=== PATIENT | male | born 1965 | race African-American/Black ===

== ENCOUNTER 2019-09-22 14:15 | Emergency (ER) | payer BC, SELFPAY ==
--- NOTE | ~2019-09-22 | XR_ITS ---
EXAMINATION: XR knee RT min 4V DATE: 09/22/2019 15:05 INDICATION: Right knee pain and swelling. TECHNIQUE: 4 views of right knee were obtained. COMPARISON: Right knee radiographs 12/16/2017 FINDINGS: Bone alignment is normal. No fracture. There is mild tricompartmental osteoarthritis. No kn ee joint effusion. IMPRESSION: 1. Mild right knee osteoarthritis. Reviewed, dictated and finalized at location A.
[2019-09-22 14:20] VITALS: BP 123/82; PULSE 100; RESP 20; TEMP 36.6; O2SAT 98
--- NOTE | 2019-09-22 15:28 | ED.LOWEXIN ---
HPI - Extremity Injury (Lower) General Chief Complaint: Extremity Injury, Lower Stated Complaint: right knee injury Time Seen by Provider: 09/22/19 15:00 Source: patient Mode of arrival: ambulatory Limitations: no limitations History of Present Illness HPI Narrative: This is a 53-year-old male that presents the emergency department for right knee pain x4 days. Reports a twisting injury to the knee. Reports since he has had pain and swelling of the knee. Denies decreased range of motion or numbness. Related Data Home Medications Medication Instructions Recorded Confirmed furosemide 40 mg PO DAILY 09/22/19 glimepiride 1 mg PO DAILY 09/22/19 glycopyrrolate 20 mg PO BID 09/22/19 metformin 1,000 mg PO BID 09/22/19 pantoprazole 40 mg PO DAILY 09/22/19 pioglitazone 45 mg PO BID 09/22/19 Allergies Allergy/AdvReac Type Severity Reaction Status Date / Time No Known Allergies Allergy Unverified 09/22/19 14:26 Review of Systems Review of Systems: Narrative: CONSTITUTIONAL: Denies fever MUSCULOSKELETAL: Reports joint pain, and myalgia. NEUROLOGIC: Denies numbness, or weakness. All systems reviewed & are unremarkable except as noted in HPI and below PMFSH Past Medical History Medical History (Updated 09/22/19 @ 15:33 by Natty Nj PA-C) History of diabetes mellitus History of gastroesophageal reflux (GERD) Social History Social History Gender identity (if verbalized by the patient): Male Exam Narrative: Exam Narrative: GENERAL: Well-appearing, well-nourished, and in no acute distress. HEAD: Normocephalic, atraumatic. EYES: EOMI. EXTREMITIES: Normal range of motion. No edema or obvious deformity. No erythema or warmth. Normal sensation. Normal DP pulses SKIN: Warm, dry, no rash. NEURO: No focal deficits. Alert and oriented x3. PSYCH: Normal mood and affect Course Vital Signs Vital signs: Vital Signs Temperature 97.8 F 09/22/19 14:20 Pulse Rate 100 09/22/19 14:20 Respiratory Rate 20 09/22/19 14:20 Blood Pressure 123/82 09/22/19 14:20 Pulse Oximetry 98 09/22/19 14:20 Temperature 97.8 F 09/22/19 14: Pulse Rate 100 09/22/19 14:20 Respiratory Rate 20 09/22/19 14:20 Blood Pressure 123/82 09/22/19 14:20 Pulse Oximetry 98 09/22/19 14:20 MDM - Extremity Injury (Lower) MDM Narrative Medical decision making narrative: Patient presents the emergency department for right knee pain after a twisting injury 4 days ago. Right knee x-rays without acute findings. Patient given an Shawn wrap and crutches. Was instructed on care of knee sprain. Is to follow-up with orthopedics. Was given warnings to return to the ER Imaging Data Radiologist's impression: ITS Impressions Knee X-Ray 09/22/19 15:07 IMPRESSION: 1. Mild right knee osteoarthritis. Critical Care Time Critical Care Time Critical Care Time: No Discharge Plan Discharge Clinical Impression: Acute pain of right knee Patient Disposition: Home, Self-Care Condition: Stable Instructions: Knee Sprain (ED) Additional Instructions: Return to the emergency department if you experience fever, redness and swelling of your leg, or any other symptoms that are concerning to you Wear SHAWN wrap and use crutches. No weight on the affected leg until able to bear weight without pain. Ice and elevate extremity. Tylenol or ibuprofen as needed for pain Follow up with orthopedics for further care Prescriptions: No Action furosemide 40 mg tablet 40 mg PO DAILY RF: 0 pioglitazone 45 mg tablet 45 mg PO BID RF: 0 glimepiride 1 mg tablet 1 mg PO DAILY RF: 0 pantoprazole 40 mg tablet,delayed release (DR/EC) 40 mg PO DAILY RF: 0 metformin 500 mg tablet extended release 24 hr 1,000 mg PO BID RF: 0 glycopyrrolate 2 mg tablet 20 mg PO BID RF: 0 Follow-up/Referrals: Ole Barillas MD [Physician] - 1 Week Pantera Seth MD [Primary Care Provid
[2019-09-22 16:16] VITALS: PULSE 88; RESP 20; O2SAT 100
== END 2019-09-22 16:18 | disposition home or self-care (01) ==
PROVIDERS: Emergency Provider Emergency Medicine; PCP Family Medicine Adolescent Medicine
DX: M25.561 Pain in right knee (principal); E11.9 Type 2 diabetes mellitus without complications; Z79.84 Long term (current) use of oral hypoglycemic drugs; K21.9 Gastro-esophageal reflux disease without esophagitis
CPT/HCPCS: 73564; 99283

== ENCOUNTER 2020-06-07 04:45 | Emergency (ER) | payer OTHER, BC, SELFPAY ==
--- NOTE | ~2020-06-07 | XR_ITS ---
EXAMINATION: XR chest 1V portable DATE: 06/07/2020 06:20 INDICATION: Lower limb swelling TECHNIQUE: frontal view of the chest was obtained. COMPARISON: Chest radiograph dated 05/21/2012 FINDINGS: The lungs remain clear with no focal airspace opacities, pulmonary edema, pleural effusion or pneumot horax. The cardiomediastinal silhouette is normal. There are bridging osteophytes at multiple levels in the spine, consistent with diffuse idiopathic skeletal hyperostosis (DISH). IMPRESSION: 1. No acute cardiopulmonary disease. Reviewed, dictated and finalized at location A.
[2020-06-07 04:50] VITALS: BP 150/92; PULSE 81; RESP 20; TEMP 36.7; O2SAT 99
--- NOTE | 2020-06-07 05:21 | ECG_ITS ---
Measurements Intervals Page Rate: 74 P: 57 MT: 208 QRS: -34 QRSD: 102 T: 72 QT: 376 QTc: 417 Interpretive Statements SINUS RHYTHM WITH FIRST DEGREE AV BLOCK LEFT AXIS DEVIATION VOLTAGE CRITERIA FOR LVH BORDERLINE R WAVE PROGRESSION, ANTERIOR LEADS ABNORMAL ECG Electronically Signed On 06-07-2020 7:10:55 CDT by Dakota Saldivar D.O.
--- NOTE | 2020-06-07 05:45 | ED.EXTPRO ---
HPI - Extremity Problem General Chief complaint: Extremity Problem,Nontraumatic Stated complaint: calves swollen/ rash Time Seen by Provider: 06/07/20 05:11 Source: patient and RN notes reviewed Limitations: no limitations History of Present Illness HPI Narrative: Patient is 54 years old -[place] male noticed some swelling and rash of the lower legs bilaterally 1 day ago. Patient denies any fever, chills, nausea, vomiting, chest pain, shortness of breath, headache, back pain or abdominal pain. History of diabetes, currently patient on Lasix of unknown reason. Related Data Home Medications Medication Instructions Recorded Confirmed furosemide 40 mg PO DAILY 09/22/19 glimepiride 1 mg PO DAILY 09/22/19 glycopyrrolate 20 mg PO BID 09/22/19 metformin 1,000 mg PO BID 09/22/19 pantoprazole 40 mg PO DAILY 09/22/19 pioglitazone 45 mg PO BID 09/22/19 Allergies Allergy/AdvReac Type Severity Reaction Status Date / Time No Known Allergies Allergy Unverified 09/22/19 14:26 Review of Systems Review of Systems: Narrative: CONSTITUTIONAL: Denies fever, chills, or sweats. EYES: Denies visual changes, redness, or discharge. ENT: Denies rhinorrhea, congestion, sore throat, or otalgia. CARDIOVASCULAR: Denies chest pain, palpitations, or edema. RESPIRATORY: Denies cough or dyspnea. GASTROINTESTINAL: Denies abdominal pain, nausea, vomiting, or diarrhea. GENITOURINARY: Denies dysuria or hematuria. SKIN: Denies rash or itching. MUSCULOSKELETAL: Denies back pain, joint pain, or myalgia. NEUROLOGIC: Denies headache, numbness, or weakness. PSYCHIATRIC: Denies anxiety or depression. PMFSH Past Medical History Medical History History of diabetes mellitus History of gastroesophageal reflux (GERD) Social History Social History Gender identity (if verbalized by the patient): Male Exam Narrative: Exam Narrative: General appearance: Well-developed, well-nourished Skin: Normal color 2+ edema bilaterally more on the right side, with slight redness, no warmth, no discharge, no tenderness the skin is shiny. Head: Normocephalic, nontraumatic Eyes: Clear conjunctiva ENT: Oropharynx normal, ears normal, nose normal Neck: Supple, nontender Chest and respiratory: Airway patent, no respiratory distress, no accessory muscle use Heart: Regular rate/rhythm Abdomen: Soft, nontender, no organomegaly, quiet bowel sounds Vascular: Normal peripheral pulses, normal capillary refill. 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, no gross motor deficit Course Course Emergency Course: Stable Vital Signs Vital signs: Vital Signs Temperature 36.7 C 06/07/20 04:50 Pulse Rate 81 06/07/20 04:50 Respiratory Rate 20 06/07/20 04:50 Blood Pressure 150/92 H 06/07/20 04:50 Pulse Oximetry 99 06/07/20 04:50 Temperature 36.7 C 06/07/20 04:50 Pulse Rate 81 06/07/20 04:50 Respiratory Rate 20 06/07/20 04:50 Blood Pressure 150/92 H 06/07/20 04:50 Pulse Oximetry 99 06/07/20 04:50 MDM - Extremity (Nontraumatic) MDM Narrative Medical decision making narrative: Leg edema high likely secondary to dependent edema, patient works in a standing and sitting position for longer hours. Labs, chest x-ray ordered to rule out the possibility of congestive heart failure, liver failure or kidney failure. Further plan to follow Differential Diagnosis Differential diagnosis: Likely lower extremity edema and other (Chronic stasis dermatitis) Lab Data Result diagrams: 06/07/20 05:37
[2020-06-07 05:48] LABS: Basophils Percent Auto 0.5 % (0.2-1.2); Eosinophils Absolute Auto 0.4 K/mm3 (0-0.3); Eosinophils Percent Auto 4.5 % (0-4.4); Immature Granulocyte Absolute 0.02 K/mm3 (0.00-0.031); Immature Granulocyte Percent A 0.2 % (0-0.5); Lymphocytes Absolute Auto 1.96 K/mm3 (0.9-3.2); Lymphocytes Percent Auto 24.4 % (18.3-44.2); Mean Corpuscular HGB Conc 32.6 g/dl (32-36); Mean Corpuscular Hemoglobin 29.2 pg (26-34); Mean Corpuscular Volume 89.6 fl (80-100); Mean Platelet Volume 8.8 fl (7.4-10.4); Monocytes Absolute Auto 0.9 K/mm3 (0.1-0.6); Monocytes Percent Auto 11.5 % (2.6-8.5); Neutrophils Absolute Auto 4.7 K/mm3 (1.3-6.7); Neutrophils Percent Auto 58.9 % (45.5-73.1); Platelet Count Result 295 k/mm3 (150-375); Red Cell Distribution Width 13.2 % (11.5-14.5)
[2020-06-07 06:00] LABS: Alanine Aminotransferase 21 U/L (4-50); Albumin Level 4.3 g/dL (3.5-5.1); Alkaline Phosphatase 73 U/L (38-126); Anion Gap 5 mmol/L (8-16); Aspartate Amino Transferase 26 U/L (17-59); Bilirubin,Total 0.9 mg/dL (0.2-1.3); Blood Urea Nitrogen 19 mg/dL (9-20); Calcium 9.1 mg/dL (8.4-10.2); Carbon Dioxide 31 mmol/L (22-30); Chloride 105 mmol/L (98-107); Estimated CRCL calculation 99 ml/min; Estimated Glomerular Filt Rate > 60; Glucose 114 mg/dL (75-110); Sodium 141 mmol/L (137-145)
[2020-06-07 06:08] LABS: NT Pro B Type Natriuretic Pept 45 PG/ML (5-100)
[2020-06-07 06:34] VITALS: BP 153/88; PULSE 75; RESP 20; O2SAT 100
== END 2020-06-07 06:46 | disposition home or self-care (01) ==
PROVIDERS: Emergency Provider Emergency Medicine; PCP Family Medicine Adolescent Medicine
DX: R60.0 Localized edema (principal); I87.2 Venous insufficiency (chronic) (peripheral); E11.9 Type 2 diabetes mellitus without complications; K21.9 Gastro-esophageal reflux disease without esophagitis; Z79.84 Long term (current) use of oral hypoglycemic drugs; I44.0 Atrioventricular block, first degree; R94.31 Abnormal electrocardiogram [ECG] [EKG]
CPT/HCPCS: 36415; 71045; 80053; 83880; 85025; 93005; 99283

== ENCOUNTER 2020-06-27 08:50 | Emergency (ER) | payer OTHER, BC, SELFPAY ==
--- NOTE | ~2020-06-27 | XR_ITS ---
XR knee LT min 4V DATE: 06/27/2020 09:11 INDICATION: Left knee anterior swelling, pain after injury TECHNIQUE: 4 views COMPARISON: 06/12/2012 left knee FINDINGS: No fracture or dislocation or joint effusion is evident. No periosteal reaction or bone destruction. Interspaces are preserved. No radiopaque intra-articular loose body or chondrocalcinosis. Prominent superior pole patellar enthesopathy at the quadriceps tendon insertion. IMPRESSION: No fracture or dislocation or joint effusion Reviewed, dictated and finalized at location A.
[2020-06-27 08:55] VITALS: BP 138/89; PULSE 89; RESP 18; TEMP 36.4; O2SAT 96
--- NOTE | 2020-06-27 09:11 | ED.LOWEXIN ---
HPI - Extremity Injury (Lower) General Chief Complaint: Extremity Injury, Lower <Natty Nj PA-C - Last Filed: 06/27/20 09:39> Stated Complaint: knee pain <KELLI Sullivan Last Filed: 06/27/20 09:39> Time Seen by Provider: 06/27/20 09:02 <KELLI Sullivan Last Filed: 06/27/20 09:39> Source: patient <KELLI Sullivan Last Filed: 06/27/20 09:39> Mode of arrival: ambulatory <KELLI Sullivan Last Filed: 06/27/20 09:39> Limitations: no limitations <KELLI Sullivan Last Filed: 06/27/20 09:39> History of Present Illness HPI Narrative: This is a 54 year old male that presents to the ER for left knee injury sustained yesterday. Reports he was going to stand up at his desk and hit his knee on it. Reports since he has had pain below the knee. Worse with movement and relieved with rest. Reports decreased ROM due to pain. Denies fever, erythema, edema or numbness. <KELLI Sullivan Last Filed: 06/27/20 09:39> Related Data Home Medications: Home Medications Medication Instructions Recorded Confirmed furosemide 40 mg PO DAILY 09/22/19 glimepiride 1 mg PO DAILY 09/22/19 glycopyrrolate 20 mg PO BID 09/22/19 metformin 1,000 mg PO BID 09/22/19 pantoprazole 40 mg PO DAILY 09/22/19 pioglitazone 45 mg PO BID 09/22/19 <KELLI Sullivan Last Filed: 06/27/20 09:39> Allergies/Adverse Reactions: Allergies Allergy/AdvReac Type Severity Reaction Status Date / Time No Known Allergies Allergy Verified 06/27/20 08:58 <KELLI Sullivan Last Filed: 06/27/20 09:39> Review of Systems Review of Systems: Narrative: CONSTITUTIONAL: Denies fever SKIN: Denies rash MUSCULOSKELETAL: Reports joint pain, and myalgia. NEUROLOGIC: Denies numbness <KELLI Sullivan Last Filed: 06/27/20 09:39> All systems reviewed & are unremarkable except as noted in HPI and below <Natty Nj PA-C - Last Filed: 06/27/20 09:39> PMFSH Past Medical History Medical History: Medical History History of diabetes mellitus History of gastroesophageal reflux (GERD) <KELLI Sullivan Last Filed: 06/27/20 09:39> Social History Social History: Social History Gender identity (if verbalized by the patient): Male <KELLI Sullivan Last Filed: 06/27/20 09:39> Exam Narrative: Exam Narrative: GENERAL: Well-appearing, well-nourished, and in no acute distress. HEAD: Normocephalic, atraumatic. EYES: EOMI. EXTREMITIES: Normal range of motion, except mildly decreased active ROM in the left knee due to pain. No edema, erythema or obvious deformity. Tender to palpation of the tibial tuberosity. Normal DP pulses. Normal sensation SKIN: Warm, dry, no rash. NEURO: No focal deficits. Alert and oriented x3. PSYCH: Normal mood and affect <KELLI Sullivan Last Filed: 06/27/20 09:39> Course Vital Signs Vital signs: Vital Signs Temperature 36.4 C 06/27/20 08:55 Pulse Rate 89 06/27/20 08:55 Respiratory Rate 18 06/27/20 08:55 Blood Pressure 138/89 06/27/20 08:55 Pulse Oximetry 96 06/27/20 08:55 Temperature 36.4 C 06/27/20 08:55 Pulse Rate 89 06/27/20 08:55 Respiratory Rate 18 06/27/20 08:55 Blood Pressure 138/89 06/27/20 08:55 Pulse Oximetry 96 06/27/20 08:55 <KELLI Sullivan Last Filed: 06/27/20 09:39> Vital Signs Temperature 36.4 C 06/27/20 08:55 Pulse Rate 89 06/27/20 08:55 Respiratory Rate 18 06/27/20 08:55 Blood Pressure 138/89 06/27/20 08:55 Pulse Oximetry 96 06/27/20 08:55 Temperature 36.4 C 06/27/20 08:55 Pulse Rate 89 06/27/20 08:55 Respiratory Rate 18 06/27/20 08:55 Blood Pressure 138/89 06/27/20 08:55 Pulse Oximetry 96 06/27/20 08:55 <Marcie Mclean MD - Last Filed: 06/27/20 13:28> [facility]
--- NOTE | 2020-06-27 09:17 | PC.NURSE ---
patient back from XR
== END 2020-06-27 09:45 | disposition home or self-care (01) ==
PROVIDERS: Emergency Provider Emergency Medicine; PCP Family Medicine Adolescent Medicine
DX: S80.02XA Contusion of left knee, initial encounter (principal); E11.9 Type 2 diabetes mellitus without complications; K21.9 Gastro-esophageal reflux disease without esophagitis; Z79.84 Long term (current) use of oral hypoglycemic drugs; W22.8XXA Striking against or struck by other objects, initial encounter
CPT/HCPCS: 73564; 99283

== ENCOUNTER 2022-04-01 11:34 | Observation (INO) | payer OTHER, BC, SELFPAY ==
--- NOTE | ~2022-04-01 | XR_ITS ---
EXAMINATION: XR md joint inject/asp w image DATE: 04/02/2022 08:51 INDICATION: Left ankle effusion and pain and swelling. TECHNIQUE: A time-out was performed to verify the patient's name, date of , and procedure to b e performed. The procedure including the risks, benefits, and alternatives was discussed with the pat ient. Risks discussed included bleeding and infection. The patient understood the risks and agreed to proceed. The skin overlying the left ankle joint was prepped and draped in usual sterile fashion. Anesthetic was administered with 1% lidocaine subcutaneously. An 18 G needle was advanced under fluo roscopic guidance into the joint. Fluid was aspirated. The needle was removed and the entry site was cleaned and dressed. There were no immediate complications. Fluoroscopy exposure time was 0.1 minut es. The total number of images was 1. FINDINGS: Real-time fluoroscopy demonstrates the needle in the left ankle joint. IMPRESSION: 1. Fluoroscopy guided left ankle joint aspiration yielding 3 mL yellow fluid. Reviewed, dictated and finalized at location A. BIT PREPARATOR
--- NOTE | ~2022-04-01 | XR_ITS ---
EXAM: XR ankle LT min 3V DATE: 04/01/2022 15:32 HISTORY: Pt rolled ankle 2 months ago. Pain/swelling - lateral/medial . COMPARISON: 06/11/2012. FINDINGS: Normal mineralization. Minimal cortical step-off at the talar dome. Lytic lesions in the d istal tibia, medial talus, and lateral talus. Subchondral sclerosis. Achilles and plantar enthesopath y Heterotopic bone formation versus osseous fragmentation about the ankle joint. Large ankle joint ef fusion. Considerable soft tissue swelling about the ankle. IMPRESSION: Mildly depressed fracture of the talar dome. Large erosions versus large subcortical cyst s in the distal tibia and talus, with heterotopic bone formation versus osseous fragmentation, a larg e ankle joint effusion, and considerable soft tissue swelling. These findings may represent inflammat ory, neuropathic, or septic arthropathy. Reviewed, dictated and finalized at [facility]. [place] IMPRESSION: Mildly depressed fracture of the talar dome. Large erosions versus large subcortical cysts in the distal tibia and talus, with heterotopic bone fo rmation versus osseous fragmentation, a large ankle joint effusion, and conside rable soft tissue swelling. These findings may represent inflammatory, neuropat hic, or septic arthropathy.
--- NOTE | ~2022-04-01 | CT_ITS ---
CT OF left ankle EXAMINATION: CT ankle LT wo con DATE: 04/01/2022 16:28 INDICATION: TECHNIQUE: Computed tomography (CT) of the left ankle was performed without intravenous contrast. Aut omated exposure control and iterative reconstruction technique were employed. The dose-length product was 408.07 mGy-cm. COMPARISON: X-ray left ankle, same date FINDINGS: Limitations: None Bones: Erosion on the undersurface of the cuboid, with sclerotic margins. Large subchondral cysts in the distal talus with depression of the cortical surface. Large subcortical cystic lesion in the mid and lateral talus with cortical depression of the mid and lateral talar dome. Large cystic lesion in the anteromedial talus. Small subcortical cysts in the medial and lateral aspect of the distal tibia. Tibiotalar joint space narrowing. Scattered ossific fragments in the joint space. Soft Tissues: Dermal thickening and subcutaneous edema about the ankle. Large No definite ulceration/ soft tissue defect. The flexor and extensor tendons are grossly intact. Fluid: Large ankle joint effusion. IMPRESSION: Significant left ankle abnormalities, possibly representing posttraumatic osteoarthritis, with early cortical collapse overlying large subcortical cysts in the distal tibia and lateral talus, a large an kle joint effusion, and considerable surrounding soft tissue swelling/edema. Infection cannot be excl uded and should remain in the differential. Reviewed, dictated and finalized at location K. H PIECER IMPRESSION: Significant left ankle abnormalities, possibly representing posttraumatic osteo arthritis, with early cortical collapse overlying large subcortical cysts in th e distal tibia and lateral talus, a large ankle joint effusion, and considerabl e surrounding soft tissue swelling/edema. Infection cannot be excluded and shou ld remain in the differential.
--- NOTE | ~2022-04-01 | US_ITS ---
EXAMINATION: US venous doppler [facility] DATE: 04/02/2022 09:12 INDICATION: Lower limb swelling TECHNIQUE: Grayscale ultrasound images without and with compression and Doppler ultrasound images of the bilateral lower extremity veins were obtained. COMPARISON: None. FINDINGS: The visualized portions of right common femoral vein, profunda (deep) femoral vein, femoral vein, pop liteal vein, posterior tibial veins, peroneal veins, gastrocnemius vein and greater saphenous vein ou tflow are patent. The visualized portions of left common femoral vein, profunda femoral vein, femoral vein, popliteal v ein, posterior tibial veins, peroneal veins, gastrocnemius vein and greater saphenous vein outflow ar e patent. IMPRESSION: 1. No deep venous thrombosis in either lower limb. Reviewed, dictated and finalized at location B. RENTAL CLERK
[2022-04-01 12:26] VITALS: BP 151/84; PULSE 81; RESP 15; TEMP 37; O2SAT 99
--- NOTE | 2022-04-01 14:22 | ED.LOWEXIN ---
HPI - Extremity Injury (Lower) General Chief Complaint: Extremity Injury, Lower Stated Complaint: left leg swelling, injury 4 mos ago Time Seen by Provider: 04/01/22 14:21 History of Present Illness HPI Narrative: Patient is a 56-year-old male presenting with left ankle swelling. Patient states that he injured his left ankle at work several months ago. Since that time he has been treating it with aspirin but the pain has continued. States that the pain improves whenever he rests it. States that over the last couple of days his left ankle has become much more swollen. States it is painful to ambulate but not to move it. He denies erythema or warmth. No fevers or chills. No new recent injuries. No further complaints. Related Data Home Medications Medication Instructions Recorded Confirmed amlodipine 10 mg tablet 10 mg PO DAILY 04/01/22 04/01/22 glycopyrrolate 2 mg tablet 4 mg PO BID 04/01/22 04/01/22 metformin 500 mg tablet,extended 1,000 mg PO BID 04/01/22 04/02/22 release 24 hr pantoprazole 40 mg tablet,delayed 40 mg PO DAILY 04/01/22 04/01/22 release Allergies Allergy/AdvReac Type Severity Reaction Status Date / Time No Known Allergies Allergy Verified 04/01/22 14:32 Review of Systems Review of Systems: All systems reviewed & are unremarkable except as noted in HPI and below PMFSH Past Medical History Medical History (Updated 04/03/22 @ 19:13 by Catina Finn MD) Charcot ankle Diffuse idiopathic skeletal hyperostosis Noted on x-ray in May 2020. Gastroesophageal reflux disease Hyperlipidemia Hypertension Obstructive sleep apnea Type 2 diabetes mellitus Surgical History Surgical History No history of previous surgery Family History Family History Father Acute myocardial infarction Other Paternal family history of congestive heart failure Acute myocardial infarction Paternal family hx Paternal family history of cerebrovascular event Social History Social History Social History: Surrogate medical decision maker: Lucio Cornell, spouse. Code status: Full code. Smoking status: Never smoker Second hand tobacco smoke exposure: No Alcohol intake: never Substance use: never Lack of Transportation: No Lack of Food: Never True Current Housing: I Have Housing Concerned About Future Housing: No Difficulty Paying Gas/Electric Bills: No Difficulty Paying for Meds: No Currently Unemployed: No Education: Bachelor's Degree Difficulty w/ Childcare or Family Care: No Additional living arrangements comments: Lives with spouse and children in [place]. Additional occupation/education comments: [employer]. Spiritual care concerns: No Exam Narrative: GENERAL: Well-appearing, well-nourished, and in no acute distress. HEAD: Normocephalic, atraumatic. EYES: PERRLA and EOMI. ENT: Nares clear, no rhinorrhea or epistaxis. Mucous membranes moist. NECK: Supple. CHEST: Clear to auscultation. No respiratory distress. HEART: Regular rate and rhythm. No murmur heard. Normal peripheral pulses. ABDOMEN: Soft, nontender, nondistended, normal active bowel sounds. EXTREMITIES: Normal range of motion. Left ankle with circumferential swelling, tender over both medial and lateral malleoli, DP/PT pulses 2+, brisk cap refill, ROM intact, denies exacerbation of pain with movement. No overlying erythema or warmth SKIN: Warm, dry, no rash. NEURO: No focal deficits. Alert and oriented x3. PSYCH: Normal mood and affect. Course Vital Signs Vital signs: Vital Signs Temperature 98.6 F 04/01/22 12:26 Pulse Rate 81 04/01/22 12:26 Respiratory Rate 15 04/01/22 12:26 Blood Pressure 151/84 H 04/01/22 12:26 Pulse Oximetry 99 04/01/22 12:26 Oxygen Delivery Room Air 04/01/22 12:26
[2022-04-01] MEDS: ACETAMINOPHEN 500 MG TABLET 1000 MG PO (15:45)
[2022-04-01] MEDS: IBUPROFEN 400 MG TABLET 800 MG PO (15:46)
[2022-04-01 17:08] LABS: Basophils Percent Auto 0.3 % (0.2-1.2); Eosinophils Absolute Auto 0.4 K/mm3 (0-0.3); Eosinophils Percent Auto 3.3 % (0-4.4); Hematocrit 39.6 % (42.0-52.0); Hemoglobin 13.1 g/dL (14.0-18.0); Immature Granulocyte Absolute 0.04 K/mm3 (0.00-0.031); Immature Granulocyte Percent A 0.4 % (0-0.5); Lymphocytes Absolute Auto 2.89 K/mm3 (0.9-3.2); Lymphocytes Percent Auto 26.3 % (18.3-44.2); Mean Corpuscular HGB Conc 33.1 g/dl (32-36); Mean Corpuscular Hemoglobin 29.2 pg (26-34); Mean Corpuscular Volume 88.2 fl (80-100); Mean Platelet Volume 8.8 fl (7.4-10.4); Monocytes Absolute Auto 0.8 K/mm3 (0.1-0.6); Monocytes Percent Auto 6.9 % (2.6-8.5); Neutrophils Absolute Auto 6.9 K/mm3 (1.3-6.7); Neutrophils Percent Auto 62.8 % (45.5-73.1); Platelet Count Result 404 k/mm3 (150-375); Red Blood Count 4.49 M/mm3 (4.6-6.20)
[2022-04-01 17:09] VITALS: BP 119/76; PULSE 86; RESP 20; O2SAT 100
[2022-04-01 17:25] LABS: Alanine Aminotransferase 20 U/L (6-50); Albumin Level 4.1 g/dL (3.5-5.1); Alkaline Phosphatase 153 U/L (38-126); Anion Gap 6 mmol/L (8-16); Aspartate Amino Transferase 21 U/L (17-59); Bilirubin,Total 0.9 mg/dL (0.2-1.3); Blood Urea Nitrogen 16 mg/dL (9-20); CRP 3.8 mg/dL (<1.0); Carbon Dioxide 30 mmol/L (22-30); Chloride 100 mmol/L (98-107); Estimated CRCL calculation 81 ml/min; Estimated Glomerular Filt Rate > 60; Glucose 250 mg/dL (65-110); Potassium 4.4 mmol/L (3.4-5.0); Sodium 136 mmol/L (137-145)
[2022-04-01 17:41] LABS: Erythrocyte Sedimentation Rate 63 mm/hr (0-20)
[2022-04-01 18:55] LABS: Uric Acid 9.4 mg/dL (3.5-8.5)
--- NOTE | 2022-04-01 19:15 | PM.IMHP ---
H&P: HPI History of Present Illness Date/Time: 04/01/22 19:15 Chief Complaint: Left foot and ankle pain. Narrative: This is a very pleasant 56-year-old male with hypertension, hyperlipidemia, diabetes, and GERD who presented to the emergency department from home for evaluation of left foot and ankle pain. Patient present bites the following history. Several months ago at work it sounds as though he had an inversion injury of the left ankle. He was seen by occupational health on several occasions and apparently had prior imaging which to his knowledge was unremarkable. He continues to work however he has pain in that foot and ankle each day and he takes aspirin or Tylenol several times each day in order to get through his shift. Unfortunately it it not getting better and continues to get worse. He has ever increasing edema in that left foot, ankle and lower leg. It is to the point where he is having difficulties walking due to the pain and swelling. He does not typically have swelling in his legs though he has mild right leg edema on exam today. He denies paresthesias, skin color, and temperature changes of the affected extremity. He has not had fever, chills, or sweats. No other systemic symptoms. No personal or family history of venous thromboembolism. He was afebrile on arrival to the emergency department today. Pertinent labs include white blood cell count of 11.0, ESR 63, glucose 250, uric acid 9.4, CRP 3.8. Imaging of the ankle showed significant abnormalities, possibly representing posttraumatic osteoarthritis, and he is being admitted in this setting for further workup and orthopedic consultation. Review of Systems Review of Systems: Twelve systems were reviewed. No recent cold or flu symptoms. No chest pain, pleuritic pain, palpitations, or shortness of breath. He believes his diabetes is well controlled, and fact he no longer checks his glucose at home. He denies neuropathy symptoms. Except as documented, all other systems were reviewed and are negative. [facility] Past Medical History Medical History (Updated 04/01/22 @ 21:25 by Dariela Ramirez PA-C) Diffuse idiopathic skeletal hyperostosis Noted on x-ray in May 2020. Gastroesophageal reflux disease Hyperlipidemia Hypertension Obstructive sleep apnea Type 2 diabetes mellitus Surgical History Surgical History (Updated 04/01/22 @ 21:20 by Dariela Ramirez PA-C) No history of previous surgery Family History Family History Father Acute myocardial infarction Other Paternal family history of congestive heart failure Acute myocardial infarction Paternal family hx Paternal family history of cerebrovascular event Social History Social History (Updated 04/01/22 @ 21:21 by Dariela Ramirez PA-C) Social History: Surrogate medical decision maker: Lucio Cornell, spouse. Code status: Full code. Smoking status: Never smoker Alcohol intake: never Substance use: never Additional living arrangements comments: Lives with spouse and children in [place]. Additional occupation/education comments: [employer]. Meds Home Medications and Allergies Home Medications Medication Instructions Recorded Confirmed Type glimepiride 2 mg tablet 2 mg PO DAILY #30 tabs 12/11/21 04/01/22 Rx atorvastatin 10 mg tablet 10 mg PO DAILY #90 tabs 02/07/22 04/01/22 Rx amlodipine 10 mg tablet 40 mg PO DAILY 04/01/22 04/01/22 History glycopyrrolate 2 mg tablet 4 mg PO DAILY 04/01/22 04/01/22 History metformin 500 mg tablet,extended 2,000 mg PO BID 04/01/22 04/01/22 History release 24 hr pantoprazole 40 mg tablet,delayed 40 mg PO DAILY 04/01/22 04/01/22 History release Allergies Allergy/AdvReac Type Severity Reaction Status Date / Time No Known Allergies Allergy Verified 04/01/22 14:32 Vital Signs Vital Signs - 24 hr 04/01/22 12:26 04/01/22 17:09 Temperature 98.6 F
[2022-04-01 19:48] LABS: Influenza A QL RT-PCR Negative (Negative); Influenza B QL RT-PCR Negative (Negative); RSV RNA, RT-PCR Negative (Negative); SARS-CoV-2 RNA PCR Negative
[2022-04-01 21:31] VITALS: BP 150/99; PULSE 82; RESP 18; TEMP 36.3; O2SAT 97; BMI 32.3
[2022-04-01 21:53] LABS: Glucose Point of Care 278 mg/dl (65-105)
[2022-04-01 23:30] VITALS: O2SAT 98
[2022-04-02 05:27] VITALS: BP 149/87; PULSE 80; RESP 18; TEMP 36.6; O2SAT 98
--- NOTE | 2022-04-02 06:22 | PC.NURSE ---
Patient slept throughout night. Denied any need for pain medication. VSS and patient remained NPO per MD orders since midnight. No other changes reported or observed were noted.
--- NOTE | 2022-04-02 06:33 | PCRCNOTE ---
patient refused use of hospital unit and stated that he has not worn his home unit in years
--- NOTE | 2022-04-02 07:09 | PM.CNOR ---
Assessment and Plan Assessment and plan (1) Left ankle swelling: Code(s): M25.472 - Effusion, left ankle Status: Acute Plan 56-year-old male who has significant bony changes in in the left ankle as well as the foot. First concern is that he may have an underlying infection. He is scheduled to have an aspiration ankle done this morning with the fluid being sent off for cell count with differential as well as cultures. Changes on the CT and the x-ray could just be demonstrating rather severe osteoarthritis in the ankle. He is a diabetic and may be developing a Charcot ankle. Obviously infection needs to be ruled out at 1st. We will keep patient in bed. We do not want therapy to be ambulating him at this point until definitive diagnosis is done. We should have results the cell count as well as the aspiration Gram stain later this morning and will check up on his at that time. History of Present Illness HPI Consult date: 04/02/22 Consult reason: joint pain Chief complaint: possible septic ankle joint Narrative: 56-year-old male who came to the emergency room last night due to pain and swelling in the left ankle and foot. He states 4 months ago he twisted his ankle at work and has been having symptoms in the ankle since that time. He has had some swelling and some pain. He was seen in [place] by physicians. He states he did have x-rays done which show no evidence of fracture. He has been working the entire time. 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 He does state he had a history of gout in the past but only 1 episode a long time ago. He takes no medicine for this. He is a diabetic. Patient states that 1 week ago he started developing more swelling in the ankle and also swelling in the foot at this time. Prior to this was swelling in the. He does not recall any injury trauma you a week ago this started all his symptoms.Patient does state that he has not been sick recently no fever chills. Patient had x-rays as well as a CT done in the emergency room which showed large erosive changes of the talus as well as the distal tibia. 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 CT scan does suggest some collapse of the talar dome due to large cystic changes within it. He also has cystic changes to the midfoot noted as well. [facility] Past Medical History Medical History (Updated 04/01/22 @ 21:25 by Dariela Ramirez PA-C) Diffuse idiopathic skeletal hyperostosis Noted on x-ray in May 2020. Gastroesophageal reflux disease Hyperlipidemia Hypertension Obstructive sleep apnea Type 2 diabetes mellitus Surgical History Surgical History (Updated 04/01/22 @ 21:20 by Dariela Ramirez PA-C) No history of previous surgery Family History Family History Father Acute myocardial infarction Other Paternal family history of congestive heart failure Acute myocardial infarction Paternal family hx Paternal family history of cerebrovascular event Social History Social History (Updated 04/01/22 @ 21:21 by Dariela Ramirez PA-C) Social History: Surrogate medical decision maker: Lucio Cornell, spouse. Code status: Full code. Smoking status: Never smoker Second hand tobacco smoke exposure: No Alcohol intake: never Substance use: never Lack of Transportation: No Lack of Food: Never True Current Housing: I Have Housing Concerned About Future Housing: No Difficulty Paying Gas/Electric Bills: No Difficulty Paying for Meds: No Currently Unemployed: No Education: Bachelor's Degree Difficulty w/ Childcare or Family Care: No Additional living arrangements comments: Lives with spouse and children in [place]. Additional occupation/education comments: [employer]. Spiritual care concerns: No Meds Home Medications and Allergies Home
[2022-04-02 08:07] LABS: Hematocrit 35.2 % (42.0-52.0); Hemoglobin 11.8 g/dL (14.0-18.0); Mean Corpuscular HGB Conc 33.5 g/dl (32-36); Mean Corpuscular Hemoglobin 28.7 pg (26-34); Mean Corpuscular Volume 85.6 fl (80-100); Mean Platelet Volume 8.8 fl (7.4-10.4); Platelet Count Result 363 k/mm3 (150-375); Red Blood Count 4.11 M/mm3 (4.6-6.20)
[2022-04-02 08:21] LABS: Anion Gap 5 mmol/L (8-16); Blood Urea Nitrogen 21 mg/dL (9-20); Calcium 8.4 mg/dL (8.4-10.2); Carbon Dioxide 27 mmol/L (22-30); Chloride 101 mmol/L (98-107); Estimated CRCL calculation 75 ml/min; Estimated Glomerular Filt Rate > 60; Glucose 191 mg/dL (65-110); Magnesium 1.4 mg/dL (1.6-2.3); Potassium 4.1 mmol/L (3.4-5.0); Sodium 133 mmol/L (137-145)
[2022-04-02 08:35] LABS: Hemoglobin A1C 10.4 % (<5.7)
[2022-04-02 09:23] VITALS: BP 143/87; PULSE 76; RESP 16; TEMP 36.2; O2SAT 97
[2022-04-02 09:31] LABS: Glucose Point of Care 197 mg/dl (65-105)
[2022-04-02 10:00] LABS: Appearance Synovial Fluid Hazy (Clear); Color Synovial Fluid Yellow (Colorless); Crystals Synovial Fluid None Seen (None Seen); Nucleated Cell Synovial Fluid 430 /uL (0-200); Source Synovial Fluid Synovial fluid
[2022-04-02 10:01] LABS: Lymphocytes Synovial Fluid 41 %; Monocytes Synovial Fluid 6 %; Neutrophils Synovial Fluid 16 % (0-25); Other Cells Synovial Fluid 37 %; RBC Synovial Fluid 348 /uL (0-0)
[2022-04-02] MEDS: MAGNESIUM SULF 2 GM/WATER 50ML 2 GM/50 ML BAG IVPB (11:03)
[2022-04-02] MEDS: WATER FOR IRRIGATION, STERILE 1,000 ML BOTTLE 1000 ML (11:04)
[2022-04-02] MEDS: amLODIPine BESYLATE 5 MG TABLET 10 MG PO (11:05)
[2022-04-02] MEDS: GLYCOPYRROLATE 1 MG TABLET 4 MG PO ×2 (11:05→16:15)
[2022-04-02] MEDS: PANTOPRAZOLE 40 MG TABLET PO ×2 (11:05→16:15)
[2022-04-02] MEDS: ATORVASTATIN 10 MG TABLET PO (11:06)
[2022-04-02 12:01] LABS: Glucose Point of Care 177 mg/dl (65-105)
[2022-04-02] MEDS: GLIMEPIRIDE 2 MG TABLET PO (14:01)
[2022-04-02] MEDS: HYDROcodone/acetaminophen (*CRX) 5-325 MG TABLET 1 TAB PO (14:01)
[2022-04-02 14:32] VITALS: BP 132/71; PULSE 76; RESP 17; TEMP 36.2; O2SAT 95
--- NOTE | 2022-04-02 16:07 | PM.IMPN ---
Progress Note: A&P Assessment and Plan (1) Left ankle pain: Code(s): M25.572 - Pain in left ankle and joints of left foot Status: Acute Assessment and Plan: The patient presented to the emergency department for evaluation ongoing and worsening left foot and ankle pain since what sounds like an inversion injury at work several months ago. He has been taking Tylenol an aspirin at home which masks the pain only a small amount. Elevated uric acid concerning for gout. CRP and ESR are also elevated which may be related to arthritis, inflammation, or infection. I am not certain he has a joint infection as there are no real systemic signs or symptoms however white blood cell count is mildly elevated. Could be traumatic arthritis or Charcot foot. Ortho consulted For now we will hold on initiating antibiotics pending joint aspiration (Gram stain, culture, cell count, crystal exam) 04/02/22 Still male fluid analysis negative for crystals Analysis positive for 430 nucleated cells, 348 RBCs, and hazy appearance Patient continues to have normal white blood cell count Orthopedics continue to follow and appreciate recommendations. (2) Left ankle swelling: Code(s): M25.472 - Effusion, left ankle Status: Acute Assessment and Plan: Given his bilateral edema, venous Doppler ultrasounds will be obtained to rule out DVT. Dopplers negative for DVT (3) Type 2 diabetes mellitus: Code(s): E11.9 - Type 2 diabetes mellitus without complications Status: Acute Assessment and Plan: Continue metformin and check hemoglobin A1c. Good glucose control is imperative. (4) Hypertension: Code(s): I10 - Essential (primary) hypertension Status: Acute Assessment and Plan: Continue home meds Plan Medical decision making narrative History obtained from: Patient. History from independent sources: Independent interpretation of studies: Labs and imaging/reports personally reviewed. Shared decision making: Discussed labs, imaging, and differential diagnosis with patient. Considered outpatient orthopedic referral however given possibility of septic joint it was felt that he needed to be admitted to the hospital overnight for joint aspiration and orthopedic consultation. Patient is in agreement with the above plan. Time Spent With Patient Time: Greater than 35 minutes Subjective Date/time seen: 04/02/22 16:07 Interval history: 56-year-old male with a history of diabetes lying comfortably in bed while being interviewed. Patient just got done with joint aspiration. Patient states that he is comfortable although he does have pain when he walks on his foot. Patient denies fever, headache, dizziness, shortness of breath, chest pain, nausea, vomiting. Does have left lower extremity edema. Review of Systems Review of Systems: All systems reviewed & are unremarkable except as noted in HPI and below Exam Narrative: GENERAL: Comfortable, no acute distress HENMT: moist mucous membranes EYES: EOM intact b/l NECK: no lymphadenopathy RESPIRATORY: clear to auscultation CARDIO: RRR GI: soft, nontender, bowel sounds present SKIN: no rashes EXTREMITIES: no edema, redness or tenderness Objective Data Vital Signs Vital Signs: Vital Signs - 24 hr 04/01/22 17:09 04/01/22 21:31 04/02/22 05:27 Temperature 97.3 F L 97.8 F Pulse Rate 86 82 80 Respiratory Rate 20 18 18 Blood Pressure 119/76 150/99 H 149/87 H Pulse Oximetry 100 97 98 Oxygen Delivery 04/01/22 23:30 04/02/22 09:23 04/02/22 10:00 Temperature 97.1 F L Pulse Rate 76 Respiratory Rate 16 Blood Pressure 143/87 H Pulse Oximetry 98 97 Oxygen Delivery Room Air Room Air 04/02/22 14:32 Temperature 97.2 F L Pulse Rate 76 Respiratory Rate 17 Blood Pressure 132/71 Pulse Oximetry 95 Oxygen Delivery Intake/Output Intake/Output: Intake & Output 03/30/22
[2022-04-02] MEDS: metFORMIN HCL XR 500 MG TAB.SR.24H 1000 MG PO (16:15)
[2022-04-02 17:07] LABS: Glucose Point of Care 258 mg/dl (65-105)
[2022-04-02] MEDS: INSULIN ASPART (*BKC) 100 UNITS/ML SUB-Q (17:48)
[2022-04-02] MEDS: ACETAMINOPHEN 325 MG TABLET 650 MG PO (19:39)
[2022-04-02 21:47] LABS: Glucose Point of Care 233 mg/dl (65-105)
[2022-04-02 22:00] VITALS: BP 148/85; PULSE 88; RESP 18; TEMP 36.6; O2SAT 97
[2022-04-03 05:23] VITALS: BP 138/85; PULSE 79; RESP 17; TEMP 36.6; O2SAT 95
[2022-04-03 08:15] LABS: Hematocrit 36.7 % (42.0-52.0); Hemoglobin 12.4 g/dL (14.0-18.0); Mean Corpuscular HGB Conc 33.8 g/dl (32-36); Mean Corpuscular Hemoglobin 29.8 pg (26-34); Mean Corpuscular Volume 88.2 fl (80-100); Mean Platelet Volume 8.8 fl (7.4-10.4); Platelet Count Result 368 k/mm3 (150-375); Red Blood Count 4.16 M/mm3 (4.6-6.20); Red Cell Distribution Width 12.2 % (11.5-14.5); White Blood Count 7.5 K/mm3 (4.5-10.0)
[2022-04-03] MEDS: GLYCOPYRROLATE 1 MG TABLET 4 MG PO (08:19)
[2022-04-03] MEDS: metFORMIN HCL XR 500 MG TAB.SR.24H 1000 MG PO (08:19)
[2022-04-03] MEDS: GLIMEPIRIDE 2 MG TABLET PO (08:19)
[2022-04-03] MEDS: ATORVASTATIN 10 MG TABLET PO (08:19)
[2022-04-03] MEDS: PANTOPRAZOLE 40 MG TABLET PO (08:20)
[2022-04-03] MEDS: amLODIPine BESYLATE 5 MG TABLET 10 MG PO (08:20)
[2022-04-03 08:25] LABS: Alanine Aminotransferase 21 U/L (6-50); Albumin Level 3.3 g/dL (3.5-5.1); Alkaline Phosphatase 120 U/L (38-126); Anion Gap 4 mmol/L (8-16); Aspartate Amino Transferase 29 U/L (17-59); Bilirubin,Total 0.8 mg/dL (0.2-1.3); Blood Urea Nitrogen 16 mg/dL (9-20); Calcium 8.4 mg/dL (8.4-10.2); Carbon Dioxide 30 mmol/L (22-30); Chloride 102 mmol/L (98-107); Estimated CRCL calculation 96 ml/min; Estimated Glomerular Filt Rate > 60; Glucose 222 mg/dL (65-110); Magnesium 1.5 mg/dL (1.6-2.3); Potassium 4.4 mmol/L (3.4-5.0); Sodium 136 mmol/L (137-145)
[2022-04-03] MEDS: MAGNESIUM SULF 2 GM/WATER 50ML 2 GM/50 ML BAG IVPB (09:05)
[2022-04-03] MEDS: INSULIN ASPART (*BKC) 100 UNITS/ML SUB-Q ×2 (09:05→12:48)
--- NOTE | 2022-04-03 09:25 | PM.IMPN ---
Progress Note: A&P Assessment and Plan (1) Left ankle pain: Code(s): M25.572 - Pain in left ankle and joints of left foot Status: Acute Assessment and Plan: The patient presented to the emergency department for evaluation ongoing and worsening left foot and ankle pain since what sounds like an inversion injury at work several months ago. He has been taking Tylenol an aspirin at home which masks the pain only a small amount. Elevated uric acid concerning for gout. CRP and ESR are also elevated which may be related to arthritis, inflammation, or infection. I am not certain he has a joint infection as there are no real systemic signs or symptoms however white blood cell count is mildly elevated. Could be traumatic arthritis or Charcot foot. Ortho consulted For now we will hold on initiating antibiotics pending joint aspiration (Gram stain, culture, cell count, crystal exam) 04/02/22 Still male fluid analysis negative for crystals Analysis positive for 430 nucleated cells, 348 RBCs, and hazy appearance Patient continues to have normal white blood cell count Orthopedics continue to follow and appreciate recommendations. 04/03/22 Orthopedics recommended fracture boot and to follow up with them as an outpatient gang boss called (2) Left ankle swelling: Code(s): M25.472 - Effusion, left ankle Status: Acute Assessment and Plan: Given his bilateral edema, venous Doppler ultrasounds will be obtained to rule out DVT. Dopplers negative for DVT (3) Type 2 diabetes mellitus: Code(s): E11.9 - Type 2 diabetes mellitus without complications Status: Acute Assessment and Plan: Continue metformin and check hemoglobin A1c. Good glucose control is imperative. (4) Hypertension: Code(s): I10 - Essential (primary) hypertension Status: Acute Assessment and Plan: Continue home meds Time Spent With Patient Time: Greater than 35 minutes Subjective Date/time seen: 04/03/22 09:25 Interval history: 56-year-old male with a history of diabetes lying comfortably in bed while being interviewed. Patient just got done with joint aspiration. Patient states that he is comfortable although he does have pain when he walks on his foot. Patient denies fever, headache, dizziness, shortness of breath, chest pain, nausea, vomiting. Does have left lower extremity edema. Exam Narrative: GENERAL: Comfortable, no acute distress HENMT: moist mucous membranes EYES: EOM intact b/l NECK: no lymphadenopathy RESPIRATORY: clear to auscultation CARDIO: RRR GI: soft, nontender, bowel sounds present SKIN: no rashes EXTREMITIES: left ankle edema, limited ROM b/l, ankle/foot strength 5/5 b/l, tenderness to palpation/manipulation. Objective Data Vital Signs Vital Signs: Vital Signs - 24 hr 04/02/22 10:00 04/02/22 14:32 04/02/22 20:00 Temperature 97.2 F L Pulse Rate 76 Respiratory Rate 17 Blood Pressure 132/71 Pulse Oximetry 95 Oxygen Delivery Room Air Room Air 04/02/22 22:00 04/03/22 05:23 Temperature 97.8 F 97.9 F Pulse Rate 88 79 Respiratory Rate 18 17 Blood Pressure 148/85 H 138/85 Pulse Oximetry 97 95 Oxygen Delivery Intake/Output Intake/Output: Intake & Output 03/31/22 04/01/22 04/02/22 04/03/22 23:59 23:59 23:59 23:59 Intake Total 1040 250 Output Total 300 1200 Balance 740 -950 Meds/Results Medications: Active Medications Generic Name Dose Route Start Last Admin Trade Name Freq PRN Reason Stop Dose Admin Acetaminophen 650 mg 04/01/22 21:32 04/02/22 19:39 Acetaminophen 325 Mg Tablet PO 650 mg Q6H PRN Administration Mild Pain (1-3) or Fever Hydrocodone Bitart/Acetaminophen 1 tab 04/01/22 21:32 04/02/22 14:01 Hydrocodone/Acetaminophen (*Crx) 5-325 Mg Tablet PO 1 tab Q6H PRN Administration Pain Rated 4-6 Amlodipine Besylate 10 mg 04/02/22 09:00 03/12
--- NOTE | 2022-04-03 09:35 | PM.CNOR ---
Assessment and Plan Assessment and plan (1) Charcot ankle: Code(s): M14.679 - Charcot's joint, unspecified ankle and foot <CORDELL Rizzo - Last Filed: 04/03/22 16:33> Status: Acute <Maria Antonia DamionCORDELL Will - Last Filed: 04/03/22 16:33> Assessment and Plan: History, exam radiographs as well as CT reviewed with the patient. History and imaging consistent with Charcot of the left ankle. Discussed condition, nature, etiology and course of natural history. Conservative and operative treatment options reviewed as well as the risks and benefits of each. Suspect changes initially began approximately 4 months ago. At this point, we will immobilize the ankle in a fracture boot. Patient may be protected weight-bearing with the fracture boot at all times when out of bed. May remove for showering and elevation. Hemoglobin A1c is uncontrolled. Patient needs further evaluation by diabetic nurse educator and closer monitoring by his primary care provider or referral to an printing equipment mechanic apprentice as an outpatient. <CORDELL Rizzo - Last Filed: 04/03/22 16:33> (2) Type 2 diabetes mellitus: Code(s): E11.9 - Type 2 diabetes mellitus without complications <CORDELL Rizzo - Last Filed: 04/03/22 16:33> Status: Acute <CORDELL Rizzo - Last Filed: 04/03/22 16:33> History of Present Illness HPI Consult date: 04/03/22 <CORDELL Rizzo - Last Filed: 04/03/22 16:33> 04/03/22 <Ole Barillas MD - Last Filed: 04/03/22 16:39> Chief complaint: possible septic ankle joint <CORDELL Rizzo - Last Filed: 04/03/22 16:33> Narrative: 56-year-old male admitted to the emergency room overnight due to pain and swelling in the left foot. Patient reports this pain has been ongoing for several months. He was initially diagnosed with an ankle sprain. He has been seen by the work doctors for his ankle. He states that it has not been improving. He reports an increase in swelling over the last several days which prompted his arrival to the emergency room for further evaluation. No new injuries. Radiographs and CT of the left ankle reveal a mildly depressed fracture of the talar dome as well as large erosions versus large subcortical cysts in the distal tibia and talus, with heterotopic bone formation versus osseous fragmentation, a large ankle joint effusion, and considerable soft tissue swelling. the patient was initially seen by Dr. Loomis's team. Orthopedic consult requested from Dr. Loomis to Dr. Barillas for further evaluation. <CORDELL Rizzo - Last Filed: 04/03/22 16:33> Review of Systems Review of Systems: All systems reviewed & are unremarkable except as noted in HPI and below <CORDELL Rizzo - Last Filed: 04/03/22 16:33> PMF Past Medical History Medical History: Medical History (Updated 04/03/22 @ 16:37 by Ole Barillas MD) Charcot ankle Diffuse idiopathic skeletal hyperostosis Noted on x-ray in May 2020. Gastroesophageal reflux disease Hyperlipidemia Hypertension Obstructive sleep apnea Type 2 diabetes mellitus <CORDELL Rizzo - Last Filed: 04/03/22 16:33> Surgical History Surgical History: Surgical History No history of previous surgery <CORDELL Rizzo - Last Filed: 04/03/22 16:33> Family History Family History: Family History Father Acute myocardial infarction Other Paternal family history of congestive heart failure Acute myocardial infarction Paternal family hx Paternal family history of cerebrovascular event <CORDELL Rizzo - Last Filed: 04/03/22 16:33> Social History Social History: Social History Social History: Surrogate medical decision maker: Lucio Cornell, spouse. Code status: Full code. Smoking status: Never
[2022-04-03 11:47] LABS: Glucose Point of Care 281 mg/dl (65-105)
--- NOTE | 2022-04-03 15:34 | PM.DS ---
DS: Admitting Diagnosis Discharge Date 04/03/22 Admitting Diagnosis Left ankle pain DS: Discharge Diagnosis Discharge Diagnosis (1) Left ankle pain: Code(s): M25.572 - Pain in left ankle and joints of left foot Status: Acute Assessment and Plan: The patient presented to the emergency department for evaluation ongoing and worsening left foot and ankle pain since what sounds like an inversion injury at work several months ago. He has been taking Tylenol an aspirin at home which masks the pain only a small amount. Elevated uric acid concerning for gout. CRP and ESR are also elevated which may be related to arthritis, inflammation, or infection. I am not certain he has a joint infection as there are no real systemic signs or symptoms however white blood cell count is mildly elevated. Could be traumatic arthritis or Charcot foot. Ortho consulted For now we will hold on initiating antibiotics pending joint aspiration (Gram stain, culture, cell count, crystal exam) 04/02/22 Still male fluid analysis negative for crystals Analysis positive for 430 nucleated cells, 348 RBCs, and hazy appearance Patient continues to have normal white blood cell count Orthopedics continue to follow and appreciate recommendations. 04/03/22 Orthopedics recommended orthopedic boot and to follow up with them as an outpatient clinical trial educator recommended outpatient referral. (2) Left ankle swelling: Code(s): M25.472 - Effusion, left ankle Status: Acute Assessment and Plan: Given his bilateral edema, venous Doppler ultrasounds will be obtained to rule out DVT. Dopplers negative for DVT (3) Type 2 diabetes mellitus: Code(s): E11.9 - Type 2 diabetes mellitus without complications Status: Acute Assessment and Plan: Continue metformin hemoglobin A1c 10.4 Good glucose control is imperative. Outpatient referral to health educator. (4) Hypertension: Code(s): I10 - Essential (primary) hypertension Status: Acute Assessment and Plan: Continue home meds DS: Summary Hospital Course Reason for hospitalization: Left ankle pain Hospital Course: 56-year-old male with history of hypertension, hyperlipidemia, diabetes, GERD presented to the ED on 04/01/2022 for evaluation of left foot and ankle pain. Patient had an ankle injury several months ago at work and stated that he had twisted his ankle. Patient has received occupational therapy and has had prior imaging before which was unremarkable to his knowledge. Patient does have left foot and ankle edema. Orthopedics consulted and planned on joint aspiration which revealed no infection. Uric acid mildly elevated although joint aspiration did not yield any crystals. Bilateral lower extremity venous Doppler ultrasounds negative for DVT. CT and x-ray possibly demonstrating severe osteoarthritis. Due to diabetes he could be developing a Charcot ankle. Patient put in an orthopedic boot and advised to have 50% weight-bearing on that foot. Patient plans to use crutches, which she has at home. Patient is to follow-up with orthopedics. Patient does have uncontrolled diabetes and advised to follow-up with health educator as an outpatient. Tighter glycemic control will aid in healing process. Time Spent with Patient Time attestation: Total time spent providing and/or coordinating discharge services: Exam Narrative: GENERAL: Comfortable, no acute distress HENMT: moist mucous membranes EYES: EOM intact b/l NECK: no lymphadenopathy RESPIRATORY: clear to auscultation CARDIO: RRR GI: soft, nontender, bowel sounds present SKIN: no rashes EXTREMITIES: left ankle edema, limited ROM b/l, ankle/foot strength 5/5 b/l, tenderness to palpation/manipulation. DS: Data Data Completed and Pending Labs on day of discharge: Labs from last 24 hours 04/03/22 04/03/22 04/03/22 11:44 07:56 07:56 WBC 7.5 RBC
--- NOTE | 2022-04-03 16:36 | PM.CNOR ---
Assessment and Plan Assessment and plan (1) Charcot ankle: Qualifiers: Laterality: left Qualified Code(s): M14.672 - Charcot's joint, left ankle and foot Code(s): M14.679 - Charcot's joint, unspecified ankle and foot Status: Acute Assessment and Plan: patient seen and examined. Chart reviewed including labs and aspirate. Orthopedic consultation reviewed and agree with findings and plan. Left ankle neuropathic arthropathy with degenerative changes. Symptoms started 4 months ago. Discussed with patient. Fracture boot immobilization and nonweightbearing restrictions with crutches or walker. Discussed need for better blood sugar control. He is going to contact his primary care physician for follow-up. Discussed long-term sequela of neuropathic arthropathy. Operative and non operative treatment indications reviewed. Follow-up in the orthopedic office in 3 to 4 weeks. Questions answered. Patient and family verbalized understanding. History of Present Illness HPI Consult date: 04/03/22 Chief complaint: possible septic ankle joint PMFSH Past Medical History Medical History (Updated 04/03/22 @ 16:37 by Ole Barillas MD) Charcot ankle Diffuse idiopathic skeletal hyperostosis Noted on x-ray in May 2020. Gastroesophageal reflux disease Hyperlipidemia Hypertension Obstructive sleep apnea Type 2 diabetes mellitus Surgical History Surgical History No history of previous surgery Family History Family History Father Acute myocardial infarction Other Paternal family history of congestive heart failure Acute myocardial infarction Paternal family hx Paternal family history of cerebrovascular event Social History Social History Social History: Surrogate medical decision maker: Lucio Cornell, spouse. Code status: Full code. Smoking status: Never smoker Second hand tobacco smoke exposure: No Alcohol intake: never Substance use: never Lack of Transportation: No Lack of Food: Never True Current Housing: I Have Housing Concerned About Future Housing: No Difficulty Paying Gas/Electric Bills: No Difficulty Paying for Meds: No Currently Unemployed: No Education: Bachelor's Degree Difficulty w/ Childcare or Family Care: No Additional living arrangements comments: Lives with spouse and children in [place]. Additional occupation/education comments: [employer]. Spiritual care concerns: No Meds Home Medications and Allergies Home Medications Medication Instructions Recorded Confirmed Type glimepiride 2 mg tablet 2 mg PO DAILY #30 tabs 12/11/21 04/01/22 Rx atorvastatin 10 mg tablet 10 mg PO DAILY #90 tabs 02/07/22 04/01/22 Rx amlodipine 10 mg tablet 10 mg PO DAILY 04/01/22 04/01/22 History glycopyrrolate 2 mg tablet 4 mg PO BID 04/01/22 04/01/22 History metformin 500 mg tablet,extended 1,000 mg PO BID 04/01/22 04/02/22 History release 24 hr pantoprazole 40 mg tablet,delayed 40 mg PO DAILY 04/01/22 04/01/22 History release Allergies Allergy/AdvReac Type Severity Reaction Status Date / Time No Known Allergies Allergy Verified 04/01/22 14:32 Vital Signs Vital Signs - 24 hr 04/02/22 20:00 04/02/22 22:00 04/03/22 05:23 Temperature 97.8 F 97.9 F Pulse Rate 88 79 Respiratory Rate 18 17 Blood Pressure 148/85 H 138/85 Pulse Oximetry 97 95 Oxygen Delivery Room Air 04/03/22 11:22 Temperature Pulse Rate Respiratory Rate Blood Pressure Pulse Oximetry Oxygen Delivery Room Air Exam Const: General: comfortable and no acute distress HENMT: Mouth: Yes moist mucous membranes Eyes: General: appearance normal, both eyes and all related structures Neck: Neck: supple and no JVD Resp: Effort & Inspection: normal respiratory
[2022-04-03 16:40] LABS: Glucose Point of Care 270 mg/dl (65-105)
== END 2022-04-03 17:08 | disposition home or self-care (01) ==
LOC: ANHED 14:54 → ANH3MEDSUR 21:00
PROVIDERS: Internal Medicine Critical Care Medicine; Physician Assistant; Admitting Provider Internal Medicine; Emergency Provider Emergency Medicine; PCP Family Medicine Adolescent Medicine; Visit Provider Internal Medicine
DX: M14.679 Charcot's joint, unspecified ankle and foot (principal); S92.142A Displaced dome fracture of left talus, initial encounter for closed fracture; K21.9 Gastro-esophageal reflux disease without esophagitis; E78.5 Hyperlipidemia, unspecified; I10 Essential (primary) hypertension; R60.0 Localized edema; G47.33 Obstructive sleep apnea (adult) (pediatric); E79.0 Hyperuricemia without signs of inflammatory arthritis and tophaceous disease; R70.0 Elevated erythrocyte sedimentation rate; E11.9 Type 2 diabetes mellitus without complications; Z20.822 Contact with and (suspected) exposure to COVID-19; Z79.84 Long term (current) use of oral hypoglycemic drugs; Z79.899 Other long term (current) drug therapy; Z82.49 Family history of ischemic heart disease and other diseases of the circulatory system
CPT/HCPCS: 20605; 36415; 73610; 73700; 77002; 80048; 80053; 82948; 83036; 83735; 84550; 85025; 85027; 85652; 86140; 87070; 87075; 87205; 87637; 89051; 89060; 93970; 96365; 96376; 97116; 97161; 99285; A9270; G0378; J1815; J3475

== ENCOUNTER 2022-09-19 12:41 | Outpatient (CLI) | payer OTHER, SELFPAY ==
--- NOTE | ~2022-09-19 | US_ITS ---
EXAMINATION: US venous doppler [facility] DATE: 09/19/2022 13:34 INDICATION: Left lower limb pain TECHNIQUE: Grayscale ultrasound images without and with compression and Doppler ultrasound images of the left lower extremity veins were obtained. COMPARISON: None. FINDINGS: The visualized portions of left common femoral vein, profunda (deep) femoral vein, femoral vein, popl iteal vein, peroneal veins, posterior tibial veins, gastrocnemius vein and greater saphenous vein out flow are patent. IMPRESSION: 1. No deep venous thrombosis in the left lower limb. Reviewed, dictated and finalized at location A.
== END 2022-09-19 12:42 | disposition home or self-care (01) ==
PROVIDERS: PCP Family Medicine Adolescent Medicine; Visit Provider Orthopaedic Surgery
DX: M79.662 Pain in left lower leg (principal)
CPT/HCPCS: 93971

== ENCOUNTER 2022-09-30 18:07 | Observation (INO) | payer OTHER, SELFPAY ==
--- NOTE | ~2022-09-30 | US_ITS ---
EXAMINATION:US venous doppler LE LT INDICATION:Left leg swelling and pain TECHNIQUE: Multiple grayscale, color flow and Doppler images of the left lower extremity deep venous systems were obtained and reviewed. COMPARISON:09/19/2022 FINDINGS: The common femoral, superficial femoral and popliteal veins demonstrate normal respiratory variation, augmentation and compressibility. Color flow is also seen within the posterior tibial, pe roneal, greater saphenous and profunda veins. IMPRESSION: 1: No lower extremity deep venous thrombosis. Reviewed, dictated and finalized at location A.
--- NOTE | ~2022-09-30 | CT_ITS ---
EXAMINATION: CT ankle LT w con DATE: 09/30/2022 23:16 INDICATION: Charcot foot with left foot pain and swelling.. TECHNIQUE: High resolution computed tomography (CT) of the left ankle, midfoot and hindfoot was perfo rmed with 100 mL Omnipaque-350 intravenous contrast. Additional sagittal and coronal reconstructions were performed. Automated exposure control and iterative reconstruction technique were employed. The dose-length product was 408.07 mGy-cm. COMPARISON: 04/01/2022 FINDINGS: Significant interval change in prominent destructive changes centered at the ankle joint with large e rosions involving the ankle mortise, distal fibula and talus with osteolysis and fragmentation result ing in essentially complete loss of bone stock at the talar dome and extending into the dorsal aspect of the talar neck. There is extensive calcific debris and multiple bone fragments in the recess of t he joint space. Additional high attenuation material extending along the tendon sheaths of the tibial is posterior, flexor digitorum longus and flexor hallux longus tendons which could represent addition al ossific debris arising from the ankle joint although differential would include sequela of gout or other crystalline deposition disease. Advanced arthritis with destructive changes at the left ankle could represent Charcot joint or advanced osteoarthritis related to chronic crystalline deposition di sease however the presence of periosteal reaction along the metaphyseal regions of the distal tibia a nd fibula raises significant concern for septic arthritis and osteomyelitis, potentially superimposed over prior arthritis. No significant interval change in multiple additional significantly smaller and chronic additional ju xta-articular erosions along the posterior rim of the proximal navicular at the talonavicular joint, along the plantar/lateral margin of the proximal cuboid at the calcaneocuboid joint and at the margin s of one of the tarsal metatarsal joints as well as an erosion along the peroneal groove along the pl brandi aspect of the cuboid. Chronic large enthesophytes at the calcaneal insertions of the plantar ap oneurosis and distal Achilles tendon. There is prominent fusiform thickening of the distal Achilles t endon consistent with chronic tendinosis. IMPRESSION: 1. Interval progression of advanced arthritis with prominent destructive changes and erosions at the left ankle joint. Differential includes neuropathic/Charcot joint, advanced osteoarthritis related to gout or other crystal deposition disease, septic arthritis with osteomyelitis or some combination th ereof. The presence of periosteal reaction extending proximally along the metaphyseal and distal diap hyseal regions of the tibia and fibula significantly elevated the concern for infection although can be seen in the setting of crystal deposition diseases. 2. Relatively stable appearance of additional smaller chronic erosions in the mid and hindfoot which along with presence of high attenuation material along the medial sided flexor tendon sheath is which could be seen in the setting of tophaceous gout or other crystal deposition disease. Reviewed, dictated and finalized at location A. IMPRESSION: 1. Interval progression of advanced arthritis with prominent destructive change s and erosions at the left ankle joint. Differential includes neuropathic/Charc ot joint, advanced osteoarthritis related to gout or other crystal deposition d isease, septic arthritis with osteomyelitis or some combination thereof. The pr esence of periosteal reaction extending proximally along the metaphyseal and di stal diaphyseal regions of the tibia and fibula significantly elevated the conc nannette for infection although can be seen in the setting of crystal deposition dis eases. 2.
--- NOTE | ~2022-09-30 | XR_ITS ---
XR ankle LT min 3V DATE: 09/30/2022 19:23 INDICATION: Pain and swelling TECHNIQUE: 3 views COMPARISON: 09/04/2022 left ankle FINDINGS: There is extensive destruction at the ankle joint, with increased density, deformity, disor ganization. There is prominent abnormal cupping and irregularity of the distal tibial articular surf fabi and fracture/bone destruction and angulation of the tibial plateau , with widening of the tib iotalar joint space. There is periosteal reaction along the distal tibial and fibular diametaphyses. There is heterotopic bone along the perimeter of the ankle medially , laterally, anteriorly and posteriorly. The appeara nce is consistent with chronic neuropathic changes. Superimposed infection (osteomyelitis) cannot be excluded. There is prominent generalized soft tissue swelling of the ankle. Prominent posterior and moderate plantar calcaneal enthesopathy. IMPRESSION: Severe likely neuropathic changes at the ankle joint including extensive destruction, dis organization, deformity, increased density, with periosteal action along the distal tibial and fibula r diametaphyses and prominent circumferential heterotopic bone and prominent generalized soft tissue swelling. The changes have advanced significantly since 09/04/2022, including increased distal tibial and talar dome destruction, which raises concern for possible infection/osteomyelitis. Reviewed, dictated and finalized at location A. IMPRESSION: Severe likely neuropathic changes at the ankle joint including exte nsive destruction, disorganization, deformity, increased density, with perioste al action along the distal tibial and fibular diametaphyses and prominent circu mferential heterotopic bone and prominent generalized soft tissue swelling. The changes have advanced significantly since 09/04/2022, including increased di stal tibial and talar dome destruction, which raises concern for possible infec tion/osteomyelitis.
--- NOTE | ~2022-09-30 | XR_ITS ---
XR foot LT min 3V DATE: 09/30/2022 19:23 INDICATION: Pain, swelling TECHNIQUE: 3 views COMPARISON: 09/20/2019 3V left ankle 05/28/2022 left ankle 04/01/2022 left ankle FINDINGS: There has been extensive destruction of the tibiotalar joint including prominent sclerosis, irregularity destruction of the distal tibial articular surface, destruction and collapse deformity of the talar dome and prominent heterotopic bone around the ankle joint and prominent soft tissue swe lling. Destructive changes are extensive compared to 04/01/2022. There is periosteal reaction along th e distal tibial and fibular diametaphyses. Findings may be due to osteomyelitis. Severe neuropathic j oint is also a consideration. Clinical correlation is advised. Very prominent posterior and moderate plantar calcaneal enthesopathy. There is joint space narrowing and some erosions of the first metatarsal head. IMPRESSION: Interval extensive destructive changes at the tibiotalar joint with increased density, de formity, disorganization, talar dome collapse, severe deformity of the distal tibial articular surfac e, new heterotopic bone formation, periosteal reaction of the distal tibial and fibular diametaphyses since 04/01/2022. Osteomyelitis and neuropathic changes are primary considerations. Erosive arthritic changes at the first metatarsophalangeal joint Very prominent posterior and moderate plantar calcaneal enthesopathy Reviewed, dictated and finalized at location A. IMPRESSION: Interval extensive destructive changes at the tibiotalar joint with increased density, deformity, disorganization, talar dome collapse, severe def ormity of the distal tibial articular surface, new heterotopic bone formation, periosteal reaction of the distal tibial and fibular diametaphyses since 023. Osteomyelitis and neuropathic changes are primary considerations. Erosive arthritic changes at the first metatarsophalangeal joint Very prominent posterior and moderate plantar calcaneal enthesopathy
[2022-09-30 18:10] VITALS: BP 149/86; PULSE 95; RESP 18; TEMP 36.6; O2SAT 100
--- NOTE | 2022-09-30 20:10 | ED.EXTPRO ---
HPI - Extremity Problem General Chief complaint: Extremity Problem,Nontraumatic <KELLI Smith Last Filed: 10/01/22 01:34> Stated complaint: left foot swollen <KELLI Smith Last Filed: 10/01/22 01:34> Time Seen by Provider: 09/30/22 18:59 <KELLI Smith Last Filed: 10/01/22 01:34> Source: patient and old records reviewed <KELLI Smith Last Filed: 10/01/22 01:34> Mode of arrival: ambulatory <KELLI Smith Filed: 10/01/22 01:34> Limitations: no limitations <KELLI Smith Last Filed: 10/01/22 01:34> History of Present Illness HPI Narrative: Patient is a 56 y/o male, with PMH of DM, who presents to the ED with c/o left ankle pain and swelling. Patient reports he sustained a left ankle sprain almost a year ago. He has had intermittent issues with swelling and pain in his left ankle. He has been seeing Dr. Barillas for this and last saw him 2 weeks ago. Per records, he does have diagnosis of lymphedema and Charcot foot. He has been wearing a walking boot without much improvement. Patient reports having increased swelling and pain over the last several weeks. He reports pain is now increasing up his left calf, difficulty walking d/t pain. He denies any further injury. Denies numbness or tingling. He has been taking Advil, Tylenol for pain. <KELLI Smith Last Filed: 10/01/22 01:34> Related Data Home medications: Home Medications Medication Instructions Recorded Confirmed metformin 500 mg tablet,extended 1,000 mg PO BID 04/01/22 10/01/22 release 24 hr <KELLI Smith Last Filed: 10/01/22 01:34> Allergies/Adverse reactions: Allergies Allergy/AdvReac Type Severity Reaction Status Date / Time No Known Allergies Allergy Verified 09/30/22 18:08 <Fiordaliza Boggs PA-C - Last Filed: 10/01/22 01:34> Review of Systems Review of Systems: CONSTITUTIONAL: Denies fever, chills, or sweats. SKIN: See HPI. MUSCULOSKELETAL: See HPI. NEUROLOGIC: Denies tingling, numbness, or weakness. <Fiordaliza Bgogs PA-C - Last Filed: 10/01/22 01:34> All systems reviewed & are unremarkable except as noted in HPI and below <Fiordaliza Boggs PA-C - Last Filed: 10/01/22 01:34> [facility] Past Medical History Medical History: Medical History Ankle pain, left Charcot ankle Diffuse idiopathic skeletal hyperostosis Noted on x-ray in May 2020. Gastroesophageal reflux disease Hyperlipidemia Hypertension Left ankle swelling Lymphedema due to venous disease Obstructive sleep apnea Type 2 diabetes mellitus <Fiordaliza Boggs PA-C - Last Filed: 10/01/22 01:34> Surgical History Surgical History: Surgical History No history of previous surgery <Fiordaliza Boggs PA-C - Last Filed: 10/01/22 01:34> Family History Family History: Family History Father Acute myocardial infarction Other Paternal family history of congestive heart failure Acute myocardial infarction Paternal family hx Paternal family history of cerebrovascular event <Fiordaliza Boggs PA-C - Last Filed: 10/01/22 01:34> Social History Social History: Social History Social History: Surrogate medical decision maker: Lucio Cornell, spouse. Code status: Full code. Smoking status: Former smoker Tobacco type: cigars Second hand tobacco smoke exposure: No Alcohol intake: never Substance use: never Substance use type: does not use Lack of Transportation: No Lack of Food: Never True Current Housing: I Have Housing Concerned About Future Housing: No Difficulty Paying Gas/Electric Bills: No Diffic
[2022-09-30 20:59] LABS: Basophils Absolute Auto 0.1 K/mm3 (0.0-0.1); Basophils Percent Auto 0.4 % (0.2-1.2); Eosinophils Absolute Auto 0.5 K/mm3 (0-0.3); Eosinophils Percent Auto 4.7 % (0-4.4); Hematocrit 32.4 % (42.0-52.0); Hemoglobin 10.2 g/dL (14.0-18.0); Immature Granulocyte Absolute 0.05 K/mm3 (0.00-0.031); Immature Granulocyte Percent A 0.4 % (0-0.5); Lymphocytes Absolute Auto 2.55 K/mm3 (0.9-3.2); Lymphocytes Percent Auto 22.4 % (18.3-44.2); Mean Corpuscular HGB Conc 31.5 g/dl (32-36); Mean Corpuscular Hemoglobin 27.6 pg (26-34); Mean Corpuscular Volume 87.6 fl (80-100); Mean Platelet Volume 7.9 fl (7.4-10.4); Monocytes Absolute Auto 1.1 K/mm3 (0.1-0.6); Neutrophils Absolute Auto 7.1 K/mm3 (1.3-6.7); Neutrophils Percent Auto 62.1 % (45.5-73.1); Platelet Count Result 669 k/mm3 (150-375); Red Cell Distribution Width 13.1 % (11.5-14.5); White Blood Count 11.4 K/mm3 (4.5-10.0)
[2022-09-30 21:09] LABS: Lactic Acid Reflex 1.3 mmol/L (0.7-2.0)
[2022-09-30 21:11] LABS: Alanine Aminotransferase 18 U/L (6-50); Albumin Level 3.8 g/dL (3.5-5.1); Alkaline Phosphatase 261 U/L (38-126); Anion Gap 9 mmol/L (8-16); Aspartate Amino Transferase 27 U/L (17-59); Bilirubin,Total 0.6 mg/dL (0.2-1.3); Blood Urea Nitrogen 13 mg/dL (9-20); CRP 8.2 mg/dL (<1.0); Carbon Dioxide 25 mmol/L (22-30); Chloride 106 mmol/L (98-107); Estimated CRCL calculation 133 ml/min; Estimated Glomerular Filt Rate > 60; Glucose 159 mg/dL (65-110); Potassium 4.8 mmol/L (3.4-5.0); Sodium 140 mmol/L (137-145)
[2022-09-30 21:33] LABS: Erythrocyte Sedimentation Rate > 140 mm/hr (0-20)
[2022-09-30 22:17] LABS: Hemoglobin A1C > 14.0 % (<5.7)
--- NOTE | 2022-09-30 23:58 | PC.NURSE ---
Report received from KAREL Estrella. Assumed care of patient at this time.
[2022-10-01] MEDS: KETOROLAC 30 MG/ML VIAL (*BKC) IV PUSH ×3 (01:16→20:18)
[2022-10-01 01:17] VITALS: BP 157/100; PULSE 93; RESP 17; TEMP 37.1; O2SAT 98
[2022-10-01] MEDS: CEFEPIME 2 GM/NS 50 ML 2 GM/50 ML BAG IVPB ×2 (01:18→13:14)
[2022-10-01 01:26] LABS: Procalcitonin 0.2 ng/mL
[2022-10-01 01:57] VITALS: BMI 29.3
--- NOTE | 2022-10-01 02:01 | ADMGEN ---
This patient, Mika Cornell Sr., was admitted to [facility] Surg Room 322-01. Patient/family oriented to hospital policies and general routines including ID bracelet, bed and alarms, visiting hours, pain management, procedures, bathroom and other care routines, personal items, smoking policy, room service/diet, and visiting hours. Information on how to activate the Rapid Response Team has been discussed. Patient/Family are encouraged to report perceived risks to care and to ask questions if they do not understand what they are told or what they should do.
[2022-10-01 02:11] VITALS: BP 152/79; PULSE 86; RESP 16; TEMP 36.9; O2SAT 98
--- NOTE | 2022-10-01 05:34 | PM.IMHP ---
H&P: HPI History of Present Illness Date/Time: 10/01/22 05:34 Review of Systems Review of Systems: 12 systems were reviewed with pertinent positives and negatives per HPI. Except as documented in the HPI, all other systems were reviewed and are negative. [facility] Past Medical History Medical History Ankle pain, left Charcot ankle Diffuse idiopathic skeletal hyperostosis Noted on x-ray in May 2020. Gastroesophageal reflux disease Hyperlipidemia Hypertension Left ankle swelling Lymphedema due to venous disease Obstructive sleep apnea Type 2 diabetes mellitus Surgical History Surgical History No history of previous surgery Family History Family History Father Acute myocardial infarction Other Paternal family history of congestive heart failure Acute myocardial infarction Paternal family hx Paternal family history of cerebrovascular event Social History Social History Social History: Surrogate medical decision maker: Lucio Bennettmond, spouse. Code status: Full code. Smoking status: Former smoker Tobacco type: cigars Second hand tobacco smoke exposure: No Alcohol intake: never Substance use: never Substance use type: does not use Lack of Transportation: No Lack of Food: Never True Current Housing: I Have Housing Concerned About Future Housing: No Difficulty Paying Gas/Electric Bills: No Difficulty Paying for Meds: No Currently Unemployed: No Education: Master's Degree or Higher Difficulty w/ Childcare or Family Care: No Additional living arrangements comments: Lives with spouse and children in [place]. Additional occupation/education comments: [employer]. Spiritual care concerns: No Meds Home Medications and Allergies Home Medications Medication Instructions Recorded Confirmed Type glimepiride 2 mg tablet 2 mg PO DAILY #30 tabs 12/11/21 10/01/22 Rx metformin 500 mg tablet,extended 1,000 mg PO BID 04/01/22 10/01/22 History release 24 hr acetaminophen 325 mg tablet (Mapap 650 mg PO Q6H PRN Mild Pain (1-3) 04/03/22 10/01/22 Rx (acetaminophen)) Or Fever atorvastatin 10 mg tablet 10 mg PO DAILY #90 tabs 05/03/22 10/01/22 Rx glycopyrrolate 2 mg tablet 4 mg PO BID #120 tabs 05/03/22 10/01/22 Rx dulaglutide 0.75 mg/0.5 mL 0.75 mg (0.5 mL) subcut WEEKLY #2 05/14/22 10/01/22 Rx subcutaneous pen injector mL (Trulicity) amlodipine 10 mg tablet 10 mg PO DAILY #90 tabs 08/06/22 10/01/22 Rx pantoprazole 40 mg tablet,delayed 40 mg PO BID #180 tabs 08/06/22 10/01/22 Rx release meloxicam 15 mg tablet 15 mg PO DAILY #30 tabs 09/20/22 10/01/22 Rx Allergies Allergy/AdvReac Type Severity Reaction Status Date / Time No Known Allergies Allergy Verified 09/30/22 18:08 Vital Signs Vital Signs - 24 hr 09/30/22 18:10 10/01/22 01:17 10/01/22 02:11 Temperature 97.8 F 98.7 F 98.5 F Pulse Rate 95 93 86 Respiratory Rate 18 17 16 Blood Pressure 149/86 H 157/100 H 152/79 H Pulse Oximetry 100 98 98 Oxygen Delivery Room Air H&P: Results Labs Labs: Laboratory Tests 09/30/22 20:52 09/30/22 20:52 09/30/22 10/01/22 20:52 00:30 WBC 11.4 H RBC 3.70 L Hgb 10.2 L Hct 32.4 L MCV 87.6 MCH 27.6 MCHC 31.5 L RDW 13.1 Plt Count 669 H D MPV 7.9 Immature Gran % (Auto) 0.4 Neut % (Auto) 62.1 Lymph % (Auto) 22.4 [place] % (Auto) 10.0 H Eos % (Auto) 4.7 H Baso % (Auto) 0.4 Lymph # (Auto) 2.55 [place] # (Auto) 1.1 H Eos # (Auto) 0.5 H Baso # (Auto) 0.1 Abs Immat Gran (auto) 0.05 H Absolute Neuts (auto) 7.1 H Absolute Nucleated RBC 0.0 Nucleated RBC % 0.0 ESR > 140 H Sodium 140 Potassium 4.8 Chloride 106 Carbon Dioxide 25 Anio
[2022-10-01 06:00] VITALS: BP 140/70; PULSE 74; RESP 14; TEMP 36.6; O2SAT 99
[2022-10-01 06:34] LABS: Basophils Absolute Auto 0.1 K/mm3 (0.0-0.1); Basophils Percent Auto 0.5 % (0.2-1.2); Eosinophils Absolute Auto 0.5 K/mm3 (0-0.3); Eosinophils Percent Auto 4.9 % (0-4.4); Hematocrit 28.1 % (42.0-52.0); Hemoglobin 8.7 g/dL (14.0-18.0); Immature Granulocyte Absolute 0.05 K/mm3 (0.00-0.031); Immature Granulocyte Percent A 0.5 % (0-0.5); Lymphocytes Absolute Auto 2.29 K/mm3 (0.9-3.2); Lymphocytes Percent Auto 22.2 % (18.3-44.2); Mean Corpuscular Hemoglobin 27.4 pg (26-34); Mean Corpuscular Volume 88.4 fl (80-100); Mean Platelet Volume 7.8 fl (7.4-10.4); Monocytes Absolute Auto 1.1 K/mm3 (0.1-0.6); Monocytes Percent Auto 10.2 % (2.6-8.5); Neutrophils Absolute Auto 6.4 K/mm3 (1.3-6.7); Neutrophils Percent Auto 61.7 % (45.5-73.1); Platelet Count Result 516 k/mm3 (150-375); Red Blood Count 3.18 M/mm3 (4.6-6.20); Red Cell Distribution Width 13.1 % (11.5-14.5); White Blood Count 10.3 K/mm3 (4.5-10.0)
[2022-10-01 07:53] VITALS: PULSE 74; RESP 14; O2SAT 99
[2022-10-01] MEDS: GLIMEPIRIDE 2 MG TABLET PO (08:43)
[2022-10-01] MEDS: GLYCOPYRROLATE 1 MG TABLET 4 MG PO ×2 (08:43→17:56)
[2022-10-01] MEDS: amLODIPine BESYLATE 5 MG TABLET 10 MG PO (08:43)
[2022-10-01] MEDS: MELOXICAM 7.5 MG TABLET 15 MG PO (08:43)
[2022-10-01] MEDS: metFORMIN HCL XR 500 MG TAB.SR.24H 1000 MG PO ×2 (08:43→17:57)
[2022-10-01] MEDS: PANTOPRAZOLE 40 MG TABLET PO ×2 (08:44→17:57)
[2022-10-01] MEDS: ATORVASTATIN 10 MG TABLET PO (09:36)
--- NOTE | 2022-10-01 09:44 | PM.IMHP ---
H&P: HPI History of Present Illness Date/Time: 10/01/22 09:45 Chief Complaint: Left foot/ankle pain and swelling Narrative: This is a 56 year old male patient with a history of uncontrolled DM Type 2 on multiple medications but not on insulin, HTN, Charcot disease, GERD and Gout was admitted to the hospital with concern for left ankle osteomyelitis. Patient reports he has been having trouble with his left foot and ankle for about a year but over the past couple weeks he has had an increase in left ankle swelling and pain that has not improved with conservative therapy using meloxicam, elevation and walking boot. Patient reports he went to the ER due to worsening swelling and pain that is now interfering with his ability to work. 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 Patient reports that he last saw his primary care provider a couple months ago but does not remember his last Hemoglobin A1c result. Patient reports he is on Dulaglutide weekly but mistakenly refers to this as being on insulin. Patient denies fever, chills, shortness of breath, chest pain, nausea, vomiting, constipation, diarrhea, abdominal pain. Patient does complain that his calf on the left leg is tight and painful. Review of Systems Review of Systems: All systems reviewed & are unremarkable except as noted in HPI and below PMFSH Past Medical History Medical History Ankle pain, left Charcot ankle Diffuse idiopathic skeletal hyperostosis Noted on x-ray in May 2020. Gastroesophageal reflux disease Hyperlipidemia Hypertension Left ankle swelling Lymphedema due to venous disease Obstructive sleep apnea Type 2 diabetes mellitus Surgical History Surgical History No history of previous surgery Family History Family History Father Acute myocardial infarction Other Paternal family history of congestive heart failure Acute myocardial infarction Paternal family hx Paternal family history of cerebrovascular event Social History Social History Social History: Surrogate medical decision maker: Lucio Cornell, spouse. Code status: Full code. Smoking status: Former smoker Tobacco type: cigars Second hand tobacco smoke exposure: No Alcohol intake: never Substance use: never Substance use type: does not use Lack of Transportation: No Lack of Food: Never True Current Housing: I Have Housing Concerned About Future Housing: No Difficulty Paying Gas/Electric Bills: No Difficulty Paying for Meds: No Currently Unemployed: No Education: Master's Degree or Higher Difficulty w/ Childcare or Family Care: No Additional living arrangements comments: Lives with spouse and children in [place]. Additional occupation/education comments: [employer]. Spiritual care concerns: No Meds Home Medications and Allergies Home Medications Medication Instructions Recorded Confirmed Type glimepiride 2 mg tablet 2 mg PO DAILY #30 tabs 12/11/21 10/01/22 Rx metformin 500 mg tablet,extended 1,000 mg PO BID 04/01/22 10/01/22 History release 24 hr acetaminophen 325 mg tablet (Mapap 650 mg PO Q6H PRN Mild Pain (1-3) 04/03/22 10/01/22 Rx (acetaminophen)) Or Fever atorvastatin 10 mg tablet 10 mg PO DAILY #90 tabs 05/03/22 10/01/22 Rx glycopyrrolate 2 mg tablet 4 mg PO BID #120 tabs 05/03/22 10/01/22 Rx dulaglutide 0.75 mg/0.5 mL 0.75 mg (0.5 mL) subcut WEEKLY #2 05/14/22 10/01/22 Rx subcutaneous pen injector mL (Trulicity) amlodipine 10 mg tablet 10 mg PO DAILY #90 tabs 08/06/22 10/01/22 Rx pantoprazole 40 mg tablet,delayed 40 mg PO BID #180 tabs 08/06/22 10/01/22 Rx release meloxicam 15 mg tablet 15 mg PO DAILY #30 tabs 09/20/22 10/01/22
[2022-10-01] MEDS: ENOXAPARIN 40 MG/0.4 ML SYRINGE SUB-Q (11:00)
[2022-10-01 11:44] LABS: Glucose Point of Care 227 mg/dl (65-105)
[2022-10-01 12:08] LABS: Uric Acid 7.9 mg/dL (3.5-8.5)
[2022-10-01] MEDS: INSULIN ASPART (*BKC) 100 UNITS/ML SUB-Q (13:14)
--- NOTE | 2022-10-01 13:31 | PM.CNOR ---
Assessment and Plan Assessment and plan (1) Left ankle swelling: Code(s): M25.472 - Effusion, left ankle Status: Acute (2) Charcot ankle: Qualifiers: Laterality: left Qualified Code(s): M14.672 - Charcot's joint, left ankle and foot Code(s): M14.679 - Charcot's joint, unspecified ankle and foot Status: Acute Assessment and Plan: Patient known to Orthopedic service for left ankle neuropathic degeneration. Has been having more swelling over the past 2 months. Seen in the emergency room last night and admitted for further care. Updated history, physical exam and radiographs reviewed with the patient. CT scan shows extensive degenerative changes consistent with neuropathic arthropathy. Interval changes reviewed. Discussed the condition, nature, etiology and course of natural history with the patient. Treatment options including surgical and nonoperative treatment were reviewed. Risks and benefits of each as well as alternatives reviewed. The patient's questions were answered. Conservative treatment ice, compression and elevation. Continue to work on edema control. Requires new fracture boot for ambulation. PT/OT, lymphedema therapy. (3) Ankle pain, left: Qualifiers: Chronicity: chronic Qualified Code(s): M25.572 - Pain in left ankle and joints of left foot; G89.29 - Other chronic pain Code(s): M25.572 - Pain in left ankle and joints of left foot Status: Acute History of Present Illness HPI Consult date: 10/01/22 Requesting physician: Fiordaliza Boggs PA-C Chief complaint: L ankle pain swelling, charcot ankle, concern for Narrative: 56-year-old with uncontrolled diabetes, peripheral neuropathy and previous left ankle Charcot changes presented to emergency room yesterday with increased swelling and pain left ankle and leg. No known injury. States has been developing over the past month but worse over the weekend. Had difficulty putting regular shoe on. Has continued to require fracture boot for weight-bearing. Denies fever or chills or other systemic complaints. He previously was referred to physical therapy for edema control. He has not started. Review of Systems Constitutional: Constitutional: Denies fever(s) Eyes: Eyes: Denies blurry vision ENT: Reports Normal hearing present Cardiovascular: Cardiovascular: Denies chest pain and Denies dyspnea Respiratory: Respiratory: Denies dyspnea and Denies wheezing Gastrointestinal: Gastrointestinal: Denies abdominal pain Genitourinary: Genitourinary: Denies urinary urgency Musculoskeletal: Musculoskeletal: Reports as per HPI and Denies numbness Integumentary/Breasts: Skin/Breast: Denies changing lesions and Denies sores Neurologic: Reports Normal hearing present, Denies behavioral changes, Denies confusion, Denies numbness and Denies convulsions Psychiatric: Psychiatric: Denies behavioral changes, Denies confusion and Denies hallucinations Endocrine: Endocrine: Denies heat intolerance Hematologic/Lymphatic: Hematologic/Lymphatic: Denies easy bleeding Allergic/Immunologic: Allergic/Immunologic: Denies wheezing [facility] Past Medical History Medical History Ankle pain, left Charcot ankle Diffuse idiopathic skeletal hyperostosis Noted on x-ray in May 2020. Gastroesophageal reflux disease Hyperlipidemia Hypertension Left ankle swelling Lymphedema due to venous disease Obstructive sleep apnea Type 2 diabetes mellitus Surgical History Surgical History No history of previous surgery Family History Family History Father Acute myocardial infarction Other Paternal family history of congestive heart failure Acute myocardial infarction Paternal family hx Paternal family history of cerebrovascular event Social H
[2022-10-01 14:00] VITALS: BP 143/76; PULSE 78; RESP 18; TEMP 36.4; O2SAT 98
--- NOTE | 2022-10-01 14:50 | PCOTNOTE ---
Pt. awaiting [facility] for fitting and provision of new fracture boot. Will see pt. when boot is available.
--- NOTE | 2022-10-01 14:53 | PCPTNOTE ---
Pt getting new fracture boot. Will see pt when boot is present. Will Follow.
[2022-10-01 16:37] LABS: Glucose Point of Care 97 mg/dl (65-105)
[2022-10-01 20:52] LABS: Glucose Point of Care 131 mg/dl (65-105)
[2022-10-01 22:00] VITALS: BP 153/81; PULSE 74; RESP 16; TEMP 36.8; O2SAT 97
[2022-10-02] MEDS: ACETAMINOPHEN 325 MG TABLET 650 MG PO (00:20)
[2022-10-02] MEDS: CEFEPIME 2 GM/NS 50 ML 2 GM/50 ML BAG IVPB ×2 (02:50→12:12)
[2022-10-02 06:00] VITALS: BP 156/84; PULSE 73; RESP 16; TEMP 37.3; O2SAT 100
[2022-10-02 06:27] LABS: Basophils Percent Auto 0.4 % (0.2-1.2); Eosinophils Absolute Auto 0.6 K/mm3 (0-0.3); Eosinophils Percent Auto 6.4 % (0-4.4); Hematocrit 29.9 % (42.0-52.0); Hemoglobin 9.1 g/dL (14.0-18.0); Immature Granulocyte Absolute 0.03 K/mm3 (0.00-0.031); Immature Granulocyte Percent A 0.3 % (0-0.5); Lymphocytes Absolute Auto 2.07 K/mm3 (0.9-3.2); Lymphocytes Percent Auto 22.1 % (18.3-44.2); Mean Corpuscular HGB Conc 30.4 g/dl (32-36); Mean Corpuscular Hemoglobin 27.1 pg (26-34); Mean Platelet Volume 8.1 fl (7.4-10.4); Monocytes Percent Auto 10.6 % (2.6-8.5); Neutrophils Absolute Auto 5.6 K/mm3 (1.3-6.7); Neutrophils Percent Auto 60.2 % (45.5-73.1); Platelet Count Result 567 k/mm3 (150-375); Red Blood Count 3.36 M/mm3 (4.6-6.20); White Blood Count 9.4 K/mm3 (4.5-10.0)
[2022-10-02 06:32] LABS: Anion Gap 6 mmol/L (8-16); Blood Urea Nitrogen 15 mg/dL (9-20); Calcium 8.3 mg/dL (8.4-10.2); Carbon Dioxide 26 mmol/L (22-30); Chloride 105 mmol/L (98-107); Estimated CRCL calculation 102 ml/min; Estimated Glomerular Filt Rate > 60; Glucose 159 mg/dL (65-110); Potassium 4.3 mmol/L (3.4-5.0); Sodium 137 mmol/L (137-145)
[2022-10-02 08:24] LABS: Glucose Point of Care 157 mg/dl (65-105)
--- NOTE | 2022-10-02 08:37 | PCPTNOTE ---
Waiting for new CAM Boot prior to mobilizing pt. RN aware. Will follow.
[2022-10-02] MEDS: ATORVASTATIN 10 MG TABLET PO (08:41)
[2022-10-02] MEDS: metFORMIN HCL XR 500 MG TAB.SR.24H 1000 MG PO (08:41)
[2022-10-02] MEDS: amLODIPine BESYLATE 5 MG TABLET 10 MG PO (08:41)
[2022-10-02] MEDS: GLYCOPYRROLATE 1 MG TABLET 4 MG PO (08:41)
[2022-10-02] MEDS: GLIMEPIRIDE 2 MG TABLET PO (08:41)
[2022-10-02] MEDS: PANTOPRAZOLE 40 MG TABLET PO (08:41)
[2022-10-02] MEDS: MELOXICAM 7.5 MG TABLET 15 MG PO (08:42)
[2022-10-02 11:49] LABS: Glucose Point of Care 161 mg/dl (65-105)
[2022-10-02 12:03] LABS: Vancomycin Trough 16.3 ug/mL (10.0-20.0)
--- NOTE | 2022-10-02 13:25 | PCPTNOTE ---
CAM boot is not present. Will follow.
[2022-10-02 14:28] VITALS: BP 145/81; PULSE 77; RESP 18; TEMP 37; O2SAT 99
--- NOTE | 2022-10-02 15:01 | PM.DS ---
DS: Admitting Diagnosis Discharge Date 10/02/2022 Admitting Diagnosis Pain and swelling of left ankle Idiopathic gout Charcot ankle Bone erosion Uncontrolled type 2 DM Essential hypertension GERD without esophagitis Obstructive sleep apnea DS: Discharge Diagnosis Discharge Diagnosis (1) Pain and swelling of left ankle: Code(s): M25.572 - Pain in left ankle and joints of left foot; M25.472 - Effusion, left ankle Status: Acute (2) Lymphedema due to venous disease: Code(s): I89.0 - Lymphedema, not elsewhere classified; I99.9 - Unspecified disorder of circulatory system Status: Acute (3) Bone erosion: Code(s): M85.80 - Other specified disorders of bone density and structure, unspecified site Status: Acute (4) Uncontrolled type 2 diabetes mellitus: Qualifiers: Glycemic state: with hyperglycemia Qualified Code(s): E11.65 - Type 2 diabetes mellitus with hyperglycemia Status: Acute (5) Charcot ankle: Qualifiers: Laterality: left Qualified Code(s): M14.672 - Charcot's joint, left ankle and foot Code(s): M14.679 - Charcot's joint, unspecified ankle and foot Status: Acute (6) Essential (primary) hypertension: Code(s): I10 - Essential (primary) hypertension Status: Acute (7) Gastro-esophageal reflux disease without esophagitis: Code(s): K21.9 - Gastro-esophageal reflux disease without esophagitis Status: Acute (8) Obstructive sleep apnea (adult) (pediatric): Code(s): G47.33 - Obstructive sleep apnea (adult) (pediatric) Status: Acute (9) Idiopathic gout: Code(s): M10.00 - Idiopathic gout, unspecified site Status: Acute DS: Summary Hospital Course Reason for hospitalization: This is a 56-year-old male patient with a history of Charcot ankle, idiopathic gout in lymphedema who was admitted to the hospital with concern for septic arthritis of left ankle. Orthopedics was consulted initially okay with IV antibiotics. Hospital Course: Patient had left lower leg swelling tenderness and pain with Homans so venous ultrasound of the left lower extremity was completed which was negative. Upon further assessment and evaluation patient had no significant concerns for septic joint. He was fitted for a boot and physical therapy/ Occupational therapy were consulted for lymphedema treatment and mobility exercises related to swollen joint. Patient was able to discontinue antibiotics and be discharged the day following admission with outpatient for lymphedema treatment as this is not something that was done on an inpatient basis. Patient noted to have fairly well-controlled fingerstick glucose readings but the hemoglobin A1c finding of greater than 14. Patient was referred back to primary care to discuss diabetes control. Status at Discharge Cognitive/behavioral status at discharge: Awake, alert, oriented and pleasant Functional status at discharge: independent ambulation Overall status at discharge: patient is progressing back to baseline Time Spent with Patient Time attestation: Total time spent providing and/or coordinating discharge services: Time spent: Greater than 30 minutes Exam Narrative: GENERAL: Generally well appearing, alert and oriented, in no apparent distress. He is pleasant and conversant in full sentences. HEENT: Pupils are equally round and briskly reactive to light. Extraocular muscles are intact. Oral mucous membranes are moist without lesions. NECK: The patient has no noted JVD. No adenopathy is appreciated. CHEST/LUNGS: Lungs are clear bilaterally without rhonchi, rales, or wheezes. There is no tenderness to the chest wall. HEART: The patient has a regular rate and rhythm. No murmurs, rubs, or gallops are appreciated. Distal pulses are 2+ except in left foot/ankle, difficult to palpate due to swelling but good cap refill. ABDOMEN: The patient?s abdomen is? soft, rounded, nontender, and nondistend
--- NOTE | 2022-10-02 15:19 | PCOTNOTE ---
Attempted to see pt for OT however pt states he is I with ADLs and PT had just finished working with pt and confirms pt is I with functional mobility. Pt with no further OT needs at this time.
== END 2022-10-02 15:50 | disposition home or self-care (01) ==
LOC: ANHED 19:00 → ANH3MEDSUR 10-01 01:27
PROVIDERS: Nurse Practitioner; Admitting Provider Internal Medicine; Emergency Provider Physician Assistant; PCP Family Medicine Adolescent Medicine; Visit Provider Internal Medicine
DX: M14.672 Charcot's joint, left ankle and foot (principal); M85.872 Other specified disorders of bone density and structure, left ankle and foot; I89.0 Lymphedema, not elsewhere classified; I87.2 Venous insufficiency (chronic) (peripheral); M10.9 Gout, unspecified; E11.65 Type 2 diabetes mellitus with hyperglycemia; K21.9 Gastro-esophageal reflux disease without esophagitis; G47.33 Obstructive sleep apnea (adult) (pediatric); E78.5 Hyperlipidemia, unspecified; I10 Essential (primary) hypertension; Z87.891 Personal history of nicotine dependence; Z79.1 Long term (current) use of non-steroidal anti-inflammatories (NSAID); Z79.84 Long term (current) use of oral hypoglycemic drugs; Z79.85 Long-term (current) use of injectable non-insulin antidiabetic drugs
CPT/HCPCS: 36415; 73610; 73630; 73701; 80048; 80053; 80202; 82948; 83036; 83605; 84145; 84550; 85025; 85652; 86140; 87040; 93971; 96365; 96366; 96372; 96375; 96376; 97161; 99285; A9270; G0378; J0692; J1650; J1815; J1885; J3370; Q9967

== ENCOUNTER 2022-10-31 09:03 | Outpatient (CLI) | payer OTHER, SELFPAY ==
--- NOTE | ~2022-10-31 | US_ITS ---
EXAMINATION: US_VDOPREFBI_US DATE: 10/31/2022 10:37 INDICATION: Venous insufficiency. Left ankle effusion. TECHNIQUE: Grayscale ultrasound images without and with compression and Doppler ultrasound images of the bilateral lower extremity veins were obtained. COMPARISON: Ultrasound 10/01/2022 FINDINGS: The visualized portions of right common femoral vein, profunda (deep) femoral vein, femoral vein, pop liteal vein, peroneal veins, and posterior tibial veins are patent. Regular saphenous vein measures 5 mm in the upper thigh, 4 mm in the lower thigh, 3 mm in the calf. There is no reflux in greater saph enous vein. Small saphenous vein measures 3 mm in the upper calf and 3 mm in the lower calf. No reflu x. The visualized portions of left common femoral vein, profunda femoral vein, femoral vein, popliteal v ein, and posterior tibial veins are patent. There is thrombus in the left peroneal veins. Left greate r saphenous vein measures 5 mm in the upper thigh, 4 mm in the lower thigh, and 4 mm in the calf. No reflux. Left small saphenous vein was not evaluated. IMPRESSION: 1. Deep vein thrombosis involving the left peroneal veins. 2. No reflux. Reviewed, dictated and finalized at location A.
== END 2022-10-31 09:04 | disposition home or self-care (01) ==
PROVIDERS: PCP Family Medicine Adolescent Medicine; Visit Provider Orthopaedic Surgery
DX: M25.472 Effusion, left ankle (principal); M25.572 Pain in left ankle and joints of left foot; I87.2 Venous insufficiency (chronic) (peripheral); I82.452 Acute embolism and thrombosis of left peroneal vein; G89.29 Other chronic pain
CPT/HCPCS: 93970

== ENCOUNTER 2022-11-25 08:52 | Observation (INO) | payer OTHER, SELFPAY ==
[2022-11-25] VITALS (48 sets, daily range): BP systolic 96–131; BP diastolic 49–80; PULSE 99–135; RESP 15–22; TEMP 37.8; O2SAT 91–100
--- NOTE | ~2022-11-25 | XR_ITS ---
XR chest 1V portable DATE: 11/25/2022 09:44 INDICATION: Cough, sepsis TECHNIQUE: Portable AP chest on 11/25/2022 at 0939 hours COMPARISON: 06/07/2020 portable AP chest FINDINGS: Normal heart size. No hilar or mediastinal enlargement. No pulmonary infiltrate or consolid ation, pleural effusion or pulmonary vascular congestion or pneumothorax. Diffuse idiopathic skeletal hyperostosis of the thoracic spine. IMPRESSION: No active cardiopulmonary disease Reviewed, dictated and finalized at location A.
--- NOTE | ~2022-11-25 | XR_ITS ---
XR tibia fibula LT 2V DATE: 11/25/2022 09:44 INDICATION: Left ankle cellulitis. Evaluate for osteomyelitis TECHNIQUE: AP and lateral views of the tibia and fibula COMPARISON: None FINDINGS: There is severe destruction of the tibiotalar joint with severe irregularity and patchy scl erosis at the distal tibial articular surface and at the talus, with extensive destruction of the karma ar dome. There is periosteal reaction along the distal tibial shaft. There are extensive heterotopic bony densities around the ankle joint. The findings are likely due to severe neuropathic changes. Sup erimposed osteomyelitis however cannot be excluded. Clinical correlation is advised. Severe posterior and moderate plantar calcaneal enthesopathy. IMPRESSION: Severe destruction of the tibiotalar joint suggestive of neuropathic changes. Osteomyelit is is not excluded. Reviewed, dictated and finalized at location A. IMPRESSION: Severe destruction of the tibiotalar joint suggestive of neuropathi c changes. Osteomyelitis is not excluded.
--- NOTE | ~2022-11-25 | XR_ITS ---
XR foot LT 2V DATE: 11/25/2022 09:44 INDICATION: Infected ulcer. Evaluate for osteomyelitis. TECHNIQUE: AP and lateral views COMPARISON: 10/30/2022 left ankle FINDINGS: There is severe deformity at the tibiotalar joint. There is extensive destruction and scler osis of the talus, including particularly the destruction of the talar dome and tibiotalar joint. The re is prominent sclerosis and irregularity along the distal tibial articular surface. There are exten sive bony densities around the ankle joint. The appearance is most suggestive of severe neuropathic c hanges. Infection cannot be excluded. There is degenerative change at the tarsal and tarsometatarsal joints. Prominent plantar and particularly prominent posterior calcaneal enthesopathy. There is osteopenia. IMPRESSION: Severe probable neuropathic changes and destruction of the tibiotalar joint. Recommend cl inical correlation to exclude osteomyelitis Prominent plantar and posterior calcaneal enthesopathy Prominent osteophytic changes of the tarsal and tarsometatarsal joints Osteopenia Reviewed, dictated and finalized at location A. IMPRESSION: Severe probable neuropathic changes and destruction of the tibiotal ar joint. Recommend clinical correlation to exclude osteomyelitis Prominent plantar and posterior calcaneal enthesopathy Prominent osteophytic changes of the tarsal and tarsometatarsal joints Osteopenia
--- NOTE | ~2022-11-25 | CT_ITS ---
EXAMINATION: CT abdomen pelvis w con DATE: 11/25/2022 09:56 INDICATION: Right lower quadrant abdominal tenderness, nausea, vomiting, diarrhea, chills TECHNIQUE: Computed tomography (CT) of the abdomen and pelvis was performed with 100 CC Omnipaque 350 intravenous contrast. Automated exposure control and iterative reconstruction technique were employe d. Exam dose: 815.71 mGy-cm total exam DLP. COMPARISON: None. FINDINGS: The lung bases are clear. No pericardial or pleural effusion. There are multiple small stones in the dependent aspect of the gallbladder. No gallbladder wall thick ening or pericholecystic fluid or fat stranding or bile duct or pancreatic duct dilatation is noted. No hepatic, splenic, pancreatic, and adrenal or renal space-occupying mass lesion is detected. No ureteral calculus or hydroureteronephrosis. There is diffuse thickening of the urinary bladder wall, likely secondary to prominent prostate enlar gement. There are bilateral fat-containing inguinal hernias. Normal caliber of the abdominal aorta. No intraperitoneal or retroperitoneal or pelvic mass lesion is noted. There is mild adenopathy along the left external iliac lymph node chain and prominence of the left in guinal lymph nodes. An 8 x 19.5 mm left external iliac node is noted. No periaortic or aortocaval or periportal lymphadenopathy. Normal appendix. No bowel obstruction, bowel wall thickening, pneumatosis or intraperitoneal free air is detected. Prominent fat-containing umbilical hernia. Diffuse idiopathic skeletal hyperostosis of the lower thoracic spine. Mild chronic anterior wedge compression fracture deformity of T12. Degenerative changes apophyseal chente ints of the lower lumbar and lumbosacral area with associated minimal grade 1 anterolisthesis at L4-5 . There is mild retrolisthesis at L5-S1. IMPRESSION: Normal appendix Cholelithiasis Prostate enlargement, probably responsible for moderate diffuse thickening of the urinary bladder wal l Nonspecific mild adenopathy along the left external iliac node chain and left inguinal lymph node pro minence Bilateral fat-containing inguinal hernias and prominent fat-containing umbilical hernia Reviewed, dictated and finalized at Location A. Reviewed, dictated and finalized at location A. IMPRESSION: Normal appendix Cholelithiasis Prostate enlargement, probably responsible for moderate diffuse thickening of t he urinary bladder wall Nonspecific mild adenopathy along the left external iliac node chain and left i nguinal lymph node prominence Bilateral fat-containing inguinal hernias and prominent fat-containing umbilica l hernia
--- NOTE | 2022-11-25 09:02 | PC.NURSE ---
pt c/o having gas. per son states pt wasnt feeling good yesterday but does not give any symptoms. just states was weak. pt poor historian. difficult to assess.
--- NOTE | 2022-11-25 09:13 | ED.GENADULT ---
HPI - General Adult General Chief complaint: Nausea/Vomiting/Diarrhea <Gianni Marrero PA-C - Last Filed: 11/25/22 19:50> Stated complaint: shaking all night , diarrhea <Gianni Marrero PA-C - Last Filed: 11/25/22 19:50> Time Seen by Provider: 11/25/22 09:03 <Gianni Marrero PA-C - Last Filed: 11/25/22 19:50> Source: patient <KELLI Lake Last Filed: 11/25/22 19:50> Mode of arrival: ambulatory <Gianni Marrero PA-C - Last Filed: 11/25/22 19:50> Limitations: no limitations <Gianni Marrero PA-C - Last Filed: 11/25/22 19:50> History of Present Illness HPI narrative: This is a 56-year-old male with PMH of T2DM, GERD, HTN who presents to the ED with chief complaint of N/V/D for the past 2 days. Reports multiple loose stools over the past couple of days but none today. He reports he has had shaking chills along with nausea as well. Reports 2 episodes of vomiting yesterday but none today. Did not take his temperature at home.. He states his blood sugars have been doing well. He cannot tell me what his last A1c was. Reports he has been dealing with a left lateral ankle ulcer for the past several weeks. He was admitted to the hospital several weeks ago for left ankle cellulitis/infection and states he had been doing well with this and following up with Dr. Barillas. States he has been changing the dressings every day. However in the last 3 to 4 days he has noticed that the ankle has been swelling up more and more painful. Denies drainage. Endorses occasional cough. Denies abdominal pain. Denies chest pain, shortness of breath, urinary problems, GI bleeding symptoms. Per chart review hemoglobin A1c 09/30/2022 is greater than 14.0. <iGanni Marrero PA-C - Last Filed: 11/25/22 19:50> Related Data Allergies/adverse reactions: Allergies Allergy/AdvReac Type Severity Reaction Status Date / Time No Known Allergies Allergy Verified 10/30/22 09:49 <Gianni Marrero PA-C - Last Filed: 11/25/22 19:50> Review of Systems Review of Systems: All systems as dictated in HPI <Gianni Marrero PA-C - Last Filed: 11/25/22 19:50> [facility] Past Medical History Medical History: Medical History (Updated 11/27/22 @ 16:18 by Dariela Ramirez PA-C) Charcot ankle Diffuse idiopathic skeletal hyperostosis Noted on x-ray in May 2020. Gastroesophageal reflux disease Hyperlipidemia Hypertension Lymphedema due to venous disease Obstructive sleep apnea Type 2 diabetes mellitus <Gianni Marrero PA-C - Last Filed: 11/25/22 19:50> Surgical History Surgical History: Surgical History No history of previous surgery <Gianni Marrero PA-C - Last Filed: 11/25/22 19:50> Family History Family History: Family History Father Acute myocardial infarction Other Paternal family history of congestive heart failure Acute myocardial infarction Paternal family hx Paternal family history of cerebrovascular event <Gianni Marrero PA-C - Last Filed: 11/25/22 19:50> Social History Social History: Social History Social History: Surrogate medical decision maker: Lucio Cornell, spouse. Code status: Full code. Smoking status: Former smoker Second hand tobacco smoke exposure: No Alcohol intake: never Substance use: never Substance use type: does not use Lack of Transportation: No Lack of Food: Never True Current Housing: I Have Housing Concerned About Future Housing: No Difficulty Paying Gas/Electric Bills: No Difficulty Paying for Meds: No Currently Unemployed: No Education: Master's Degree or Higher Difficulty w/ Childcare or Family Care: No Additional living arrangements comments: Lives with spouse and children in [place]. Additional occupation/education comments: [employer]
[2022-11-25 09:28] LABS: Basophils Absolute Auto 0.1 K/mm3 (0.0-0.1); Basophils Percent Auto 0.4 % (0.2-1.2); Hematocrit 42.8 % (42.0-52.0); Hemoglobin 11.8 g/dL (14.0-18.0); Immature Granulocyte Absolute 0.36 K/mm3 (0.00-0.031); Immature Granulocyte Percent A 1.2 % (0-0.5); Lymphocytes Absolute Auto 0.87 K/mm3 (0.9-3.2); Lymphocytes Percent Auto 2.9 % (18.3-44.2); Mean Corpuscular HGB Conc 27.6 g/dl (32-36); Mean Corpuscular Hemoglobin 27.4 pg (26-34); Mean Corpuscular Volume 99.3 fl (80-100); Mean Platelet Volume 8.2 fl (7.4-10.4); Monocytes Absolute Auto 1.2 K/mm3 (0.1-0.6); Monocytes Percent Auto 3.9 % (2.6-8.5); Neutrophils Absolute Auto 27.3 K/mm3 (1.3-6.7); Neutrophils Percent Auto 91.6 % (45.5-73.1); Platelet Count Result 448 k/mm3 (150-375); Red Blood Count 4.31 M/mm3 (4.6-6.20); Red Cell Distribution Width 14.3 % (11.5-14.5); White Blood Count 29.9 K/mm3 (4.5-10.0)
[2022-11-25] MEDS: SODIUM CHLORIDE 0.9% IV 1,000 ML 999 ML IV CONT ×2 (09:28→10:26)
[2022-11-25] MEDS: ONDANSETRON INJ 4 MG/2 ML VIAL IV PUSH (09:28)
[2022-11-25 09:34] LABS: Alkaline Phosphatase 171 U/L (38-126); Anion Gap 17 mmol/L (8-16); Aspartate Amino Transferase 28 U/L (17-59); Bilirubin,Total 1.3 mg/dL (0.2-1.3); Blood Urea Nitrogen 24 mg/dL (9-20); Calcium 8.9 mg/dL (8.4-10.2); Carbon Dioxide 16 mmol/L (22-30); Chloride 105 mmol/L (98-107); Estimated CRCL calculation 56 ml/min; Estimated Glomerular Filt Rate 58; Glucose 174 mg/dL (65-110); Lipase 21 U/L (23-300); Potassium 5.2 mmol/L (3.4-5.0); Sodium 138 mmol/L (137-145)
[2022-11-25 09:41] LABS: Alanine Aminotransferase 28 U/L (6-50)
[2022-11-25 10:01] LABS: Beta-Hydroxybutyrate/Acetoacetate 0.59 mmol/L (0.02-0.27)
[2022-11-25 10:34] LABS: Fractional Inspired Oxygen 21 %; HCO3 VBG 20.1 mEq/l (24.0-30.0); PCO2 VBG 34.4 mmHg (42.0-48.0); PO2 VBG 29.7 mmHg (35.0-45.0); pH VBG 7.385 (7.300-7.400)
[2022-11-25 10:49] LABS: Lactic Acid Reflex 3.5 mmol/L (0.7-2.0)
[2022-11-25] MEDS: CEFEPIME 2 GM/NS 50 ML 2 GM/50 ML BAG IVPB ×2 (10:55→23:12)
[2022-11-25 11:11] LABS: Erythrocyte Sedimentation Rate > 140 mm/hr (0-20)
[2022-11-25] MEDS: metroNIDAZOLE 500 MG/ISO 100ML 500 MG/100 ML BAG 100 MG IVPB ×2 (11:37→20:54)
[2022-11-25 11:49] LABS: CRP 39.5 mg/dL (<1.0)
[2022-11-25 12:06] LABS: Appearance Urine Clear (Clear); Bacteria Urine None Seen /hpf; Bilirubin Urine Negative (Negative); Blood Urine 1+ (Negative); Color Urine Yellow (Yellow); Glucose Urine UA Negative (Negative); Granular Casts Urine Present /lpf; Ketones Urine Trace mg/dL (Negative); Leukocyte Esterase Ur Negative LEU/UL (Negative); Need Manual Microscopic Reviewed; Nitrate Urine Negative (Negative); Protein Urine 3+ mg/dL (Negative); Specific Grav Ur 1.022 (1.001-1.035); Squamous Epithelial Cell Urine None seen /hpf (Few); Urobilinogen Urine 0.2 mg/dL (<2.0); WBC Urine 0-5 /hpf
[2022-11-25 12:07] LABS: Add Urine Microscopic? YES
[2022-11-25] MEDS: VANCOMYCIN 1,250 MG/NS 250 ML 1,250 MG/250 ML BAG 166.67 MG IVPB ×2 (13:02→15:40)
[2022-11-25 13:35] LABS: Reflex Lactic Acid Yes or No Add Lactic
[2022-11-25 14:23] LABS: Lactic Acid 1.8 mmol/L (0.7-2.0)
--- NOTE | 2022-11-25 14:53 | ECG_ITS ---
Measurements Intervals [place] Rate: 120 P: 45 MS: 178 QRS: -29 QRSD: 93 T: 79 QT: 298 QTc: 422 Interpretive Statements SINUS TACHYCARDIA ST ELEVATION IN ANTERIOR LEADS, PROBABLY EARLY REPOLARIZATION NONSPECIFIC T-WAVE ABNORMALITY- HIGH LATERAL LEADS ABNORMAL ECG COMPARED TO ECG 06/07/2020 05:29:54 SINUS TACHYCARDIA NOW PRESENT T WAVE ABNORMALITY NOW PRESENT Electronically Signed On 11-25-2022 16:07:38 CDT by Dakota Saldivar D.O.
[2022-11-25 16:33] LABS: Anion Gap 9 mmol/L (8-16); Blood Urea Nitrogen 25 mg/dL (9-20); Calcium 8.1 mg/dL (8.4-10.2); Carbon Dioxide 21 mmol/L (22-30); Chloride 109 mmol/L (98-107); Estimated CRCL calculation 56 ml/min; Estimated Glomerular Filt Rate 58; Glucose 158 mg/dL (65-110); Potassium 4.6 mmol/L (3.4-5.0); Sodium 139 mmol/L (137-145)
[2022-11-25] MEDS: SODIUM CHLORIDE 0.9% IV 500 ML 999 ML IV CONT (20:01)
[2022-11-26] VITALS (38 sets, daily range): BP systolic 93–149; BP diastolic 56–100; PULSE 88–119; RESP 14–20; TEMP 36.8–39.6; O2SAT 90–100; BMI 27.4
[2022-11-26] MEDS: ACETAMINOPHEN 500 MG TABLET 1000 MG PO ×2 (02:07→11:47)
--- NOTE | 2022-11-26 03:45 | PC.NURSE ---
[facility] transfer [facility] called stating he is still on their waitlist; no time frame provided.
[2022-11-26 06:55] LABS: Estimated CRCL calculation 53 ml/min; Estimated Glomerular Filt Rate 54
[2022-11-26] MEDS: metroNIDAZOLE 500 MG/ISO 100ML 500 MG/100 ML BAG 100 MG IVPB ×2 (06:58→13:05)
[2022-11-26] MEDS: SILVERGEL (ELTA) 45 ML 1 APPLIC TOPICAL (11:41)
[2022-11-26] MEDS: CEFEPIME 2 GM/NS 50 ML 2 GM/50 ML BAG IVPB (11:41)
--- NOTE | 2022-11-26 13:07 | ADMGEN ---
This patient, Mika Cornell Sr., was admitted to [facility] Surg Room 321-01. Patient/family oriented to hospital policies and general routines including ID bracelet, bed and alarms, visiting hours, pain management, procedures, bathroom and other care routines, personal items, smoking policy, room service/diet, and visiting hours. Information on how to activate the Rapid Response Team has been discussed. Patient/Family are encouraged to report perceived risks to care and to ask questions if they do not understand what they are told or what they should do.
--- NOTE | 2022-11-26 13:31 | PM.IMHP ---
H&P: HPI History of Present Illness Date/Time: 11/26/22 14:00 Chief Complaint: Chills. Narrative: This is a very pleasant 56-year-old male with hypertension, hyperlipidemia, poorly controlled type 2 diabetes mellitus with a hemoglobin A1c of greater than 14% in September 2022, left Charcot ankle, and recent diagnosis of left lower extremity DVT in October 2022 on apixaban who presented to the emergency department from home for evaluation of chills. The patient provides following history. He is known to myself and the hospitalist service from his initial admission in March 2022 at which time he presented with left foot and ankle pain. Imaging was consistent with Charcot arthropathy of the left ankle. Joint aspiration was negative for crystals and culture had no growth. He has been following up with Dr. Barillas (orthopedics) since that time. He was admitted once again in September 2022 with concerns for possible osteomyelitis after presenting with similar complaints. Dr. Barillas reviewed his imaging and felt the CT scan showed changes consistent with neuropathic arthropathy and felt osteomyelitis was unlikely. A new boot, edema control, and lymphedema therapy were recommended. More recently he had a mold taken of his left foot and ankle for custom prostatic fit and fabrication of Charcot restraint orthosis which he has yet to receive. In any event, he has not been feeling well for a couple weeks with generalized fatigue, malaise, and poor appetite. The last 2 days he has felt increasingly worse, has developed shaking chills, nausea, vomiting, and loose stools. He has noticed discharge coming from an ulceration on the lateral malleolus. He does not have any more pain than usual in that joint. He had a low-grade temperature on arrival to the ED but his temperature spiked to 103.2? F after admission to the floor. Blood pressures were soft initially but have responded to IV fluids. Labs were significant for WBC count of 29.9, ESR greater than 140, BUN 24, creatinine 1.50, potassium 5.2, lactic acid 3.5, CRP 39.5, procalcitonin 40.9. Radiographs of the left foot and tibia/fibula showed severe neuropathic changes and destruction of the tibiotalar joint suggestive of neuropathic changes however osteomyelitis is not excluded. He was started on cefepime, metronidazole, and vancomycin and transfer was initiated to tertiary care facility due to lack of infectious disease specialty at this institution at the request of Dr. Barillas. Due to an extended wait for a bed to become available, the patient is being admitted to the medical floor pending transfer. Review of Systems Review of Systems: Twelve systems were reviewed. He has had a fever as above. No cold or flu symptoms. Denies headache and neck ache. No arthralgias or myalgias. Denies chest pain shortness a breath. No cough. Appetite has been poor. He continues to have nausea. No emesis for a day or so. Loose stools are improving. No dysuria. Recently had Trulicity increased and he reports that his glucose has been doing better. Hemoglobin A1c in September 2022 was greater than 14%. He has lost at least 50 lb if not more since starting Trulicity earlier this spring. Except as documented, all other systems were reviewed and are negative. [facility] Past Medical History Medical History (Updated 11/26/22 @ 16:53 by Dariela Ramirez PA-C) Charcot ankle Diffuse idiopathic skeletal hyperostosis Noted on x-ray in May 2020. Gastroesophageal reflux disease Hyperlipidemia Hypertension Lymphedema due to venous disease Obstructive sleep apnea Type 2 diabetes mellitus Surgical History Surgical History No history of previous surgery Family History Family History Father Acute myocardial infarction Other Paternal family history of congestive heart failure Acute myocardial infarction Paternal family hx Pater
[2022-11-26] MEDS: HYDROcodone/acetaminophen (*CRX) 5-325 MG TABLET 1 TAB PO (14:22)
[2022-11-26 14:36] LABS: Hematocrit 27.5 % (42.0-52.0); Hemoglobin 8.3 g/dL (14.0-18.0); Mean Corpuscular HGB Conc 30.2 g/dl (32-36); Mean Corpuscular Hemoglobin 27.2 pg (26-34); Mean Corpuscular Volume 90.2 fl (80-100); Platelet Count Result 361 k/mm3 (150-375); Red Blood Count 3.05 M/mm3 (4.6-6.20); Red Cell Distribution Width 14.6 % (11.5-14.5); White Blood Count 21.7 K/mm3 (4.5-10.0)
[2022-11-26 14:45] LABS: Lactic Acid Reflex 1.2 mmol/L (0.7-2.0)
[2022-11-26 14:48] LABS: Alanine Aminotransferase 14 U/L (6-50); Albumin Level 2.9 g/dL (3.5-5.1); Alkaline Phosphatase 114 U/L (38-126); Anion Gap 9 mmol/L (8-16); Aspartate Amino Transferase 25 U/L (17-59); Bilirubin,Total 0.6 mg/dL (0.2-1.3); Blood Urea Nitrogen 32 mg/dL (9-20); Calcium 8.2 mg/dL (8.4-10.2); Carbon Dioxide 20 mmol/L (22-30); Chloride 107 mmol/L (98-107); Estimated CRCL calculation 56 ml/min; Estimated Glomerular Filt Rate 58; Glucose 192 mg/dL (65-110); Magnesium 1.5 mg/dL (1.6-2.3); Sodium 136 mmol/L (137-145)
[2022-11-26 15:06] LABS: Band Neutrophils Percent 6 % (0-6); Lymphocytes Absolute Manual 1.51 K/mm3 (1.1-4.5); Monocytes Absolute Manual 0.65 K/mm3 (0.1-0.90); Monocytes Percent Manual 3 % (3-9); Neutrophils Absolute Manual 19.53 K/mm3 (1.3-6.7); Neutrophils Percent Manual 84 % (46-73); Platelet Estimate Adequate (Adequate); Total Cells Counted 100
[2022-11-26 15:07] LABS: Schistocytes None Seen (NORMAL)
[2022-11-26 15:08] LABS: Hypochromasia 1+ (NORMAL)
[2022-11-26 15:09] LABS: Anisocytosis 1+ (NORMAL)
[2022-11-26 15:13] LABS: Procalcitonin 40.9 ng/mL
--- NOTE | 2022-11-26 15:45 | PM.TDS ---
Transfer Discharge Sum: Prov Provider Date of admission: 11/26/22 11:31 Primary care physician: Pantera Seth MD Admitting clinician: Viraj Pike MD Consults: 11/26/22 Wound/ET Consult Routine Reason for Consult:: Left ankle ulcer 11/26/22 11:31 Consult to Physician Routine Comment: Consulting Provider: Ole Barillas Reason for consultation: Osteomyelitis Has provider been notified: Yes Attending physician on discharge: Mario Pike Discharging clinician: Dariela Ramirez Anticipated date of transfer: 11/26/22 Receiving physician/facility: [facility] DS: Admitting Diagnosis Discharge Date 11/26/2022 Admitting Diagnosis 1. Sepsis 2. Diabetic ulcer of ankle 3. Diabetic infection of left 4. Charcot ankle 5. Hypomagnesemia 6. Acute kidney injury 7. Type 2 diabetes mellitus 8. Hypertension 9. Hyperlipidemia 10. Obstructive sleep apnea 11. Anticoagulated 12. Group A Streptococcus bacteremia DS: Discharge Diagnosis Discharge Diagnosis (1) Sepsis: Code(s): A41.9 - Sepsis, unspecified organism Status: Acute (2) Diabetic ulcer of ankle: Code(s): E11.622 - Type 2 diabetes mellitus with other skin ulcer; L97.309 - Non-pressure chronic ulcer of unspecified ankle with unspecified severity Status: Acute (3) Diabetic infection of left foot: Code(s): E11.628 - Type 2 diabetes mellitus with other skin complications; L08.9 - Local infection of the skin and subcutaneous tissue, unspecified Status: Acute (4) Charcot ankle: Qualifiers: Laterality: left Qualified Code(s): M14.672 - Charcot's joint, left ankle and foot Code(s): M14.679 - Charcot's joint, unspecified ankle and foot Status: Acute (5) Hypomagnesemia: Code(s): E83.42 - Hypomagnesemia Status: Acute (6) Acute kidney injury: Code(s): N17.9 - Acute kidney failure, unspecified Status: Acute (7) Type 2 diabetes mellitus: Code(s): E11.9 - Type 2 diabetes mellitus without complications Status: Acute (8) Hypertension: Code(s): I10 - Essential (primary) hypertension Status: Acute (9) Hyperlipidemia: Code(s): E78.5 - Hyperlipidemia, unspecified Status: Acute (10) Obstructive sleep apnea: Code(s): G47.33 - Obstructive sleep apnea (adult) (pediatric) Status: Acute (11) Anticoagulated: Code(s): Z79.01 - medical terminologist (current) use of anticoagulants Status: Acute (12) Bacteremia due to Streptococcus: Code(s): R78.81 - Bacteremia; B95.5 - Unspecified streptococcus as the cause of diseases classified elsewhere Status: Acute Plan The patient presented to the emergency department for evaluation of shaking chills as detailed in HPI. Labs, imaging, EKG, and all reports were personally reviewed. He meets sepsis criteria with fever, tachycardia, relative hypotension responsive to IV fluids, leukocytosis, lactic acidosis, and acute kidney injury. Lactic acid level has normalized with IV fluid rehydration. Blood cultures have been obtained and are pending. Source of infection is a diabetic ulcer of the left lateral malleolus with concerns for possible underlying osteomyelitis. He has been started cefepime, metronidazole, and vancomycin per antibiotic stewardship recommendations. Dr. Barillas recommends transfer to tertiary care facility for infectious disease consultation and he is currently awaiting a bed at [facility]. Regarding his loose stools, they have improved and CT scan of the abdomen did not show any acute process. He has not been on any recent antibiotics and C diff seems unlikely. Glucose has been anywhere between 150s to 190s. Hemoglobin A1c in September was greater than 14% though he reports a recent increase in Trulicity which seems to with improvement in his glucose now rarely over 200.? It is imperative that he get his diabetes under contro
--- NOTE | 2022-11-26 16:06 | PC.NURSE ---
Report Called to [facility], KAREL Walker for transfer to room 622.
[2022-11-26 16:41] LABS: Glucose Point of Care 125 mg/dl (65-105)
[2022-11-26] MEDS: GLYCOPYRROLATE 1 MG TABLET 4 MG PO (17:00)
[2022-11-26] MEDS: PANTOPRAZOLE 40 MG TABLET PO (17:00)
[2022-11-26] MEDS: MAGNESIUM SULF 2 GM/WATER 50ML 2 GM/50 ML BAG IVPB (17:02)
--- NOTE | 2022-11-26 18:49 | PC.NURSE ---
PT left with EMS Beau, IV in place, transfer to [facility] hospital room 622, report given to KAREL Walker.
== END 2022-11-26 18:55 | disposition short-term general hospital (02) ==
LOC: ANHED 11-26 11:34 → ANH3MEDSUR 11-26 12:24
PROVIDERS: Physician Assistant; Admitting Provider Internal Medicine; Emergency Provider Preventive Medicine Aerospace Medicine; PCP Family Medicine Adolescent Medicine; Visit Provider Internal Medicine
DX: A41.9 Sepsis, unspecified organism (principal); B95.0 Streptococcus, group A, as the cause of diseases classified elsewhere; L97.309 Non-pressure chronic ulcer of unspecified ankle with unspecified severity; E11.622 Type 2 diabetes mellitus with other skin ulcer; L08.9 Local infection of the skin and subcutaneous tissue, unspecified; E11.628 Type 2 diabetes mellitus with other skin complications; M14.679 Charcot's joint, unspecified ankle and foot; E83.42 Hypomagnesemia; N17.9 Acute kidney failure, unspecified; K21.9 Gastro-esophageal reflux disease without esophagitis; I10 Essential (primary) hypertension; N40.0 Benign prostatic hyperplasia without lower urinary tract symptoms; R63.0 Anorexia; Z68.27 Body mass index [BMI] 27.0-27.9, adult; R00.0 Tachycardia, unspecified; E78.5 Hyperlipidemia, unspecified; D72.829 Elevated white blood cell count, unspecified; I82.402 Acute embolism and thrombosis of unspecified deep veins of left lower extremity; G47.33 Obstructive sleep apnea (adult) (pediatric); Z87.891 Personal history of nicotine dependence; M85.80 Other specified disorders of bone density and structure, unspecified site; Z79.1 Long term (current) use of non-steroidal anti-inflammatories (NSAID); Z79.84 Long term (current) use of oral hypoglycemic drugs; Z79.85 Long-term (current) use of injectable non-insulin antidiabetic drugs; Z79.01 Long term (current) use of anticoagulants; Z79.899 Other long term (current) drug therapy
CPT/HCPCS: 36415; 71045; 73590; 73620; 74177; 80048; 80053; 81001; 82010; 82565; 82803; 82948; 83036; 83605; 83690; 83735; 84145; 85025; 85652; 86140; 87040; 87147; 87181; 87186; 93005; 96361; 96365; 96366; 96367; 96375; 96376; 99285; A9270; G0378; J0692; J1836; J2405; J3370; J3475; J7030; J7040; Q9967

== ENCOUNTER 2023-01-07 14:55 | Outpatient (RCR) | payer OTHER, SELFPAY ==
[2023-01-07 16:30] LABS: Basophils Percent Auto 0.3 % (0.2-1.2); Eosinophils Absolute Auto 0.3 K/mm3 (0-0.3); Eosinophils Percent Auto 3.1 % (0-4.4); Hematocrit 29.9 % (42.0-52.0); Hemoglobin 8.7 g/dL (14.0-18.0); Immature Granulocyte Absolute 0.03 K/mm3 (0.00-0.031); Immature Granulocyte Percent A 0.3 % (0-0.5); Lymphocytes Absolute Auto 1.65 K/mm3 (0.9-3.2); Lymphocytes Percent Auto 17.2 % (18.3-44.2); Mean Corpuscular HGB Conc 29.1 g/dl (32-36); Mean Corpuscular Hemoglobin 27.3 pg (26-34); Mean Corpuscular Volume 93.7 fl (80-100); Mean Platelet Volume 8.9 fl (7.4-10.4); Monocytes Absolute Auto 0.9 K/mm3 (0.1-0.6); Monocytes Percent Auto 9.3 % (2.6-8.5); Neutrophils Absolute Auto 6.7 K/mm3 (1.3-6.7); Neutrophils Percent Auto 69.8 % (45.5-73.1); Platelet Count Result 504 k/mm3 (150-375); Red Blood Count 3.19 M/mm3 (4.6-6.20); White Blood Count 9.6 K/mm3 (4.5-10.0)
[2023-01-07 16:39] LABS: Alanine Aminotransferase 16 U/L (6-50); Albumin Level 3.5 g/dL (3.5-5.1); Alkaline Phosphatase 139 U/L (38-126); Anion Gap 8 mmol/L (8-16); Aspartate Amino Transferase 25 U/L (17-59); Bilirubin,Total 0.4 mg/dL (0.2-1.3); Blood Urea Nitrogen 20 mg/dL (9-20); Carbon Dioxide 25 mmol/L (22-30); Chloride 107 mmol/L (98-107); Estimated Glomerular Filt Rate > 60; Glucose 98 mg/dL (65-110); Sodium 140 mmol/L (137-145)
[2023-01-07 17:50] LABS: Hypochromasia 1+ (NORMAL); Platelet Estimate Increased (Adequate); Schistocytes None Seen (NORMAL)
== END 2023-04-07 23:59 | disposition home or self-care (01) ==
LOC: HOME HLTH 14:55
PROVIDERS: PCP Family Medicine Adolescent Medicine; Visit Provider Family Medicine Adolescent Medicine
DX: E11.9 Type 2 diabetes mellitus without complications (principal); M00.9 Pyogenic arthritis, unspecified; M14.672 Charcot's joint, left ankle and foot; S72.141D Displaced intertrochanteric fracture of right femur, subsequent encounter for closed fracture with routine healing
CPT/HCPCS: 80053; 85025

== ENCOUNTER 2024-04-08 20:30 | Emergency (ER) | payer OTHER, SELFPAY ==
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
--- OUTSIDE RECORDS SUMMARY | 2024-04-08 20:32 | XMS_ITS | Clinical Summary ---
Author Organization [facility] Care Team Providers Care Unix Analyst Name Role Phone Unavailable Primary Care Provider Unavailabl e Social History Tobacco Use Types Packs/Day Years Used Date Smoking Tobacco: Never Assessed Sex and Gender Information Value Date Recorded Sex Assigned at Not on file Legal Sex Male 8:50 PM CDT Gender Identity Not on file Sexual Orientation Not on file Plan of Treatment Health Maintenance Due Date Last Done Comments Hepatitis C Virus (HCV) Screening 1965 TdaP Immunization 1965 Colonoscopy 11/29/2008 Colorectal Cancer Screening 11/29/2008 Cologuard 11/29/2013 Immunochemical Fecal Occult Blood 11/29/2013 Pneumococcal Immunization (5 0+ years) (1 of 1 - PCV) 11/29/2013 Zoster Immunization (1 of 2) 11/29/2013 PSA Discussion 11/29/2018 Influenza Immunization (#1) 2023 SARS-COV-2 Immunization ( - season) 2023 Respiratory Syncytial Virus (RSV) Immunization (Adult) (1 - 1-dose 75+ series) 11/29/2038 Hepatitis B Immunization Aged Out No longer eligible based on patient's age to complete this topic Meningococcal Immunization (ACWY) Aged Out No longer eligible based on patient's age to complete this topic Pneumococcal Immunization Combined Aged Out No longer eligible based on patient's age to complete this topic Rotavirus Immunization Aged Out No lo nger eligible based on patient's age to complete this topic
--- OUTSIDE RECORDS SUMMARY | 2024-04-08 20:32 | XMS_ITS | Referral Summary ---
Author Organization [facility] Address [address] [place] [address] Care Team Providers Care Gift Officer Name Role Phone Aren Violetdelvis Roque APRN-HEARING IMPAIRED TEACHER Primary Care Provider Source Comments [facility],non-owned Affiliates and Associated Physician Practices is amultiple site organization consisting of ambulatory clinics and hospital sitesin [place], [place], [place] and [place]. This disclosure is being madepursuant to the Care Everywhere program and may not contain all information available regarding this patient. Last updated 17.[facility] Encounters Date Type Department Care Team Description 01/23/2024 9:49 AM TRACTOR TRAILER MECHANIC - 01/23/2024 11:59 PM [facility] Hospital Encounter [facility] [address] [place] [address] Blane Stinson MD Discharge Disposition: Home or Self Care 01/23/2024 Orders Only [facility] - Orthopedics [address] [place] [phone] Blane Stinson MD Orthopedic aftercare 01/23/2024 8:30 AM TRACTOR TRAILER MECHANIC Office Visit [facility] - Orthopedics [address] [place] [phone] Blane Stinson MD Charcot ankle, left (Primary Dx) from Last 3 Months Allergies No known active allergies Medications * Be aware that medications may not be up to date on this document. Alwaysverify current medications with the patient. Medication Sig Dispensed Refills Start Date End Date Status atorvastatin (Lipitor) 10 MG tablet Take 1 (one) tablet by mouth once daily 3 Active vitamin D, ergocalciferol, (Drisdol) 1.25 MG (71458 UT) capsule Take 1 (one) capsule by mouth every 7 days 7 capsule 3 Active acetaminophen (Tylenol) 500 MG tablet Take 2 (two) tablets by mouth 3 times daily Maximum allowable Acetaminophen amount = 4 Grams (4000 mg) / 24 hours. 3 Active Blood Glucose Monitoring Suppl (ONE TOUCH ULTRA 2) w/Device KITIndications:Type 2 diabetes mellitus with other specified complication, without long-term current use of insulin ([facility]) as directed 3 Active WordinaireTouch Ultra test stripIndications:Ty pe 2 diabetes mellitus with other specified complication, without long-term current use of insulin ([facility]) USE TO CHECK BLOOD SUGAR EVERY DAY 3 Active glycopyrrolate (Robinul) 2 MG tablet 4 Active Lancets (CorkShareTOUCH DELICA PLUS 33G EXTRA FINE LANCET) USE TO CHECK BLOOD SUGAR EVERY DAY 3 Active pantoprazole EC (Protonix) 40 MG tablet Take 1 (one) tablet by mouth once daily 4 Active Trulicity 4.5 MG/0.5ML injectionIndication s:Type 2 diabetes mellitus with other specified complication, without long-term current use of insulin ([facility]) Inject 0.5 mL subcutaneously every 7 days 0.5 mL 3 4 Active Additional Information Patient not taking.Reported on 09/18/2023 ondansetron (Zofran) 8 MG tablet Take 1 (one) tablet by mouth every 8 hours as needed for Nausea/Vomiting 30 tablet 4 Active Additional Information Patient not taking.Reported on 09/18/2023 oxyCODONE, immediate release, (Roxicodone) 5 MG tabletIndications:S tatus post surgery Take 1 (one) tablet by mouth every 6 hours as needed for Pain 24 tablet 4 Active 0.9% NaCl irrigation 0.9 % irrigation solution 500 mL by Irrigation route once for 1 dose 500 mL 4 Active valsartan (Diovan) 80 MG tablet Take 1 (one) tablet by mouth once daily 4 Active hydroCHLOROthiazide (Hydrodiuril) 25 MG tablet Take 1 (one) tablet by mouth once daily 4 Active tamsulosin (Flomax) 0.4 MG capsule Take 1 (one) capsule by mouth once daily At the same time every day after a meal. 90 capsule 1 4 Active mirtazapine (Remeron) 15 MG tabletIndications:I nsomnia, unspecified type TAKE 1 TABLET BY MOUTH AT BEDTIME 90 tablet 4 Active 0.9% NaCl irrigation 0.9 % irrigation solution USE 500ML FOR IRRIGATION ONCE FOR 1 DOSE 1000 mL 4 06/06/19 25 Active sulfamethoxazole-tr imethoprim (Bactrim DS; Septra DS) 800-160 MG tabletIndications:O ther specified postprocedural states TAKE ONE TABLET BY MOUTH EVERY 12 HOURS FOR 14 DAYS 28 tablet 4 06/19/19 25 Active 0.9% NaCl irrigation 0.9 % irrigation solutionIndications :Other specified postprocedural states USE 1,000ML BY IRRIGATION ROUTE ONCE FOR 1 DOSE 1000 mL 2 4 06/19/19 25 Active sodium bicarbonate 650 MG tablet TAKE ONE TABLET BY MOUTH 3 TIMES A DAY 90 tablet 11 4 07/09/19 25 Active apixaban (Eliquis) 2.5 MG tablet TAKE ONE TABLET BY MOUTH 2 TIMES A DAY FOR 21 DAYS 42 tablet 4 07/09/19 25 Active 0.9% NaCl irrigation 0.9 % irrigation solution USE 500ML BY IRRIGATION ROUTE ONCE 1000 mL 4 07/25/19 25 Active tamsulosin (Flomax) 0.4 MG capsule TAKE ONE CAPSULE BY MOUTH ONCE DAILY AT THE SAME TIME EACH DAY AFTER A MEAL 90 capsule 1 4 08/20/19 25 Active ondansetron, disintegrating, (Zofran ODT) 4 MG tablet ALLOW TWO TABLETS TO DISSOLVE ON TONGUE EVERY 8 HOURS NEEDED FOR NAUSEA/VOMITING 30 tablet 4 08/21/19 25 Active docusate sodium (Colace) 100 MG capsule TAKE ONE CAPSULE BY MOUTH ONCE DAILY 30 capsule 4 08/21/19 25 Active Additional Information Patient not taking.Reported on 09/18/2023 apixaban (Eliquis) 2.5 MG tablet TAKE ONE TABLET BY MOUTH 2 TIMES A DAY FOR 21 DAYS 42 tablet 4 09/18/19 25 Active oxyCODONE-acetamino phen (Percocet) 5-325 MG tabletIndications:I nfection at site of external fixator pin, sequela,Status post surgery,Charcot ankle, left,Ankle wound, left, sequela Take 1 (one) tablet by mouth every 6 hours as needed for Pain 20 tablet 4 08/16/19 24 Discontinu ed(No Pharm No AVS) Active Problems Problem Noted Date Diagnosed Date Post-op pain 07/08/2023 Hyponatremia 05/15/2023 Metabolic acidosis 05/15/2023 Acute renal failure, unspecified acute renal alicia lure type 05/15/2023 Bladder obstruction 05/15/2023 Encounter to establish care 04/30/2023 Ankle wound, left, sequela 04/30/2023 Hyperkalemia 04/30/2023 Insomnia 04/30/2023 Closed left ankle fracture 12/18/2022 Thyroid nodule 12/14/2022 Fall, initial encounter 12/14/2022 Closed fracture of right hip, initial encounter 12/14/2022 DVT femoral (deep venous thrombosis) with thromb ophlebitis 12/14/2022 GERD (gastroesophageal reflux disease) 3 Acute hematogenous osteomyelitis of left ankle 0 12/01/2022 Primary hypertension 11/28/2022 Type 2 diabetes mellitus wit h other specified complication, without long-term current use of insulin 11/28/2022 Non-healing ulcer of left ankle, unspecified ulc er stage 11/28/2022 Septic arthritis 11/28/2022 Charcot ankle, left 11/27/2022 HTN (hypertension) 11/27/2022 Sepsis, due to unspecified o rganism, unspecified whether acute organ dysfunction present 11/25/2022 Resolved Problems Problem Noted Date Diagnosed Date Resolved Date Osteomyelitis 12/14/2022 03/16/2023 Social History Tobacco Use Types Packs/Day Years Used Date Smoking Tobacco: Former Cigars S tarted: 2016 Smokeless Tobacco: Never Tobacco Cessation:Counseling Given: Not Answered Alcohol Use Standard Drinks/Week Comments Not Currently 0 (1 standard drink = 0.6 oz pur e alcohol) AUDIT-C Answer Date Recorded Q1: How often do you have a drink containing alcohol? Never 08/21/2023 Q2: How many drinks containi ng alcohol do you have on a typical day when you are drinking? Patient does not drink Q3: How often do you have si x or more drinks on one occasion? Never 08/21/2023 Overall Financial Resource Strain (CARDIA) Answe r Date Recorded How hard is it for you to pa y for the very basics like food, housing, medical care, and heating? Not hard at all 07/08/2023 PHQ-2 Answer Date Recorded Patient Health Questionnaire-2 Score 0 08/08/2023 [facility] - Occupational Stress Questionnaire Answer Date Recorded Do you feel stress - tense, restless, nervous, or anxious, or unable to sleep at night because your mind is troubled all the time - these days? Not at all 07/08/2023 Hunger Vital Sign Answer Date Recorded Within the past 12 months, y ou worried that your food would run out before you got the money to buy more. Never true 07/08/19 24 Within the past 12 months, t he food you bought just didn't last and you didn't have money to get more. Never true 07/08/2023 PRAPARE - Transportation Answer Date Re corded In the past 12 months, has l ack of transportation kept you from medical appointments or from getting medications? No 06/10 In the past 12 months, has l ack of transportation kept you from meetings, work, or from getting things needed for daily living? No 07/08/2023 Housing Stability Vital Sign Answer Matti e Recorded In the last 12 months, was t here a time when you were not able to pay the mortgage or rent on time? No 07/08/2023 In the last 12 months, how many places have you lived? 1 07/08/2023 In the last 12 months, was t here a time when you did not have a steady place to sleep or slept in a fdc (including now)? No 07/08/2023 Sex and Gender Information Value Date Recorded Sex Assigned at Not on file Gender Identity Not on file Sexual Orientation Not on file Last Filed Vital Signs Vital Sign Reading Time Taken Comments Blood Pressure 137/86 09/18/2023 12:34 PM CDT Pulse 89 09/18/2023 12:34 PM CDT Temperature 36.1 ??C (97 ??F) 09/18/2023 12:34 PM CDT Respiratory Rate 14 08/21/2023 10:58 AM CDT Oxygen Saturation 100% 09/18/2023 12:34 PM CDT Inhaled Oxygen Concentration 21% 05/18/2023 4 :02 AM TRACTOR TRAILER MECHANIC Weight 94.8 kg (209 lb) 09/18/2023 12:34 PM CDT Height 188 cm (6' 2 ) 08/21/2023 7:29 AM CDT Body Mass Index 26.83 08/21/2023 7:29 AM CDT Functional Status Functional Status Response Date of Assess ment Is person deaf or have serious hearing difficult y? No 07/08/2023 Is person blind or have serious difficulty seein g? No 07/08/2023 Does person have serious dif ficulty walking/climbing stairs? No 07/08/2023 Does person have difficulty dressing/bathing? No 07/08/2023 Does person have difficulty doing errands alone? No 07/08/2023 Cognitive Status Response Date of Assessm ent Does person have difficulty concentrating/remembering/making decisions? No 07/08/2023 Plan of Treatment Not on file Medical Devices Implanted Type Area Manager Lpn Device Identifier Shelf Expiration Date Model / Serial / Lot Nail Im 11.5mm 18cm Trgn Intrtn - Sna Implanted:Qty: 1 on 12/15/2022 by Daryl Diop MD at [facility] Right: Hip [employer] 12/02/2031 [id number] / NA / [id number] Kit Screw 100mm 4.5mm Intrtn Troch Ti - Sna Implanted:Qty: 1 on 12/15/2022 by Daryl Diop MD at [facility] Right: Hip [employer] 05/09/2032 [id number] / NA / [id number] Screw 5mm 37.5mm Lopro Intnl Hex Fem - Sna Implanted:Qty: 1 on 12/15/2022 by Daryl Diop MD at [facility] Right: Hip [employer] 12/26/2030 [id number] / NA / [id number] Wire Extfix 450mm 1.8mm Olv Tip Implanted:Qty: 2 on 05/06/2023 by Blane Stinson MD at [facility] Left: Ankle [employer] 4933-8-030 / / Graft Snth Tissue 10cc Pro-Dns Inj Rgnrt Implanted:Qty: 1 on 05/06/2023 by Blane Stinson MD at [facility] Left: Ankle [employer] 09/02/2027 [id number] / / [id number] Graft Bone Canc 1-4mm 15ml Frzdr Crsh Implanted:Qty: 1 on 05/06/2023 by Blane Stinson MD at [facility] Left: Ankle [employer] 09/22/2027 [id number] / / [id number] Kit Bngf 3cc Aug Inj Implanted:Qty: 1 on 05/06/2023 by Blane Stinson MD at [facility] Left: Ankle [employer] 07/06/2025 [id number] / / [id number] Kit Bngf 3cc Aug Inj Implanted:Qty: 1 on 05/06/2023 by Blane Stinson MD at [facility] Left: Ankle [employer] 07/06/2025 [id number] / / [id number] Wire Extfix 450mm 1.8mm Dmd Pt Implanted:Qty: 6 on 05/06/2023 by Blane Stinson MD at [facility] Left: Ankle [employer] 4933-8-010 / / Mitchell Extfix 1.5-2mm Hfmn Med Wire Lmb Implanted:Qty: 3 on 07/08/2023 by Blane Stinson MD at [facility] Left: [place] [employer] [id number] / / Mitchell Extfix 1.5-2mm Hfmn Lng Wire Lmb Implanted:Qty: 1 on 07/08/2023 by Blane Stinson MD at [facility] Left: [place] [employer] [id number] / / Wshr Extfix Chevy 4mm Implanted:Qty: 1 on 07/08/2023 by Blane Stinson MD at [facility] Left: [place] [employer] [id number] / / Wire Extfix 450mm 1.8mm Dmd Pt Implanted:Qty: 2 on 07/08/2023 by Blane Stinson MD at [facility] Left: [employer] [employer] 4933-8-010 / / Nut Orth Hfmn M8 Shrt Cnct Lmb Recon Frm Implanted:Qty: 4 on 07/08/2023 by Blane Stinson MD at [facility] Left: [place] [employer] 4933-1-010 / / Explanted Type Area Manager Lpn Device Identifier Shelf Expiration Date Model / Serial / Lot Ring Extfix 180mm Cfbr Full Hfmn Lmb Explanted:Qty: 2 on 05/06/2023 at [facility] Left: Ankle [employer] 4933-5-180 / / Procedures Procedure Name Priority Date/Time Associated Diagnosis Comments XR ANKLE LEFT 3VW OR MORE Routine 01/23/2024 10:00 AM TRACTOR TRAILER MECHANIC Orthopedic aftercare MICROALB/CREAT RATIO URINE RANDOM PANEL Routine 09/18/2023 2:22 PM CDT NEDA (acute kidney injury) (HCC) RENAL FUNCTION PANEL Routine 09/18/2023 2:00 PM CDT NEDA (acute kidney injury) (HCC) HEMOGLOBIN A1C - POINT OF CARE (AMB) [facility] Routine 04/30/2023 1:31 PM TRACTOR TRAILER MECHANIC Type 2 diabetes mellitus with other specified complication, without long-term current use of insulin (HCC) HEPATITIS C AB SCREEN RFLX NAAT QUANT Routine 2022 8:30 AM CDT HIV-1 HIV-2 ANTIBODY + HIV P24 AG PANEL Routine 2022 8:30 AM CDT from Last 3 Months or Most Recently Relevant to Health Maintenance Results * XR Ankle Left 3Vw or More (01/23/2024 10:00 AM TRACTOR TRAILER MECHANIC) Anatomical Region Laterality Modality Lower Extremity Computed Radiogr aphy 01/23/2024 10:0 1 AM TRACTOR TRAILER MECHANIC Impressions 01/23/2024 10:38 AM TRACTOR TRAILER MECHANIC IMPRESSION: Unchanged from prior. > Dictated by Pedrito Stoddard DO (associate professor of radiology). I, Neva Matthews MD have personally reviewed and interpreted this examination/study. > Interpreting Provider: Neva Matthews MD on 01/23/2024 10:38 AM Narrative 01/23/2024 10:38 AM TRACTOR TRAILER MECHANIC PROCEDURE: ??XR ANKLE LEFT 3VW OR MORE, DATE/TIME OF EXAM: ??01/23/2024 10:00 AM, LOCATION ??[facility] INDICATION: Z47.89: Orthopedic aftercare ADDITIONAL CLINICAL INFORMATION: Ordering Provider Reason For Exam: ??f/u COMPARISON: History left ankle from 10/17/2023 FINDINGS: Redemonstration of deformities of the distal tibia, talus, fibula, and calcaneus with large surrounding area of heterotopic ossification greatest posteriorly and unchanged from prior examination. 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 Diffuse soft tissue swelling persists. Tracks are again seen within the distal tib-fib and calcaneus. Procedure Note Neva Matthews MD - 01/23/2024 PROCEDURE: XR ANKLE LEFT 3VW OR MORE, DATE/TIME OF EXAM: 410:00 AM, LOCATION [facility] INDICATION: Z47.89: Orthopedic aftercare ADDITIONAL CLINICAL INFORMATION: Ordering Provider Reason For Exam: f/u COMPARISON: History left ankle from 10/17/2023 FINDINGS: Redemonstration of deformities of the distal tibia, talus, fibula, and calcaneus with large surrounding area of heterotopic ossificationgreatest posteriorly and unchanged from prior examination. 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 Diffuse soft tissue swelling persists. Tracks are again seen within the distal tib-fib and calcaneus. IMPRESSION: Unchanged from prior. > Dictated by Pedrito Stoddard DO (associate professor of radiology). I, Neva Matthews MD have personally reviewed and interpreted this examination/study. > Interpreting Provider: Neva Matthews MD on 01/23/2024 10:38 AM Blane Stinson MD DIAGNOSTIC IMAGING O RDERABLES * (ABNORMAL) MICROALB/CREAT RATIO URINE RANDOM PANEL (09/18/2023 2:22 PM CDT) Albumin Random Urine 1,505.7 Not Established ug/mL 09/18/2023 3:54 PM CDT [facility] Comment:Result obtained by seamus luciano. Creatinine Urine 154.03 Not Established mg/dL 09/18/2023 3:54 PM CDT [facility] Urine Albumin/Creati nine Ratio 978(H) <30 mg/g 09/18/2023 3:54 PM CDT [facility] Urine URINE SPECIMEN OBTAINED BY CLEAN CATCH PROCEDURE / Unknown Collection / Unknown 09/18/2023 2:22 PM CDT 09/18/2023 3:02 PM CDT Soco Sanchez MD LAB - URINE CHEMISTR Y ORDERABLES [facility] [address] [place] [phone], [facility] [phone] * (ABNORMAL) RENAL FUNCTION PANEL (09/18/2023 2:00 PM CDT) BUN 17 7 - 26 mg/dL 09/18/2023 3:02 PM CDT [facility] Creatinine 1.26(H) 0.71 - 1.16 mg/dL 09/18/2023 3:02 PM CDT [facility] Sodium 143 136 - 145 mmol/L 09/18/2023 3:02 PM CDT [facility] Potassium 4.4 3.5 - 4.5 mmol/L 09/18/2023 3:02 PM [facility] Chloride 112(H) 98 - 107 mmol/L 09/18/2023 3:02 PM [facility] CO2 23 22 - 29 mmol/L 09/18/2023 3:02 PM [facility] Glucose 130(H) 70 - 115 mg/dL 09/18/2023 3:02 PM [facility] Albumin 3.5 3.4 - 5.0 g/dL 09/18/2023 3:02 PM [facility] Calcium 9.3 8.4 - 10.2 mg/dL 09/18/2023 3:02 PM [facility] Phosphorus 2.7(L) 2.8 - 5.1 mg/dL 09/18/2023 3:02 PM [facility] Anion Gap 8 6 - 16 09/18/2023 3:02 PM [facility] BUN/Creatinine Ratio 13 7 - 23 09/18/2023 3:02 PM [facility] Osmolality Calculated 299(H) 275 - 295 mOsm/kg 09/18/2023 3:02 PM [facility] eGFR by CKD-EPI 66(L) >=90 mL/min/1.7 3 m2 09/18/2023 3:02 PM [facility] Blood BLOOD SPECIMEN / Unknown Lab Venipuncture / Unknown 09/18/2023 2:00 PM CDT 09/18/2023 2:31 PM CDT Soco Sanchez MD LAB - CHEMISTRY ERIKA CHEN [facility] Organization Address City/State/ZIP Co de Phone Number [facility] [address] [place] [address], [facility] [phone] * HEMOGLOBIN A1C - POINT OF CARE (AMB) [facility] (04/30/2023 1:31 PM TRACTOR TRAILER MECHANIC) Hemoglobin A1c POCT 6.1 % [address] Blood BLOOD SPECIMEN / Unknown 04/30/2023 1:31 PM TRACTOR TRAILER MECHANIC Violet Younger TRIPLE DRUM OPERATOR-HEARING IMPAIRED TEACHER LAB - POINT OF CARE ORDERABLES Performing Organization Address City/[facility]/ZIP Co de Phone Number [place] [phone] [facility] [address] [facility] [facility] [place] [address], [facility] [phone] * HEPATITIS C AB SCREEN RFLX NAAT QUANT (2022 8:30 AM CDT) Hepatitis C Antibody Non-react sherin Non-reac tive 2022 9:40 AM CDT [facility] Comment:Hepatitis C Antibody screen indicates no serologic evidence of past or current infection with Hepatitis C Virus. Patients with unexplained liver disease who are immunocompromised or suspected of having acute Hepatitis C infection may benefit from Nucleic Acid Test (PORSCHE) for Hepatitis C Viral RNA to confirm Hepatitis C status. Blood BLOOD SPECIMEN / Unknown Lab Venipuncture / Unknown 2022 8:30 AM CDT 2022 8:33 AM CDT Emiliano Duong MD LAB - CHEMISTRY O RDERANUPUR Performing Organization Address City/[facility]/ZIP Co de Phone Number [facility] [address] [place] [address], [facility] [phone] * HIV-1 HIV-2 ANTIBODY + HIV P24 AG PANEL (2022 8:30 AM CDT) HIV Antigen/Antibod y 1 & 2 Non-reacti ve Non-react sherin 2022 9:40 AM CDT [facility] Comment:No Laboratory eviden ce of HIV infection. Blood BLOOD SPECIMEN / Unknown Lab Venipuncture / Unknown 2022 8:30 AM CDT 2022 8:33 AM CDT Emiliano Duong MD LAB - CHEMISTRY O RDERABLES [facility] [address] [place] [address], [facility] [phone] from Last 3 Months or Most Recently Relevant to Health Maintenance Administered Medications Advance Directives * Full Code (Latest Code Status on File) Date Activated Date Inactivated Comments 07/08/2023 6:34 PM 07/09/2023 4:10 PM * Full Code Date Activated Date Inactivated Comments 05/15/2023 11:11 PM 05/20/2023 4:41 PM * Full Code Date Activated Date Inactivated Comments 12/14/2022 7:45 PM 12/19/2022 11:01 AM * Full Code Date Activated Date Inactivated Comments 11/26/2022 9:02 PM 12/07/2022 4:45 PM Care Teams Gift Officer Relationship Specialty Start Date End Date Violet Younger, TRIPLE DRUM OPERATOR-HEARING IMPAIRED TEACHER [address] [facility] [place] [address] PCP - General Nurse Practitioner Family 04/30/23
--- OUTSIDE RECORDS SUMMARY | 2024-04-08 20:32 | XMS_ITS | Clinical Summary ---
Author Organization [facility] Address [address] [facility] Attn: Epic Prelude ADT SHE[place]BY CONKLIN [address] Care Team Providers Care Greenhouse Laborer Name Role Phone Unavailable Primary Care Provider Unavailabl e Allergies No known active allergies Medications amLODIPine (NORVASC) 10 mg tablet Take 1 Tablet (10 mg) by mouth daily. 90 Tablet 08/08/2022 6:21 PM CDT 08/06/2022 Active apixaban (Eliquis) 5 mg tablet Take 2 tablets by mouth twice daily for 7 days, then decrease to 1 tablet twice daily thereafter. 74 Tablet 4 11/01/2022 Active valsartan (DIOVAN) 160 mg tablet Take 1 Tablet (160 mg) by mouth daily. 90 Tablet 1 11/02/2022 Active Encounters Date Type Department Care Team Description 01/13/2024 External Device Data STL ABSTRACTION Provider, Abstract from Last 3 Months Social History Tobacco Use Types Packs/Day Years Used Date Smoking Tobacco: Never Assessed Sex and Gender Information Value Date Recorded Sex Assigned at Not on file Legal Sex Male 3:27 PM CDT Gender Identity Not on file Sexual Orientation Not on file Plan of Treatment Health Maintenance Due Date Last Done Comments DTAP/TDAP/TD VACCINES (1 - Tdap) 11/29/1982 COLORECTAL SCREENING 11/29/2008 Colorectal Cancer Screening 11/29/2008 FIT-DNA Q 3 years 11/29/2008 FIT/FOBT Q 1 year 11/29/2008 Flex Sig/CT Colonography Q 5 years 11/29/2008 ZOSTER VACCINE (1 of 2) 11/29/2013 INFLUENZA VACCINE (#1) 2023 RSV VACCINE (60+ or ) (1 - 1-dose 75+ series) 11/29/2038 HEPATITIS B VACCINES Aged Out No long er eligible based on patient's age to complete this topic PNEUMOCOCCAL VACCINE 0-64 YEARS Aged Out No longer eligible based on patient's age to complete this topic Insurance Commercial
--- OUTSIDE RECORDS SUMMARY | 2024-04-08 20:33 | XMS_ITS | Patient Health Summary ---
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 This disclosure is being madepursuant to the Care Everywhere program and may not contain all information available regarding this patient. Last updated 17.[facility] Allergies No known active allergies Medications * Be aware that medications may not be up to date on this document. Alwaysverify current medications with the patient. * atorvastatin (Lipitor) 10 MG tablet(Started 11/17/2022) Take 1 (one) tablet by mouth once daily * vitamin D, ergocalciferol, (Drisdol) 1.25 MG (24946 UT) capsule(Started 12/09/2022) Take 1 (one) capsule by mouth every 7 days * acetaminophen (Tylenol) 500 MG tablet(Started 12/18/2022) Take 2 (two) tablets by mouth 3 times daily Maximum allowable Acetaminophen amount = 4 Grams (4000 mg) / 24 hours. * Blood Glucose Monitoring Suppl (ONE TOUCH ULTRA 2) w/Device KIT(Started 04/09/2022) as directed * OneTouch Ultra test strip(Started 05/09/2022) USE TO CHECK BLOOD SUGAR EVERY DAY * glycopyrrolate (Robinul) 2 MG tablet(Started 04/29/2023) * Lancets (ONETOUCH DELICA PLUS 33G EXTRA FINE LANCET)(Started 04/09/2022) USE TO CHECK BLOOD SUGAR EVERY DAY * pantoprazole EC (Protonix) 40 MG tablet(Started 04/20/2023) Take 1 (one) tablet by mouth once daily * Trulicity 4.5 MG/0.5ML injection(Started 04/30/2023) Inject 0.5 mL subcutaneously every 7 days 3 refills by 04/29/2024 * ondansetron (Zofran) 8 MG tablet(Started 05/07/2023) Take 1 (one) tablet by mouth every 8 hours as needed for Nausea/Vomiting * oxyCODONE, immediate release, (Roxicodone) 5 MG tablet(Started 06/13/2023) Take 1 (one) tablet by mouth every 6 hours as needed for Pain * 0.9% NaCl irrigation 0.9 % irrigation solution(Started 08/13/2023) 500 mL by Irrigation route once for 1 dose * valsartan (Diovan) 80 MG tablet(Started 07/26/2023) Take 1 (one) tablet by mouth once daily * hydroCHLOROthiazide (Hydrodiuril) 25 MG tablet(Started 07/26/2023) Take 1 (one) tablet by mouth once daily * tamsulosin (Flomax) 0.4 MG capsule(Started 08/20/2023) Take 1 (one) capsule by mouth once daily At the same time every day after a meal. 1 refill by 08/19/2024 * mirtazapine (Remeron) 15 MG tablet(Started 11/25/2023) TAKE 1 TABLET BY MOUTH AT BEDTIME * 0.9% NaCl irrigation 0.9 % irrigation solution(Started 06/06/2023) USE 500ML FOR IRRIGATION ONCE FOR 1 DOSE * sulfamethoxazole-trimethoprim (Bactrim DS; Septra DS) 800-160 MG tablet (Started 06/19/2023) TAKE ONE TABLET BY MOUTH EVERY 12 HOURS FOR 14 DAYS * 0.9% NaCl irrigation 0.9 % irrigation solution(Started 06/19/2023) USE 1,000ML BY IRRIGATION ROUTE ONCE FOR 1 DOSE No refills remaining * sodium bicarbonate 650 MG tablet(Started 07/09/2023) TAKE ONE TABLET BY MOUTH 3 TIMES A DAY 9 refills by 07/08/2024 * apixaban (Eliquis) 2.5 MG tablet(Started 07/09/2023) TAKE ONE TABLET BY MOUTH 2 TIMES A DAY FOR 21 DAYS * 0.9% NaCl irrigation 0.9 % irrigation solution(Started 07/25/2023) USE 500ML BY IRRIGATION ROUTE ONCE * tamsulosin (Flomax) 0.4 MG capsule(Started 08/20/2023) TAKE ONE CAPSULE BY MOUTH ONCE DAILY AT THE SAME TIME EACH DAY AFTER A MEAL 1 refill by 08/19/2024 * ondansetron, disintegrating, (Zofran ODT) 4 MG tablet(Started 08/21/2023) ALLOW TWO TABLETS TO DISSOLVE ON TONGUE EVERY 8 HOURS NEEDED FOR NAUSEA/VOMITING * docusate sodium (Colace) 100 MG capsule(Started 08/21/2023) TAKE ONE CAPSULE BY MOUTH ONCE DAILY * apixaban (Eliquis) 2.5 MG tablet(Started 09/18/2023) TAKE ONE TABLET BY MOUTH 2 TIMES A DAY FOR 21 DAYS Ended Medications* oxyCODONE-acetaminophen (Percocet) 5-325 MG tablet(Started 08/13/2023)(Discontinued) Take 1 (one) tablet by mouth every 6 hours as needed for Pain Active Problems Problem Noted Date Diagnosed Date [...] Recorded Patient Health Questionnaire-2 Score 0 08/08/2023 [facility] [place] of Occupat ional Health - Occupational Stress [...] place to sleep or slept in a longterm (including now)? 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 Weight 94.8 kg (209 lb) 09/18/2023 12:34 PM CDT Height 188 cm (6' 2 ) 08/21/2023 7:29 AM CDT Body Mass Index 26.83 08/21/2023 7:29 AM CDT Medical Devices Implanted Type Area Gastroenterology Manager Device Identifier Shelf Expiration Date Model / Serial / Lot Nail Im 11.5mm 18cm Trgn Intrtn - Sna Implanted:Qty: 1 on 12/15/2022 by Daryl Diop MD at [facility] Right: Hip [employer] 12/02/2031 [id number] / NA / [id number] Kit Screw 100mm 4.5mm Intrtn Troch Ti - Sna Implanted:Qty: 1 on 12/15/2022 by Daryl Diop MD at [facility] Right: Hip [employer] 05/09/2032 [id number] / NA / [id number] Screw 5mm 37.5mm Lopro Intnl Hex Fem - Sna Implanted:Qty: 1 on 12/15/2022 by Daryl Diop MD at [facility] Right: Hip [employer] 12/26/2030 [id number] / NA / [id number] Wire Extfix 450mm 1.8mm Olv Tip Implanted:Qty: 2 on 05/06/2023 by Blane Stinson MD at [facility] Left: Ankle [employer] 4933-8-030 / / Graft Snth Tissue 10cc Pro-Dns Inj Rgnrt Implanted:Qty: 1 on 05/06/2023 by Blane Stinson MD at [facility] Left: Ankle [employer] 09/02/2027 [id number] / / [id number] Graft Bone Canc 1-4mm 15ml Frzdr Crsh Implanted:Qty: 1 on 05/06/2023 by Blane Stisnon MD at [facility] Left: Ankle [employer] 09/22/2027 [id number] / / [id number] Kit Bngf 3cc Aug Inj Implanted:Qty: 1 on 05/06/2023 by Blane Stinson MD at [facility] Left: Ankle [employer] 07/06/2025 [id number] / / [id number] Kit Bngf 3cc Aug Inj Implanted:Qty: 1 on 05/06/2023 by Blane Stinson MD at [facility] Left: Ankle [employer] 07/06/2025 [id number] / / [id number] Wire Extfix 450mm 1.8mm Dmd Pt Implanted:Qty: 6 on 05/06/2023 by Blane Stinson MD at [facility] Left: Ankle [employer] 4933-8-010 / / [place] Extfix 1.5-2mm Hfmn Med Wire Lmb Implanted:Qty: 3 on 07/08/2023 by Blane Stinson MD at [facility] Left: Tibia [employer] 4933-1-002 / / [place] Extfix 1.5-2mm Hfmn Lng Wire Lmb Implanted:Qty: 1 on 07/08/2023 by Blane Stinson MD at [facility] Left: Tibia [employer] 4933-1-003 / / Wshr Extfix Chevy 4mm Implanted:Qty: 1 on 07/08/2023 by Blane Stinson MD at [facility] Left: Tibia [employer] 4933-1-712 / / Wire Extfix 450mm 1.8mm Dmd Pt Implanted:Qty: 2 on 07/08/2023 by Blane Stinson MD at [facility] Left: Tibia [employer] 4933-8-010 / / Nut Orth Hfmn M8 Shrt Cnct Lmb Recon Frm Implanted:Qty: 4 on 07/08/2023 by Blane Stinson MD at [facility] Left: Tibia [employer] 4933-1-010 / / Explanted Type Area Gastroenterology Manager Device Identifier Shelf Expiration Date Model / Serial / Lot Ring Extfix 180mm Cfbr Full Hfmn Lmb Explanted:Qty: 2 on 05/06/2023 at [facility] Left: Ankle [employer] 4933-5-180 / / Procedures * XR ANKLE LEFT 3VW OR MORE(Performed 01/23/2024) Performed for Orthopedic aftercare * XR ANKLE LEFT 3VW OR MORE(Performed 10/17/2023) Performed for Orthopedic aftercare * MICROALB/CREAT RATIO URINE RANDOM PANEL(Performed 09/18/2023) Performed for NEDA (acute kidney injury) ([facility]) * URINALYSIS REFLEX TO MICROSCOPIC NO CULTURE(Performed 09/18/2023) Performed for NEDA (acute kidney injury) ([facility]) * BASIC METABOLIC PANEL (CALCIUM TOTAL)(Performed 09/18/2023) Performed for Post-op pain * VITAMIN D 25-HYDROXY(Performed 09/18/2023) Performed for NEDA (acute kidney injury) ([facility]) * PTH INTACT W/O CALCIUM(Performed 09/18/2023) Performed for NEDA (acute kidney injury) ([facility]) * MAGNESIUM BLOOD(Performed 09/18/2023) Performed for NEDA (acute kidney injury) ([facility]) * RENAL FUNCTION PANEL(Performed 09/18/2023) Performed for NEDA (acute kidney injury) ([facility]) * CBC W AUTO DIFFERENTIAL(Performed 09/18/2023) Performed for NEDA (acute kidney injury) ([facility]) * XR ANKLE LEFT 3VW OR MORE(Performed 09/11/2023) Performed for Orthopedic aftercare * XR FOOT LEFT WT BEARING 3VW(Performed 09/11/2023) Performed for Orthopedic aftercare * XR TIBIA FIBULA LEFT 2VW(Performed 09/11/2023) Performed for Orthopedic aftercare * XR FOOT LEFT 2VW(Performed 08/21/2023) Performed for Post-op pain * XR ANKLE LEFT 2VW(Performed 08/21/2023) Performed for Post-op pain * GLUCOSE - POINT OF CARE(Performed 08/21/2023) * ENDOTRACHEAL TUBE NOTE(Performed 08/21/2023) * FL LESLIE SURGERY(Performed 08/21/2023) Performed for Post-op pain * FL DEBRIDE SKIN AT FX SITE(Performed 08/21/2023) Performed for Diagnosis unknown * GLUCOSE - POINT OF CARE(Performed 08/21/2023) * CT ANKLE LEFT WO CONTRAST(Performed 08/08/2023) Performed for Orthopedic aftercare * XR TIBIA FIBULA LEFT 2VW(Performed 07/25/2023) Performed for Orthopedic aftercare * XR FOOT LEFT 3VW OR MORE(Performed 07/25/2023) Performed for Orthopedic aftercare * XR ANKLE LEFT 3VW OR MORE(Performed 07/25/2023) Performed for Orthopedic aftercare * CARDIAC RHYTHM STRIP ORDER(Performed 07/10/2023) * BASIC METABOLIC PANEL (CALCIUM TOTAL)(Performed 07/09/2023) * GLUCOSE - POINT OF CARE(Performed 07/09/2023) * GLUCOSE - POINT OF CARE(Performed 07/09/2023) * CBC W AUTO DIFFERENTIAL(Performed 07/09/2023) Performed for Post-op pain * COMPREHENSIVE METABOLIC PANEL(Performed 07/09/2023) Performed for Post-op pain * GLUCOSE - POINT OF CARE(Performed 07/08/2023) * FL LESLIE SURGERY(Performed 07/08/2023) Performed for Pain * GLUCOSE - POINT OF CARE(Performed 07/08/2023) * FL ADJUST BAGGAGE AGENT BONE FIX DEV W ANESTH(Performed 07/08/2023) * GLUCOSE - POINT OF CARE(Performed 07/08/2023) * XR TIBIA FIBULA LEFT 2VW(Performed 07/04/2023) Performed for Orthopedic aftercare * XR ANKLE LEFT 3VW OR MORE(Performed 07/04/2023) Performed for Orthopedic aftercare * XR ANKLE LEFT 3VW OR MORE(Performed 06/19/2023) Performed for Status post surgery * XR TIBIA FIBULA LEFT 2VW(Performed 06/19/2023) Performed for Status post surgery * XR TIBIA FIBULA LEFT 2VW(Performed 06/06/2023) Performed for Orthopedic aftercare * XR ANKLE LEFT 3VW OR MORE(Performed 06/06/2023) Performed for Orthopedic aftercare * BASIC METABOLIC PANEL (CALCIUM TOTAL)(Performed 05/29/2023) Performed for Acute renal failure, unspecified acute renal failure type (HCC) * XR ANKLE LEFT 3VW OR MORE(Performed 05/23/2023) Performed for Charcot ankle, left * GLUCOSE - POINT OF CARE(Performed 05/20/2023) * GLUCOSE - POINT OF CARE(Performed 05/20/2023) * BASIC METABOLIC PANEL (CALCIUM TOTAL)(Performed 05/20/2023) * MAGNESIUM BLOOD(Performed 05/20/2023) * PHOSPHORUS BLOOD(Performed 05/20/2023) * CBC W AUTO DIFFERENTIAL(Performed 05/20/2023) * GLUCOSE - POINT OF CARE(Performed 05/19/2023) * GLUCOSE - POINT OF CARE(Performed 05/19/2023) * GLUCOSE - POINT OF CARE(Performed 05/19/2023) * GLUCOSE - POINT OF CARE(Performed 05/19/2023) * MAGNESIUM BLOOD(Performed 05/19/2023) * PHOSPHORUS BLOOD(Performed 05/19/2023) * BASIC METABOLIC PANEL (CALCIUM TOTAL)(Performed 05/19/2023) * CBC W AUTO DIFFERENTIAL(Performed 05/19/2023) * GLUCOSE - POINT OF CARE(Performed 05/18/2023) * MAGNESIUM BLOOD(Performed 05/18/2023) * BASIC METABOLIC PANEL (CALCIUM TOTAL)(Performed 05/18/2023) * GLUCOSE - POINT OF CARE(Performed 05/18/2023) * GLUCOSE - POINT OF CARE(Performed 05/18/2023) * FERRITIN(Performed 05/18/2023) * IRON + TRANSFERRIN PANEL(Performed 05/18/2023) * MAGNESIUM BLOOD(Performed 05/18/2023) * PHOSPHORUS BLOOD(Performed 05/18/2023) * BASIC METABOLIC PANEL (CALCIUM TOTAL)(Performed 05/18/2023) * CBC W AUTO DIFFERENTIAL(Performed 05/18/2023) * GLUCOSE - POINT OF CARE(Performed 05/17/2023) * PHOSPHORUS BLOOD(Performed 05/17/2023) * BASIC METABOLIC PANEL (CALCIUM TOTAL)(Performed 05/17/2023) * GLUCOSE - POINT OF CARE(Performed 05/17/2023) * GLUCOSE - POINT OF CARE(Performed 05/17/2023) * MAGNESIUM BLOOD(Performed 05/17/2023) * BASIC METABOLIC PANEL (CALCIUM TOTAL)(Performed 05/17/2023) * MAGNESIUM BLOOD(Performed 05/17/2023) * BASIC METABOLIC PANEL (CALCIUM TOTAL)(Performed 05/17/2023) * CBC W AUTO DIFFERENTIAL(Performed 05/17/2023) * PHOSPHORUS BLOOD(Performed 05/17/2023) * MAGNESIUM BLOOD(Performed 05/17/2023) * BASIC METABOLIC PANEL (CALCIUM TOTAL)(Performed 05/17/2023) * LAB MISC TEST(Performed 05/16/2023) * MAGNESIUM BLOOD(Performed 05/16/2023) * BASIC METABOLIC PANEL (CALCIUM TOTAL)(Performed 05/16/2023) * MAGNESIUM BLOOD(Performed 05/16/2023) * BASIC METABOLIC PANEL (CALCIUM TOTAL)(Performed 05/16/2023) * GLUCOSE - POINT OF CARE(Performed 05/16/2023) * GLUCOSE - POINT OF CARE(Performed 05/16/2023) * PROTEIN CREATININE RATIO URINE RANDOM PNL(Performed 05/16/2023) Performed for Acute renal failure, unspecified acute renal failure type (HCC) * URINALYSIS W/MICROSCOPIC NO CULTURE(Performed 05/16/2023) Performed for Acute renal failure, unspecified acute renal failure type (HCC) * GLUCOSE - POINT OF CARE(Performed 05/16/2023) * MAGNESIUM BLOOD(Performed 05/16/2023) * BASIC METABOLIC PANEL (CALCIUM TOTAL)(Performed 05/16/2023) * BASIC METABOLIC PANEL (CALCIUM TOTAL)(Performed 05/16/2023) * ACETAMINOPHEN LEVEL(Performed 05/16/2023) * SALICYLATE LEVEL BLOOD(Performed 05/16/2023) * ALCOHOL ETHYL BLOOD(Performed 05/16/2023) * LACTIC ACID BLOOD(Performed 05/16/2023) * MAGNESIUM BLOOD(Performed 05/16/2023) * BASIC METABOLIC PANEL (CALCIUM TOTAL)(Performed 05/16/2023) * BLOOD GASES ART + COOX PANEL(Performed 05/16/2023) * GLUCOSE - POINT OF CARE(Performed 05/16/2023) * URINE DRUG SCREEN IMMUNOASSAY(Performed 05/16/2023) * CREATININE URINE RANDOM(Performed 05/16/2023) * UREA NITROGEN URINE RANDOM(Performed 05/16/2023) * LYTES (NA K CL) URINE RANDOM PANEL(Performed 05/16/2023) * BLOOD GASES LIZ + COOX PANEL(Performed 05/16/2023) * MAGNESIUM BLOOD(Performed 05/16/2023) * HYDROXYBUTYRATE BETA(Performed 05/16/2023) * BASIC METABOLIC PANEL (CALCIUM TOTAL)(Performed 05/16/2023) * CBC W AUTO DIFFERENTIAL(Performed 05/16/2023) * PHOSPHORUS BLOOD(Performed 05/16/2023) * GLUCOSE - POINT OF CARE(Performed 05/16/2023) * EKG 12-LEAD(Performed 05/16/2023) Performed for Hyperkalemia * RENAL FUNCTION PANEL(Performed 05/15/2023) * URINALYSIS REFLEX TO MICROSCOPIC NO CULTURE(Performed 05/15/2023) * BLOOD GASES LIZ + COOX PANEL(Performed 05/15/2023) * BASIC METABOLIC PANEL (CALCIUM TOTAL)(Performed 05/15/2023) * XR CHEST 1VW PORTABLE(Performed 05/15/2023) Performed for Acute renal failure, unspecified acute renal failure type (HCC) * CT RENAL STONE(Performed 05/15/2023) Performed for Acute renal failure, unspecified acute renal failure type (HCC) * MAGNESIUM BLOOD(Performed 05/15/2023) * COMPREHENSIVE METABOLIC PANEL(Performed 05/15/2023) * PT-INR [facility](Performed 05/15/2023) * EKG 12-LEAD(Performed 05/15/2023) Performed for Acute renal failure, unspecified acute renal failure type (HCC) * B-TYPE NATRIURETIC PEPTIDE(Performed 05/15/2023) * CBC W AUTO DIFFERENTIAL(Performed 05/15/2023) * T4 FREE(Performed 05/15/2023) Performed for Weakness, Anemia, unspecified type * TRANSFERRIN(Performed 05/15/2023) Performed for Anemia, unspecified type * IRON BLOOD(Performed 05/15/2023) Performed for Anemia, unspecified type * FOLATE(Performed 05/15/2023) Performed for Anemia, unspecified type * VITAMIN B12(Performed 05/15/2023) Performed for Anemia, unspecified type * FERRITIN(Performed 05/15/2023) Performed for Anemia, unspecified type * RETIC COUNT(Performed 05/15/2023) Performed for Anemia, unspecified type * TSH(Performed 05/15/2023) Performed for Weakness * C-REACTIVE PROTEIN(Performed 05/15/2023) Performed for Septic arthritis of left ankle, due to unspecified organism (HCC) * CBC W AUTO DIFFERENTIAL(Performed 05/15/2023) Performed for Septic arthritis of left ankle, due to unspecified organism (HCC) * COMPREHENSIVE METABOLIC PANEL(Performed 05/15/2023) Performed for Septic arthritis of left ankle, due to unspecified organism (HCC) * URINALYSIS - POINT OF CARE (AMB) [facility](Performed 05/15/2023) Performed for Dark urine * GLUCOSE - POINT OF CARE (AMB) [facility](Performed 05/15/2023) Performed for Type 2 diabetes mellitus with other specified complication, without long-term currentuse of insulin (HCC) * CARDIAC RHYTHM STRIP ORDER(Performed 05/08/2023) * GLUCOSE - POINT OF CARE(Performed 05/07/2023) * GLUCOSE - POINT OF CARE(Performed 05/07/2023) * GLUCOSE - POINT OF CARE(Performed 05/07/2023) * BASIC METABOLIC PANEL (CALCIUM TOTAL)(Performed 05/07/2023) Performed for Charcot ankle, left * CBC W/O DIFFERENTIAL(Performed 05/07/2023) Performed for Charcot ankle, left * GLUCOSE - POINT OF CARE(Performed 05/06/2023) * XR ANKLE LEFT 3VW OR MORE(Performed 05/06/2023) Performed for Charcot ankle, left * GLUCOSE - POINT OF CARE(Performed 05/06/2023) * FL LESLIE SURGERY(Performed 05/06/2023) Performed for Pain of foot, unspecified laterality * FL INCIS/DRAINAGE BURSA OF FOOT(Performed 05/06/2023) * FL COMP MULTIPLANE EXT FIXATION(Performed 05/06/2023) * GLUCOSE - POINT OF CARE(Performed 05/06/2023) * CBC W AUTO DIFFERENTIAL(Performed 04/30/2023) Performed for Encounter to establish care * LIPID PROFILE(Performed 04/30/2023) Performed for Type 2 diabetes mellitus with other specified complication, without long-term currentuse of insulin (HCC) * TSH(Performed 04/30/2023) Performed for Hypertension, unspecified type * COMPREHENSIVE METABOLIC PANEL(Performed 04/30/2023) Performed for Hypertension, unspecified type * HEMOGLOBIN A1C - POINT OF CARE (AMB) [facility](Performed 04/30/2023) Performed for Type 2 diabetes mellitus with other specified complication, without long-term currentuse of insulin (HCC) * CT ANKLE LEFT WO CONTRAST(Performed 04/18/2023) Performed for Charcot ankle, left * XR PELVIS W RIGHT HIP 2VW(Performed 03/13/2023) Performed for Closed intertrochanteric fracture of hip, right, with routine healing, subsequent encounter * XR ANKLE LEFT 3VW OR MORE(Performed 03/07/2023) Performed for Ankle wound, left, sequela * XR HIP RIGHT 2VW OR MORE(Performed 01/28/2023) Performed for Closed intertrochanteric fracture of hip, right, with routine healing, subsequent encounter * XR ANKLE LEFT 3VW OR MORE(Performed 01/24/2023) Performed for Ankle wound, left, sequela * XR FOOT LEFT WT BEARING 3VW(Performed 01/24/2023) Performed for Ankle wound, left, sequela * XR FOOT LEFT 3VW OR MORE(Performed 01/02/2023) Performed for Right foot pain * XR HIP RIGHT 2VW OR MORE(Performed 01/02/2023) Performed for Closed fracture of right hip, initial encounter ([facility]) * XR ANKLE LEFT 3VW OR MORE(Performed 01/02/2023) Performed for Right foot pain * GLUCOSE - POINT OF CARE(Performed 12/19/2022) * GLUCOSE - POINT OF CARE(Performed 12/18/2022) * GLUCOSE - POINT OF CARE(Performed 12/18/2022) * GLUCOSE - POINT OF CARE(Performed 12/18/2022) * CBC W/O DIFFERENTIAL(Performed 12/18/2022) * BASIC METABOLIC PANEL (CALCIUM TOTAL)(Performed 12/18/2022) * MAGNESIUM BLOOD(Performed 12/18/2022) * PHOSPHORUS BLOOD(Performed 12/18/2022) * PREPARE RBC LEUKOREDUCED UNIT(Performed 12/18/2022) * PREPARE RBC LEUKOREDUCED UNIT(Performed 12/18/2022) Performed for Closed fracture of right hip, initial encounter ([facility]) * PREPARE RBC LEUKOREDUCED UNIT(Performed 12/18/2022) * GLUCOSE - POINT OF CARE(Performed 12/17/2022) * GLUCOSE - POINT OF CARE(Performed 12/17/2022) * GLUCOSE - POINT OF CARE(Performed 12/17/2022) * GLUCOSE - POINT OF CARE(Performed 12/17/2022) * CBC W/O DIFFERENTIAL(Performed 12/17/2022) * BASIC METABOLIC PANEL (CALCIUM TOTAL)(Performed 12/17/2022) * MAGNESIUM BLOOD(Performed 12/17/2022) * PHOSPHORUS BLOOD(Performed 12/17/2022) * GLUCOSE - POINT OF CARE(Performed 12/16/2022) * GLUCOSE - POINT OF CARE(Performed 12/16/2022) * GLUCOSE - POINT OF CARE(Performed 12/16/2022) * GLUCOSE - POINT OF CARE(Performed 12/16/2022) * CBC W/O DIFFERENTIAL(Performed 12/16/2022) * BASIC METABOLIC PANEL (CALCIUM TOTAL)(Performed 12/16/2022) * MAGNESIUM BLOOD(Performed 12/16/2022) * PHOSPHORUS BLOOD(Performed 12/16/2022) * GLUCOSE - POINT OF CARE(Performed 12/15/2022) * GLUCOSE - POINT OF CARE(Performed 12/15/2022) * XR FEMUR RIGHT 2VW(Performed 12/15/2022) Performed for Closed fracture of right hip, initial encounter ([facility]) * GLUCOSE - POINT OF CARE(Performed 12/15/2022) * FL LESLIE SURGERY(Performed 12/15/2022) Performed for Closed fracture of right hip, initial encounter ([facility]) * ENDOTRACHEAL TUBE NOTE(Performed 12/15/2022) * FL OPEN RX FEMUR FX+PLATE/SCREW(Performed 12/15/2022) Performed for Open right hip fracture, type I or II, initial encounter ([facility]) * TRANSFUSE RED BLOOD CELL LEUKOREDUCED UNIT(S)(Performed 12/15/2022) * GLUCOSE - POINT OF CARE(Performed 12/15/2022) * PT-INR [facility](Performed 12/15/2022) * CBC W AUTO DIFFERENTIAL(Performed 12/15/2022) * VITAMIN D 25-HYDROXY(Performed 12/15/2022) * PHOSPHORUS BLOOD(Performed 12/15/2022) * MAGNESIUM BLOOD(Performed 12/15/2022) * COMPREHENSIVE METABOLIC PANEL(Performed 12/15/2022) * OT EVAL AND TREAT(Performed 12/14/2022) * XR FOOT LEFT 3VW OR MORE(Performed 12/14/2022) Performed for Fall, initial encounter * XR ANKLE LEFT 3VW OR MORE(Performed 12/14/2022) Performed for Fall, initial encounter * CT LUMBAR SPINE WO CONTRAST(Performed 12/14/2022) Performed for Fall, initial encounter * CT THORACIC SPINE WO CONTRAST(Performed 12/14/2022) Performed for Fall, initial encounter * CT CHEST ABDOMEN PELVIS W CONT(Performed 12/14/2022) Performed for Fall, initial encounter * CT CERVICAL SPINE WO CONTRAST(Performed 12/14/2022) Performed for Fall, initial encounter * CT HEAD WO CONTRAST(Performed 12/14/2022) Performed for Fall, initial encounter * TYPE + SCREEN PANEL(Performed 12/14/2022) * PT-INR [facility](Performed 12/14/2022) * MAGNESIUM BLOOD(Performed 12/14/2022) * COMPREHENSIVE METABOLIC PANEL(Performed 12/14/2022) * CBC W AUTO DIFFERENTIAL(Performed 12/14/2022) * XR CHEST 1VW PORTABLE(Performed 12/14/2022) Performed for Fall, initial encounter * XR FEMUR RIGHT 2VW(Performed 12/14/2022) Performed for Fall, initial encounter * XR PELVIS W RIGHT HIP 2VW(Performed 12/14/2022) Performed for Fall, initial encounter * CARDIAC EKG ORDER(Performed 12/10/2022) * GLUCOSE - POINT OF CARE(Performed 12/07/2022) * PHOSPHORUS BLOOD(Performed 12/07/2022) * MAGNESIUM BLOOD(Performed 12/07/2022) * CBC W/O DIFFERENTIAL(Performed 12/07/2022) * BASIC METABOLIC PANEL (CALCIUM TOTAL)(Performed 12/07/2022) * GLUCOSE - POINT OF CARE(Performed 12/06/2022) * GLUCOSE - POINT OF CARE(Performed 12/06/2022) * GLUCOSE - POINT OF CARE(Performed 12/06/2022) * PHOSPHORUS BLOOD(Performed 12/06/2022) * MAGNESIUM BLOOD(Performed 12/06/2022) * CBC W/O DIFFERENTIAL(Performed 12/06/2022) * BASIC METABOLIC PANEL (CALCIUM TOTAL)(Performed 12/06/2022) * GLUCOSE - POINT OF CARE(Performed 12/05/2022) * GLUCOSE - POINT OF CARE(Performed 12/05/2022) * GLUCOSE - POINT OF CARE(Performed 12/05/2022) * PHOSPHORUS BLOOD(Performed 12/05/2022) * MAGNESIUM BLOOD(Performed 12/05/2022) * BASIC METABOLIC PANEL (CALCIUM TOTAL)(Performed 12/05/2022) * CBC W/O DIFFERENTIAL(Performed 12/05/2022) * GLUCOSE - POINT OF CARE(Performed 12/04/2022) * GLUCOSE - POINT OF CARE(Performed 12/04/2022) * GLUCOSE - POINT OF CARE(Performed 12/04/2022) * CBC W/O DIFFERENTIAL(Performed 12/04/2022) * BASIC METABOLIC PANEL (CALCIUM TOTAL)(Performed 12/04/2022) * PHOSPHORUS BLOOD(Performed 12/04/2022) * MAGNESIUM BLOOD(Performed 12/04/2022) * GLUCOSE - POINT OF CARE(Performed 12/03/2022) * GLUCOSE - POINT OF CARE(Performed 12/03/2022) * XR FOOT LEFT 3VW OR MORE(Performed 12/03/2022) Performed for Acute hematogenous osteomyelitis of left ankle (HCC) * XR ANKLE LEFT 3VW OR MORE(Performed 12/03/2022) Performed for Acute hematogenous osteomyelitis of left ankle (HCC) * GLUCOSE - POINT OF CARE(Performed 12/03/2022) * CBC W/O DIFFERENTIAL(Performed 12/03/2022) * BASIC METABOLIC PANEL (CALCIUM TOTAL)(Performed 12/03/2022) * PHOSPHORUS BLOOD(Performed 12/03/2022) * MAGNESIUM BLOOD(Performed 12/03/2022) * GLUCOSE - POINT OF CARE(Performed 12/02/2022) * GLUCOSE - POINT OF CARE(Performed 12/02/2022) * CBC W/O DIFFERENTIAL(Performed 12/02/2022) * GLUCOSE - POINT OF CARE(Performed 12/02/2022) * HELICOBACTER PYLORI ANTIGEN FECES(Performed 12/02/2022) * GLUCOSE - POINT OF CARE(Performed 12/02/2022) * CBC W/O DIFFERENTIAL(Performed 12/02/2022) * BASIC METABOLIC PANEL (CALCIUM TOTAL)(Performed 12/02/2022) * MAGNESIUM BLOOD(Performed 12/02/2022) * PHOSPHORUS BLOOD(Performed 12/02/2022) * GLUCOSE - POINT OF CARE(Performed 12/01/2022) * GLUCOSE - POINT OF CARE(Performed 12/01/2022) * GLUCOSE - POINT OF CARE(Performed 12/01/2022) * PTT SLH(Performed 12/01/2022) * PT-INR SLH(Performed 12/01/2022) * CBC W/O DIFFERENTIAL(Performed 12/01/2022) * BASIC METABOLIC PANEL (CALCIUM TOTAL)(Performed 12/01/2022) * MAGNESIUM BLOOD(Performed 12/01/2022) * PHOSPHORUS BLOOD(Performed 12/01/2022) * GLUCOSE - POINT OF CARE(Performed 2022) * ECHO COMPLETE W CONTRAST(Performed 2022) Performed for Sepsis, due to unspecified organism, unspecified whether acute organ dysfunction present (HCC) * GLUCOSE - POINT OF CARE(Performed 2022) * GLUCOSE - POINT OF CARE(Performed 2022) * HEPATITIS C AB SCREEN RFLX NAAT QUANT(Performed 2022) * HIV-1 HIV-2 ANTIBODY + HIV P24 AG PANEL(Performed 2022) * VANCOMYCIN LEVEL TROUGH(Performed 2022) * PTT [facility](Performed 2022) * PT-INR [facility](Performed 2022) * CBC W/O DIFFERENTIAL(Performed 2022) * BASIC METABOLIC PANEL (CALCIUM TOTAL)(Performed 2022) * MAGNESIUM BLOOD(Performed 2022) * PHOSPHORUS BLOOD(Performed 2022) * VANCOMYCIN LEVEL PEAK(Performed 11/29/2022) * GLUCOSE - POINT OF CARE(Performed 11/29/2022) * GLUCOSE - POINT OF CARE(Performed 11/29/2022) * VITAMIN D 1,25 DIHYDROXY(Performed 11/29/2022) * PTT [facility](Performed 11/29/2022) * PT-INR [facility](Performed 11/29/2022) * CBC W/O DIFFERENTIAL(Performed 11/29/2022) * BASIC METABOLIC PANEL (CALCIUM TOTAL)(Performed 11/29/2022) * MAGNESIUM BLOOD(Performed 11/29/2022) * PHOSPHORUS BLOOD(Performed 11/29/2022) * GLUCOSE - POINT OF CARE(Performed 11/29/2022) * GLUCOSE - POINT OF CARE(Performed 11/28/2022) * PTT SL[facility](Performed 11/28/2022) * GLUCOSE - POINT OF CARE(Performed 11/28/2022) * MRI ANKLE LEFT WWO CONTRAST(Performed 11/28/2022) Performed for Non-healing ulcer of left ankle, unspecified ulcer stage (HCC) * PTT [facility](Performed 11/28/2022) * GLUCOSE - POINT OF CARE(Performed 11/28/2022) * GLUCOSE - POINT OF CARE(Performed 11/28/2022) * PTT [facility](Performed 11/28/2022) * PT-INR [facility](Performed 11/28/2022) * FERRITIN(Performed 11/28/2022) * IRON + TRANSFERRIN PANEL(Performed 11/28/2022) * CBC W/O DIFFERENTIAL(Performed 11/28/2022) * BASIC METABOLIC PANEL (CALCIUM TOTAL)(Performed 11/28/2022) * MAGNESIUM BLOOD(Performed 11/28/2022) * PHOSPHORUS BLOOD(Performed 11/28/2022) * VANCOMYCIN LEVEL TROUGH(Performed 11/28/2022) * PTT SLH(Performed 11/28/2022) * VANCOMYCIN LEVEL PEAK(Performed 11/27/2022) * GLUCOSE - POINT OF CARE(Performed 11/27/2022) * GLUCOSE - POINT OF CARE(Performed 11/27/2022) * FL LESLIE SURGERY(Performed 11/27/2022) Performed for Sepsis, due to unspecified organism, unspecified whether acute organ dysfunction present (HCC) * CULTURE TISSUE+GRAM STAIN(Performed 11/27/2022) Performed for Sepsis, due to unspecified organism, unspecified whether acute organ dysfunction present (HCC), Non-healing ulcer of left ankle, unspecified ulcer stage ([facility]), Primary hypertension, Charcot ankle, left * CULTURE ANAEROBE(Performed 11/27/2022) * CULTURE WOUND+GRAM STAIN(Performed 11/27/2022) * CULTURE ANAEROBE(Performed 11/27/2022) * FL EXPLORE WOUND,EXTREMITY(Performed 11/27/2022) Performed for Septic arthritis of left ankle, due to unspecified organism ([facility]) * PERIPHERAL IV NOTE(Performed 11/27/2022) * ENDOTRACHEAL TUBE NOTE(Performed 11/27/2022) * BLOOD TYPE VERIFICATION(Performed 11/27/2022) * PTT SLH(Performed 11/27/2022) * CULTURE BLOOD(Performed 11/27/2022) * TYPE + SCREEN PANEL(Performed 11/27/2022) * CBC W/O DIFFERENTIAL(Performed 11/27/2022) * BASIC METABOLIC PANEL (CALCIUM TOTAL)(Performed 11/27/2022) * MAGNESIUM BLOOD(Performed 11/27/2022) * PHOSPHORUS BLOOD(Performed 11/27/2022) * PT-INR SLH(Performed 11/27/2022) * CULTURE BLOOD(Performed 11/27/2022) * PT EVAL AND TREAT(Performed 11/27/2022) * OT EVAL AND TREAT(Performed 11/27/2022) * EKG 12-LEAD(Performed 11/27/2022) Performed for Sepsis, due to unspecified organism, unspecified whether acute organ dysfunction present ([facility]), Primary hypertension * PATHOLOGY SMEAR BODY FLUID(Performed 11/27/2022) * CRYSTAL INDENTIFICATION SYNOVIAL FLUID(Performed 11/27/2022) * DIFFERENTIAL MANUAL FLUID(Performed 11/27/2022) * CELL COUNT W DIFF W CRYSTALS SYNOVIAL(Performed 11/27/2022) * CULTURE FUNGUS OTHER+FUNGUS SMEAR(Performed 11/27/2022) * CULTURE FLUID+GRAM STAIN(Performed 11/27/2022) * CULTURE ANAEROBE(Performed 11/27/2022) * XR ANKLE LEFT 3VW OR MORE(Performed 11/27/2022) Performed for Non-healing ulcer of left ankle, unspecified ulcer stage ([facility]) * COMPREHENSIVE METABOLIC PANEL(Performed 11/26/2022) * HEMOGLOBIN A1C(Performed 11/26/2022) * C-REACTIVE PROTEIN(Performed 11/26/2022) * LACTIC ACID BLOOD(Performed 11/26/2022) * ERYTHROCYTE SEDIMENTATION RATE(Performed 11/26/2022) * CBC W AUTO DIFFERENTIAL(Performed 11/26/2022) * SKIN TEST PPD - POINT OF CARE(Performed 05/09/2017) Performed for PPD screening test * URINALYSIS AUTO - POINT OF CARE (AMB) STL(Performed 05/07/2017) Performed for Physical exam, pre-employment Results * XR Ankle Left 3Vw or More (01/23/2024 10:00 AM MANAGER TRAINING) Only the most recent of15 resultswithin the time period is included. Anatomical Region Laterality Modality Lower Extremity Computed Radiogr aphy 01/23/2024 10:0 1 AM MANAGER TRAINING Impressions 01/23/2024 10:38 AM MANAGER TRAINING IMPRESSION: Unchanged from prior. > Dictated by Pedrito Stoddard DO (outside residential sales professional). I, Neva Matthews MD have personally reviewed and interpreted this examination/study. > Interpreting Provider: Neva Matthews MD on 01/23/2024 10:38 AM Narrative 01/23/2024 10:38 AM MANAGER TRAINING PROCEDURE: ??XR ANKLE LEFT 3VW OR MORE, DATE/TIME OF EXAM: ??01/23/2024 10:00 AM, LOCATION ??[facility] INDICATION: Z47.89: Orthopedic aftercare ADDITIONAL CLINICAL [...] distal tib-fib and calcaneus. Procedure Note Neva Matthwes MD - 01/23/2024 PROCEDURE: XR ANKLE LEFT 3VW OR MORE, DATE/TIME OF EXAM: 0:00 AM, LOCATION [facility] INDICATION: Z47.89: Orthopedic aftercare ADDITIONAL CLINICAL [...] prior. > Dictated by Pedrito Stoddard DO (outside residential sales professional). I, Neva Matthews MD have personally reviewed and interpreted this examination/study. > Interpreting Provider: Neva Matthews MD on 01/23/2024 10:38 AM Blane Stinson MD DIAGNOSTIC IMAGING O RDERABLES * (ABNORMAL) MICROALB/CREAT RATIO URINE RANDOM PANEL (09/18/2023 2:22 PM CDT) Pathologist [facility] Albumin Random Urine 1,505.7 Not Established ug/mL 09/18/2023 3:54 PM CDT [facility] Comment:Result obtained by seamus luciano. Creatinine Urine 154.03 Not Established mg/dL 09/18/2023 3:54 PM CDT [facility] Urine Albumin/Creati nine Ratio 978(H) <30 mg/g 09/18/2023 3:54 PM CDT [facility] Urine URINE SPECIMEN OBTAINED BY CLEAN CATCH PROCEDURE / Unknown Collection / Unknown 09/18/2023 2:22 PM CDT 09/18/2023 3:02 PM CDT Soco Sanchez MD LAB - URINE CHEMISTR Y ORDERABLES [address] [address], [place] [phone] * (ABNORMAL) URINALYSIS REFLEX TO MICROSCOPIC NO CULTURE (09/18/2023 2:22 PM CDT) Only the most recent of2 resultswithin the time period is included. Color UA Yellow Straw, Yellow 09/18/2023 3:14 PM CDT [facility] Clarity UA Clear Clear 09/18/2023 3:14 PM CDT [facility] Specific [place] UA 1.015 1.005 - 1.030 09/18/2023 3:14 PM [facility] pH UA 5.0 5.0 - 8.0 pH 09/18/2023 3:14 PM [facility] Protein UA 2+(A) Negative 09/18/2023 3:14 PM [facility] Glucose UA Negative Negative 09/18/2023 3:14 PM [facility] Ketone UA Negative Negative 09/18/2023 3:14 PM [facility] Bilirubin UA Negative Negative 09/18/2023 3:14 PM [facility] Blood UA Negative Negative 09/18/2023 3:14 PM [facility] Nitrite UA Negative Negative 09/18/2023 3:14 PM [facility] Leukocyte Esterase Negative Negative 09/18/2023 3:14 PM [facility] Urobilinogen UA Negative Negative mg/dL 09/18/2023 3:14 PM [facility] RBC UA 3-5 None Seen, 0-2, 3-5 /HPF 09/18/2023 3:14 PM [facility] WBC UA 0-5 None Seen, 0-5 /HPF 09/18/2023 3:14 PM [facility] Squamous Epithelial Cells UA 0-2 None Seen, 0-2, 3-5 /HPF 09/18/2023 3:14 PM [facility] Mucus UA 1+ /LPF 09/18/2023 3:14 PM [facility] Hyaline Casts UA 0-2 None Seen, 0-2 /LPF 09/18/2023 3:14 PM [facility] Urine URINE SPECIMEN OBTAINED BY CLEAN CATCH PROCEDURE / Unknown Collection / Unknown 09/18/2023 2:22 PM CDT 09/18/2023 3:02 PM [facility] - 09/18/2023 3:14 PM CDT Soco Sanchez MD LAB - URINALYSIS ORD ERABLES [facility] [address] [place] [address], [place] [phone] * (ABNORMAL) BASIC METABOLIC PANEL (CALCIUM TOTAL) (09/18/2023 2:01 PM CDT) Only the most recent of33 resultswithin the time period is included. BUN 15 7 - 26 mg/dL 09/18/2023 3:02 PM [facility] Creatinine 1.24(H) 0.71 - 1.16 mg/dL 09/18/2023 3:02 PM [facility] Sodium 141 136 - 145 mmol/L 09/18/2023 3:02 PM [facility] Potassium 4.3 3.5 - 4.5 mmol/L 09/18/2023 3:02 PM [facility] Chloride 111(H) 98 - 107 mmol/L 09/18/2023 3:02 PM [facility] CO2 22 22 - 29 mmol/L 09/18/2023 3:02 PM [facility] Glucose 129(H) 70 - 115 mg/dL 09/18/2023 3:02 PM [facility] Calcium 9.4 8.4 - 10.2 mg/dL 09/18/2023 3:02 PM [facility] Anion Gap 8 6 - 16 09/18/2023 3:02 PM [facility] BUN/Creatinine Ratio 12 7 - 23 09/18/2023 3:02 PM [facility] Osmolality Calculated 295 275 - 295 mOsm/kg 09/18/2023 3:02 PM [facility] eGFR by CKD-EPI 67(L) >=90 mL/min/1.7 3 m2 09/18/2023 3:02 PM [facility] Blood BLOOD SPECIMEN / Unknown Lab Venipuncture / Unknown 09/18/2023 2:01 PM CDT 09/18/2023 2:32 PM CDT Michael Hwang III, MD LAB - CHEM ISTRY ORDERABLES [facility] [address] [place] [address], [place] [phone] * (ABNORMAL) PTH INTACT W/O CALCIUM (09/18/2023 2:00 PM CDT) PTH Intact 178.6(H) 8.0 - 77.0 pg/mL 09/18/2023 3:06 PM CDT [facility] Blood BLOOD SPECIMEN / Unknown Lab Venipuncture / Unknown 09/18/2023 2:00 PM CDT 09/18/2023 2:32 PM CDT Soco Sanchez MD LAB - CHEMISTRY ERIKA CHEN [facility] [address] [place] [address], [place] [phone] * (ABNORMAL) VITAMIN D 25-HYDROXY (09/18/2023 2:00 PM CDT) Only the most recent of2 resultswithin the time period is included. Vitamin D, 25 Hydroxy 11.6(L) 30.0 - 80.0 ng/mL 09/18/2023 3:20 PM CDT [facility] Comment: The recommendations for 25-Hydroxy Vitamin D clinical decision points are as follows: ? Deficient: ? <20.0 ng/mL ? Insufficient: ? 20.0 - 29.9 ng/mL ? Sufficient: ? 30.0 - 100.0 ng/mL ? Potential Toxicity: ??>100 ng/mL Reference: The Endocrine Society Clinical Practice Guidelines. 2011 If the 25-Hydroxy Vitamin D results are inconsitent with clinical evidence, it is recommended that follow-up testing using a method such as LC/MS/MS be performed to confirm the result. ? Blood BLOOD SPECIMEN / Unknown Lab Venipuncture / Unknown 09/18/2023 2:00 PM CDT 09/18/2023 2:31 PM CDT Soco Sanchez MD LAB - CHEMISTRY ERIKA CHEN [facility] [address] [place] [address], [place] [phone] * (ABNORMAL) CBC WITH DIFFERENTIAL (09/18/2023 2:00 PM CDT) Only the most recent of13 resultswithin the time period is included. [facility] WBC 7.2 4.0 - 10.7 x10E9/L 09/18/2023 2:34 PM [facility] RBC Count 3.65(L) 4.30 - 5.80 x10E12/L 09/18/2023 2:34 PM [facility] Hemoglobin 10.2(L) 13.3 - 17.5 g/dL 09/18/2023 2:34 PM [facility] Hematocrit 32.9(L) 38.7 - 51.1 % 09/18/2023 2:34 PM [facility] MCV 90.1 80.0 - 98.0 fL 09/18/2023 2:34 PM [facility] MCH 27.9 26.7 - 33.6 pg 09/18/2023 2:34 PM [facility] MCHC 31.0(L) 31.7 - 36.3 g/dL 09/18/2023 2:34 PM [facility] RDW-CV 15.2(H) 11.3 - 14.8 % 09/18/2023 2:34 PM [facility] Platelet Count 327 150 - 420 x10E9/L 09/18/2023 2:34 PM [facility] MPV 8.6 7.8 - 11.4 fL 09/18/2023 2:34 PM [facility] Neutrophil % 50.1 41.0 - 74.0 % 09/18/2023 2:34 PM [facility] Lymphocyte % 31.6 17.0 - 47.0 % 09/18/2023 2:34 PM CDT [facility] Monocyte % 9.5 3.0 - 11.0 % 09/18/2023 2:34 PM T [facility] Eosinophil % 7.9(H) 0.0 - 7.0 % 09/18/2023 2:34 PM T [facility] Basophil % 0.6 0.0 - 1.6 % 09/18/2023 2:34 PM T [facility] Immature Granulocytes % 0.3 0.0 - 1.0 % 09/18/2023 2:34 PM [facility] Neutrophil Absolute 3.63 1.60 - 7.50 x10E9/L 09/18/2023 2:34 PM [facility] Lymphocyte Absolute 2.29 1.00 - 4.40 x10E9/L 09/18/2023 2:34 PM [facility] Monocyte Absolute 0.69 0.15 - 1.00 x10E9/L 09/18/2023 2:34 PM [facility] Eosinophil Absolute 0.57 0.00 - 0.60 x10E9/L 09/18/2023 2:34 PM [facility] Basophil Absolute 0.04 0.00 - 0.13 x10E9/L 09/18/2023 2:34 PM [facility] Blood BLOOD SPECIMEN / Unknown Lab Venipuncture / Unknown 09/18/2023 2:00 PM CDT 09/18/2023 2:31 PM CDT Soco Sanchez MD LAB - HEMATOLOGY ORD ERABLES [facility] [address] [place] [address], [place] [phone] * (ABNORMAL) RENAL FUNCTION PANEL (09/18/2023 2:00 PM CDT) Only the most recent of2 resultswithin the time period is included. BUN 17 7 - 26 mg/dL 09/18/2023 3:02 PM T [facility] Creatinine 1.26(H) 0.71 - 1.16 mg/dL 09/18/2023 3:02 PM [facility] Sodium 143 136 - 145 mmol/L 09/18/2023 3:02 PM [facility] Potassium 4.4 3.5 - 4.5 mmol/L 09/18/2023 3:02 PM [facility] Chloride 112(H) 98 - 107 mmol/L 09/18/2023 3:02 PM [facility] CO2 23 22 - 29 mmol/L 09/18/2023 3:02 PM [facility] Glucose 130(H) 70 - 115 mg/dL 09/18/2023 3:02 PM [facility] Albumin 3.5 3.4 - 5.0 g/dL 09/18/2023 3:02 PM [facility] Calcium 9.3 8.4 - 10.2 mg/dL 09/18/2023 3:02 PM [facility] Phosphorus 2.7(L) 2.8 - 5.1 mg/dL 09/18/2023 3:02 PM [facility] Anion Gap 8 6 - 16 09/18/2023 3:02 PM [facility] BUN/Creatinine Ratio 13 7 - 23 09/18/2023 3:02 PM [facility] Osmolality Calculated 299(H) 275 - 295 mOsm/kg 09/18/2023 3:02 PM [facility] eGFR by CKD-EPI 66(L) >=90 mL/min/1.7 3 m2 09/18/2023 3:02 PM [facility] Blood BLOOD SPECIMEN / Unknown Lab Venipuncture / Unknown 09/18/2023 2:00 PM CDT 09/18/2023 2:31 PM CDT Soco Sanchez MD LAB - CHEMISTRY ERIKA CHEN [facility] [place] Organization Address City/State/ZIP Co de Phone Number [facility] [address] [place] [address], [place] [phone] * (ABNORMAL) MAGNESIUM BLOOD (09/18/2023 2:00 PM CDT) Only the most recent of30 resultswithin the time period is included. Magnesium 1.5(L) 1.6 - 2.6 mg/dL 09/18/2023 3:02 PM CDT [facility] Blood BLOOD SPECIMEN / Unknown Lab Venipuncture / Unknown 09/18/2023 2:00 PM CDT 09/18/2023 2:31 PM CDT Soco Sanchez MD LAB - CHEMISTRY ERIKA De [place] Organization Address City/State/ZIP Co de Phone Number [facility] [address] [place] [address], [place] [phone] * XR FOOT LEFT WT BEARING 3VW (09/11/2023 2:55 PM CDT) Only the most recent of2 resultswithin the time period is included. Anatomical Region Laterality Modality Ankle / Foot Radiographic Niurka ging 09/11/2023 2:46 PM CDT Impressions 09/11/2023 3:04 PM CDT IMPRESSION: Interval removal of external fixation. > Interpreting Provider: Naseem Montilla MD on 09/11/2023 3:04 PM Narrative 09/11/2023 3:04 PM CDT PROCEDURE: ??XR FOOT LEFT WT BEARING 3VW DATE/TIME OF EXAM: ??09/11/2023 2:55 PM CLINICAL INFORMATION: None relevant/not provided if blank. Indication: Z47.89: Orthopedic aftercare Additional History: COMPARISON: 07/25/2023 left foot x-rays. FINDINGS: Previous external fixation has been removed. There is unchanged deformity of the distal tibia, talus, and calcaneus. There is a large amount of heterotopic ossification at the ankle, greater posteriorly. There is diffuse soft tissue swelling. There is mild degenerative change in the forefoot. The bones are osteopenic. Procedure Note Naseem Montilla MD - 09/11/2023 PROCEDURE: XR FOOT LEFT WT BEARING 3VW DATE/TIME OF EXAM: 09/11/2023 2:55 PM CLINICAL INFORMATION: None relevant/not provided if blank. Indication: Z47.89: Orthopedic aftercare Additional History: COMPARISON: 07/25/2023 left foot x-rays. FINDINGS: Previous external fixation has been removed. There is unchangeddeformity of the distal tibia, talus, and calcaneus. There is a large amount of heterotopic ossification at the ankle, greater posteriorly. There is diffuse soft tissue swelling. There is mild degenerative change in the forefoot. The bones are osteopenic. IMPRESSION: Interval removal of external fixation. > Interpreting Provider: Naseem Montilla MD on 09/11/2023 3:04 PM Blane Stinson MD DIAGNOSTIC IMAGING O RDERABLES * XR TIBIA FIBULA LEFT 2VW (09/11/2023 2:55 PM CDT) Only the most recent of5 resultswithin the time period is included. Anatomical Region Laterality Modality Lower Extremity Radiographic Niurka ging 09/11/2023 3:04 PM CDT Impressions 09/11/2023 3:05 PM CDT Impression: Interval removal of external fixation. > Interpreting Provider: Naseem Montilla MD on 09/11/2023 3:05 PM Narrative 09/11/2023 3:05 PM CDT PROCEDURE: ??XR TIBIA FIBULA LEFT 2VW DATE/TIME OF EXAM: ??09/11/2023 2:55 PM CLINICAL INFORMATION: None relevant/not provided if blank. Indication: Z47.89: Orthopedic aftercare Additional History: COMPARISON: 07/25/2023 FINDINGS: Interval removal of external fixator. There is again chronic deformity of the distal tibia and fibula with surrounding heterotopic ossification. There is soft tissue swelling, greater distally. Procedure Note Naseem Montilla MD - 09/11/2023 PROCEDURE: XR TIBIA FIBULA LEFT 2VW DATE/TIME OF EXAM: 09/11/2023 2:55 PM CLINICAL INFORMATION: None relevant/not provided if blank. Indication: Z47.89: Orthopedic aftercare Additional History: COMPARISON: 07/25/2023 FINDINGS: Interval removal of external fixator. There is again chronic deformityof the distal tibia and fibula with surrounding heterotopic ossification. There is soft tissue swelling, greater distally. Impression: Interval removal of external fixation. > Interpreting Provider: Naseem Montilla MD on 09/11/2023 3:05 PM Blane Stinson MD DIAGNOSTIC IMAGING O RDERABLES * XR FOOT LEFT 2VW (08/21/2023 10:31 AM CDT) Anatomical Region Laterality Modality Ankle / Foot Radiographic Niurka ging 08/21/2023 10:3 6 AM CDT Impressions 08/21/2023 10:44 AM CDT IMPRESSION: Circumferential swelling around the ankle. ??No abnormal gas collection. > Interpreting Provider: Dawit Thomas MD on 08/21/2023 10:44 AM Narrative 08/21/2023 10:44 AM CDT PROCEDURE: ??XR FOOT LEFT 2VW DATE/TIME OF EXAM: ??08/21/2023 10:32 AM CLINICAL INFORMATION: None relevant/not provided if blank. Indication: G89.18: Other acute postprocedural pain Additional History: COMPARISON: Ankle plain films from 05/06/2023 FINDINGS: Previous external fixation hardware and antibiotic beads have been removed. However there is now circumferential soft tissue swelling around the ankle. ??Large areas of healing and heterotopic bone are noted around the ankle joint especially the medial malleolus. ??No abnormal gas collection. There is disuse demineralization. Procedure Note Dawit Thomas MD - 08/21/2023 PROCEDURE: XR FOOT LEFT 2VW DATE/TIME OF EXAM: 08/21/2023 10:32 AM CLINICAL INFORMATION: None relevant/not provided if blank. Indication: G89.18: Other acute postprocedural pain Additional History: COMPARISON: Ankle plain films from 05/06/2023 FINDINGS: Previous external fixation hardware and antibiotic beads have beenremoved. However there is now circumferential soft tissue swelling around the ankle. Large areas of healing and heterotopic bone are noted around the ankle joint especially the medial malleolus. No abnormal gas collection. There is disuse demineralization. IMPRESSION: Circumferential swelling around the ankle. No abnormal gas collection. > Interpreting Provider: Dawit Thomas MD on 08/21/2023 10:44 AM Blane Stinson MD DIAGNOSTIC IMAGING O RDERABLES * XR ANKLE LEFT 2VW (08/21/2023 10:31 AM CDT) Anatomical Region Laterality Modality Lower Extremity Radiographic Niurka ging 08/21/2023 10:4 8 AM CDT Narrative 08/21/2023 10:51 AM CDT Procedure: XR ANKLE LEFT 2VW ??Exam Date: ??08/21/2023 10:31 AM ?? Location: [facility] Indication: G89.18: Other acute postprocedural pain Findings/impression: The study is compared to an exam from April 2023. The external fixators have been removed. There continues to be marked soft tissue swelling about the ankle. There has been resection of the distal fibula. There is again noted to be marked irregularity involving the distal tibia. There is extensive heterotopic bone. There is marked irregularity along the ankle mortise possibly from prior erosive arthropathy or Charcot joint. There is spurring of the calcaneus. There is loss of the normal subtalar joint. There is marked bony irregularity of the talus though the talonavicular joint is maintained. > Interpreting Provider: Dayron Rowe MD on 08/21/2023 10:51 AM Procedure Note Dayron Rowe MD - 08/21/2023 Procedure: XR ANKLE LEFT 2VW Exam Date: 08/21/2023 10:31 AM Location: [facility] Indication: G89.18: Other acute postprocedural pain Findings/impression: The study is compared to an exam from April 2023. The externalfixators have been removed. There continues to be marked soft tissue swellingabout the ankle. There has been resection of the distal fibula. There is again noted to be marked irregularity involving the distal tibia. There is extensive heterotopic bone. There is marked irregularity along the ankle mortise possibly from prior erosive arthropathy or Charcot joint. Thereis spurring of the calcaneus. There is loss of the normal subtalar joint. There is marked bony irregularity of the talus though the talonavicular joint is maintained. > Interpreting Provider: Dayron Rowe MD on 08/21/2023 10:51 AM Blane Stinson MD DIAGNOSTIC IMAGING O RDERABLES * (ABNORMAL) GLUCOSE - POINT OF CARE (08/21/2023 10:01 AM CDT) Only the most recent of78 resultswithin the time period is included. Glucose WB/POC 147(H) 70 - 106 mg/dL 08/21/2023 2:42 PM CDT [facility] Specimen Type Cap Fingerstick 2023 2:42 PM CDT [facility] Blood BLOOD SPECIMEN / Unknown 08/21/2023 10:01 AM CDT 08/21/2023 2:42 PM CDT Blane Stinson MD LAB - POINT OF CARE ORDERABLES Performing Organization Address City/State/[facility] Co de Phone Number [facility] [address] [place] [address] * ETT LINE PERFORMABLE (08/21/2023 9:16 AM CDT) Narrative Mayra Zacarias APRN-CRNA - 08/21/2023 9:16 AM CDT Mayra Zacarias APRN-CRNA ? 08/21/2023 ??9:17 AM Endotracheal Tube Placement: ? Patient Location: OR. Intubation Event Date/Time: ??08/21/2023 8:59 AM Procedure: intubation ([id number]). Procedure Section: ?? Sedation: under general anesthesia. Indications for Airway Management: ??anesthesia Induction: standard IV Patient Position: ??sniffing Mask Ventilation: easy with oral airway. Blade Type: Ruddy Blade Size: 4 Laryngoscopy View: grade 1 (full cords) Tube: endotracheal tube Placement: oral Tube type: cuff - inflated Tube Size (MM): 8 Depth of Insertion (CM): 22 Measured From: teeth Cuff volume (mL): ??7 Cuff Inflated With: air Number of Attempts: 1. Placement Verified By: direct visualization, bilateral breath sounds and CO2 monitor Tube secured with: ??adhesive tape. Dentition unchanged? ??Yes Difficult Airway? ??No. Procedure Start Time: 08/21/2023 8:59 AM. Procedure End Time: 08/21/2023 8:59 AM. Procedure Total Time: 0 ??minutes. Staff Section ? Anesthesia Provider: Mayra Zacarias APRN-SHANNON, Performed the procedure Viraj Andino MD GENERAL ANESTHES IA ORDERABLES * FL LESLIE SURGERY (08/21/2023 8:50 AM CDT) Only the most recent of5 resultswithin the time period is included. Narrative [facility] - 08/21/2023 1:52 PM CDT For details of this study, please see the providers note. Blane Stinson MD FLUOROSCOPY ORDERABL ES [facility] [address] [place] [address] * CT ANKLE LEFT WO CONTRAST (08/08/2023 8:22 AM CDT) Only the most recent of2 resultswithin the time period is included. Anatomical Region Laterality Modality Lower Extremity Computed Tomogra phy 08/08/2023 11:3 2 PM CDT Impressions 08/08/2023 11:38 PM CDT IMPRESSION: 1. 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 There is severe osteopenia of the left ankle. > Interpreting Provider: Isaac Pat MD on 08/08/2023 11:38 PM Narrative 08/08/2023 11:38 PM CDT PROCEDURE: ??CT ANKLE LEFT WO CONTRAST DATE/TIME OF EXAM: ??08/08/2023 8:23 AM CLINICAL INFORMATION: None relevant/not provided if blank. Indication: Z47.89: Orthopedic aftercare Additional History: COMPARISON: Comparison to ankle radiographs dated 07/25/[address] dated 04/18/2023 TECHNIQUE: CT of the left ankle was performed utilizing standard protocol. CT dose reduction technique was used, including Automated Exposure Control. FINDINGS: There is a spatial frame involving the distal leg and ankle with external fixator pins in the tibia and fibula as well as in the calcaneus. There is beam hardening artifact from the hardware which limits evaluation. There is severe osteopenia of the ankle and foot. There is a severe deformity of the distal tibia and fibula with erosions as well as the calcaneus with talar resection. There there are changes of debridement at the ankle deformity. There is diffuse soft tissue swelling of the ankle. Procedure Note Isaac Pat MD - 08/08/2023 PROCEDURE: CT ANKLE LEFT WO CONTRAST DATE/TIME OF EXAM: 08/08/2023 8:23 AM CLINICAL INFORMATION: None relevant/not provided if blank. Indication: Z47.89: Orthopedic aftercare Additional History: COMPARISON: Comparison to ankle radiographs dated 07/25/[address] date04/18/2023 TECHNIQUE: CT of the left ankle was performed utilizing standard protocol. CT dose reduction technique was used, including Automated ExposureControl. FINDINGS: There is a spatial frame involving the distal leg and ankle withexternal fixator pins in the tibia and fibula as well as in the calcaneus. Thereis beam hardening artifact from the hardware which limits evaluation. Thereis severe osteopenia of the ankle and foot. There is a severe deformity ofthe distal tibia and fibula with erosions as well as the calcaneus withtalar resection. There there are changes of debridement at the ankledeformity. There is diffuse soft tissue swelling of the ankle. IMPRESSION: 1. 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 There is severe osteopenia of the leftankle. > Interpreting Provider: Isaac Pat MD on 08/08/2023 11:38 PM Blane Stinson MD CT ORDERABLES * XR FOOT LEFT 3VW OR MORE (07/25/2023 9:30 AM CDT) Only the most recent of4 resultswithin the time period is included. Anatomical Region Laterality Modality Ankle / Foot Radiographic Niurka ging 07/25/2023 9:55 AM CDT Impressions 07/25/2023 10:47 AM CDT IMPRESSION: Spatial frame on the distal leg and ankle with bony deformity of the tibia, talus, and tibiotalar joint. Findings are not changed. Report dictated by Jim Simon MD, MD (outside residential sales professional). IEvan MD have personally reviewed and interpreted this examination/study. > Interpreting Provider: Evan Clements MD on 07/25/2023 10:47 AM Narrative 07/25/2023 10:47 AM CDT PROCEDURE: ??XR ANKLE LEFT 3VW OR MORE, XR TIBIA FIBULA LEFT 2VW, XR FOOT LEFT 3VW OR MORE, DATE/TIME OF EXAM: ??07/25/2023 9:30 AM, LOCATION ??[facility] INDICATION: Z47.89: Orthopedic aftercare ADDITIONAL CLINICAL INFORMATION: Ordering Provider Reason For Exam: ??f/u COMPARISON: Left ankle x-ray dated 07/04/2023 FINDINGS: Left tibia/fibula: A spatial frame is again demonstrated on the mid to distal leg and ankle. There is no fracture of the proximal to mid tibia or fibula. There is deformity of the distal tibia, unchanged in appearance. Soft tissue edema is present. Left ankle: Spatial frame and abnormalities of the distal tibia and talus as described above. There is deformity of the distal tibia, talus, and tibiotalar joint with collapse of the talar dome, erosion, sclerosis, callus, and periosteal reaction, unchanged in appearance. There is soft tissue swelling. Left foot: Spatial frame and abnormalities of the distal tibia and talus as described above. Soft tissue swelling is noted Procedure Note Evan Clements MD - 07/25/2023 PROCEDURE: XR ANKLE LEFT 3VW OR MORE, XR TIBIA FIBULA LEFT 2VW, XR FOOT LEFT 3VW OR MORE, DATE/TIME OF EXAM: 07/25/2023 9:30 AM, LOCATION [facility] INDICATION: Z47.89: Orthopedic aftercare ADDITIONAL CLINICAL INFORMATION: Ordering Provider Reason For Exam: f/u COMPARISON: Left ankle x-ray dated 07/04/2023 FINDINGS: Left tibia/fibula: A spatial frame is again demonstrated on the mid to distal leg andankle. There is no fracture of the proximal to mid tibia or fibula. There is deformity of the distal tibia, unchanged in appearance. Soft tissueedema is present. Left ankle: Spatial frame and abnormalities of the distal tibia and talus asdescribed above. There is deformity of the distal tibia, talus, and tibiotalarjoint with collapse of the talar dome, erosion, sclerosis, callus, andperiosteal reaction, unchanged in appearance. There is soft tissue swelling. Left foot: Spatial frame and abnormalities of the distal tibia and talus asdescribed above. Soft tissue swelling is noted IMPRESSION: Spatial frame on the distal leg and ankle with bony deformity of thetibia, talus, and tibiotalar joint. Findings are not changed. Report dictated by Jim Simon MD, MD (outside residential sales professional). I, Evan Clements MD have personally reviewed and interpreted this examination/study. > Interpreting Provider: Evan Clements MD on 410:47 AM Blane Stinson MD DIAGNOSTIC IMAGING O RDERABLES * CARDIAC RHYTHM STRIP ORDER (07/10/2023 3:46 PM CDT) Only the most recent of2 resultswithin the time period is included. Narrative 07/10/2023 3:46 PM CDT Ordered by an unspecified provider. Scanned Document CARDIAC SERVICES ORD ERABLES * (ABNORMAL) COMPREHENSIVE METABOLIC PANEL (07/09/2023 5:24 AM CDT) Only the most recent of7 resultswithin the time period is included. Glucose 137(H) 70 - 105 mg/dL 07/09/2023 6:25 AM CDT [facility] Sodium 137 136 - 145 mmol/L 07/09/2023 6:25 AM CDT [facility] Potassium 6.0(H) 3.5 - 5.1 mmol/L 07/09/2023 6:25 AM CDT [facility] Chloride 114(H) 98 - 107 mmol/L 07/09/2023 6:25 AM CDT [facility] CO2 17(L) 22 - 29 mmol/L 07/09/2023 6:25 AM CDT [facility] Calcium 9.3 8.4 - 10.4 mg/dL 07/09/2023 6:25 AM CDT [facility] Anion Gap 6 6 - 16 mmol/L 07/09/2023 6:25 AM CDT [facility] BUN 38(H) 7 - 26 mg/dL 07/09/2023 6:25 AM CDT [facility] Creatinine 1.44(H) 0.72 - 1.25 mg/dL 07/09/2023 6:25 AM CDT [facility] Alkaline Phosphatase 136 40 - 150 U/L 07/09/2023 6:25 AM CDT [facility] ALT 6 0 - 55 U/L 07/09/2023 6:25 AM CDT [facility] AST 13 5 - 34 U/L 07/09/2023 6:25 AM CDT [facility] Protein Total 7.9 6.4 - 8.3 gm/dL 07/09/2023 6:25 AM CDT [facility] Albumin 3.2(L) 3.4 - 5.0 gm/dL 07/09/2023 6:25 AM CDT [facility] Bilirubin Total 0.4 0.2 - 1.2 mg/dL 07/09/2023 6:25 AM T [facility] eGFR by CKD-EPI 56(L) >=90 mL/min/1.7 3 m2 07/09/2023 6:25 AM CDT [facility] Blood BLOOD SPECIMEN / Unknown Lab Venipuncture / Unknown 07/09/2023 5:24 AM CDT 07/09/2023 6:03 AM CDT Lenin Wilson MUSEUM SERVICE SCHEDULER-LANDSCAPE ARTIST LAB - CHEMISTR Y ORDERABLES Performing Organization Address City/State/[facility] Co de Phone Number [facility] [place] [address] * PHOSPHORUS BLOOD (05/20/2023 1:22 AM CDT) Only the most recent of21 resultswithin the time period is included. [facility] Phosphorus 4.4 2.8 - 5.1 mg/dL 05/20/2023 2:31 AM CDT [facility] Blood BLOOD SPECIMEN / Unknown Lab Venipuncture / Unknown 05/20/2023 1:22 AM CDT 05/20/2023 2:01 AM CDT Jarrett Brown III, MD LAB - CHEMISTRY ORDERABLES [address] [address], [place] [phone] * (ABNORMAL) IRON + TRANSFERRIN PANEL (05/18/2023 3:24 AM MANAGER TRAINING) Only the most recent of2 resultswithin the time period is included. Iron 45(L) 50 - 175 ug/dL 05/18/2023 4:04 AM [facility] Transferrin 200 174 - 382 mg/dL 05/18/2023 4:04 AM [facility] Transferrin Saturation % 18 16 - 50 % 05/18/2023 4:04 AM [facility] TIBC Calculated 250 240 - 450 ug/dL 05/18/2023 4:04 AM [facility] Blood BLOOD SPECIMEN / Unknown Lab Venipuncture / Unknown 05/18/2023 3:24 AM MANAGER TRAINING 05/18/2023 3:39 AM MANAGER TRAINING Jarrett Brown III, MD LAB - CHEMISTRY ORDERABLES Performing Organization Address City/[facility]/ZIP Co de Phone Number [address] [address], [place] [phone] * FERRITIN (05/18/2023 3:24 AM MANAGER TRAINING) Only the most recent of3 resultswithin the time period is included. Ferritin 165 22 - 275 ng/mL 05/18/2023 4:22 AM [facility] Blood BLOOD SPECIMEN / Unknown Lab Venipuncture / Unknown 05/18/2023 3:24 AM MANAGER TRAINING 05/18/2023 3:39 AM MANAGER TRAINING Jarrett Brown III, MD LAB - CHEMISTRY ORDERABLES Performing Organization Address City/[facility]/ZIP Co de Phone Number [address] [address], [place] [phone] * LAB MISC TEST (05/16/2023 8:54 PM MANAGER TRAINING) Test Name Heatherin 05/23/2023 2:18 PM CDT [facility] Test Result See Scanned Report 05/23/2023 2:18 PM CDT [facility] Comment Ref Lab [facility]UP 05/23/2023 2:18 PM CDT [facility] Blood BLOOD SPECIMEN / Unknown Lab Venipuncture / Unknown 05/16/2023 8:54 PM MANAGER TRAINING 05/16/2023 8:58 PM MANAGER TRAINING Jarrett Brown III, MD LAB SEND OUT [facility] [address] [place] [address] * (ABNORMAL) URINALYSIS W/MICROSCOPIC NO CULTURE (05/16/2023 5:42 PM MANAGER TRAINING) Color UA Straw Straw, Yellow 05/16/2023 6:11 PM [facility] Clarity UA Clear Clear 05/16/2023 6:11 PM [facility] Specific [place] UA 1.008 1.005 - 1.030 05/16/2023 6:11 PM [facility] pH UA 7.0 5.0 - 8.0 pH 05/16/2023 6:11 PM [facility] Protein UA 1+(A) Negative 05/16/2023 6:11 PM [facility] Glucose UA Negative Negative 05/16/2023 6:11 PM [facility] Ketone UA Negative Negative 05/16/2023 6:11 PM [facility] Bilirubin UA Negative Negative 05/16/2023 6:11 PM [facility] Blood UA 2+(A) Negative 05/16/2023 6:11 PM [facility] Nitrite UA Negative Negative 05/16/2023 6:11 PM [facility] Leukocyte Esterase 1+(A) Negative 05/16/2023 6:11 PM [facility] Urobilinogen UA Negative Negative mg/dL 05/16/2023 6:11 PM [facility] RBC UA 11-20(A) None Seen, 0-2, 3-5 /HPF 05/16/2023 6:11 PM [facility] WBC UA 6-10(A) None Seen, 0-5 /HPF 05/16/2023 6:11 PM [facility] Squamous Epithelial Cells UA None Seen None Seen, 0-2, 3-5 /HPF 05/16/2023 6:11 PM [facility] Mucus UA 1+ /LPF 05/16/2023 6:11 PM [facility] Urine URINE SPECIMEN OBTAINED VIA INDWELLING URINARY CATHETER / Unknown Collection / Unknown 05/16/2023 5:42 PM MANAGER TRAINING 05/16/2023 5:53 PM MANAGER TRAINING Narrative [facility] - 05/16/2023 6:11 PM MANAGER TRAINING Soco Sanchez MD LAB - URINALYSIS ORD ERABLES Performing Organization Address City/[facility]/ZIP Co de Phone Number [address] [address], [place] [phone] * (ABNORMAL) PROTEIN CREATININE RATIO URINE RANDOM PNL (05/16/2023 5:42 PM MANAGER TRAINING) [facility] Protein Urine 36 Not Established mg/dL 05/16/2023 6:29 PM [facility] Creatinine Urine 32.08 Not Established mg/dL 05/16/2023 6:29 PM [facility] Protein/Creati nine Ratio Urine 1.12(H) <0.10 05/16/2023 6:29 PM [facility] Urine URINE SPECIMEN OBTAINED BY CLEAN CATCH PROCEDURE / Unknown Collection / Unknown 05/16/2023 5:42 PM MANAGER TRAINING 05/16/2023 5:53 PM MANAGER TRAINING Soco Sanchez MD LAB - URINE CHEMISTR Y ORDERABLES Performing Organization Address [facility]/ZIP Co de Phone Number [address] [address], [place] [phone] * (ABNORMAL) LACTIC ACID BLOOD (05/16/2023 7:26 AM MANAGER TRAINING) Only the most recent of2 resultswithin the time period is included. [facility] Lactic Acid-Stat 2.5(H) <=2.0 mmol/L 05/16/2023 7:52 AM [facility] Blood BLOOD SPECIMEN / Unknown Lab Venipuncture / Unknown 05/16/2023 7:26 AM MANAGER TRAINING 05/16/2023 7:30 AM MANAGER TRAINING Jarrett Brown III, MD LAB - CHEMISTRY ORDERABLES Performing Organization Address [facility] Co de Phone Number [address] [address], [place] [phone] * ALCOHOL ETHYL BLOOD (05/16/2023 7:26 AM MANAGER TRAINING) Ethanol (mg/dL) <10 <=10 mg/dL 7:55 AM [facility] Ethanol Calculated (g/dL) <0.010 <0.010 g/dL 05/16/2023 7:55 AM [facility] Blood BLOOD SPECIMEN / Unknown Lab Venipuncture / Unknown 05/16/2023 7:26 AM MANAGER TRAINING 05/16/2023 7:42 AM MANAGER TRAINING Narrative [facility] - 05/16/2023 7:55 AM MANAGER TRAINING Ethanol Interp <10: None Detected. Depression of WRAPPER LEAF INSPECTOR: >100 mg/dl Potentially Critical: >250 mg/dl Potentially Fatal >400 mg/dl Ethanol in the patient's blood will contribute to the osmolar gap. Ethanol's contribution to the osmolar gap can be estimated by dividing the concentration of ethanol in mg/dL by 4.6. This test is for clinical use only and does not equal a KYLE for legal purposes. Jarrett Brown III, MD LAB - CHEMISTRY ORDERABLES Performing Organization Address City/[facility]/ZIP Co de Phone Number [address] [address], [place] [phone] * (ABNORMAL) SALICYLATE LEVEL BLOOD (05/16/2023 7:26 AM MANAGER TRAINING) Salicylate <5(L) 15 - 30 mg/dL 05/16/2023 7:55 AM [facility] Blood BLOOD SPECIMEN / Unknown Lab Venipuncture / Unknown 05/16/2023 7:26 AM MANAGER TRAINING 05/16/2023 7:42 AM MANAGER TRAINING [facility] - 05/16/2023 7:55 AM [facility] This test is not intended for use with low-dose aspirin therapy. Most patients on low-dose aspirin for cardiovascular prophylaxis will have serum concentrations near or below the lower limit of the analytical range. Jarrett Brown III, MD LAB - CHEMISTRY ORDERABLES Performing Organization Address [facility]/ZIP Co de Phone Number [address] [address], [place] [phone] * ACETAMINOPHEN LEVEL (05/16/2023 7:26 AM [facility]) [facility] Acetaminophen <3.0 <3.0 ug/mL 05/16/2023 7:55 AM [facility] Blood BLOOD SPECIMEN / Unknown Lab Venipuncture / Unknown 05/16/2023 7:26 AM MANAGER TRAINING 05/16/2023 7:42 AM [facility] Narrative [facility] - 05/16/2023 7:55 AM [facility] Acetaminophen Toxicity Levels (Hours Post Ingestion): ? >200 ug/mL at 4 hours ? >100 ug/mL at 8 hours ? >50 ug/mL at 12 hours For acute ingestion, please refer to Acetaminophen nomogram to determine the risk of toxicity based on time since ingestion and acetaminophen level (see link provided). Note the nomogram disclaimer. WARNING: Assessing the potential toxicity of an acetaminophen level on a standard risk nomogram must take into consideration many factors including any uncertainty of the time since ingestion or the possibility of other medications that may alter the peak level. Contact the [facility] at or reserved for healthcare professionals to assist you in evaluating potentially toxic acetaminophen levels. Jarrett Brown III, MD LAB - CHEMISTRY ORDERABLES Performing Organization Address [facility]/ZIP Co de Phone Number [address] [address] [phone] * (ABNORMAL) BLOOD GASES ART + COOX PANEL (05/16/2023 6:38 AM [facility]) pH Arterial 7.35 7.35 - 7.45 pH 05/16/2023 6:44 AM [facility] pO2 Arterial 70(L) 80 - 100 mmHg 05/16/2023 6:44 AM [facility] pCO2 Arterial 41 35 - 45 mmHg 6:44 AM [facility] HCO3 Arterial 22.6 20.0 - 30.0 mmol/L 05/16/2023 6:44 AM [facility] BE Arterial -2.8(L) -2.0 - 2.0 mmol/L 05/16/2023 6:44 AM [facility] Oxyhemoglobin Arterial 95.1 % 05/16/2023 6:44 AM [facility] Dexoyhemoglobin (HHB) % 2.2 % 05/16/2023 6:44 AM [facility] Methemoglobin <0.8 0.0 - 2.0 % 05/16/2023 6:44 AM [facility] Carboxyhemoglobin 2.3(H) 0.0 - 2.0 % 2023 6:44 AM [facility] O2 Content Arterial 11.1 Interpret within clinical context ml/dL 05/16/2023 6:44 AM [facility] Hemoglobin by COOX 8.2(L) 12.0 - 17.6 g/dL 05/16/2023 6:44 AM [facility] O2 Saturation Arterial 98 90 - 100 % 05/16/2023 6:44 AM [facility] FI O2 Arterial 21.0 % 05/16/2023 6:44 AM [facility] Blood, arterial ARTERIAL BLOOD SPECIMEN / Unknown 05/16/2023 6:38 AM MANAGER TRAINING 05/16/2023 6:38 AM [facility] - 05/16/2023 6:44 AM [facility] Carboxyhemoglobin Normal Concentration: Non-smokers: 0-2%; Smokers: 0-9%; Toxic: >20% Jarrett Brown III, MD LAB - BLOOD GASE S ORDERABLES [facility] [address] [place] [address], [place] [phone] * URINE DRUG SCREEN IMMUNOASSAY (05/16/2023 4:38 AM [facility]) Pathologist [facility] Amphetamines Screen Urine Negative Negative: < 1000 ng/mL 05/16/2023 5:10 AM [facility] Barbiturates Screen Urine Negative Negative: < 200 ng/mL 05/16/2023 5:10 AM [facility] Benzodiazepine Screen Urine Negative Negative: < 200 ng/mL 05/16/2023 5:10 AM [facility] Opiates Urine Negative Negative: < 300 ng/mL 05/16/2023 5:10 AM [facility] Cocaine Metabolites Urine Negative Negative: < 300 ng/mL 05/16/2023 5:10 AM [facility] Phencyclidine Screen Urine Negative Negative: < 25 ng/ml 05/16/2023 5:10 AM [facility] Cannabinoids Screen Urine Negative Negative: <50 ng/mL 05/16/2023 5:10 AM [facility] Methadone Screen Urine Negative Negative: < 300 ng/mL 05/16/2023 5:10 AM [facility] Fentanyl Screen Urine Negative Negative: <1.5 ng/mL 05/16/2023 5:10 AM [facility] Urine URINE / Unknown Collection / Unknown 05/16/2023 4:38 AM [facility] 05/16/2023 4:45 AM [facility] - 05/16/2023 5:10 AM [facility] The Urine Toxicology Screening Panel does not screen for Propoxyphene, Meprobamate, Carisoprodol, Trazodone, [id number] medications and/or volatiles (Acetone, Isopropanol, Methanol or Ethylene Glycol). Ethanol, Salicylate, Acetaminophen, Tricyclic Antidepressants and several therapeutic drugs may be individually assayed in serum or plasma specimen. Toxicology testing by the [facility] is an aid to medical diagnosis and treatment of patients. No documented chain of custody was maintained. Results are intended to be used for clinical purposes only. ? Jarrett Brown III, MD LAB - URINE CHEM ISTRY ORDERABLES Performing Organization Address [facility] de Phone Number [facility] [address] [place] [address], [place] [phone] * UREA NITROGEN URINE RANDOM (05/16/2023 4:29 AM MANAGER TRAINING) Urea Nitrogen Random Urine 388 Not Established mg/dL 05/16/2023 5:18 AM [facility] Urine URINE SPECIMEN OBTAINED BY CLEAN CATCH PROCEDURE / Unknown Collection / Unknown 05/16/2023 4:29 AM MANAGER TRAINING 05/16/2023 4:45 AM MANAGER TRAINING Jarrett Brown III, MD LAB - URINE CHEM ISTRY ORDERABLES Performing Organization Address [facility] de Phone Number [facility] [address] [place] [address], [place] [phone] * LYTES (NA K CL) URINE RANDOM PANEL (05/16/2023 4:29 AM MANAGER TRAINING) Sodium Urine 49 Not Established mmol/L 05/16/2023 5:18 AM [facility] Potassium Urine 34.6 Not Established mmol/L 05/16/2023 5:18 AM [facility] Chloride Random Urine 43 Not Established mmol/L 05/16/2023 5:18 AM [facility] Urine URINE SPECIMEN OBTAINED BY CLEAN CATCH PROCEDURE / Unknown Collection / Unknown 05/16/2023 4:29 AM MANAGER TRAINING 05/16/2023 4:45 AM MANAGER TRAINING Jarrett Brown III, MD LAB - URINE CHEM ISTRY ORDERABLES Performing Organization Address City/[facility] Co de Phone Number [address] [address], [place] [phone] * CREATININE URINE RANDOM (05/16/2023 4:29 AM MANAGER TRAINING) Creatinine Urine 109.00 Not Established mg/dL 05/16/2023 11:17 AM MANAGER TRAINING [facility] Urine URINE SPECIMEN OBTAINED BY CLEAN CATCH PROCEDURE / Unknown Collection / Unknown 05/16/2023 4:29 AM MANAGER TRAINING 05/16/2023 4:45 AM MANAGER TRAINING Jarrett Brown III, MD LAB - URINE CHEM ISTRY ORDERABLES Performing Organization Address [facility] Co de Phone Number [address] [address], [place] [phone] * (ABNORMAL) BLOOD GASES LIZ + COOX PANEL (05/16/2023 3:36 AM MANAGER TRAINING) Only the most recent of2 resultswithin the time period is included. pH Venous 7.18(LL) 7.32 - 7.42 pH 05/16/2023 3:53 AM [facility] pO2 Venous 146(H) 35 - 40 mmHg 05/16/2023 3:53 AM [facility] pCO2 Venous 47 40 - 50 mmHg 05/16/2023 3:53 AM [facility] HCO3 Venous 17.5(L) 20 - 30 mmol/L 05/16/2023 3:53 AM [facility] Base Excess Venous -10.3(L) -2.0 - 2.0 mmol/L 05/16/2023 3:53 AM [facility] Oxyhemoglobin Venous 97.7 % 09/2023 3:53 AM [facility] Deoxyhemoglobin (HHB) Venous % <1.0 % 05/16/2023 3:53 AM [facility] Methemoglobin <0.8 0.0 - 2.0 % 05/16/2023 3:53 AM [facility] Carboxyhemoglobin 1.8 0.0 - 2.0 % 2023 3:53 AM [facility] O2 Content Venous 12.8 Interpret within clinical context ml/dL 05/16/2023 3:53 AM [facility] Hemoglobin by COOX 9.1(L) 12.0 - 17.6 g/dL 05/16/2023 3:53 AM [facility] O2 Saturation Venous 100 >=70 % 09/2023 3:53 AM [facility] FI O2 Mixed Venous 21.0 % 2023 3:53 AM [facility] Blood BLOOD SPECIMEN / Unknown Venipuncture / Unknown 05/16/2023 3:36 AM MANAGER TRAINING 05/16/2023 3:43 AM MANAGER TRAINING Narrative [facility] - 05/16/2023 3:53 AM [facility] Carboxyhemoglobin Normal Concentration: Non-smokers: 0-2%; Smokers: 0-9%; Toxic: >20% Jarrett Brown III, MD LAB - BLOOD GASE S ORDERABLES [address] [address], [place] [phone] * HYDROXYBUTYRATE BETA (05/16/2023 2:20 AM MANAGER TRAINING) Beta-Hydroxybu tyrate <0.50 <0.50 mmol/L 05/16/2023 2:59 AM [facility] Blood BLOOD SPECIMEN / Unknown Lab Venipuncture / Unknown 05/16/2023 2:20 AM MANAGER TRAINING 05/16/2023 2:32 AM MANAGER TRAINING Jarrett Brown III, MD LAB - CHEMISTRY ORDERABLES Performing Organization Address City/[facility]/ZIP Co de Phone Number [address] [address], [place] [phone] * EKG 12-LEAD (05/16/2023 1:49 AM MANAGER TRAINING) Only the most recent of3 resultswithin the time period is included. Ventricular Rate 96 BPM [facility] Atrial Rate 96 BPM [facility] P-R Interval 184 ms [facility] QRS Duration ms 94 ms [facility] Q-T Interval ms 364 ms [facility] MUSE QTC Calculation (Bezet) 459 ms [facility] MUSE Calculated P Ball 42 degrees SL MUSE Calculated R Ball -33 degrees [facility] MUSE Calculated T Ball 94 degrees SL MUSE Interpretation EKG NORMAL SINUS RHYTHM LEFT AXIS DEVIATION S1-S2-S3 PATTERN, CONSIDER PULMONARY DISEASE, RVH, OR NORMAL VARIANT PULMONARY DISEASE PATTERN MODERATE VOLTAGE CRITERIA FOR LVH, MAY BE NORMAL VARIANT ( R in aVL , [employer] product ) T WAVE ABNORMALITY, CONSIDER LATERAL ISCHEMIA Hyperacute T wave abnormality, consistent with hyperkalemia, ischemia, etc. Likely Hyperkalemia PROLONGED QT ABNORMAL ECG WHEN COMPARED WITH ECG OF 15-MAY-2023 15:06, NO SIGNIFICANT CHANGE WAS FOUND Confirmed by ALBERTINA DONATO MD ([id number]) on 05/16/2023 8:55:37 AM [facility] MUSE 05/16/2023 1:49 AM MANAGER TRAINING 05/16/2023 8:55 AM MANAGER TRAINING Jarrett Brown III, MD ECG ORDERABLES [facility] MUSE * XR CHEST 1VW PORTABLE (05/15/2023 4:42 PM MANAGER TRAINING) Only the most recent of2 resultswithin the time period is included. Anatomical Region Laterality Modality Chest Radiographic Niurka ging 05/15/2023 4:59 PM MANAGER TRAINING Narrative 05/16/2023 11:23 AM MANAGER TRAINING PROCEDURE: ??XR CHEST 1VW PORTABLE, DATE/TIME OF EXAM: ??05/15/2023 4:42 PM, LOCATION ??[facility] INDICATION: N17.9: Acute renal failure, unspecified acute renal failure type ([facility]) ADDITIONAL CLINICAL INFORMATION: Ordering Provider Reason For Exam: ??abnormal labs Comparison: Chest x-ray from 12/14/2022 FINDINGS/IMPRESSION: There is significant right rotation of the patient. There is no focal consolidation, pleural effusion, or pneumothorax. The cardiomediastinal silhouette is normal given technique and degree of rotation. The visible bony thorax is intact. Report dictated by Nick Galdamez MD (outside residential sales professional). James Dugan MD have personally reviewed and interpreted this examination/study. > Interpreting Provider: James Rodriguez MD on 05/16/2023 11:23 AM Procedure Note James Rodriguez MD - 05/16/2023 PROCEDURE: XR CHEST 1VW PORTABLE, DATE/TIME OF EXAM: 05/15/2023 4:42 PM, LOCATION [facility] INDICATION: N17.9: Acute renal failure, unspecified acute renal failure type([facility]) ADDITIONAL CLINICAL INFORMATION: Ordering Provider Reason For Exam: abnormal labs Comparison: Chest x-ray from 12/14/2022 FINDINGS/IMPRESSION: There is significant right rotation of the patient. There is no focal consolidation, pleural effusion, or pneumothorax. The cardiomediastinal silhouette is normal given technique and degree of rotation. The visible bony thorax is intact. Report dictated by Nick Galdamez MD (outside residential sales professional). James Dugan MD have personally reviewed and interpreted this examination/study. > Interpreting Provider: James Rodriguez MD on 05/16/2023 11:23 AM Pedrito Delgado MD DIAGNOSTIC IMAGING ORDERABLES * CT RENAL STONE (05/15/2023 4:21 PM MANAGER TRAINING) Anatomical Region Laterality Modality Abdomen Computed Tomogra phy 05/15/2023 4:43 PM MANAGER TRAINING Impressions 05/15/2023 11:32 PM MANAGER TRAINING Impression: 1.No renal, ureteral, or bladder calculi. 2.Moderately distended bladder with a Jason catheter in place. > Dictated by Jam Bryan DO (outside residential sales professional). Evan Dugan MD have personally reviewed and interpreted this examination/study. > Interpreting Provider: Evan Clements MD on 05/15/2023 11:32 PM Narrative 05/15/2023 11:32 PM MANAGER TRAINING PROCEDURE: ??CT RENAL STONE, DATE/TIME OF EXAM: ??05/15/2023 4:21 PM, LOCATION [facility] INDICATION: N17.9: Acute renal failure, unspecified acute renal failure type ([facility]) ADDITIONAL CLINICAL INFORMATION: Ordering Provider Reason For Exam: ??acute renal failure Technologist Note: Additional: COMPARISON: CT chest abdomen and pelvis dated TECHNIQUE: CT of the abdomen and pelvis was performed without contrast according to renal stone protocol. MIP reformats were produced. Findings: Evaluation of visceral and vascular structures is degraded due to lack of intravenous contrast administration. Lower Chest: Normal. Liver: Within the limitations of a noncontrast examination, the liver is unremarkable. Gallbladder and Bile Ducts: Multiple gallstones are seen. No wall thickening or pericholecystic fluid. Spleen: Normal. Pancreas: Normal. Adrenals: Normal. Right Genitourinary Kidney: No calculi. Ureter: No calculi. Obstruction/Hydronephrosis: Left Genitourinary Kidney: No calculi. Ureter: No calculi. Obstruction/Hydronephrosis: Urinary Bladder: No calculi. Jason catheter noted within a distended bladder. Gastrointestinal: Suture material noted within the stomach. The stomach and visualized loops of large and small bowel are unremarkable. Normal appendix. Mesentery/Peritoneum/Retroperitoneum: Normal. Reproductive Organs: Prostate is enlarged. Vasculature: No vascular abnormality is present. Bones: Bone windows demonstrate no suspicious lytic or blastic lesions. Partially visualized right femoral intramedullary nail with some bridging callus formation of the intertrochanteric fracture. Some heterotopic ossification is noted around the fracture site.. Soft tissues: Ventral wall fat-containing umbilical hernia. Procedure Note Evan Clements MD - 05/15/2023 PROCEDURE: CT RENAL STONE, DATE/TIME OF EXAM: 05/15/2023 4:21 PM, LOCATION [facility] INDICATION: N17.9: Acute renal failure, unspecified acute renal failure type([facility]) ADDITIONAL CLINICAL INFORMATION: Ordering Provider Reason For Exam: acute renal failure Technologist Note: Additional: COMPARISON: CT chest abdomen and pelvis dated TECHNIQUE: CT of the abdomen and pelvis was performed without contrast according to renal stone protocol. MIP reformats were produced. Findings: Evaluation of visceral and vascular structures is degraded due to lackof intravenous contrast administration. Lower Chest: Normal. Liver: Within the limitations of a noncontrast examination, the liver is unremarkable. Gallbladder and Bile Ducts: Multiple gallstones are seen. No wall thickening or pericholecystic fluid. Spleen: Normal. Pancreas: Normal. Adrenals: Normal. Right Genitourinary Kidney: No calculi. Ureter: No calculi. Obstruction/Hydronephrosis: Left Genitourinary Kidney: No calculi. Ureter: No calculi. Obstruction/Hydronephrosis: Urinary Bladder: No calculi. Jason catheter noted within a distended bladder. Gastrointestinal: Suture material noted within the stomach. The stomach and visualizedloops of large and small bowel are unremarkable. Normal appendix. Mesentery/Peritoneum/Retroperitoneum: Normal. Reproductive Organs: Prostate is enlarged. Vasculature: No vascular abnormality is present. Bones: Bone windows demonstrate no suspicious lytic or blastic lesions.Partially visualized right femoral intramedullary nail with some bridging callus formation of the intertrochanteric fracture. Some heterotopicossification is noted around the fracture site.. Soft tissues: Ventral wall fat-containing umbilical hernia. Impression: 1.No renal, ureteral, or bladder calculi. 2.Moderately distended bladder with a Jason catheter in place. > Dictated by Jam Bryan DO (outside residential sales professional). I, Evan Clements MD have personally reviewed and interpreted this examination/study. > Interpreting Provider: Evan Clements MD on 411:32 PM Pedrito Delgado MD CT ORDERABLES * PT-INR [facility] (05/15/2023 3:40 PM MANAGER TRAINING) Only the most recent of8 resultswithin the time period is included. PT 12.1 12.1 - 14.8 Seconds 05/15/2023 4:07 PM MANAGER TRAINING [facility] INR 0.9 See Comment 05/15/2023 4:07 PM MANAGER TRAINING [facility] Comment:The suggested therap eutic range for standard coumadin (warfarin) therapy is an INR of 2.0-3.0. For high-risk patients (Mechanical Mitral Valve Prosthesis, etc.), the suggested prophylactic therapeutic range is an INR of 2.5-3.5. Blood BLOOD SPECIMEN / Unknown Venipuncture / Unknown 05/15/2023 3:40 PM MANAGER TRAINING 05/15/2023 3:46 PM MANAGER TRAINING Pedrito Delgado MD LAB - COAGULATION ORDERABLES [facility] [address] [place] [address], [place] [phone] * B-TYPE NATRIURETIC PEPTIDE (05/15/2023 3:02 PM MANAGER TRAINING) BNP <10 <100 pg/mL 05/15/2023 3:47 PM MANAGER TRAINING [facility] Comment: A decision threshold of 100 pg/mL has been demonstrated to provide the maximal combination of sensitivity, specificity and predictive value for the diagnosis of congestive heart failure (CHF). ??Virtually all patients with no evidence of CHF have BNP values less than 100 pg/mL. A BNP value greater than 100 pg/mL is consistent with the diagnosis of CHF in the appropriate clinical setting. In a study of 693 patients (male and female) with diagnosed CHF, the following values were determined based on the NYHA functional classification system: NYHA Functional Class ?Mean Valule (pg/mL) ? % >100 pg/mL ?I ?320 ? 58.1 ?II ? 432 ? 73.0 ?III ?656 ? 79.0 ?IV ?1635 ? 98.3 ? Blood BLOOD SPECIMEN / Unknown Venipuncture / Unknown 05/15/2023 3:02 PM MANAGER TRAINING 05/15/2023 3:10 PM MANAGER TRAINING Pedrito Delgado MD LAB - CHEMISTRY OR DERABLES Performing Organization Address [facility] Co de Phone Number [address] [address], [place] [phone] * (ABNORMAL) C-REACTIVE PROTEIN (05/15/2023 10:30 AM MANAGER TRAINING) Only the most recent of2 resultswithin the time period is included. C-Reactive Protein 9.1(H) <=0.5 mg/dL 05/15/2023 11:37 AM MANAGER TRAINING [facility] Blood BLOOD SPECIMEN / Unknown Lab Venipuncture / Unknown 05/15/2023 10:30 AM MANAGER TRAINING 05/15/2023 11:00 AM MANAGER TRAINING Nate Giraldo MD LAB - CHEMISTRY ERIKA CHEN Performing Organization Address [facility] Co de Phone Number [facility] [address] [place] [address], [place] [phone] * TRANSFERRIN (05/15/2023 10:30 AM MANAGER TRAINING) Transferrin 230 174 - 382 mg/dL 05/15/2023 11:20 AM MANAGER TRAINING [facility] Blood BLOOD SPECIMEN / Unknown Lab Venipuncture / Unknown 05/15/2023 10:30 AM MANAGER TRAINING 05/15/2023 10:57 AM MANAGER TRAINING Lucia Lazo [facility] LAB - CHEMI STRY ORDERABLES [address] [address], [place] [phone] * (ABNORMAL) RETIC COUNT (05/15/2023 10:30 AM MANAGER TRAINING) Reticulocyte Percent 1.48 0.50 - 2.40 % 05/15/2023 11:14 AM [facility] Reticulocyte Absolute 0.0598 0.0200 - 0.1100 x10E6/uL 05/15/2023 11:14 AM [facility] Ret-HE 30.3 29.0 - 37.9 pg 05/15/2023 11:14 AM [facility] Immature Reticulocyte Fraction 16.4(H) 1.8 - 15.2 % 05/15/2023 11:14 AM [facility] Blood BLOOD SPECIMEN / Unknown Lab Venipuncture / Unknown 05/15/2023 10:30 AM MANAGER TRAINING 05/15/2023 11:00 AM MANAGER TRAINING Lucia Lazo [facility] LAB - HEMAT OLOGY ORDERABLES Performing Organization Address City/[facility]/ZIP Co de Phone Number [address] [address], [place] [phone] * (ABNORMAL) IRON BLOOD (05/15/2023 10:30 AM MANAGER TRAINING) Iron 44(L) 50 - 175 ug/dL 05/15/2023 11:20 AM MANAGER TRAINING [facility] Blood BLOOD SPECIMEN / Unknown Lab Venipuncture / Unknown 05/15/2023 10:30 AM MANAGER TRAINING 05/15/2023 10:57 AM MANAGER TRAINING Lucia Lazo [facility] - CHEMI STRY ORDERABLES [address] [address], [place] [phone] * FOLATE (05/15/2023 10:30 AM MANAGER TRAINING) Folate 12.4 7.0 - 31.4 ng/mL 05/15/2023 12:05 PM MANAGER TRAINING [facility] Blood BLOOD SPECIMEN / Unknown Lab Venipuncture / Unknown 05/15/2023 10:30 AM MANAGER TRAINING 05/15/2023 11:00 AM MANAGER TRAINING Lucia Bruno Clifton [employer] LAB - CHEMI STRY ORDERABLES [address] [address], [place] [phone] * VITAMIN B12 (05/15/2023 10:30 AM MANAGER TRAINING) Vitamin B12 369 213 - 816 pg/mL 05/15/2023 12:05 PM MANAGER TRAINING [facility] Blood BLOOD SPECIMEN / Unknown Lab Venipuncture / Unknown 05/15/2023 10:30 AM MANAGER TRAINING 05/15/2023 11:00 AM MANAGER TRAINING Lucia Bruno Clifton [facility] LAB - CHEMI STRY ORDERABLES [address] [address], [place] [phone] * (ABNORMAL) TSH (05/15/2023 10:30 AM MANAGER TRAINING) Only the most recent of2 resultswithin the time period is included. TSH 0.089(L) 0.350 - 4.940 uIU/mL 05/15/2023 12:05 PM MANAGER TRAINING [facility] Blood BLOOD SPECIMEN / Unknown Lab Venipuncture / Unknown 05/15/2023 10:30 AM MANAGER TRAINING 05/15/2023 11:00 AM MANAGER TRAINING Lucia Damion Clifton [employer] SCH[facility] ARTIST LAB - CHEMI STRY ORDERABLES [facility] [address] [place] [address], [place] [phone] * T4 FREE (05/15/2023 10:30 AM MANAGER TRAINING) [facility] T4 Free 1.3 0.7 - 1.5 ng/dL 05/15/2023 12:05 PM MANAGER TRAINING [facility] Blood BLOOD SPECIMEN / Unknown Lab Venipuncture / Unknown 05/15/2023 10:30 AM MANAGER TRAINING 05/15/2023 11:00 AM MANAGER TRAINING Lucia Lazo MUSEUM SERVICE SCHEDULER-LANDSCAPE ARTIST LAB - CHEMI STRY ORDERABLES Performing Organization Address [facility]/ZIP Co de Phone Number [facility] [address] [place] [address], [place] [phone] * URINALYSIS - POINT OF CARE (AMB) [facility] (05/15/2023 9:21 AM MANAGER TRAINING) [facility] Specific [place] UA 1.[address] [facility] [address] pH UA 6.0 [facility] [address] WBC UA -NEG [facility] [address] Nitrite UA -NEG [facility] [address] Protein UA 1+ [facility] [address] Glucose UA -NEG [facility] [address] Ketones UA POCT -NEG [facility] [address] Urobilinogen UA - 0.2mg/dL [facility] [address] Bilirubin UA POCT -neg [facility] [address] Blood Urine POCT -neg [facility] [address] Urine URINE / Unknown 05/15/2023 9 :21 AM MANAGER TRAINING Lucia Lazo MUSEUM SERVICE SCHEDULER-LANDSCAPE ARTIST LAB - POINT OF CARE ORDERABLES Performing Organization Address City/[facility]/ZIP Co de Phone Number [facility] [address] [facility] [place] [address], [place] [phone] * (ABNORMAL) GLUCOSE - POINT OF CARE (AMB) [facility] (05/15/2023 9:20 AM MANAGER TRAINING) Pathologist [facility] Glucose WB/POC 146(A) 70 - 115 mg/dL [facility] Suraj [facility] Blood BLOOD SPECIMEN / Unknown 05/15/2023 9:20 AM MANAGER TRAINING Lucia Lazo MUSEUM SERVICE SCHEDULER-LANDSCAPE ARTIST LAB - POINT OF CARE ORDERABLES [facility] [address] [facility] [place] [address] [phone] * (ABNORMAL) CBC W/O DIFFERENTIAL (05/07/2023 4:34 AM MANAGER TRAINING) Only the most recent of16 resultswithin the time period is included. [facility] WBC 11.4(H) 4.0 - 10.7 x10E9/L 05/07/2023 4:58 AM [facility] RBC Count 3.32(L) 4.30 - 5.80 x10E12/L 05/07/2023 4:58 AM [facility] Hemoglobin 9.3(L) 13.3 - 17.5 g/dL 05/07/2023 4:58 AM [facility] Hematocrit 29.7(L) 38.7 - 51.1 % 05/07/2023 4:58 AM [facility] MCV 89.5 80.0 - 98.0 fL 05/07/2023 4:58 AM [facility] MCH 28.0 26.7 - 33.6 pg 05/07/2023 4:58 AM [facility] MCHC 31.3(L) 31.7 - 36.3 g/dL 05/07/2023 4:58 AM [facility] RDW-CV 13.3 11.3 - 14.8 % 05/07/2023 4:58 AM [facility] Platelet Count 316 150 - 420 x10E9/L 05/07/2023 4:58 AM [facility] MPV 8.7 7.8 - 11.4 fL 05/07/2023 4:58 AM [facility] Blood BLOOD SPECIMEN / Unknown Lab Venipuncture / Unknown 05/07/2023 4:34 AM MANAGER TRAINING 05/07/2023 4:54 AM MANAGER TRAINING Blane Stinson MD LAB - HEMATOLOGY ORD ERABLES [facility] [address] [id number] * LIPID PROFILE (04/30/2023 2:52 PM MANAGER TRAINING) Cholesterol Total 156 <200 mg/dL 04/30/2023 3:31 PM [facility] HDL 50 >40 mg/dL 04/30/2023 3:31 PM [facility] Comment: ATP III Classification of HDL Cholesterol: ? <40 mg/dL: ??Considered a major risk factor. ? >60 mg/dL: ??Considered a negative risk factor. ? LDL Calculated 78 <100 mg/dL 04/30/2023 3:31 PM [facility] Comment: ATP III Classification of LDL Cholesterol: ?<100 mg/dL: ??Optimal ? 100 - 129 mg/dL: ??Near Optimal/Above Optimal ? 130 - 159 mg/dL: ??Borderline High ? 160 - 189 mg/dL: ??High ?>190 mg/dL: ??Very High ? Triglycerides 140 <150 mg/dL 04/30/2023 3:31 PM [facility] Comment: ATP III Classification of Triglycerides: ?<150 mg/dL: ??Normal ? 150 - 199 mg/dL: ??Borderline High ? 200 - 400 mg/dL: ??High ?>500 mg/dL: ??Very High Blood BLOOD SPECIMEN / Unknown Lab Venipuncture / Unknown 04/30/2023 2:52 PM MANAGER TRAINING 04/30/2023 3:00 PM MANAGER TRAINING Violet Younger MUSEUM SERVICE SCHEDULER-LANDSCAPE ARTIST LAB - CHEMISTRY ORDERABLES [facility] [address] [place] [address], [place] [phone] * HEMOGLOBIN A1C - POINT OF CARE (AMB) U (04/30/2023 1:31 PM MANAGER TRAINING) Hemoglobin A1c POCT 6.1 % [address] Blood BLOOD SPECIMEN / Unknown 04/30/2023 1:31 PM MANAGER TRAINING Violet Younger MUSEUM SERVICE SCHEDULER-LANDSCAPE ARTIST LAB - POINT OF CARE ORDERABLES Performing Organization Address [facility] Co de Phone Number [address] [facility] [place] [address], [place] [phone] * XR PELVIS W RIGHT HIP 2VW (03/13/2023 9:37 AM MANAGER TRAINING) Only the most recent of2 resultswithin the time period is included. Anatomical Region Laterality Modality Pelvis Radiographic Niurka ging 03/13/2023 9:27 AM MANAGER TRAINING Impressions 03/13/2023 9:43 AM MANAGER TRAINING IMPRESSION: Unchanged osseous alignment. Report dictated by Brit Harrington MD (outside residential sales professional). I, Naseem Montilla MD have personally reviewed and interpreted this examination/study. > Interpreting Provider: Naseem Montilla MD on 03/13/2023 9:43 AM Narrative 03/13/2023 9:43 AM MANAGER TRAINING PROCEDURE: ??XR PELVIS W RIGHT HIP 2VW, DATE/TIME OF EXAM: ??03/13/2023 9:14 AM, LOCATION ??[facility] INDICATION: S72.141D: Closed intertrochanteric fracture of hip, right, with routine healing, subsequent encounter ADDITIONAL CLINICAL INFORMATION: Ordering Provider Reason For Exam: ??fracture Technologist Note: Additional: COMPARISON: 01/28/2023. FINDINGS: Redemonstrated internal fixation of femoral intratrochanteric fracture with a cephalomedullary nail. The hardware is intact and alignment is unchanged. Callus formation and heterotopic calcification is noted. 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 Procedure Note Naseem Montilla MD - 03/13/2023 PROCEDURE: XR PELVIS W RIGHT HIP 2VW, DATE/TIME OF EXAM: 03/13/2023 9:14 AM, LOCATION [facility] INDICATION: S72.141D: Closed intertrochanteric fracture of hip, right, with routine healing, subsequent encounter ADDITIONAL CLINICAL INFORMATION: Ordering Provider Reason For Exam: fracture Technologist Note: Additional: COMPARISON: 01/28/2023. FINDINGS: Redemonstrated internal fixation of femoral intratrochanteric fracturewith a cephalomedullary nail. The hardware is intact and alignment isunchanged. Callus formation and heterotopic calcification is noted. 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 IMPRESSION: Unchanged osseous alignment. Report dictated by Brit Harrington MD (outside residential sales professional). I, Naseem Montilla MD have personally reviewed and interpreted this examination/study. > Interpreting Provider: Naseem Montilla MD on 03/13/2023 9:43 AM Daryl Diop MD DIAGNOSTIC IMAGING O RDERABLES * XR HIP RIGHT 2VW OR MORE (01/28/2023 11:30 AM MANAGER TRAINING) Only the most recent of2 resultswithin the time period is included. Anatomical Region Laterality Modality Pelvis, Lower Extremity [facility] 01/28/2023 11:3 6 AM MANAGER TRAINING Impressions 01/28/2023 11:37 AM MANAGER TRAINING IMPRESSION: Unchanged alignment. > Interpreting Provider: Naseem Montilla MD on 01/28/2023 11:37 AM Narrative 01/28/2023 11:37 AM MANAGER TRAINING PROCEDURE: ??XR HIP RIGHT 2VW OR MORE DATE/TIME OF EXAM: ??01/28/2023 11:31 AM CLINICAL INFORMATION: None relevant/not provided if blank. Indication: S72.141D: Closed intertrochanteric fracture of hip, right, with routine healing, subsequent encounter Additional History: COMPARISON: 01/02/2023 FINDINGS: Internal fixation of a femoral intertrochanteric fracture with a cephalomedullary nail is again demonstrated. The hardware is intact and the alignment is unchanged. There is no dislocation. Procedure Note Naseem Montilla MD - 01/28/2023 PROCEDURE: XR HIP RIGHT 2VW OR MORE DATE/TIME OF EXAM: 01/28/2023 11:31 AM CLINICAL INFORMATION: None relevant/not provided if blank. Indication: S72.141D: Closed intertrochanteric fracture of hip, right,with routine healing, subsequent encounter Additional History: COMPARISON: 01/02/2023 FINDINGS: Internal fixation of a femoral intertrochanteric fracture with a cephalomedullary nail is again demonstrated. The hardware is intact andthe alignment is unchanged. There is no dislocation. IMPRESSION: Unchanged alignment. > Interpreting Provider: Naseem Montilla MD on 01/28/2023 11:37 AM Daryl Diop MD DIAGNOSTIC IMAGING O RDERABLES * PREPARE (CROSSMATCH) RBC UNIT(S), 3 Units (12/18/2022 1:17 AM CDT) Only the most recent of3 resultswithin the time period is included. Unit Description N/A [facility] Blood Bank BLOOD SPECIMEN / Unknown 12/14/2022 3:23 PM CDT Daryl Diop MD LAB - BLOOD BANK ORD ERABLES [facility] [address] [place] [address], [place] [phone] * XR FEMUR RIGHT 2VW (12/15/2022 10:16 AM CDT) Only the most recent of2 resultswithin the time period is included. Anatomical Region Laterality Modality Lower Extremity Radiographic Niurka ging 12/15/2022 12:5 0 PM CDT Narrative 12/15/2022 1:38 PM CDT PROCEDURE: ??XR FEMUR RIGHT 2VW, DATE/TIME OF EXAM: ??12/15/2022 10:17 AM, LOCATION ??[facility] INDICATION: S72.001A: Closed fracture of right hip, initial encounter ([facility]) COMPARISON: Right femur radiographs dated 12/14/2022. FINDINGS/IMPRESSION: There has been interval open reduction and internal fixation of the right intertrochanteric femur fracture with a cephalomedullary nail and intertrochanteric screws. Hardware is intact and fracture alignment is improved. There is surrounding postoperative soft tissue swelling and gas. Skin paco overlie the right hip. Report dictated by Alison Mueller DO (outside residential sales professional). RONALD Dugan MD have personally reviewed and interpreted this examination/study. > Interpreting Provider: RONALD BOYCE MD on 12/15/2022 1:38 PM Procedure Note Ronald Boyce MD - 12/15/2022 PROCEDURE: XR FEMUR RIGHT 2VW, DATE/TIME OF EXAM: 12/15/2022 10:17 AM, LOCATION [facility] INDICATION: S72.001A: Closed fracture of right hip, initial encounter ([facility]) COMPARISON: Right femur radiographs dated 12/14/2022. FINDINGS/IMPRESSION: There has been interval open reduction and internal fixation of the right intertrochanteric femur fracture with a cephalomedullary nail and intertrochanteric screws. Hardware is intactand fracture alignment is improved. There is surrounding postoperative soft tissue swelling and gas. Skin paco overlie the right hip. Report dictated by Alison Mueller DO (outside residential sales professional). RONALD Dugan MD have personally reviewed and interpreted this examination/study. > Interpreting Provider: RONALD BOYCE MD on 12/15/2022 1:38 PM Dejon Mckeon III, MD DIAGNOSTIC [facility] ORDERABLES * TRANSFUSE RED BLOOD CELL LEUKOREDUCED UNIT(S) (12/15/2022 9:10 AM CDT) Jonathan Vargas DO NURSING - BLOOD P JAMAL TRANSFUSION * ETT LINE PERFORMABLE (12/15/2022 8:45 AM CDT) Narrative Pedrito Dale Anes Asst - 12/15/2022 8:45 AM CDT Pedrito Dale Anes Asst ? 12/15/2022 ??8:46 AM Endotracheal Tube Placement: ? Patient Location: OR. Intubation Event Date/Time: ??12/15/2022 8:12 AM Procedure: intubation (02250). Procedure Section: ?? Sedation: under general anesthesia. Indications for Airway Management: ??anesthesia Procedure pretreatments used? ??No Induction: standard IV Patient Position: ??supine Mask Ventilation: easy with oral airway. Blade Type: Ruddy Blade Size: 4 Laryngoscopy View: grade 1 (full cords) Intubation Adjuncts: stylet Tube: endotracheal tube Placement: oral Tube type: cuff - inflated Tube Size (MM): 7.5 Depth of Insertion (CM): 23 Measured From: teeth Cuff Inflated With: air Number of Attempts: 1. Placement Verified By: direct visualization, bilateral breath sounds, chest auscultation and CO2 monitor Tube secured with: ??adhesive tape and ETT nolen. Dentition unchanged? ??Yes Difficult Airway? ??No. Procedure Start Time: 12/15/2022 8:12 AM. Procedure End Time: 12/15/2022 8:12 AM. Procedure Total Time: 0 ??minutes. Staff Section ? Anesthesia Provider: Pedrito Dale Anes Asst, Performed the procedure Jonathan Vargas DO GENERAL ANESTHESI A ORDERABLES * CT CHEST ABDOMEN PELVIS W CONT (12/14/2022 4:45 PM CDT) Anatomical Region Laterality Modality Chest, Abdomen, Pelvis Computed Tomography 12/14/2022 4:59 PM CDT Impressions 12/14/2022 10:58 PM CDT Impression: 1.Right femur intertrochanteric fracture is present. No other acute visceral or vascular injury. 2.Cholelithiasis. 3.Otherwise no acute injury in the chest, or abdomen. Report drafted by Malik Haines (resident) Marisela Dugan MD have personally reviewed and interpreted this examination/study. > Interpreting Provider: Marisela Goddard MD on 12/14/2022 10:58 PM Narrative 12/14/2022 10:58 PM CDT PROCEDURE: ??CT CHEST ABDOMEN PELVIS W CONT, DATE/TIME OF EXAM: ??12/14/2022 4:49 PM, LOCATION ??[facility] INDICATION: W19.XXXA: Fall, initial encounter ADDITIONAL CLINICAL INFORMATION: Ordering Provider Reason For Exam: ??fall EXAMINATION: Computed tomography (CT) of the chest, abdomen, and pelvis with contrast TECHNIQUE: CT of the chest, abdomen, and pelvis was performed after the uneventful administration of 100 mL of Isovue 370 intravenous contrast according to standard protocol. Clinical Information HISTORY: W19.XXXA: Fall, initial encounter COMPARISON: None. Findings Chest: Lines/Tubes: Right upper extremity PICC line terminates in the superior vena cava. Lower neck and axillae: Nodules are noted in bilateral thyroid lobes. Left thyroid nodule measuring up to 8 mm (series 3 image 16). Mediastinum and Kelly: Prominent mediastinal lymph nodes are present measuring up to 1 cm. There is no significant hilar lymphadenopathy. Heart and Pericardium: The cardiac chambers are normal in size. No pericardial fluid or thickening is present. Pulmonary Parenchyma and Airways: Bilateral dependent atelectasis is present. Pleural Space: A small right pleural effusion is present. Abdomen/pelvis: Hepatobiliary: The liver appears normal. There is mild intrahepatic bile duct dilatation. Common bile duct is not dilated. Multiple gallstones are present within the gallbladder without gallbladder wall thickening. Pancreas: Normal. Spleen: Normal. Kidneys: Normal. Adrenals: Normal. Retroperitoneum: There is no retroperitoneal hemorrhage. Subcentimeter retroperitoneal lymph nodes are present. Gastrointestinal: There is mild wall thickening of the gastric antrum, may represent gastritis. The small bowel and colon appear normal without wall thickening or obstruction. Appendix is normal. Mesentery: There is no mesenteric hemorrhage. No free air or free fluid is present. Pelvic Structures: The bladder is normal. The prostate is enlarged. There is no free pelvic fluid. Vasculature: Scattered atherosclerotic vasculature changes. Bones and soft tissues: There are degenerative changes throughout the thoracic and lumbar spine. Mild retrolisthesis of L5 over S1 is noted. There is diffuse idiopathic skeletal hyperostosis. Right femur intertrochanteric fracture is present with surrounding soft tissue swelling representing hemorrhage. A fat-containing umbilical hernia is present. Procedure Note Kareen Goddard MD - 12/14/2022 PROCEDURE: CT CHEST ABDOMEN PELVIS W CONT, DATE/TIME OF EXAM:12/14/2022 4:49 PM, LOCATION [facility] INDICATION: W19.XXXA: Fall, initial encounter ADDITIONAL CLINICAL INFORMATION: Ordering Provider Reason For Exam: fall EXAMINATION: Computed tomography (CT) of the chest, abdomen, and pelvis with contrast TECHNIQUE: CT of the chest, abdomen, and pelvis was performed after the uneventful administration of 100 mL of Isovue 370 intravenous contrast according to standard protocol. Clinical Information HISTORY: W19.XXXA: Fall, initial encounter COMPARISON: None. Findings Chest: Lines/Tubes: Right upper extremity PICC line terminates in the superior vena cava. Lower neck and axillae: Nodules are noted in bilateral thyroid lobes. Left thyroid nodulemeasuring up to 8 mm (series 3 image 16). Mediastinum and Kelly: Prominent mediastinal lymph nodes are present measuring up to 1 cm.There is no significant hilar lymphadenopathy. Heart and Pericardium: The cardiac chambers are normal in size. No pericardial fluid orthickening is present. Pulmonary Parenchyma and Airways: Bilateral dependent atelectasis is present. Pleural Space: A small right pleural effusion is present. Abdomen/pelvis: Hepatobiliary: The liver appears normal. There is mild intrahepatic bile ductdilatation. Common bile duct is not dilated. Multiple gallstones are present withinthe gallbladder without gallbladder wall thickening. Pancreas: Normal. Spleen: Normal. Kidneys: Normal. Adrenals: Normal. Retroperitoneum: There is no retroperitoneal hemorrhage. Subcentimeter retroperitoneallymph nodes are present. Gastrointestinal: There is mild wall thickening of the gastric antrum, may represent gastritis. The small bowel and colon appear normal without wallthickening or obstruction. Appendix is normal. Mesentery: There is no mesenteric hemorrhage. No free air or free fluid is present. Pelvic Structures: The bladder is normal. The prostate is enlarged. There is no free pelvic fluid. Vasculature: Scattered atherosclerotic vasculature changes. Bones and soft tissues: There are degenerative changes throughout the thoracic and lumbar spine. Mild retrolisthesis of L5 over S1 is noted. There is diffuse idiopathic skeletal hyperostosis. Right femur intertrochanteric fracture is present with surrounding soft tissue swelling representing hemorrhage. A fat-containing umbilical hernia is present. Impression: 1.Right femur intertrochanteric fracture is present. No other acute visceral or vascular injury. 2.Cholelithiasis. 3.Otherwise no acute injury in the chest, or abdomen. Report drafted by Malik Haines (resident) Marisela Dugan MD have personally reviewed and interpreted this examination/study. > Interpreting Provider: Marisela Goddard MD on 12/14/2022 10:58 PM Tyrone Schuster MD CT ORDERABLES * CT LUMBAR SPINE WO CONTRAST (12/14/2022 4:45 PM CDT) Anatomical Region Laterality Modality Spine Computed Tomogra phy 12/14/2022 4:57 PM CDT Impressions 12/14/2022 6:46 PM CDT IMPRESSION: 1.No acute intracranial process. 2.No evidence of acute fracture in the cervical, thoracic, or lumbar spine. > Dictated by Jim Simon MD (residential finish carpenter) I, Madhu Ardon MD have personally reviewed and interpreted this examination/study. > Interpreting Provider: Madhu Ardon MD on 12/14/2022 6:46 PM Narrative 12/14/2022 6:46 PM CDT PROCEDURE: ??CT HEAD WO CONTRAST, CT LUMBAR SPINE WO CONTRAST, CT THORACIC SPINE WO CONTRAST, CT CERVICAL SPINE WO CONTRAST, DATE/TIME OF EXAM: 12/14/2022 4:49 PM, LOCATION ??[facility] INDICATION: W19.XXXA: Fall, initial encounter ADDITIONAL CLINICAL INFORMATION: Ordering Provider Reason For Exam: ??fall on AC (accession [id number]), fall (accession [id number]), fall (accession [id number]), fall (accession [id number]) COMPARISON: None. TECHNIQUE: CT of the head and cervical spine was performed without contrast according to standard protocol. Reformatted axial, sagittal, and coronal images of the thoracic and lumbar spine were obtained by the technologist from a concurrently performed body CT and sent to the workstation for review. FINDINGS: Head: No acute intra- or extra-axial fluid collections are identified. There is mild cerebral volume loss with associated ex vacuo ventricular dilatation. The basilar cisterns are patent. No mass effect or midline shift is seen. The yu-white matter differentiation is normal. No acute calvarial fracture is identified.. The orbits appear normal. There is mild paranasal sinus disease. Frothy secretions are seen in the left sphenoid sinus. The nasal septum is mildly deviated to the right. The mastoid air cells are clear. No soft tissue abnormality is identified. Partially visualized markedly enlarged left styloid process or ossified stylo-hyoid ligament. Cervical spine: There is straightening of the cervical spine. There is no compression fracture or suspicious lytic or blastic lesions. There are multilevel degenerative changes, without significant spinal canal stenosis. Posterior elements are intact. Prevertebral soft tissues are within normal limits. Thyroid is diffusely enlarged and contains multiple punctate calcifications. Thoracic spine: Mild dextrocurvature of the thoracic spine. Vertebral bodies are normal in height without evidence of acute fracture. There is mild degenerative disc disease. No significant spinal canal stenosis. Posterior dependent subsegmental atelectasis is noted in the lungs bilaterally. Lumbar spine: Grade 1 anterolisthesis of L4-L5 and retrolisthesis of L5-S1. Vertebral bodies are normal in height without evidence of acute fracture. There is mild degenerative disc disease. Please see CT of the chest, abdomen and pelvis for soft tissue findings. Procedure Note Madhu Ardon MD - 12/14/2022 PROCEDURE: CT HEAD WO CONTRAST, CT LUMBAR SPINE WO CONTRAST, CTTHORACIC SPINE WO CONTRAST, CT CERVICAL SPINE WO CONTRAST, DATE/TIME OF EXAM: 12/14/2022 4:49 PM, LOCATION [facility] INDICATION: W19.XXXA: Fall, initial encounter ADDITIONAL CLINICAL INFORMATION: Ordering Provider Reason For Exam: fall on AC (accession [id number]),fall (accession [id number]), fall (accession [id number]), fall (accession [id number]) COMPARISON: None. TECHNIQUE: CT of the head and cervical spine was performed withoutcontrast according to standard protocol. Reformatted axial, sagittal, and coronal images of the thoracic and lumbar spine were obtained by thetechnologist from a concurrently performed body CT and sent to the workstation for review. FINDINGS: Head: No acute intra- or extra-axial fluid collections are identified. Thereis mild cerebral volume loss with associated ex vacuo ventriculardilatation. The basilar cisterns are patent. No mass effect or midline shift isseen. The yu-white matter differentiation is normal. No acute calvarial fracture is identified.. The orbits appear normal. There is mildparanasal sinus disease. Frothy secretions are seen in the left sphenoid sinus.The nasal septum is mildly deviated to the right. The mastoid air cells are clear. No soft tissue abnormality is identified. Partially visualized markedly enlarged left styloid process or ossified stylo-hyoid ligament. Cervical spine: There is straightening of the cervical spine. There is no compression fracture or suspicious lytic or blastic lesions. There are multilevel degenerative changes, without significant spinal canal stenosis.Posterior elements are intact. Prevertebral soft tissues are within normal limits. Thyroid is diffusely enlarged and contains multiple punctate calcifications. Thoracic spine: Mild dextrocurvature of the thoracic spine. Vertebral bodies are normalin height without evidence of acute fracture. There is mild degenerativedisc disease. No significant spinal canal stenosis. Posterior dependent subsegmental atelectasis is noted in the lungs bilaterally. Lumbar spine: Grade 1 anterolisthesis of L4-L5 and retrolisthesis of L5-S1. Vertebral bodies are normal in height without evidence of acute fracture. There is mild degenerative disc disease. Please see CT of the chest, abdomen and pelvis for soft tissue findings. IMPRESSION: 1.No acute intracranial process. 2.No evidence of acute fracture in the cervical, thoracic, or lumbarspine. > Dictated by Jim Simon MD (residential finish carpenter) Madhu Dugan MD have personally reviewed and interpreted this examination/study. > Interpreting Provider: Madhu Ardon MD on 12/14/2022 6:46 PM Tyrone Schuster MD CT ORDERABLES * CT THORACIC SPINE WO CONTRAST (12/14/2022 4:45 PM CDT) Anatomical Region Laterality Modality Spine Computed Tomogra phy 12/14/2022 4:57 PM CDT Impressions 12/14/2022 6:46 PM CDT IMPRESSION: 1.No acute intracranial process. 2.No evidence of acute fracture in the cervical, thoracic, or lumbar spine. > Dictated by Jim Simon MD (residential finish carpenter) Madhu Dugan MD have personally reviewed and interpreted this examination/study. > Interpreting Provider: Madhu Ardon MD on 12/14/2022 6:46 PM Narrative 12/14/2022 6:46 PM CDT PROCEDURE: ??CT HEAD WO CONTRAST, CT LUMBAR SPINE WO CONTRAST, CT THORACIC SPINE WO CONTRAST, CT CERVICAL SPINE WO CONTRAST, DATE/TIME OF EXAM: 12/14/2022 4:49 PM, LOCATION ??[facility] INDICATION: W19.XXXA: Fall, initial encounter ADDITIONAL CLINICAL INFORMATION: Ordering Provider Reason For Exam: ??fall on AC (accession [id number]), fall (accession [id number]), fall (accession [id number]), fall (accession [id number]) COMPARISON: None. TECHNIQUE: CT of the head and cervical spine was performed without contrast according to standard protocol. Reformatted axial, sagittal, and coronal images of the thoracic and lumbar spine were obtained by the technologist from a concurrently performed body CT and sent to the workstation for review. FINDINGS: Head: No acute intra- or extra-axial fluid collections are identified. There is mild cerebral volume loss with associated ex vacuo ventricular dilatation. The basilar cisterns are patent. No mass effect or midline shift is seen. The yu-white matter differentiation is normal. No acute calvarial fracture is identified.. The orbits appear normal. There is mild paranasal sinus disease. Frothy secretions are seen in the left sphenoid sinus. The nasal septum is mildly deviated to the right. The mastoid air cells are clear. No soft tissue abnormality is identified. Partially visualized markedly enlarged left styloid process or ossified stylo-hyoid ligament. Cervical spine: There is straightening of the cervical spine. There is no compression fracture or suspicious lytic or blastic lesions. There are multilevel degenerative changes, without significant spinal canal stenosis. Posterior elements are intact. Prevertebral soft tissues are within normal limits. Thyroid is diffusely enlarged and contains multiple punctate calcifications. Thoracic spine: Mild dextrocurvature of the thoracic spine. Vertebral bodies are normal in height without evidence of acute fracture. There is mild degenerative disc disease. No significant spinal canal stenosis. Posterior dependent subsegmental atelectasis is noted in the lungs bilaterally. Lumbar spine: Grade 1 anterolisthesis of L4-L5 and retrolisthesis of L5-S1. Vertebral bodies are normal in height without evidence of acute fracture. There is mild degenerative disc disease. Please see CT of the chest, abdomen and pelvis for soft tissue findings. Procedure Note Madhu Ardon MD - 12/14/2022 PROCEDURE: CT HEAD WO CONTRAST, CT LUMBAR SPINE WO CONTRAST, CTTHORACIC SPINE WO CONTRAST, CT CERVICAL SPINE WO CONTRAST, DATE/TIME OF EXAM: 12/14/2022 4:49 PM, LOCATION [facility] INDICATION: W19.XXXA: Fall, initial encounter ADDITIONAL CLINICAL INFORMATION: Ordering Provider Reason For Exam: fall on AC (accession [id number]),fall (accession [id number]), fall (accession [id number]), fall (accession [id number]) COMPARISON: None. TECHNIQUE: CT of the head and cervical spine was performed withoutcontrast according to standard protocol. Reformatted axial, sagittal, and coronal images of the thoracic and lumbar spine were obtained by thetechnologist from a concurrently performed body CT and sent to the workstation for review. FINDINGS: Head: No acute intra- or extra-axial fluid collections are identified. Thereis mild cerebral volume loss with associated ex vacuo ventriculardilatation. The basilar cisterns are patent. No mass effect or midline shift isseen. The yu-white matter differentiation is normal. No acute calvarial fracture is identified.. The orbits appear normal. There is mildparanasal sinus disease. Frothy secretions are seen in the left sphenoid sinus.The nasal septum is mildly deviated to the right. The mastoid air cells are clear. No soft tissue abnormality is identified. Partially visualized markedly enlarged left styloid process or ossified stylo-hyoid ligament. Cervical spine: There is straightening of the cervical spine. There is no compression fracture or suspicious lytic or blastic lesions. There are multilevel degenerative changes, without significant spinal canal stenosis.Posterior elements are intact. Prevertebral soft tissues are within normal limits. Thyroid is diffusely enlarged and contains multiple punctate calcifications. Thoracic spine: Mild dextrocurvature of the thoracic spine. Vertebral bodies are normalin height without evidence of acute fracture. There is mild degenerativedisc disease. No significant spinal canal stenosis. Posterior dependent subsegmental atelectasis is noted in the lungs bilaterally. Lumbar spine: Grade 1 anterolisthesis of L4-L5 and retrolisthesis of L5-S1. Vertebral bodies are normal in height without evidence of acute fracture. There is mild degenerative disc disease. Please see CT of the chest, abdomen and pelvis for soft tissue findings. IMPRESSION: 1.No acute intracranial process. 2.No evidence of acute fracture in the cervical, thoracic, or lumbarspine. > Dictated by Jim Simon MD (residential finish carpenter) IMadhu MD have personally reviewed and interpreted this examination/study. > Interpreting Provider: Madhu Ardon MD on 12/14/2022 6:46 PM Tyrone Schuster MD CT ORDERABLES * CT CERVICAL SPINE WO CONTRAST (12/14/2022 4:45 PM CDT) Anatomical Region Laterality Modality Spine Computed Tomogra phy 12/14/2022 4:57 PM CDT Impressions 12/14/2022 6:46 PM CDT IMPRESSION: 1.No acute intracranial process. 2.No evidence of acute fracture in the cervical, thoracic, or lumbar spine. > Dictated by Jim Simon MD (residential finish carpenter) I, Madhu Ardon MD have personally reviewed and interpreted this examination/study. > Interpreting Provider: Madhu Ardon MD on 12/14/2022 6:46 PM Narrative 12/14/2022 6:46 PM CDT PROCEDURE: ??CT HEAD WO CONTRAST, CT LUMBAR SPINE WO CONTRAST, CT THORACIC SPINE WO CONTRAST, CT CERVICAL SPINE WO CONTRAST, DATE/TIME OF EXAM: 12/14/2022 4:49 PM, LOCATION ??[facility] INDICATION: W19.XXXA: Fall, initial encounter ADDITIONAL CLINICAL INFORMATION: Ordering Provider Reason For Exam: ??fall on AC (accession [id number]), fall (accession [id number]), fall (accession [id number]), fall (accession [id number]) COMPARISON: None. TECHNIQUE: CT of the head and cervical spine was performed without contrast according to standard protocol. Reformatted axial, sagittal, and coronal images of the thoracic and lumbar spine were obtained by the technologist from a concurrently performed body CT and sent to the workstation for review. FINDINGS: Head: No acute intra- or extra-axial fluid collections are identified. There is mild cerebral volume loss with associated ex vacuo ventricular dilatation. The basilar cisterns are patent. No mass effect or midline shift is seen. The yu-white matter differentiation is normal. No acute calvarial fracture is identified.. The orbits appear normal. There is mild paranasal sinus disease. Frothy secretions are seen in the left sphenoid sinus. The nasal septum is mildly deviated to the right. The mastoid air cells are clear. No soft tissue abnormality is identified. Partially visualized markedly enlarged left styloid process or ossified stylo-hyoid ligament. Cervical spine: There is straightening of the cervical spine. There is no compression fracture or suspicious lytic or blastic lesions. There are multilevel degenerative changes, without significant spinal canal stenosis. Posterior elements are intact. Prevertebral soft tissues are within normal limits. Thyroid is diffusely enlarged and contains multiple punctate calcifications. Thoracic spine: Mild dextrocurvature of the thoracic spine. Vertebral bodies are normal in height without evidence of acute fracture. There is mild degenerative disc disease. No significant spinal canal stenosis. Posterior dependent subsegmental atelectasis is noted in the lungs bilaterally. Lumbar spine: Grade 1 anterolisthesis of L4-L5 and retrolisthesis of L5-S1. Vertebral bodies are normal in height without evidence of acute fracture. There is mild degenerative disc disease. Please see CT of the chest, abdomen and pelvis for soft tissue findings. Procedure Note Madhu Ardon MD - 12/14/2022 PROCEDURE: CT HEAD WO CONTRAST, CT LUMBAR SPINE WO CONTRAST, CTTHORACIC SPINE WO CONTRAST, CT CERVICAL SPINE WO CONTRAST, DATE/TIME OF EXAM: 12/14/2022 4:49 PM, LOCATION [facility] INDICATION: W19.XXXA: Fall, initial encounter ADDITIONAL CLINICAL INFORMATION: Ordering Provider Reason For Exam: fall on AC (accession [id number]),fall (accession [id number]), fall (accession [id number]), fall (accession [id number]) COMPARISON: None. TECHNIQUE: CT of the head and cervical spine was performed withoutcontrast according to standard protocol. Reformatted axial, sagittal, and coronal images of the thoracic and lumbar spine were obtained by thetechnologist from a concurrently performed body CT and sent to the workstation for review. FINDINGS: Head: No acute intra- or extra-axial fluid collections are identified. Thereis mild cerebral volume loss with associated ex vacuo ventriculardilatation. The basilar cisterns are patent. No mass effect or midline shift isseen. The yu-white matter differentiation is normal. No acute calvarial fracture is identified.. The orbits appear normal. There is mildparanasal sinus disease. Frothy secretions are seen in the left sphenoid sinus.The nasal septum is mildly deviated to the right. The mastoid air cells are clear. No soft tissue abnormality is identified. Partially visualized markedly enlarged left styloid process or ossified stylo-hyoid ligament. Cervical spine: There is straightening of the cervical spine. There is no compression fracture or suspicious lytic or blastic lesions. There are multilevel degenerative changes, without significant spinal canal stenosis.Posterior elements are intact. Prevertebral soft tissues are within normal limits. Thyroid is diffusely enlarged and contains multiple punctate calcifications. Thoracic spine: Mild dextrocurvature of the thoracic spine. Vertebral bodies are normalin height without evidence of acute fracture. There is mild degenerativedisc disease. No significant spinal canal stenosis. Posterior dependent subsegmental atelectasis is noted in the lungs bilaterally. Lumbar spine: Grade 1 anterolisthesis of L4-L5 and retrolisthesis of L5-S1. Vertebral bodies are normal in height without evidence of acute fracture. There is mild degenerative disc disease. Please see CT of the chest, abdomen and pelvis for soft tissue findings. IMPRESSION: 1.No acute intracranial process. 2.No evidence of acute fracture in the cervical, thoracic, or lumbarspine. > Dictated by Jim Simon MD (residential finish carpenter) Madhu Dugan MD have personally reviewed and interpreted this examination/study. > Interpreting Provider: Madhu Ardon MD on 12/14/2022 6:46 PM Jose Juan Mancia MD CT ORDERABLES * CT HEAD WO CONTRAST (12/14/2022 4:45 PM CDT) Anatomical Region Laterality Modality Head Computed Tomogra phy 12/14/2022 4:57 PM CDT Impressions 12/14/2022 6:46 PM CDT IMPRESSION: 1.No acute intracranial process. 2.No evidence of acute fracture in the cervical, thoracic, or lumbar spine. > Dictated by Jim Simon MD (residential finish carpenter) Madhu Dugan MD have personally reviewed and interpreted this examination/study. > Interpreting Provider: Madhu Ardon MD on 12/14/2022 6:46 PM Narrative 12/14/2022 6:46 PM CDT PROCEDURE: ??CT HEAD WO CONTRAST, CT LUMBAR SPINE WO CONTRAST, CT THORACIC SPINE WO CONTRAST, CT CERVICAL SPINE WO CONTRAST, DATE/TIME OF EXAM: 12/14/2022 4:49 PM, LOCATION ??[facility] INDICATION: W19.XXXA: Fall, initial encounter ADDITIONAL CLINICAL INFORMATION: Ordering Provider Reason For Exam: ??fall on AC (accession [id number]), fall (accession [id number]), fall (accession [id number]), fall (accession [id number]) COMPARISON: None. TECHNIQUE: CT of the head and cervical spine was performed without contrast according to standard protocol. Reformatted axial, sagittal, and coronal images of the thoracic and lumbar spine were obtained by the technologist from a concurrently performed body CT and sent to the workstation for review. FINDINGS: Head: No acute intra- or extra-axial fluid collections are identified. There is mild cerebral volume loss with associated ex vacuo ventricular dilatation. The basilar cisterns are patent. No mass effect or midline shift is seen. The yu-white matter differentiation is normal. No acute calvarial fracture is identified.. The orbits appear normal. There is mild paranasal sinus disease. Frothy secretions are seen in the left sphenoid sinus. The nasal septum is mildly deviated to the right. The mastoid air cells are clear. No soft tissue abnormality is identified. Partially visualized markedly enlarged left styloid process or ossified stylo-hyoid ligament. Cervical spine: There is straightening of the cervical spine. There is no compression fracture or suspicious lytic or blastic lesions. There are multilevel degenerative changes, without significant spinal canal stenosis. Posterior elements are intact. Prevertebral soft tissues are within normal limits. Thyroid is diffusely enlarged and contains multiple punctate calcifications. Thoracic spine: Mild dextrocurvature of the thoracic spine. Vertebral bodies are normal in height without evidence of acute fracture. There is mild degenerative disc disease. No significant spinal canal stenosis. Posterior dependent subsegmental atelectasis is noted in the lungs bilaterally. Lumbar spine: Grade 1 anterolisthesis of L4-L5 and retrolisthesis of L5-S1. Vertebral bodies are normal in height without evidence of acute fracture. There is mild degenerative disc disease. Please see CT of the chest, abdomen and pelvis for soft tissue findings. Procedure Note Madhu Ardon MD - 12/14/2022 PROCEDURE: CT HEAD WO CONTRAST, CT LUMBAR SPINE WO CONTRAST, CTTHORACIC SPINE WO CONTRAST, CT CERVICAL SPINE WO CONTRAST, DATE/TIME OF EXAM: 12/14/2022 4:49 PM, LOCATION [facility] INDICATION: W19.XXXA: Fall, initial encounter ADDITIONAL CLINICAL INFORMATION: Ordering Provider Reason For Exam: fall on AC (accession [id number]),fall (accession [id number]), fall (accession [id number]), fall (accession [id number]) COMPARISON: None. TECHNIQUE: CT of the head and cervical spine was performed withoutcontrast according to standard protocol. Reformatted axial, sagittal, and coronal images of the thoracic and lumbar spine were obtained by thetechnologist from a concurrently performed body CT and sent to the workstation for review. FINDINGS: Head: No acute intra- or extra-axial fluid collections are identified. Thereis mild cerebral volume loss with associated ex vacuo ventriculardilatation. The basilar cisterns are patent. No mass effect or midline shift isseen. The yu-white matter differentiation is normal. No acute calvarial fracture is identified.. The orbits appear normal. There is mildparanasal sinus disease. Frothy secretions are seen in the left sphenoid sinus.The nasal septum is mildly deviated to the right. The mastoid air cells are clear. No soft tissue abnormality is identified. Partially visualized markedly enlarged left styloid process or ossified stylo-hyoid ligament. Cervical spine: There is straightening of the cervical spine. There is no compression fracture or suspicious lytic or blastic lesions. There are multilevel degenerative changes, without significant spinal canal stenosis.Posterior elements are intact. Prevertebral soft tissues are within normal limits. Thyroid is diffusely enlarged and contains multiple punctate calcifications. Thoracic spine: Mild dextrocurvature of the thoracic spine. Vertebral bodies are normalin height without evidence of acute fracture. There is mild degenerativedisc disease. No significant spinal canal stenosis. Posterior dependent subsegmental atelectasis is noted in the lungs bilaterally. Lumbar spine: Grade 1 anterolisthesis of L4-L5 and retrolisthesis of L5-S1. Vertebral bodies are normal in height without evidence of acute fracture. There is mild degenerative disc disease. Please see CT of the chest, abdomen and pelvis for soft tissue findings. IMPRESSION: 1.No acute intracranial process. 2.No evidence of acute fracture in the cervical, thoracic, or lumbarspine. > Dictated by Jim Simon MD (residential finish carpenter) I, Madhu Ardon MD have personally reviewed and interpreted this examination/study. > Interpreting Provider: Madhu Ardon MD on 12/14/2022 6:46 PM Jose Juan Mancia MD CT ORDERABLES * TYPE + SCREEN PANEL (12/14/2022 3:17 PM CDT) Only the most recent of2 resultswithin the time period is included. Antibody Screen NEG 4:21 PM CDT [facility] ABO Rh B POS 12/14/2022 4:21 PM CDT [facility] Blood Bank BLOOD SPECIMEN / Unknown Venipuncture / Unknown 12/14/2022 3:17 PM CDT 12/14/2022 3:23 PM CDT Jose Juan Mancia MD LAB - BLOOD BANK ORD ERABLES Performing Organization Address City/[facility] Co de Phone Number [facility] [address] [place] [address], [place] [phone] * CARDIAC EKG ORDER (12/10/2022 2:15 PM CDT) Narrative 12/10/2022 2:15 PM CDT Ordered by an unspecified provider. Scanned Document CARDIAC SERVICES ORD ERABLES * HELICOBACTER PYLORI ANTIGEN FECES (12/02/2022 11:26 AM CDT) Helicobacter pylori Antigen Stool Negative Negative 12/05/2022 3:36 PM CDT [facility] ([facility]) Comment: Performed By: [facility] [address] [place] [id number] [employer]: Diego Pratt MD, PhD CLIA Number: [id number] Stool STOOL SPECIMEN / Unknown Collection / Unknown 12/02/2022 11:26 AM CDT 12/02/2022 11:29 AM CDT Emiliano Duong MD LAB - MICROBIOLOG Y ORDERABLES Performing Organization Address City/[facility]/ZIP Co de Phone Number [facility] ([facility]) [address] [place] [address], [place] * (ABNORMAL) PTT [facility] (12/01/2022 4:04 AM CDT) Only the most recent of8 resultswithin the time period is included. APTT 45.3(H) 23.0 - 38.4 Seconds 12/01/2022 5:51 AM CDT [facility] Comment:Suggested therapeuti c range for full dose I.V. unfractionated heparin therapy for venous thromboembolism is 71 to 109 seconds. Blood BLOOD SPECIMEN / Unknown Lab Venipuncture / Unknown 12/01/2022 4:04 AM CDT 12/01/2022 5:08 AM CDT Fermin Chang MD LAB - COAGULATION OR DERABLES [facility] [address] [place] [address], [place] [phone] * ECHO COMPLETE W CONTRAST (2022 12:48 PM CDT) BSA [id number] m2 SSM CV FUJI PACS LV biplane EF 59 52 - 72 % SSM CV FUJI PACS LV A2C EF 57 48 - 76 % SSM CV FUJ I PACS LV A4C EF 63 46 - 74 % SSM CV FUJ I PACS LV stroke vol BP 94.1 mL SSM CV FUJI PACS LV stroke vol BP index 41.5 mL/m2 SSM CV FUJI PACS LVOT stroke vol 80.30 mL SSM CV FUJI PACS LVOT stroke vol index 35.45 mL/m2 SSM CV FUJI PACS LV stroke vol 2D teich 94.56 ml SSM CV FUJI PACS LV stroke vol index A4C MOD 105.202 ml/m2 SSM CV FUJI PACS LV Stroke Index 2D Teich 41.74 mL/m2 SSM CV FUJI PACS LVIDd 4.71 4.2 - 5.8 cm SSM CV FUJI PACS LVIDs 1.69 2.5 - 4.0 cm SSM CV FUJI PACS IVSd 2D 1.214 0.6 - 1 cm SSM CV FUJI PACS LVPWd 0.95 cm SSM CV FUJ I PACS Fractional Shortening 2D 64 28 - 44 % SSM CV FUJI PACS LV ESV BP 66.343 21 - 61 mL SSM CV FUJI PACS LV ESV index BP 29.3 11 - 31 mL/m2 SSM CV FUJI PACS LV ESV A2C 61.993 15 - 75 mL SSM CV FUJI PACS LV ESV index A2C 27.37 9 - 37 mL/m2 SSM CV FUJI PACS LV EDV BP 160.411 mL SSM CV FUJ I PACS LV ESV A4C 67.201 22 - 78 mL SSM CV FUJI PACS LV ESV index A4C 29.67 12 - 40 mL/m2 SSM CV FUJI PACS LV EDV index BP 70.8 34 - 74 mL/m2 SSM CV FUJI PACS LV EDV A2C 155.562 59 - 175 mL SSM CV FUJI PACS LV EDV index A2C 68.67 31 - 87 mL/m2 SSM CV FUJI PACS LV EDV A4C 167.195 mL SSM CV FU JI PACS LV ESV 2D 8.306 21 - 61 mL SSM CV FUJI PACS LV EDV index A4C 73.81 37 - 93 mL/m2 SSM CV FUJI PACS LV ESV index 2D 3.67 11 - 31 mL/m2 SSM CV FUJI PACS LV EDV 2D 102.866 62 - 150 mL SSM CV FUJI PACS LV EDV index 2D 45.41 34 - 74 mL/m2 SSM CV FUJI PACS LVOT diam 2.1 cm SSM CV FUJ I PACS LVOT area 3.50 cm2 SSM CV FUJ I PACS LV RWT 0.403 SSM CV FUJ I PACS LV Bolton A2C 9.553 cm SSM CV F UJI PACS LV Bolton A4C 9.569 cm SSM CV F UJI PACS IVS/LVPW 1.28 SSM CV FUJ I PACS LV mass 2D 149.71287 [id number] 96 - 200 g SSM CV FUJI PACS LV mass index 2D 65.92 50 - 102 g/m2 SSM CV FUJI PACS MV E pk jose luis 111.977 cm/s SSM CV F UJI PACS MV avg E/e' ratio 10.407 SS M CV FUJI PACS MV A pk jose luis 99.082 cm/s SSM CV F UJI PACS MV E A ratio 1.13 SSM CV FUJI PACS MV E' lateral jose luis 9.556 cm/s SS M CV FUJI PACS MV DT 200 ms SSM CV FUJ I PACS MV E' septal jose luis 12.312 cm/s SSM CV FUJI PACS MV A duration 171 ms SSM CV FUJI PACS MV E/e' septal 9.095 SSM C V FUJI PACS MV E/e' lateral 11.719 SSM CV FUJI PACS TR pk jose luis 240.3 cm/s SSM CV FUJ I PACS P vein A jose luis 27.2 cm/s SSM CV FUJI PACS P vein A duration 160 ms SS M CV FUJI PACS P vein S/D ratio 1.13 SSM CV FUJI PACS LVOT pk jose luis 1.12 m/s SSM CV F UJI PACS LVOT mn jose luis 0.65 m/s SSM CV F UJI PACS LVOT mn grad 2.1 mmHg SSM CV FUJI PACS LVOT Cardiac Output 5.392 l/min SSM CV FUJI PACS LVOT Cardiac Index 2.38 l/min/m2 SSM CV FUJI PACS LA size 5.418 3.0 - 4.0 cm SSM CV FUJI PACS LA vol BP A-L 73.238 mL SSM CV FUJI PACS RV-bolton basal diam 4.9 2.5 - 4.1 cm SSM CV FUJI PACS RV-bolton longitudinal diam 8.3 5.9 - 8.3 cm SSM CV FUJI PACS RVIDd 2.9 cm SSM CV FUJ I PACS RVOT VTI 22.259 cm SSM CV FUJ I PACS TV S' jose luis 19.603 SSM CV FUJ I PACS TAPSE 2.458 1.7 cm SSM CV FUJ I PACS RVOT pk jose luis 0.98 m/s SSM CV F UJI PACS RA area 23.261 cm2 SSM CV FUJ I PACS AV mn grad 4 mmHg SSM CV FU JI PACS AV pk grad 7 mmHg SSM CV FU JI PACS AV mn jose luis 0.93 m/s SSM CV FUJ I PACS AV pk jose luis 1.33 m/s SSM CV FUJ I PACS AV VTI 29.036 cm SSM CV FUJ I PACS LVOT pk grad 5.025 mmHg SSM CV FUJI PACS LVOT VTI 22.948 cm SSM CV FUJ I PACS AV area cont VTI 2.8 cm2 SSM CV FUJI PACS AV area pk jose luis 2.9 cm2 SSM C V FUJI PACS AV Doppler jose luis index pk jose luis 0.84 SSM CV FUJI PACS Dimensionless Index 0.79 SSM CV FUJI PACS MV mn grad 2 mmHg SSM CV FU JI PACS MV pk grad 5 mmHg SSM CV FU JI PACS MV mn jose luis 0.63 m/s SSM CV FUJ I PACS MV pk jose luis 115.162 cm/s SSM CV FUJ I PACS MV area cont eq 2.56 cm2 SSM CV FUJI PACS MV VTI 31.384 cm SSM CV FUJ I PACS MV decel slope 559.36 cm/s2 SSM C V FUJI PACS TR pk grad 23 mmHg SSM CV FU JI PACS RVOT mn grad 1 mmHg SSM CV FUJI PACS RVOT pk grad 3 mmHg SSM CV FUJI PACS PV mn grad 4 mmHg SSM CV FU JI PACS PV pk jose luis 137.589 cm/s SSM CV FUJ I PACS PV pk grad 6 mmHg SSM CV FU JI PACS PV VTI 29.461 cm SSM CV FUJ I PACS PV mn jose luis 86.482 cm/s SSM CV FUJ I PACS IVC size 1.9 cm SSM CV FUJ I PACS LA ESV A4C MOD Index 28 ml/m2 SSM CV FUJI PACS LA ESV A2C MOD Index 30 ml/m2 SSM CV FUJI PACS [id number] 7.395 cm SSM CV FUJ I PACS [id number] 7.855 cm SSM CV FUJ I PACS LVIDs index 0.75 1.3 - 2.1 cm/m2 SSM CV FUJI PACS LV LVIDd index 2.08 2.2 - 3.0 cm/m2 SSM CV FUJI PACS Anatomical Region Laterality Modality Ultrasound Narrative 2022 2:06 PM CDT ?Left??Ventricle: Left ventricle size is upper limits of normal. Normal wall thickness. Normal systolic function with a visually estimated EF of 55 - 60%. Normal wall motion. Normal diastolic function. ?Right??Ventricle: Right ventricle is mildly dilated. Normal systolic function. ?Left??Atrium: Left atrium is mildly dilated. ?Right??Atrium: Right atrium is mildly dilated. ?Tricuspid??Valve: Trace regurgitation. Unable to estimate the pulmonary artery systolic pressure due to incomplete tricuspid regurgitation envelope. ?No significant valvular abnormalities. ?IVC/SVC: IVC diameter is less than or equal to 21 mm and decreases greater than 50% during inspiration; therefore the estimated right atrial pressure is normal (~3 mmHg). ?Pericardium: No pericardial effusion. Left Ventricle Left ventricle size is upper limits of normal. Normal wall thickness. Normal systolic function with a visually estimated EF of 55 - 60%. Normal wall motion. Normal diastolic function. Right Ventricle Right ventricle is mildly dilated. Normal systolic function. Left Atrium Left atrium is mildly dilated. Right Atrium Right atrium is mildly dilated. IVC/SVC IVC diameter is less than or equal to 21 mm and decreases greater than 50% during inspiration; therefore the estimated right atrial pressure is normal (~3 mmHg). Mitral Valve Valve structure is normal. No restricted motion. Trace regurgitation. No stenosis. Tricuspid Valve Valve structure is normal. No restricted motion. Trace regurgitation. Unable to estimate the pulmonary artery systolic pressure due to incomplete tricuspid regurgitation envelope. No stenosis. Aortic Valve Valve structure is trileaflet. No restricted motion. No regurgitation. No stenosis. Pulmonic Valve Valve structure is normal. No restricted motion. No regurgitation. No stenosis. Ascending Aorta Normal sized sinus of Valsalva (aortic root) and ascending aorta. Pericardium No pericardial effusion. Study Details Study quality was good. A complete color Doppler, spectral Doppler and M-mode echocardiogram was performed. The apical, parasternal, subcostal and suprasternal views were obtained. Definity ultrasound enhancing agent used. Patient exhibited sinus rhythm. Procedure Note Pancho Toscano MD - 2022 ? ? Left??Ventricle: Left ventricle size is upper limits of normal. Normalwall thickness. Normal systolic function with a visually estimated EF of55 - 60%. Normal wall motion. Normal diastolic function. ? ? Right??Ventricle: Right ventricle is mildly dilated. Normal systolicfunction. ? ? Left??Atrium: Left atrium is mildly dilated. ? ? Right??Atrium: Right atrium is mildly dilated. ? ? Tricuspid??Valve: Trace regurgitation. Unable to estimate the pulmonaryartery systolic pressure due to incomplete tricuspid regurgitationenvelope. ? ? No significant valvular abnormalities. ? ? IVC/SVC: IVC diameter is less than or equal to 21 mm and decreasesgreater than 50% during inspiration; therefore the estimated right atrialpressure is normal (~3 mmHg). ? ? Pericardium: No pericardial effusion. Emiliano Duong MD ECHO CUPID * HEPATITIS C AB SCREEN RFLX NAAT QUANT (2022 8:30 AM CDT) Hepatitis C Antibody Non-react sherin Non-reac tive 2022 9:40 AM CDT [facility] Comment:Hepatitis C Antibody screen indicates no serologic [...] Duong MD LAB - CHEMISTRY O RDERABLES [facility] [address] [place] [address], [place] [phone] * HIV-1 HIV-2 ANTIBODY + HIV P24 AG PANEL (2022 8:30 AM CDT) HIV Antigen/Antibod y 1 & 2 Non-reacti ve Non-react sherin 2022 9:40 AM CDT [facility] Comment:No Laboratory eviden ce of HIV infection. Blood BLOOD SPECIMEN / Unknown Lab Venipuncture / Unknown 2022 8:30 AM CDT 2022 8:33 AM CDT Emiliano Duong MD LAB - CHEMISTRY O JJ Performing Organization Address [facility]/ZIP Co de Phone Number [address] [address], [place] [phone] * VANCOMYCIN LEVEL TROUGH (2022 3:45 AM CDT) Only the most recent of2 resultswithin the time period is included. Vancomycin Trough 15.3 10.0 - 20.0 ug/mL 2022 4:48 AM CDT [facility] Blood BLOOD SPECIMEN / Unknown Lab Venipuncture / Unknown 2022 3:45 AM CDT 2022 4:29 AM CDT Narrative [facility] - 2022 4:48 AM CDT See institution protocol. Fermin Chang MD LAB - CHEMISTRY ERIKA CHEN Performing Organization Address [facility] de Phone Number [address] [address], [place] [phone] * (ABNORMAL) VANCOMYCIN LEVEL PEAK (11/29/2022 11:55 PM CDT) Only the most recent of2 resultswithin the time period is included. Vancomycin Peak 17.4(L) 25.0 - 40.0 ug/mL 2022 12:44 AM CDT [facility] Blood BLOOD SPECIMEN / Unknown Lab Venipuncture / Unknown 11/29/2022 11:55 PM CDT 2022 12:17 AM CDT [facility] - 2022 12:44 AM CDT See institution protocol. Data does not support the use of vancomycin peak concentration for efficacy. Emiliano Duong MD LAB - CHEMISTRY O RDERABLES [facility] [address] [place] [address], [place] [phone] * (ABNORMAL) VITAMIN D 1,25 DIHYDROXY (11/29/2022 11:08 AM CDT) Vitamin D, 1,25 Dihydroxy 12.2(L) 19.9 - 79.3 pg/mL 12/01/2022 10:04 PM CDT [facility] ([facility]) Comment: INTERPRETIVE INFORMATION: Vitamin D, 1,25-Dihydroxy This test is primarily indicated during patient evaluation for hypercalcemia and renal failure. A normal result does not rule out Vitamin D deficiency. The recommended test for diagnosing Vitamin D deficiency is Vitamin D 25-hydroxy. Performed By: [facility] [address] [place] [address] [employer]: Diego Pratt MD, PhD CLIA Number: [id number] Blood BLOOD SPECIMEN / Unknown Lab Venipuncture / Unknown 11/29/2022 11:08 AM CDT 11/29/2022 11:59 AM CDT Emiliano Duong MD LAB - CHEMISTRY O RDCARL Performing Organization Address [facility]/ZIP Co de Phone Number [facility]) [address] [place] [address] * MRI ANKLE LEFT WWO CONTRAST (11/28/2022 6:02 PM CDT) Anatomical Region Laterality Modality Ankle / Foot, Lower Extremity Ma gnetic Resonance 11/29/2022 7:31 AM CDT Impressions 11/29/2022 8:20 PM CDT IMPRESSION: Ankle joint shows changes consistent with Charcot joint. Significant synovial and soft tissue hypertrophy with heterogeneous enhancement. Multiple debris noted and joint is severely eroded and disorganized. The posterior fracture fragment of the talus is infarcted. There are findings consistent for acute osteomyelitis of the calcaneus involving the bone along the medial side and adjacent posterior facet. Small loculated fluid collection within the calcaneus shows diffusion restriction consistent with small abscess. Tendons shows chronic inflammatory changes, stretching and elongation and tenosynovitis. Rupture and retraction of the flexor digitorum tendon is seen. Fluid collection noted along the flexor tendons in the distal calf and around the medial side of the ankle joint. Chronic tendinosis with partial tear of the Achilles tendon. Report dictated by Nate Dorsey MD, PhD (outside residential sales professional). I, Evan Clements MD have personally reviewed and interpreted this examination/study. > Interpreting Provider: Evan Clements MD on 11/29/2022 8:20 PM Narrative 11/29/2022 8:20 PM CDT PROCEDURE: ??MRI ANKLE LEFT WWO CONTRAST, DATE/TIME OF EXAM: ??11/28/2022 6:02 PM, LOCATION ??[facility] INDICATION: L97.329: Non-healing ulcer of left ankle, unspecified ulcer stage ([facility]) ADDITIONAL CLINICAL INFORMATION: Ordering Provider Reason For Exam: ??concern for osteomyelitis Technologist Note: Additional: 56-year-old male, left septic ankle status post debridement (11/27/2022). COMPARISON: Left ankle radiograph from 11/27/2022. Fluoroscopy C-arm surgery from 11/27/2022. Technique: ??MRI of the left ankle ankle was performed without and with minimal gadolinium intravenous contrast, according to standard protocol. ?? FINDINGS: Wound VAC drain traverses the dorsal forefoot and terminates in the ankle joint. 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 The posterior talar fracture fragment is infarcted. Anterior fragment including head of the talus is viable. There there are stretching and elongation of the tendons associated with tenosynovitis. Fluid is noted along the flexor tendon sheaths. Loculated fluid is noted along the flexor tendon in the distal calf. Rupture of the flexor digitorum tendons with retraction noted. The Achilles tendon shows thickening and heterogeneous signal intensity consistent with chronic tendinosis. Partial tear noted from the calcaneus. Diffuse heterogeneous signal intensity of the calcaneus is deformed of heterogeneously low signal intensity in T1 and high signal intensity T2 associated with patchy enhancement. There is T1 hypointensity noted in the calcaneus along the medial aspect of the posterior subtalar articular facet with the loss of cortical outline (image 18 in series 4, 15 in series 8) concerning for acute osteomyelitis. Small loculated fluid collection noted within the calcaneus which it shows diffusion restriction indicating small intraosseous abscess. Procedure Note Evan Clements MD - 11/29/2022 PROCEDURE: MRI ANKLE LEFT WWO CONTRAST, DATE/TIME OF EXAM: 36:02 PM, LOCATION [facility] INDICATION: L97.329: Non-healing ulcer of left ankle, unspecified ulcer stage[facility]) ADDITIONAL CLINICAL INFORMATION: Ordering Provider Reason For Exam: concern for osteomyelitis Technologist Note: Additional: 56-year-old male, left septic ankle status post debridement (11/27/2022). COMPARISON: Left ankle radiograph from 11/27/2022. Fluoroscopy C-arm surgery from 11/27/2022. Technique: MRI of the left ankle ankle was performed without and with minimal gadolinium intravenous contrast, according to standard protocol. FINDINGS: Wound VAC drain traverses the dorsal forefoot and terminates in theankle joint. 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 The posterior talar fracturefragment is infarcted. Anterior fragment including head of the talus is viable. There there are stretching and elongation of the tendons associated with tenosynovitis. Fluid is noted along the flexor tendon sheaths. Loculated fluid is noted along the flexor tendon in the distal calf. Rupture ofthe flexor digitorum tendons with retraction noted. The Achilles tendon shows thickening and heterogeneous signal intensity consistent with chronic tendinosis. Partial tear noted from thecalcaneus. Diffuse heterogeneous signal intensity of the calcaneus is deformed of heterogeneously low signal intensity in T1 and high signal intensity T2 associated with patchy enhancement. There is T1 hypointensity noted in the calcaneus along the medial aspectof the posterior subtalar articular facet with the loss of cortical outline (image 18 in series 4, 15 in series 8) concerning for acuteosteomyelitis. Small loculated fluid collection noted within the calcaneus which itshows diffusion restriction indicating small intraosseous abscess. IMPRESSION: Ankle joint shows changes consistent with Charcot joint. Significant synovial and soft tissue hypertrophy with heterogeneous enhancement. Multiple debris noted and joint is severely eroded and disorganized. The posterior fracture fragment of the talus is infarcted. There are findings consistent for acute osteomyelitis of the calcaneus involving the bone along the medial side and adjacent posterior facet. Small loculated fluid collection within the calcaneus shows diffusion restriction consistent with small abscess. Tendons shows chronic inflammatory changes, stretching and elongationand tenosynovitis. Rupture and retraction of the flexor digitorum tendon is seen. Fluid collection noted along the flexor tendons in the distal calf and around the medial side of the ankle joint. Chronic tendinosis with partial tear of the Achilles tendon. Report dictated by Nate Dorsey MD, PhD (outside residential sales professional). I, Evan Clements MD have personally reviewed and interpreted this examination/study. > Interpreting Provider: Evan Clements MD on 38:20 PM Fermin Chang MD MR ORDERABLES * CULTURE TISSUE+GRAM STAIN (11/27/2022 11:51 AM CDT) Culture No growth ROB 2022 4:50 PM CDT [facility] Gram Stain Light Polymorphonuclear cells 2022 4:50 PM CDT [facility] Gram Stain Heavy Red blood cells 2022 4:50 PM CDT [facility] Gram Stain No organisms seen 023 4:50 PM CDT [facility] Microbiology TISSUE SPECIMEN / Unknown Collection / Unknown 11/27/2022 11:51 AM CDT 11/27/2022 2:30 PM CDT Daryl Diop MD LAB - MICROBIOLOGY O RDERABLES [facility] [address] [place] [address], [place] [phone] * CULTURE ANAEROBE (11/27/2022 11:51 AM CDT) Only the most recent of3 resultswithin the time period is included. Culture No anaerobic organisms isolated ROB 12/03/2022 12:06 PM CDT [facility] Microbiology SPECIMEN FROM WOUND / Unknown Collection / Unknown 11/27/2022 11:51 AM CDT 11/27/2022 11:56 AM CDT Daryl Diop MD LAB - MICROBIOLOGY O JJ Performing Organization Address [facility] Co de Phone Number [facility] [address] [place] [address], [place] [phone] * CULTURE WOUND+GRAM STAIN (11/27/2022 11:50 AM CDT) Culture No growth ROB 2022 4:09 PM CDT [facility] Gram Stain Heavy Red blood cells 2022 4:09 PM CDT [facility] Gram Stain Moderate Polymorphonuclear cells 2022 4:09 PM CDT [facility] Gram Stain Rare Gram-positive cocci 2022 4:09 PM CDT [facility] Microbiology SPECIMEN FROM WOUND / Unknown Collection / Unknown 11/27/2022 11:50 AM CDT 11/27/2022 11:56 AM CDT Narrative [facility] - 2022 4:09 PM CDT Organisms seen on initial Gram stain may be anaerobic or not viable for aerobic growth. Daryl Diop MD LAB - MICROBIOLOGY O JJ Performing Organization Address City/[facility] Co de Phone Number [facility] [address] [place] [address], [place] [phone] * IV PLACEMENT PERFORMABLE (11/27/2022 11:16 AM CDT) Narrative Srinivas Roach Anes Asst - 11/27/2022 11:16 AM CDT Srinivas Roach Anes Asst ? 11/27/2022 11:17 AM Peripheral IV Line Placement: Patient Location: ??OR Procedure: IV start ([id number]). Procedure Section: ?? Skin Prep: alcohol. Orientation: left Location: wrist Catheter Gauge: 18 Catheter Length (in): 1 Number of Attempts: 1. Procedure Start Time: 11/27/2022 11:06 AM. Staff Section ? Anesthesia Provider: Srinivas Roach Anes Asst, Performed the procedure ? Provider #1: Macario Akhtar MD. Macario Akhtar MD GENERAL ANESTHESIA O JJ * ETT LINE PERFORMABLE (11/27/2022 11:15 AM CDT) Narrative Srinivas Roach Anes Asst - 11/27/2022 11:15 AM CDT Srinivas Roach Anes Asst ? 11/27/2022 11:16 AM Endotracheal Tube Placement: ? Patient Location: OR. Intubation Event Date/Time: ??11/27/2022 10:54 AM Procedure: intubation ([id number]). Procedure Section: ?? Sedation: under general anesthesia. Indications for Airway Management: ??anesthesia Induction: standard IV Patient Position: ??sniffing Mask Ventilation: not attempted. Blade Type: Video Blade Size: 4 Laryngoscopy View: grade 1 (full cords) Intubation Adjuncts: stylet and video laryngoscope Tube: endotracheal tube Placement: oral Tube type: cuff - inflated Tube Size (MM): 8 Depth of Insertion (CM): 23 Measured From: lips Cuff Inflated With: air Number of Attempts: 1. Placement Verified By: CO2 monitor Tube secured with: ??adhesive tape. Dentition unchanged? ??Yes Difficult Airway? ??No. Procedure Start Time: 11/27/2022 10:54 AM. Staff Section ? Anesthesia Provider: Macario Akhtar MD, Performed the procedure ? Provider #1: Srinivas Roach Anes Asst. Additional Comments: Performed by med student AW. Macario Akhtar MD GENERAL ANESTHESIA O JJ * BLOOD TYPE VERIFICATION (11/27/2022 7:25 AM CDT) ABO Rh B POS 11/27/2022 8:3 8 AM CDT [facility] Blood Bank BLOOD SPECIMEN / Unknown Lab Venipuncture / Unknown 11/27/2022 7:25 AM CDT 11/27/2022 7:38 AM CDT Sumaya Kelley MD LAB - BLOOD BANK ORD ERABLES Performing Organization Address City/[facility]/ZIP Co de Phone Number [facility] [address] [place] [address], [place] [phone] * CULTURE BLOOD (11/27/2022 4:26 AM CDT) Only the most recent of2 resultswithin the time period is included. Pathologist [facility] Culture No growth day 5 ROB 12/02/2022 8:30 AM CDT [facility] Blood PERIPHERAL BLOOD / Unknown Lab Venipuncture / Unknown 11/27/2022 4:26 AM CDT 11/27/2022 4:33 AM CDT Fermin Chang MD LAB - MICROBIOLOGY O RDERABLES Performing Organization Address City/[facility]/ZIP Co de Phone Number [facility] [address] [place] [address], [place] [phone] * CRYSTAL INDENTIFICATION SYNOVIAL FLUID (11/27/2022 2:27 AM CDT) Crystal Exam Fluid No crystals seen. To be reviewed by pathologist. 11/27/2022 5:05 AM CDT [facility] Fluid SYNOVIAL FLUID / Unknown Collection / Unknown 11/27/2022 2:27 AM CDT 11/27/2022 2:32 AM CDT Fermin Chang MD LAB - BODY FLUID ORD ERABLES Performing Organization Address City/[facility]/ZIP Co de Phone Number [facility] [address] [place] [address], [place] [phone] * PATHOLOGY SMEAR BODY FLUID (11/27/2022 2:27 AM CDT) Pathology Diff Review DIFFERENTIAL REVIEW - CONFIRMED DIFFERENTIAL REVIEW - CONFIRMED 11/27/2022 11:40 AM CDT [facility] Fluid SYNOVIAL FLUID / Unknown Collection / Unknown 11/27/2022 2:27 AM CDT 11/27/2022 2:32 AM CDT Narrative [facility] - 11/27/2022 11:40 AM CDT Final diagnosis: Synovial fluid, smear: -Mixed inflammation -Intracellular and extracellular microorganisms -No crystals identified Review of the synovial fluid cytospin preparation confirms the differential data. There is minimal peripheral blood contamination. Acute inflammation is present, comprised of neutrophils. Occasional lymphocytes are present. Intracellular and extracellular cocci are identified. Investigation under polarized light reveals no crystals. Correlation with clinical findings and concurrent microbiology testing is recommended. Clinical history: The patient is a 56 year old male with history of poorly-controlled T2DM and left Charcot ankle presenting from OSH for sepsis and left ankle wound. Indira West MD Pathology Resident PGY1 I have reviewed and agree with the resident's interpretation and description of this case. Shanelle Ballesteros MD Attending Physician Department of Pathology Transfusion Medicine Fermin Chang MD LAB - PATHOLOGY/CYTO LOGY ORDERABLES [facility] [address] [place] [address], [place] [phone] * DIFFERENTIAL MANUAL FLUID (11/27/2022 2:27 AM CDT) Band Relative % Fluid 6 % 11/27/2022 5:29 AM T [facility] Segs % Fluid 78 % 11/27/2022 5:29 AM CDT [facility] Lymphocytes % Fluid 1 % 11/27/2022 5:29 AM T [facility] Monocytes % Fluid 4 % 023 5:29 AM T [facility] Metamyelocytes % Fluid 8 % 11/27/2022 5:29 AM T [facility] Myelocytes % Fluid 3 % 11/27/2022 5:29 AM [facility] Reflex Status Ballistics Expert Review to follow. 11/27/2022 5:29 AM T [facility] Fluid SYNOVIAL FLUID / Unknown Collection / Unknown 11/27/2022 2:27 AM CDT 11/27/2022 2:32 AM CDT Narrative [facility] - 11/27/2022 5:29 AM CDT Bacteria present notified Apple Damon RN. Pending pathologist review. Fermin Chang MD LAB - BODY FLUID ORD ERABLES Performing Organization Address [facility]/ZIP Co de Phone Number [address] [address], [place] [phone] * (ABNORMAL) CELL COUNT W DIFF W CRYSTALS SYNOVIAL (11/27/2022 2:27 AM CDT) Color Fluid Other(A) Colorles s, Straw 11/27/2022 3:54 AM CDT [facility] Comment:Light brown Clarity Fluid Turbid(A) Clear 11/27/2022 3:54 AM CDT [facility] Volume Fluid 3.0 mL 11/27/2022 3:54 AM CDT [facility] Viscosity Normal 11/27/2022 3:54 AM CDT [facility] WBC Fluid 380,040(H) 0 - 200 x10e6/L 11/27/2022 3:54 AM CDT [facility] RBC Fluid 170,000(H) 0 x10e6/L 11/27/2022 3:54 AM T [facility] Crystal Exam Fluid Crystal examination to follow. 11/27/2022 3:54 AM T [facility] Differential Manual Differential to follow. 11/27/2022 3:54 AM T [facility] Fluid SYNOVIAL FLUID / Unknown Collection / Unknown 11/27/2022 2:27 AM CDT 11/27/2022 2:32 AM CDT Narrative [facility] - 11/27/2022 3:54 AM CDT No reference ranges established for body fluid cell counts. The reference ranges provided are derived from published literature. The test results must be integrated into the clinical context for interpretation. Fermin Chang MD LAB - BODY FLUID ORD ERABLES Performing Organization Address [facility]/ZIP Co de Phone Number [address] [address], [place] [phone] * CULTURE FUNGUS OTHER+FUNGUS SMEAR (11/27/2022 2:25 AM CDT) Culture No fungus isolated ROB 12/24/2022 8:02 AM CDT [facility] Fungus Stain No yeast or hyphae seen 12/24/2022 8:02 AM CDT [facility] Microbiology SYNOVIAL FLUID / Unknown Collection / Unknown 11/27/2022 2:25 AM CDT 11/27/2022 2:32 AM CDT Fermin Chang MD LAB - MICROBIOLOGY O JJ Performing Organization Address City/[facility]/ZIP Co de Phone Number [facility] [address] [place] [address], [place] [phone] * (ABNORMAL) CULTURE FLUID+GRAM STAIN (11/27/2022 2:25 AM CDT) Pathologist [facility] Culture No growth ROB 12/01/2022 11:31 AM CDT [facility] Gram Stain Moderate Gram-positive cocci(AA) 12/01/2022 11:31 AM CDT [facility] Gram Stain Heavy Polymorphonuclear cells(AA) 12/01/2022 11:31 AM CDT [facility] Fluid SYNOVIAL FLUID / Unknown Collection / Unknown 11/27/2022 2:25 AM CDT 11/27/2022 3:49 AM CDT Fermin Chang MD LAB - MICROBIOLOGY O JJ [facility] [address] [place] [address], [place] [phone] * (ABNORMAL) HEMOGLOBIN A1C (11/26/2022 10:30 PM CDT) Hemoglobin A1c 7.4(H) <=5.6 % 11/27/2022 10:45 AM CDT [facility] Estimated Average Glucose 166 mg/dL 11/27/2022 10:45 AM CDT [facility] Comment: HbA1c Interpretation: Normal : < 5.7% Pre-diabetes: 5.7-6.4% Diabetes: Equal to or greater than 6.5% Test results diagnostic of diabetes should be repeated for confirmation. Treatment target values recommended by ADA and other clinical organizations should be used to evaluate metabolic control in patients. Reference: [place] [employer], Standards of Care in Diabetes -2020 In patients 70 years and older consider HbA1c target range of 7.0-7.5% (Reference: Gurjit Aguiar et al. HEIDEDA. 2012) The Sebia assay for the measurement of HbA1c is a National Glycohemoglobin Standardization Program (NGSP) certified method. Blood BLOOD SPECIMEN / Unknown Lab Venipuncture / Unknown 11/26/2022 10:30 PM CDT 11/26/2022 10:43 PM CDT Fermin Chang MD LAB - CHEMISTRY ERIKA CHEN Performing Organization Address City/[facility]/ZIP Co de Phone Number [address] [address], [place] [phone] * (ABNORMAL) ERYTHROCYTE SEDIMENTATION RATE (11/26/2022 10:29 PM CDT) Erythrocyte Sedimentation Rate Westergren 94(H) 0 - 20 MM/HR 11/26/2022 11:15 PM CDT [facility] Blood BLOOD SPECIMEN / Unknown Lab Venipuncture / Unknown 11/26/2022 10:29 PM CDT 11/26/2022 10:43 PM CDT Fermin Chang MD LAB - HEMATOLOGY ORD CARL [address] [address], [place] [phone] * SKIN TEST PPD - POINT OF CARE (05/09/2017 3:20 PM MANAGER TRAINING) PPD ppd given on 05/07/17 @ 9:25am, ppd read on 05/09/17 @ 3:16pm. Other MISCELLANEOUS SAMPLE S / Unknown 05/09/2017 3:20 PM MANAGER TRAINING Justice Hugo APRN-LANDSCAPE ARTIST LAB - POINT OF CA RE ORDERABLES * (ABNORMAL) URINALYSIS AUTO - POINT OF CARE (AMB) STL (05/07/2017 9:34 AM MANAGER TRAINING) Clarity UA POCT clear Color UA POCT yellow Leukocyte UA negative Negative Nitrite UA POCT negative Negative Urobilinogen UA 0.2 0.1 - 1.0 Protein UA POCT 15+ Negative pH UA 6.0 5.0 - 8.0 pH units Blood UA negative Negtive Specific [place] UA POCT 1.010 1.002 - 1.030 Ketone UA negative Negative Bilirubin UA POCT negative Negative Glucose UA 2000++++ Negative Expiration Date 04/10/2018 Lot # [id number] QC Verified Yes Yes Urine URINE / Unknown 05/07/2017 9 :34 AM MANAGER TRAINING Justice Hugo APRN-LANDSCAPE ARTIST LAB - POINT OF CA RE ORDERABLES Care Teams Plastics Fabricator Relationship Specialty Start Date End Date Violet Younger APRN-LANDSCAPE ARTIST [address] [facility] [place] [address] PCP - General Nurse Practitioner Family 04/30/23
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
[2024-04-08 20:42] VITALS: BP 127/77; PULSE 82; TEMP 37.1; O2SAT 97
[2024-04-09 00:03] VITALS: BP 121/65; PULSE 86; RESP 17; TEMP 36.7; O2SAT 98
[2024-04-09 00:56] VITALS: BP 141/82; PULSE 99; RESP 76; O2SAT 100
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
[2024-04-09] MEDS: methocarbamoL 750 MG TABLET PO (01:43)
[2024-04-09] MEDS: KETOROLAC 30 MG/ML VIAL (*BKC) IM (01:43)
--- OUTSIDE RECORDS SUMMARY | 2024-04-09 02:25 | XMS_ITS | Clinical Summary ---
Author Organization [employer] [facility] Address [address] [facility] Attn: Epic Prelude ADT SHELBY CONKLIN [phone] Care Team Providers Care Mental Health Aide Name Role Phone Unavailable Primary Care Provider [...]
--- OUTSIDE RECORDS SUMMARY | 2024-04-09 02:25 | XMS_ITS | Referral Summary ---
Author Organization [facility] Address [address] [place] [address] Care Team Providers Care Photography Teacher Name Role Phone Aren Violetdelvis Roque APRN-CENTRAL STERILE SUPPLY TECHNICIAN Primary Care Provider Source Comments [facility],non-owned Affiliates and Associated Physician Practices is amultiple site organization consisting of ambulatory clinics and hospital sitesin [place], [place], [place] and [place]. This disclosure is being madepursuant to the Care Everywhere program and may not contain all information available regarding this patient. Last updated 17.[facility] Encounters Date Type Department Care Team Description 01/23/2024 9:49 AM AIRCRAFT MAINTENANCE SUPERVISOR - 01/23/2024 11:59 PM [facility] Encounter [facility] DIAGNOSTIC RAD CSM [address] [place] [address] Blane Stinson MD Discharge Disposition: Home or Self Care 01/23/2024 Orders Only [facility] - Orthopedics [address] [place] [phone] Blane Stinson MD Orthopedic aftercare 01/23/2024 8:30 AM AIRCRAFT MAINTENANCE SUPERVISOR Office Visit [facility] - Orthopedics [address] [place] [phone] Blane Stinson MD Charcot ankle, left (Primary [...] Active vitamin D, ergocalciferol, (Drisdol) 1.25 MG (71016 UT) capsule Take 1 (one) capsule by [...] complication, without long-term current use of insulin ([facility]) as directed 3 Active zealot networkTouch Ultra test stripIndications:Ty pe 2 diabetes mellitus with other specified complication, without long-term current use of insulin ([facility]) USE TO CHECK BLOOD SUGAR EVERY DAY 3 Active glycopyrrolate (Robinul) 2 MG tablet 4 Active Lancets (ShowpitchTOUCH DELICA PLUS 33G EXTRA FINE LANCET) USE TO CHECK BLOOD SUGAR EVERY DAY 3 Active pantoprazole EC (Protonix) 40 MG tablet Take 1 (one) tablet by mouth once daily 4 Active Trulicity 4.5 MG/0.5ML injectionIndication s:Type 2 diabetes mellitus with other specified complication, without long-term current use of insulin ([facility]) Inject 0.5 mL subcutaneously every 7 days [...] Recorded Patient Health Questionnaire-2 Score 0 08/08/2023 [facility] - Occupational [...] place to sleep or slept in a nursing home (including now)? No 07/08/2023 Sex and Gender [...] Oxygen Concentration 21% 05/18/2023 4 :02 AM AIRCRAFT MAINTENANCE SUPERVISOR Weight 94.8 kg (209 lb) 09/18/2023 12:34 [...] on file Medical Devices Implanted Type Area Head Bucker Device Identifier Shelf Expiration Date Model / Serial / Lot Nail Im 11.5mm 18cm Trgn Intrtn - Sna Implanted:Qty: 1 on 12/15/2022 by Daryl Diop MD at [facility] Right: Hip [employer] 12/02/2031 [id number] / NA / [id number] Kit Screw 100mm 4.5mm Intrtn Troch Ti - Sna Implanted:Qty: 1 on 12/15/2022 by Daryl Diop MD at [facility] Right: Hip [employer] 05/09/2032 [id number] / NA / [id number] Screw 5mm 37.5mm Lopro Intnl Hex Fem - Sna Implanted:Qty: 1 on 12/15/2022 by Daryl Diop MD at [facility] Right: Hip [employer] 12/26/2030 [id number] / NA / [id number] Wire Extfix 450mm 1.8mm Olv Tip Implanted:Qty: 2 on 05/06/2023 by Blane Stinson MD at [facility] Left: Ankle [employer] 4933-8-030 / / Graft Snth Tissue 10cc Pro-Dns Inj Rgnrt Implanted:Qty: 1 on 05/06/2023 by Blane Stinson MD at [facility] Left: Ankle [employer] 09/02/2027 [id number] / / [id number] Graft Bone Canc 1-4mm 15ml Frzdr Crsh Implanted:Qty: 1 on 05/06/2023 by Blane Stinson MD at [facility] Left: Ankle [employer] 09/22/2027 [id number] / / [id number] Kit Bngf 3cc Aug Inj Implanted:Qty: 1 on 05/06/2023 by Blane Stinson MD at [facility] Left: Ankle [employer] 07/06/2025 [id number] / / [id number] Kit Bngf 3cc Aug Inj Implanted:Qty: 1 on 05/06/2023 by Blane Stinson MD at [facility] Left: Ankle [employer] 07/06/2025 [id number] / / [id number] Wire Extfix 450mm 1.8mm Dmd Pt Implanted:Qty: 6 on 05/06/2023 by Blane Stinson MD at [facility] Left: Ankle [employer] 4933-8-010 / / [place] Extfix 1.5-2mm Hfmn Med Wire Lmb Implanted:Qty: 3 on 07/08/2023 by Blane Stinson MD at [facility] Left: Tibia [employer] [id number] / / [place] Extfix 1.5-2mm Hfmn Lng Wire Lmb Implanted:Qty: 1 on 07/08/2023 by Blane Stinson MD at [facility] Left: Tibia [employer] [id number] / / Wshr Extfix [place] 4mm Implanted:Qty: 1 on 07/08/2023 by Blane Stinson MD at [facility] Left: Tibia [employer] [id number] / / Wire Extfix 450mm 1.8mm Dmd Pt Implanted:Qty: 2 on 07/08/2023 by Blane Stinson MD at [facility] Left: Tibia [employer] 4933-8-010 / / Nut Orth Hfmn M8 Shrt Cnct Lmb Recon Frm Implanted:Qty: 4 on 07/08/2023 by Blane Stinson MD at [facility] Left: Tibia [employer] 4933-1-010 / / Explanted Type Area Head Bucker Device Identifier Shelf Expiration Date Model / Serial / Lot Ring Extfix 180mm Cfbr Full Hfmn Lmb Explanted:Qty: 2 on 05/06/2023 at [facility] Left: Ankle [employer] 4933-5-180 / / Procedures Procedure Name Priority Date/Time Associated Diagnosis Comments XR ANKLE LEFT 3VW OR MORE Routine 01/23/2024 10:00 AM AIRCRAFT MAINTENANCE SUPERVISOR Orthopedic aftercare MICROALB/CREAT RATIO URINE RANDOM PANEL Routine 09/18/2023 2:22 PM CDT NEDA (acute kidney injury) (HCC) RENAL FUNCTION PANEL Routine 09/18/2023 2:00 PM CDT NEDA (acute kidney injury) (HCC) HEMOGLOBIN A1C - POINT OF CARE (AMB) [facility] Routine 04/30/2023 1:31 PM AIRCRAFT MAINTENANCE SUPERVISOR Type 2 diabetes mellitus with other specified complication, without long-term current use of insulin (HCC) HEPATITIS C AB SCREEN RFLX NAAT QUANT Routine 2022 8:30 AM CDT HIV-1 HIV-2 ANTIBODY + HIV P24 AG PANEL Routine 2022 8:30 AM CDT from Last 3 Months or Most Recently Relevant to Health Maintenance Results * XR Ankle Left 3Vw or More (01/23/2024 10:00 AM AIRCRAFT MAINTENANCE SUPERVISOR) Anatomical Region Laterality Modality Lower Extremity Computed Radiogr aphy 01/23/2024 10:0 1 AM AIRCRAFT MAINTENANCE SUPERVISOR Impressions 01/23/2024 10:38 AM AIRCRAFT MAINTENANCE SUPERVISOR IMPRESSION: Unchanged from prior. > Dictated by Pedrito Stoddard DO (radiology asst). I, Neva Matthews MD have personally reviewed and interpreted this examination/study. > Interpreting Provider: Neva Matthews MD on 01/23/2024 10:38 AM Narrative 01/23/2024 10:38 AM AIRCRAFT MAINTENANCE SUPERVISOR PROCEDURE: ??XR ANKLE LEFT 3VW OR MORE, DATE/TIME OF EXAM: ??01/23/2024 10:00 AM, LOCATION ??[facility] INDICATION: Z47.89: Orthopedic aftercare ADDITIONAL CLINICAL INFORMATION: [...] MORE, DATE/TIME OF EXAM: 410:00 AM, LOCATION [facility] INDICATION: Z47.89: Orthopedic aftercare ADDITIONAL CLINICAL INFORMATION: [...] prior. > Dictated by Pedrito Stoddard DO (radiology asst). I, Neva Matthews MD have personally reviewed and interpreted this examination/study. > Interpreting Provider: Neva Matthews MD on 01/23/2024 10:38 AM Blane Stinson MD DIAGNOSTIC IMAGING O RDERABLES * (ABNORMAL) MICROALB/CREAT RATIO URINE RANDOM PANEL (09/18/2023 2:22 PM CDT) Albumin Random Urine 1,505.7 Not Established ug/mL 09/18/2023 3:54 PM CDT [facility] Comment:Result obtained by seamus luciano. Creatinine Urine 154.03 Not Established mg/dL 09/18/2023 3:54 PM CDT [facility] Urine Albumin/Creati nine Ratio 978(H) <30 mg/g 09/18/2023 3:54 PM CDT [facility] Urine URINE SPECIMEN OBTAINED BY CLEAN CATCH PROCEDURE / Unknown Collection / Unknown 09/18/2023 2:22 PM CDT 09/18/2023 3:02 PM CDT Soco Sanchez MD LAB - URINE CHEMISTR Y ORDERABLES [facility] [address] [place] [phone], [facility] [phone] * (ABNORMAL) RENAL FUNCTION PANEL (09/18/2023 2:00 PM CDT) BUN 17 7 - 26 mg/dL 09/18/2023 3:02 PM CDT [facility] Creatinine 1.26(H) 0.71 - 1.16 mg/dL 09/18/2023 3:02 PM CDT [facility] Sodium 143 136 - 145 mmol/L 09/18/2023 3:02 PM CDT [facility] Potassium 4.4 3.5 - 4.5 mmol/L 09/18/2023 3:02 PM [facility] Chloride 112(H) 98 - 107 mmol/L 09/18/2023 3:02 PM [facility] CO2 23 22 - 29 mmol/L 09/18/2023 3:02 PM [facility] Glucose 130(H) 70 - 115 mg/dL 09/18/2023 3:02 PM [facility] Albumin 3.5 3.4 - 5.0 g/dL 09/18/2023 3:02 PM [facility] Calcium 9.3 8.4 - 10.2 mg/dL 09/18/2023 3:02 PM [facility] Phosphorus 2.7(L) 2.8 - 5.1 mg/dL 09/18/2023 3:02 PM [facility] Anion Gap 8 6 - 16 09/18/2023 3:02 PM [facility] BUN/Creatinine Ratio 13 7 - 23 09/18/2023 3:02 PM [facility] Osmolality Calculated 299(H) 275 - 295 mOsm/kg 09/18/2023 3:02 PM [facility] eGFR by CKD-EPI 66(L) >=90 mL/min/1.7 3 m2 09/18/2023 3:02 PM [facility] Blood BLOOD SPECIMEN / Unknown Lab Venipuncture / Unknown 09/18/2023 2:00 PM CDT 09/18/2023 2:31 PM CDT Soco Sanchez MD LAB - CHEMISTRY ERIKA CHEN [facility] Organization Address City/State/ZIP Co de Phone Number [facility] [address] [place] [address], [facility] [phone] * HEMOGLOBIN A1C - POINT OF CARE (AMB) [facility] (04/30/2023 1:31 PM AIRCRAFT MAINTENANCE SUPERVISOR) Hemoglobin A1c POCT 6.1 % [address] Blood BLOOD SPECIMEN / Unknown 04/30/2023 1:31 PM AIRCRAFT MAINTENANCE SUPERVISOR Violet Younger JURY CONSULTANT-CENTRAL STERILE SUPPLY TECHNICIAN LAB - POINT OF CARE ORDERABLES Performing Organization Address City/[facility]/ZIP Co de Phone Number [place] [phone] [facility] [address] [facility], [facility] [place] [address], [facility] [phone] * HEPATITIS C AB SCREEN RFLX NAAT QUANT (2022 8:30 AM CDT) Hepatitis C Antibody Non-react sherin Non-reac tive 2022 9:40 AM CDT [facility] Comment:Hepatitis C Antibody screen indicates [...] - CHEMISTRY O RDERANUPUR Performing Organization Address City/[facility]/ZIP Co de Phone Number [facility] [address] [place] [address], [facility] [phone] * HIV-1 HIV-2 ANTIBODY + HIV P24 AG PANEL (2022 8:30 AM CDT) HIV Antigen/Antibod y 1 & 2 Non-reacti ve Non-react sherin 2022 9:40 AM CDT [facility] Comment:No Laboratory eviden ce of HIV infection. Blood BLOOD SPECIMEN / Unknown Lab Venipuncture / Unknown 2022 8:30 AM CDT 2022 8:33 AM CDT Emiliano Duong MD LAB - CHEMISTRY O RDERABLES [facility] [address] [place] [address], [facility] [phone] from Last 3 Months or Most Recently [...] 9:02 PM 12/07/2022 4:45 PM Care Teams Photography Teacher Relationship Specialty Start Date End Date Violet Younger, JURY CONSULTANT-CENTRAL STERILE SUPPLY TECHNICIAN [address] [facility] [place] [place] [address] PCP - General Nurse Practitioner Family 04/30/23
--- OUTSIDE RECORDS SUMMARY | 2024-04-09 02:25 | XMS_ITS | Clinical Summary ---
Author Organization [facility] Care Team Providers Care Industrial Aerial Installer Name Role Phone Unavailable Primary Care Provider [...]
--- OUTSIDE RECORDS SUMMARY | 2024-04-09 02:26 | XMS_ITS | Clinical Summary ---
Author Organization [facility] Address [address] [place] [address] Care Team Providers Care Retail Operations Manager Name Role Phone Violet Younegr APRN-STORE PROMOTER Primary Care Provider Source Comments [facility],non-owned Affiliates and Associated Physician Practices is amultiple site organization consisting of ambulatory clinics and hospital sitesin [place], [place], [place] and [place]. This disclosure is being madepursuant to the Care Everywhere program and may not contain all information available regarding this patient. Last updated 17.[facility] Allergies No known active allergies Medications * Be aware that medications may not be up to date on this document. Alwaysverify current medications with the patient. Medication Sig Dispensed Refills Start Date End Date Status atorvastatin (Lipitor) 10 MG tablet Take 1 (one) tablet by mouth once daily 3 Active vitamin D, ergocalciferol, (Drisdol) 1.25 MG (11853 UT) capsule Take 1 (one) capsule by [...] Department Care Team Description 01/23/2024 9:49 AM AIRLINE PILOT/FIRST OFFICER - 01/23/2024 11:59 PM AIRLINE PILOT/FIRST OFFICER Hospital Encounter [facility] DI[facility]NOSTIC RAD CSM [address] [place] [address] Blane Stinson MD Discharge Disposition: Home or Self Care 01/23/2024 8:30 AM AIRLINE PILOT/FIRST OFFICER Office Visit [facility] - [facility] [address] [place] [phone] Blane Stinson MD Charcot ankle, left (Primary Dx) 01/23/2024 Orders Only [facility] - [facility] [address] [place] [phone] Blane Stinson MD Orthopedic aftercare from Last [...] Recorded Patient Health Questionnaire-2 Score 0 08/08/2023 [facility] - Occupational Stress [...] place to sleep or slept in a fci (including now)? No 07/08/2023 Sex and Gender [...] Oxygen Concentration 21% 05/18/2023 4 :02 AM AIRLINE PILOT/FIRST OFFICER Weight 94.8 kg (209 lb) 09/18/2023 12:34 [...] this topic Medical Devices Implanted Type Area Custom Tailor Apprentice Device Identifier Shelf Expiration Date Model / Serial / Lot Nail Im 11.5mm 18cm Trgn Intrtn - Sna Implanted:Qty: 1 on 12/15/2022 by Daryl Diop MD at [facility] Right: Hip [employer] 12/02/2031 [id number] / NA / [id number] Kit Screw 100mm 4.5mm Intrtn Troch Ti - Sna Implanted:Qty: 1 on 12/15/2022 by Daryl Diop MD at [facility] Right: Hip [employer] 05/09/2032 [id number] / NA / [id number] Screw 5mm 37.5mm Lopro Intnl Hex Fem - Sna Implanted:Qty: 1 on 12/15/2022 by Daryl Diop MD at [facility] Right: Hip [employer] 12/26/2030 [id number] / NA / [id number] Wire Extfix 450mm 1.8mm Olv Tip Implanted:Qty: 2 on 05/06/2023 by Blane Stinson MD at [facility] Left: Ankle [employer] 4933-8-030 / / Graft Snth Tissue 10cc Pro-Dns Inj Rgnrt Implanted:Qty: 1 on 05/06/2023 by Blane Stinson MD at [facility] Left: Ankle [employer] 09/02/2027 [id number] / / [id number] Graft Bone Canc 1-4mm 15ml Frzdr Crsh Implanted:Qty: 1 on 05/06/2023 by Blane Stinson MD at [facility] Left: Ankle [employer] 09/22/2027 [id number] / / [id number] Kit Bngf 3cc Aug Inj Implanted:Qty: 1 on 05/06/2023 by Blane Stinson MD at [facility] Left: Ankle [employer] 07/06/2025 [id number] / / [id number] Kit Bngf 3cc Aug Inj Implanted:Qty: 1 on 05/06/2023 by Blane Stinson MD at [facility] Left: Ankle [employer] 07/06/2025 [id number] / / [id number] Wire Extfix 450mm 1.8mm Dmd Pt Implanted:Qty: 6 on 05/06/2023 by Blane Stinson MD at [facility] Left: Ankle [employer] 4933-8-010 / / [place] Extfix 1.5-2mm Hfmn Med Wire Lmb Implanted:Qty: 3 on 07/08/2023 by Blane Stinson MD at [facility] Left: Tibia [employer] [employer] [id number] / / [place] Extfix 1.5-2mm Hfmn Lng Wire Lmb Implanted:Qty: 1 on 07/08/2023 by Blane Stinson MD at [facility] Left: [place] [employer] 4933-1-003 / / Wshr Extfix [place] 4mm Implanted:Qty: 1 on 07/08/2023 by Blane Stinson MD at [facility] Left: [place] [employer] 4933-1-712 / / Wire Extfix 450mm 1.8mm Dmd Pt Implanted:Qty: 2 on 07/08/2023 by Blane Stinson MD at [facility] Left: [employer]ia [place] [employer] 4933-8-010 / / Nut Orth Hfmn M8 Shrt Cnct Lmb Recon Frm Implanted:Qty: 4 on 07/08/2023 by Blane Stinson MD at [facility] Left: [place] [employer] 4933-1-010 / / Explanted Type Area Custom Tailor Apprentice Device Identifier Shelf Expiration Date Model / Serial / Lot Ring Extfix 180mm Cfbr Full Hfmn Lmb Explanted:Qty: 2 on 05/06/2023 at [facility] Left: Ankle [employer] 4933-5-180 / / Procedures Procedure Name Priority Date/Time Associated Diagnosis Comments XR ANKLE LEFT 3VW OR MORE Routine 01/23/2024 10:00 AM AIRLINE PILOT/FIRST OFFICER Orthopedic aftercare MICROALB/CREAT RATIO URINE RANDOM PANEL Routine 09/18/2023 2:22 PM CDT NEDA (acute kidney injury) (HCC) RENAL FUNCTION PANEL Routine 09/18/2023 2:00 PM CDT NEDA (acute kidney injury) (HCC) HEMOGLOBIN A1C - POINT OF CARE (AMB) [facility] Routine 04/30/2023 1:31 PM AIRLINE PILOT/FIRST OFFICER Type 2 diabetes mellitus with other specified complication, without long-term current use of insulin (HCC) HEPATITIS C AB SCREEN RFLX NAAT QUANT Routine 2022 8:30 AM CDT HIV-1 HIV-2 ANTIBODY + HIV P24 AG PANEL Routine 2022 8:30 AM CDT from Last 3 Months or Most Recently Relevant to Health Maintenance Results * XR Ankle Left 3Vw or More (01/23/2024 10:00 AM AIRLINE PILOT/FIRST OFFICER) Anatomical Region Laterality Modality Lower Extremity Computed Radiogr aphy 01/23/2024 10:0 1 AM AIRLINE PILOT/FIRST OFFICER Impressions 01/23/2024 10:38 AM AIRLINE PILOT/FIRST OFFICER IMPRESSION: Unchanged from prior. > Dictated by Pedrito Stoddard DO (residential appraiser). Neva Dugan MD have personally reviewed and interpreted this examination/study. > Interpreting Provider: Neva Matthews MD on 01/23/2024 10:38 AM Narrative 01/23/2024 10:38 AM AIRLINE PILOT/FIRST OFFICER PROCEDURE: ??XR ANKLE LEFT 3VW OR MORE, DATE/TIME OF EXAM: ??01/23/2024 10:00 AM, LOCATION ??[facility] INDICATION: Z47.89: Orthopedic aftercare ADDITIONAL CLINICAL [...] MORE, DATE/TIME OF EXAM: 0:00 AM, LOCATION [facility] INDICATION: Z47.89: Orthopedic aftercare ADDITIONAL CLINICAL [...] prior. > Dictated by Pedrito Stoddard DO (residential appraiser). Neav Dugan MD have personally reviewed and interpreted this examination/study. > Interpreting Provider: Neva Matthews MD on 01/23/2024 10:38 AM Blane Stinson MD DIAGNOSTIC IMAGING O RDERABLES * (ABNORMAL) MICROALB/CREAT RATIO URINE RANDOM PANEL (09/18/2023 2:22 PM CDT) Albumin Random Urine 1,505.7 Not Established ug/mL 09/18/2023 3:54 PM [facility] Comment:Result obtained by seamus luciano. Creatinine Urine 154.03 Not Established mg/dL 09/18/2023 3:54 PM [facility] Urine Albumin/Creati nine Ratio 978(H) <30 mg/g 09/18/2023 3:54 PM [facility] Urine URINE SPECIMEN OBTAINED BY CLEAN CATCH PROCEDURE / Unknown Collection / Unknown 09/18/2023 2:22 PM CDT 09/18/2023 3:02 PM CDT Soco Sanchez MD LAB - URINE CHEMISTR Y ORDERABLES [facility] [address] [place] [address], [place] [phone] * (ABNORMAL) RENAL FUNCTION PANEL (09/18/2023 2:00 PM CDT) BUN 17 7 - 26 mg/dL 09/18/2023 3:02 PM [facility] Creatinine 1.26(H) 0.71 - 1.16 mg/dL 09/18/2023 3:02 PM [facility] Sodium 143 136 - 145 mmol/L 09/18/2023 3:02 PM [facility] Potassium 4.4 3.5 - 4.5 mmol/L 09/18/2023 3:02 PM [facility] Chloride 112(H) 98 - 107 mmol/L 09/18/2023 3:02 PM [facility] CO2 23 22 - 29 mmol/L 09/18/2023 3:02 PM [facility] Glucose 130(H) 70 - 115 mg/dL 09/18/2023 3:02 PM [facility] Albumin 3.5 3.4 - 5.0 g/dL 09/18/2023 3:02 PM [facility] Calcium 9.3 8.4 - 10.2 mg/dL 09/18/2023 3:02 PM [facility] Phosphorus 2.7(L) 2.8 - 5.1 mg/dL 09/18/2023 3:02 PM T [facility] Anion Gap 8 6 - 16 09/18/2023 3:02 PM T [facility] BUN/Creatinine Ratio 13 7 - 23 09/18/2023 3:02 PM T [facility] Osmolality Calculated 299(H) 275 - 295 mOsm/kg 09/18/2023 3:02 PM [facility] eGFR by CKD-EPI 66(L) >=90 mL/min/1.7 3 m2 09/18/2023 3:02 PM T [facility] Blood BLOOD SPECIMEN / Unknown Lab Venipuncture / Unknown 09/18/2023 2:00 PM CDT 09/18/2023 2:31 PM CDT Soco Sanchez MD LAB - CHEMISTRY ERIKA CHEN Performing Organization Address City/[facility]/ZIP Co de Phone Number [facility] [address] [place] [address], [place] [phone] * HEMOGLOBIN A1C - POINT OF CARE (AMB) U (04/30/2023 1:31 PM AIRLINE PILOT/FIRST OFFICER) [facility] Hemoglobin A1c POCT 6.1 % [address] Blood BLOOD SPECIMEN / Unknown 04/30/2023 1:31 PM AIRLINE PILOT/FIRST OFFICER Violet Younger APRN-STORE PROMOTER LAB - POINT OF CARE ORDERABLES Performing Organization Address [facility]/ZIP Co de Phone Number [address], [place] [address], [place] [phone] * HEPATITIS C AB SCREEN RFLX NAAT QUANT (2022 8:30 AM CDT) Pathologist [facility] Hepatitis C Antibody Non-react sherin Non-reac tive 2022 9:40 AM CDT [facility] Comment:Hepatitis C Antibody screen indicates no serologic [...] - CHEMISTRY O JJ Performing Organization Address City/[facility]/ZIP Co de Phone Number [facility] [address] [place] [address], [place] [phone] * HIV-1 HIV-2 ANTIBODY + HIV P24 AG PANEL (2022 8:30 AM CDT) HIV Antigen/Antibod y 1 & 2 Non-reacti ve Non-react sherin 2022 9:40 AM CDT [facility] Comment:No Laboratory eviden ce of HIV infection. Blood BLOOD SPECIMEN / Unknown Lab Venipuncture / Unknown 2022 8:30 AM CDT 2022 8:33 AM CDT Emiliano Duong MD LAB - CHEMISTRY O JJ Performing Organization Address [facility] Co de Phone Number [address] [address], [place] [phone] from Last 3 Months or Most Recently [...] 9:02 PM 12/07/2022 4:45 PM Care Teams Retail Operations Manager Relationship Specialty Start Date End Date Violet Younger, GIS MAPPING TECHNICIAN-STORE PROMOTER [address] OF [facility] [place] [address] PCP - General Nurse Practitioner Family 04/30/23
--- OUTSIDE RECORDS SUMMARY | 2024-04-09 02:26 | XMS_ITS | Patient Health Summary ---
Author Organization [facility] Address [address] [place] [address] Care Team Providers Care Software Support Analyst Name Role Phone Violet Younger APRN-PARTS COUNTERPERSON Primary Care Provider Note from [facility],non-owned Affiliates and Associated Physician Practices is amultiple site organization consisting of ambulatory clinics and hospital sitesin [place], [place], [place] and [place]. This disclosure is being madepursuant to the Care Everywhere program and may not contain all information available regarding this patient. Last updated 17.[facility] Allergies No known active allergies Medications * Be aware that medications may not be up to date on this document. Alwaysverify current medications with the patient. * atorvastatin (Lipitor) 10 MG tablet(Started 11/17/2022) Take 1 (one) tablet by mouth once daily * vitamin D, ergocalciferol, (Drisdol) 1.25 MG (96132 UT) capsule(Started 12/09/2022) Take 1 (one) capsule [...] Recorded Patient Health Questionnaire-2 Score 0 08/08/2023 [facility] [place] of Occupat ional Health - Occupational Stress [...] place to sleep or slept in a chcf (including now)? No 07/08/2023 Sex and Gender [...] Oxygen Concentration 21% 05/18/2023 4 :02 AM [facility]PITAL OFFICE SUPERVISOR Weight 94.8 kg (209 lb) 09/18/2023 12:34 PM CDT Height 188 cm (6' 2 ) 08/21/2023 7:29 AM CDT Body Mass Index 26.83 08/21/2023 7:29 AM CDT Medical Devices Implanted Type Area Vegetable Handler Device Identifier Shelf Expiration Date Model / Serial / Lot Nail Im 11.5mm 18cm Trgn Intrtn - Sna Implanted:Qty: 1 on 12/15/2022 by Daryl Diop MD at [facility] Right: Hip [employer] 12/02/2031 [id number] / NA / [id number] Kit Screw 100mm 4.5mm Intrtn Troch Ti - Sna Implanted:Qty: 1 on 12/15/2022 by Daryl Diop MD at [facility] Right: Hip [employer] 05/09/2032 [id number] / NA / [id number] Screw 5mm 37.5mm Lopro Intnl Hex Fem - Sna Implanted:Qty: 1 on 12/15/2022 by Daryl Diop MD at [facility] Right: Hip [employer] 12/26/2030 [id number] / NA / [id number] Wire Extfix 450mm 1.8mm Olv Tip Implanted:Qty: 2 on 05/06/2023 by Blane Stinson MD at [facility] Left: Ankle [employer] 4933-8-030 / / Graft Snth Tissue 10cc Pro-Dns Inj Rgnrt Implanted:Qty: 1 on 05/06/2023 by Blane Stinson MD at [facility] Left: Ankle [employer] 09/02/2027 [id number] / / [id number] Graft Bone Canc 1-4mm 15ml Frzdr Crsh Implanted:Qty: 1 on 05/06/2023 by Blane Stinson MD at [facility] Left: Ankle [employer] 09/22/2027 [id number] / / [id number] Kit Bngf 3cc Aug Inj Implanted:Qty: 1 on 05/06/2023 by Blane Stinson MD at [facility] Left: Ankle [employer] 07/06/2025 [id number] / / [id number] Kit Bngf 3cc Aug Inj Implanted:Qty: 1 on 05/06/2023 by Blane Stinson MD at [facility] Left: Ankle [employer] 07/06/2025 [id number] / / [id number] Wire Extfix 450mm 1.8mm Dmd Pt Implanted:Qty: 6 on 05/06/2023 by Blane Stinson MD at [facility] Left: Ankle [employer] 4933-8-010 / / [place] Extfix 1.5-2mm Hfmn Med Wire Lmb Implanted:Qty: 3 on 07/08/2023 by Blane Stinson MD at [facility] Left: Tibia [employer] [id number] / / [place] Extfix 1.5-2mm Hfmn Lng Wire Lmb Implanted:Qty: 1 on 07/08/2023 by Blane Stinson MD at [facility] Left: Tibia [employer] [id number] / / Wshr Extfix Chevy 4mm Implanted:Qty: 1 on 07/08/2023 by Blane Stinson MD at [facility] Left: Tibia [employer] [id number] / / Wire Extfix 450mm 1.8mm Dmd Pt Implanted:Qty: 2 on 07/08/2023 by Blane Stinson MD at [facility] Left: Tibia [employer] 4933-8-010 / / Nut Orth Hfmn M8 Shrt Cnct Lmb Recon Frm Implanted:Qty: 4 on 07/08/2023 by Blane Stinson MD at [facility] Left: Tibia [employer] 4933-1-010 / / Explanted Type Area Vegetable Handler Device Identifier Shelf Expiration Date Model / Serial / Lot Ring Extfix 180mm Cfbr Full Hfmn Lmb Explanted:Qty: 2 on 05/06/2023 at [facility] Left: Ankle [employer] 4933-5-180 / / Procedures * XR ANKLE LEFT 3VW OR MORE(Performed 01/23/2024) Performed for Orthopedic aftercare * XR ANKLE LEFT 3VW OR MORE(Performed 10/17/2023) Performed for Orthopedic aftercare * MICROALB/CREAT RATIO URINE RANDOM PANEL(Performed 09/18/2023) Performed for NEDA (acute kidney injury) ([facility]) * URINALYSIS REFLEX TO MICROSCOPIC NO CULTURE(Performed 09/18/2023) Performed for NEDA (acute kidney injury) ([facility]) * BASIC METABOLIC PANEL (CALCIUM TOTAL)(Performed 09/18/2023) Performed for Post-op pain * VITAMIN D 25-HYDROXY(Performed 09/18/2023) Performed for NEDA (acute kidney injury) ([facility]) * PTH INTACT W/O CALCIUM(Performed 09/18/2023) Performed for NEDA (acute kidney injury) ([facility]) * MAGNESIUM BLOOD(Performed 09/18/2023) Performed for NEDA (acute kidney injury) ([facility]) * RENAL FUNCTION PANEL(Performed 09/18/2023) Performed for NEDA (acute kidney injury) ([facility]) * CBC W AUTO DIFFERENTIAL(Performed 09/18/2023) Performed for NEDA (acute kidney injury) ([facility]) * XR ANKLE LEFT 3VW OR MORE(Performed [...] SURGERY(Performed 08/21/2023) Performed for Post-op pain * DE DEBRIDE SKIN AT FX SITE(Performed 08/21/2023) Performed [...] GLUCOSE - POINT OF CARE(Performed 07/08/2023) * DE ADJUST SENIOR CORE JAVA DEVELOPER BONE FIX DEV W ANESTH(Performed 07/08/2023) * [...] for Pain of foot, unspecified laterality * DE INCIS/DRAINAGE BURSA OF FOOT(Performed 05/06/2023) * DE COMP MULTIPLANE EXT FIXATION(Performed 05/06/2023) * GLUCOSE [...] Closed fracture of right hip, initial encounter ([facility]) * XR ANKLE LEFT 3VW OR MORE(Performed [...] Closed fracture of right hip, initial encounter ([facility]) * PREPARE RBC LEUKOREDUCED UNIT(Performed 12/18/2022) * [...] Closed fracture of right hip, initial encounter ([facility]) * GLUCOSE - POINT OF CARE(Performed 12/15/2022) * FL LESLIE SURGERY(Performed 12/15/2022) Performed for Closed fracture of right hip, initial encounter ([facility]) * ENDOTRACHEAL TUBE NOTE(Performed 12/15/2022) * DE OPEN RX FEMUR FX+PLATE/SCREW(Performed 12/15/2022) Performed for Open right hip fracture, type I or II, initial encounter ([facility]) * TRANSFUSE RED BLOOD CELL LEUKOREDUCED UNIT(S)(Performed [...] ulcer of left ankle, unspecified ulcer stage ([facility]), Primary hypertension, Charcot ankle, left * CULTURE ANAEROBE(Performed 11/27/2022) * CULTURE WOUND+GRAM STAIN(Performed 11/27/2022) * CULTURE ANAEROBE(Performed 11/27/2022) * DE EXPLORE WOUND,EXTREMITY(Performed 11/27/2022) Performed for Septic arthritis of left ankle, due to unspecified organism ([facility]) * PERIPHERAL IV NOTE(Performed 11/27/2022) * ENDOTRACHEAL [...] organism, unspecified whether acute organ dysfunction present ([facility]), Primary hypertension * PATHOLOGY SMEAR BODY FLUID(Performed 11/27/2022) * CRYSTAL INDENTIFICATION SYNOVIAL FLUID(Performed 11/27/2022) * DIFFERENTIAL MANUAL FLUID(Performed 11/27/2022) * CELL COUNT W DIFF W CRYSTALS SYNOVIAL(Performed 11/27/2022) * CULTURE FUNGUS OTHER+FUNGUS SMEAR(Performed 11/27/2022) * CULTURE FLUID+GRAM STAIN(Performed 11/27/2022) * CULTURE ANAEROBE(Performed 11/27/2022) * XR ANKLE LEFT 3VW OR MORE(Performed 11/27/2022) Performed for Non-healing ulcer of left ankle, unspecified ulcer stage ([facility]) * COMPREHENSIVE METABOLIC PANEL(Performed 11/26/2022) * HEMOGLOBIN [...] Left 3Vw or More (01/23/2024 10:00 AM [facility]OSPITAL OFFICE SUPERVISOR) Only the most recent of15 resultswithin the time period is included. Anatomical Region Laterality Modality Lower Extremity Computed Radiogr aphy 01/23/2024 10:0 1 AM [facility]OSPITAL OFFICE SUPERVISOR Impressions 01/23/2024 10:38 AM [facility]PITAL OFFICE SUPERVISOR IMPRESSION: Unchanged from prior. > Dictated by Pedrito Stoddard DO (residential nurse). I, Neva Matthews MD have personally reviewed and interpreted this examination/study. > Interpreting Provider: Neva Matthews MD on 01/23/2024 10:38 AM Narrative 01/23/2024 10:38 AM [facility]PITAL OFFICE SUPERVISOR PROCEDURE: ??XR ANKLE LEFT 3VW OR MORE, DATE/TIME OF EXAM: ??01/23/2024 10:00 AM, LOCATION ??[facility] INDICATION: Z47.89: Orthopedic aftercare ADDITIONAL [...] MORE, DATE/TIME OF EXAM: 0:00 AM, LOCATION [facility] INDICATION: Z47.89: Orthopedic aftercare ADDITIONAL [...] > Dictated by Pedrito Stoddard DO (residential nurse). I, Neva Matthews MD have personally reviewed and interpreted this examination/study. > Interpreting Provider: Neva Matthews MD on 01/23/2024 10:38 AM Blane Stinson MD DIAGNOSTIC IMAGING O RDERABLES * (ABNORMAL) MICROALB/CREAT RATIO URINE RANDOM PANEL (09/18/2023 2:22 PM CDT) Pathologist [facility] Albumin Random Urine 1,505.7 Not Established ug/mL 09/18/2023 3:54 PM CDT [facility] Comment:Result obtained by seamus luciano. Creatinine Urine 154.03 Not Established mg/dL 09/18/2023 3:54 PM CDT [facility] Urine Albumin/Creati nine Ratio 978(H) <30 mg/g 09/18/2023 3:54 PM CDT [facility] Urine URINE SPECIMEN OBTAINED BY CLEAN CATCH PROCEDURE / Unknown Collection / Unknown 09/18/2023 2:22 PM CDT 09/18/2023 3:02 PM CDT Soco Sanchez MD LAB - URINE CHEMISTR Y ORDERABLES [address] [address], [facility] [phone] * (ABNORMAL) URINALYSIS REFLEX TO MICROSCOPIC NO CULTURE (09/18/2023 2:22 PM CDT) Only the most recent of2 resultswithin the time period is included. Color UA Yellow Straw, Yellow 09/18/2023 3:14 PM CDT [facility] Clarity UA Clear Clear 09/18/2023 3:14 PM CDT [facility] Specific [place] UA 1.015 1.005 - 1.030 09/18/2023 3:14 PM [facility] pH UA 5.0 5.0 - 8.0 pH 09/18/2023 3:14 PM [facility] Protein UA 2+(A) Negative 09/18/2023 3:14 PM [facility] Glucose UA Negative Negative 09/18/2023 3:14 PM [facility] Ketone UA Negative Negative 09/18/2023 3:14 PM [facility] Bilirubin UA Negative Negative 09/18/2023 3:14 PM [facility] Blood UA Negative Negative 09/18/2023 3:14 PM [facility] Nitrite UA Negative Negative 09/18/2023 3:14 PM [facility] Leukocyte Esterase Negative Negative 09/18/2023 3:14 PM [facility] Urobilinogen UA Negative Negative mg/dL 09/18/2023 3:14 PM [facility] RBC UA 3-5 None Seen, 0-2, 3-5 /HPF 09/18/2023 3:14 PM [facility] WBC UA 0-5 None Seen, 0-5 /HPF 09/18/2023 3:14 PM [facility] Squamous Epithelial Cells UA 0-2 None Seen, 0-2, 3-5 /HPF 09/18/2023 3:14 PM [facility] Mucus UA 1+ /LPF 09/18/2023 3:14 PM [facility] Hyaline Casts UA 0-2 None Seen, 0-2 /LPF 09/18/2023 3:14 PM [facility] Urine URINE SPECIMEN OBTAINED BY CLEAN CATCH PROCEDURE / Unknown Collection / Unknown 09/18/2023 2:22 PM CDT 09/18/2023 3:02 PM [facility] - 09/18/2023 3:14 PM CDT Soco Sanchez MD LAB - URINALYSIS ORD ERABLES [facility] [address] [place] [address], [facility] [phone] * (ABNORMAL) BASIC METABOLIC PANEL (CALCIUM TOTAL) (09/18/2023 2:01 PM CDT) Only the most recent of33 resultswithin the time period is included. BUN 15 7 - 26 mg/dL 09/18/2023 3:02 PM [facility] Creatinine 1.24(H) 0.71 - 1.16 mg/dL 09/18/2023 3:02 PM [facility] Sodium 141 136 - 145 mmol/L 09/18/2023 3:02 PM [facility] Potassium 4.3 3.5 - 4.5 mmol/L 09/18/2023 3:02 PM [facility] Chloride 111(H) 98 - 107 mmol/L 09/18/2023 3:02 PM [facility] CO2 22 22 - 29 mmol/L 09/18/2023 3:02 PM [facility] Glucose 129(H) 70 - 115 mg/dL 09/18/2023 3:02 PM [facility] Calcium 9.4 8.4 - 10.2 mg/dL 09/18/2023 3:02 PM [facility] Anion Gap 8 6 - 16 09/18/2023 3:02 PM [facility] BUN/Creatinine Ratio 12 7 - 23 09/18/2023 3:02 PM [facility] Osmolality Calculated 295 275 - 295 mOsm/kg 09/18/2023 3:02 PM [facility] eGFR by CKD-EPI 67(L) >=90 mL/min/1.7 3 m2 09/18/2023 3:02 PM [facility] Blood BLOOD SPECIMEN / Unknown Lab Venipuncture / Unknown 09/18/2023 2:01 PM CDT 09/18/2023 2:32 PM CDT Michael Hwang III, MD LAB - CHEM ISTRY ORDERABLES [facility] [address] [place] [address], [facility] [phone] * (ABNORMAL) PTH INTACT W/O CALCIUM (09/18/2023 2:00 PM CDT) PTH Intact 178.6(H) 8.0 - 77.0 pg/mL 09/18/2023 3:06 PM CDT [facility] Blood BLOOD SPECIMEN / Unknown Lab Venipuncture / Unknown 09/18/2023 2:00 PM CDT 09/18/2023 2:32 PM CDT Soco Sanchez MD LAB - CHEMISTRY ERIKA CHEN [facility] [address] [place] [address], [facility] [phone] * (ABNORMAL) VITAMIN D 25-HYDROXY (09/18/2023 2:00 PM CDT) Only the most recent of2 resultswithin the time period is included. Vitamin D, 25 Hydroxy 11.6(L) 30.0 - 80.0 ng/mL 09/18/2023 3:20 PM CDT [facility] Comment: The recommendations for 25-Hydroxy Vitamin D [...] Sanchez MD LAB - CHEMISTRY ERIKA CHEN [facility] [address] [place] [address], [facility] [phone] * (ABNORMAL) CBC WITH DIFFERENTIAL (09/18/2023 2:00 PM CDT) Only the most recent of13 resultswithin the time period is included. [facility] WBC 7.2 4.0 - 10.7 x10E9/L 09/18/2023 2:34 PM [facility] RBC Count 3.65(L) 4.30 - 5.80 x10E12/L 09/18/2023 2:34 PM [facility] Hemoglobin 10.2(L) 13.3 - 17.5 g/dL 09/18/2023 2:34 PM [facility] Hematocrit 32.9(L) 38.7 - 51.1 % 09/18/2023 2:34 PM [facility] MCV 90.1 80.0 - 98.0 fL 09/18/2023 2:34 PM [facility] MCH 27.9 26.7 - 33.6 pg 09/18/2023 2:34 PM [facility] MCHC 31.0(L) 31.7 - 36.3 g/dL 09/18/2023 2:34 PM [facility] RDW-CV 15.2(H) 11.3 - 14.8 % 09/18/2023 2:34 PM [facility] Platelet Count 327 150 - 420 x10E9/L 09/18/2023 2:34 PM [facility] MPV 8.6 7.8 - 11.4 fL 09/18/2023 2:34 PM [facility] Neutrophil % 50.1 41.0 - 74.0 % 09/18/2023 2:34 PM [facility] Lymphocyte % 31.6 17.0 - 47.0 % 09/18/2023 2:34 PM CDT [facility] Monocyte % 9.5 3.0 - 11.0 % 09/18/2023 2:34 PM T [facility] Eosinophil % 7.9(H) 0.0 - 7.0 % 09/18/2023 2:34 PM T [facility] Basophil % 0.6 0.0 - 1.6 % 09/18/2023 2:34 PM T [facility] Immature Granulocytes % 0.3 0.0 - 1.0 % 09/18/2023 2:34 PM [facility] Neutrophil Absolute 3.63 1.60 - 7.50 x10E9/L 09/18/2023 2:34 PM [facility] Lymphocyte Absolute 2.29 1.00 - 4.40 x10E9/L 09/18/2023 2:34 PM [facility] Monocyte Absolute 0.69 0.15 - 1.00 x10E9/L 09/18/2023 2:34 PM [facility] Eosinophil Absolute 0.57 0.00 - 0.60 x10E9/L 09/18/2023 2:34 PM [facility] Basophil Absolute 0.04 0.00 - 0.13 x10E9/L 09/18/2023 2:34 PM [facility] Blood BLOOD SPECIMEN / Unknown Lab Venipuncture / Unknown 09/18/2023 2:00 PM CDT 09/18/2023 2:31 PM CDT Soco Sanchez MD LAB - HEMATOLOGY ORD ERABLES [facility] [address] [place] [phone], [facility] [phone] * (ABNORMAL) RENAL FUNCTION PANEL (09/18/2023 2:00 PM CDT) Only the most recent of2 resultswithin the time period is included. BUN 17 7 - 26 mg/dL 09/18/2023 3:02 PM T [facility] Creatinine 1.26(H) 0.71 - 1.16 mg/dL 09/18/2023 3:02 PM [facility] Sodium 143 136 - 145 mmol/L 09/18/2023 3:02 PM [facility] Potassium 4.4 3.5 - 4.5 mmol/L 09/18/2023 3:02 PM [facility] Chloride 112(H) 98 - 107 mmol/L 09/18/2023 3:02 PM [facility] CO2 23 22 - 29 mmol/L 09/18/2023 3:02 PM [facility] Glucose 130(H) 70 - 115 mg/dL 09/18/2023 3:02 PM [facility] Albumin 3.5 3.4 - 5.0 g/dL 09/18/2023 3:02 PM [facility] Calcium 9.3 8.4 - 10.2 mg/dL 09/18/2023 3:02 PM [facility] Phosphorus 2.7(L) 2.8 - 5.1 mg/dL 09/18/2023 3:02 PM [facility] Anion Gap 8 6 - 16 09/18/2023 3:02 PM [facility] BUN/Creatinine Ratio 13 7 - 23 09/18/2023 3:02 PM [facility] Osmolality Calculated 299(H) 275 - 295 mOsm/kg 09/18/2023 3:02 PM [facility] eGFR by CKD-EPI 66(L) >=90 mL/min/1.7 3 m2 09/18/2023 3:02 PM [facility] Blood BLOOD SPECIMEN / Unknown Lab Venipuncture / Unknown 09/18/2023 2:00 PM CDT 09/18/2023 2:31 PM CDT Soco Sanchez MD LAB - CHEMISTRY ERIKA CHEN [facility] Organization Address City/State/ZIP Co de Phone Number [facility] [address] [place] [address], [facility] [phone] * (ABNORMAL) MAGNESIUM BLOOD (09/18/2023 2:00 PM CDT) Only the most recent of30 resultswithin the time period is included. Magnesium 1.5(L) 1.6 - 2.6 mg/dL 09/18/2023 3:02 PM CDT [facility] Blood BLOOD SPECIMEN / Unknown Lab Venipuncture / Unknown 09/18/2023 2:00 PM CDT 09/18/2023 2:31 PM CDT Soco Sanchez MD LAB - CHEMISTRY ERIKA De Anda Organization Address City/State/ZIP Co de Phone Number [facility] [address] [place] [address], [facility] [phone] * XR FOOT LEFT WT BEARING 3VW [...] ??Exam Date: ??08/21/2023 10:31 AM ?? Location: [facility] Indication: G89.18: Other acute postprocedural pain Findings/impression: [...] 2VW Exam Date: 08/21/2023 10:31 AM Location: [facility] Indication: G89.18: Other acute postprocedural pain Findings/impression: [...] - 106 mg/dL 08/21/2023 2:42 PM CDT [facility] Specimen Type Cap Fingerstick 2023 2:42 PM CDT [facility] Blood BLOOD SPECIMEN / Unknown 08/21/2023 10:01 AM CDT 08/21/2023 2:42 PM CDT Blane Stinson MD LAB - POINT OF CARE ORDERABLES Performing Organization Address City/State/[facility] Co de Phone Number [facility] [address] [place] [address] * ETT LINE PERFORMABLE (08/21/2023 9:16 AM CDT) Narrative Mayra Zacarias APRN-CRNA - 08/21/2023 9:16 AM CDT Mayra Zacarias APRN-CRNA ? 08/21/2023 ??9:17 AM Endotracheal Tube Placement: ? Patient Location: OR. Intubation Event Date/Time: ??08/21/2023 8:59 AM Procedure: intubation ([id number]). Procedure Section: ?? Sedation: under general anesthesia. [...] resultswithin the time period is included. Narrative [facility] - 08/21/2023 1:52 PM CDT For details of this study, please see the providers note. Blane Stinson MD FLUOROSCOPY ORDERABL ES [facility] [address] [place] [address] * CT ANKLE LEFT WO CONTRAST (08/08/2023 [...] Isaac Pat MD on 08/08/2023 11:38 PM [address] St[address] MD CT ORDERABLES * XR FOOT [...] Report dictated by Jim Simon MD, MD (residential nurse). IEvan MD have personally reviewed and interpreted this examination/study. > Interpreting Provider: Evan Clements MD on 07/25/2023 10:47 AM Narrative 07/25/2023 10:47 AM CDT PROCEDURE: ??XR ANKLE LEFT 3VW OR MORE, XR TIBIA FIBULA LEFT 2VW, XR FOOT LEFT 3VW OR MORE, DATE/TIME OF EXAM: ??07/25/2023 9:30 AM, LOCATION ??[facility] INDICATION: Z47.89: Orthopedic aftercare ADDITIONAL [...] DATE/TIME OF EXAM: 07/25/2023 9:30 AM, LOCATION [facility] INDICATION: Z47.89: Orthopedic aftercare ADDITIONAL CLINICAL [...] Report dictated by Jim Simon MD, MD (residential nurse). I, Evan Clements MD have personally reviewed [...] - 105 mg/dL 07/09/2023 6:25 AM CDT [facility] Sodium 137 136 - 145 mmol/L 07/09/2023 6:25 AM CDT [facility] Potassium 6.0(H) 3.5 - 5.1 mmol/L 07/09/2023 6:25 AM CDT [facility] Chloride 114(H) 98 - 107 mmol/L 07/09/2023 6:25 AM CDT [facility] CO2 17(L) 22 - 29 mmol/L 07/09/2023 6:25 AM CDT [facility] Calcium 9.3 8.4 - 10.4 mg/dL 07/09/2023 6:25 AM CDT [facility] Anion Gap 6 6 - 16 mmol/L 07/09/2023 6:25 AM CDT [facility] BUN 38(H) 7 - 26 mg/dL 07/09/2023 6:25 AM CDT [facility] Creatinine 1.44(H) 0.72 - 1.25 mg/dL 07/09/2023 6:25 AM CDT [facility] Alkaline Phosphatase 136 40 - 150 U/L 07/09/2023 6:25 AM CDT [facility] ALT 6 0 - 55 U/L 07/09/2023 6:25 AM CDT [facility] AST 13 5 - 34 U/L 07/09/2023 6:25 AM CDT [facility] Protein Total 7.9 6.4 - 8.3 gm/dL 07/09/2023 6:25 AM CDT [facility] Albumin 3.2(L) 3.4 - 5.0 gm/dL 07/09/2023 6:25 AM CDT [facility] Bilirubin Total 0.4 0.2 - 1.2 mg/dL 07/09/2023 6:25 AM T [facility] eGFR by CKD-EPI 56(L) >=90 mL/min/1.7 3 m2 07/09/2023 6:25 AM CDT [facility] Blood BLOOD SPECIMEN / Unknown Lab Venipuncture / Unknown 07/09/2023 5:24 AM CDT 07/09/2023 6:03 AM CDT Lenin Wilson P[employer] FABRICATOR-PARTS COUNTERPERSON LAB - CHEMISTR Y ORDERABLES Performing Organization Address City/State/[facility] Co de Phone Number [facility] [place] [address] * PHOSPHORUS BLOOD (05/20/2023 1:22 AM CDT) Only the most recent of21 resultswithin the time period is included. [facility] Phosphorus 4.4 2.8 - 5.1 mg/dL 05/20/2023 2:31 AM CDT [facility] Blood BLOOD SPECIMEN / Unknown Lab Venipuncture / Unknown 05/20/2023 1:22 AM CDT 05/20/2023 2:01 AM CDT Jarrett Brown III, MD LAB - CHEMISTRY ORDERABLES [address] [address], [place] [phone] * (ABNORMAL) IRON + TRANSFERRIN PANEL (05/18/2023 3:24 AM [facility] SUPERVISOR) Only the most recent of2 resultswithin the time period is included. Iron 45(L) 50 - 175 ug/dL 05/18/2023 4:04 AM [facility] Transferrin 200 174 - 382 mg/dL 05/18/2023 4:04 AM [facility] Transferrin Saturation % 18 16 - 50 % 05/18/2023 4:04 AM [facility] TIBC Calculated 250 240 - 450 ug/dL 05/18/2023 4:04 AM [facility] Blood BLOOD SPECIMEN / Unknown Lab Venipuncture / Unknown 05/18/2023 3:24 AM [facility] OFF[facility] SUPERVISOR 05/18/2023 3:39 AM [facility] OFF[facility] SUPERVISOR Jarrett Brown III, MD LAB - CHEMISTRY ORDERABLES Performing Organization Address City/[facility]/ZIP Co de Phone Number [address] [address], [place] [phone] * FERRITIN (05/18/2023 3:24 AM [facility] SUPERVISOR) Only the most recent of3 resultswithin the time period is included. Ferritin 165 22 - 275 ng/mL 05/18/2023 4:22 AM [facility] Blood BLOOD SPECIMEN / Unknown Lab Venipuncture / Unknown 05/18/2023 3:24 AM [facility] OFF[facility] SUPERVISOR 05/18/2023 3:39 AM [facility] OFF[facility] SUPERVISOR Jarrett Brown III, MD LAB - CHEMISTRY ORDERABLES Performing Organization Address City/[facility]/ZIP Co de Phone Number [address] [address], [place] [phone] * LAB MISC TEST (05/16/2023 8:54 PM [facility] OFF[facility] SUPERVISOR) Test Name Heatherin 05/23/2023 2:18 PM CDT [facility] Test Result See Scanned Report 05/23/2023 2:18 PM CDT [facility] Comment Ref Lab [facility] 05/23/2023 2:18 PM CDT [facility] Blood BLOOD SPECIMEN / Unknown Lab Venipuncture / Unknown 05/16/2023 8:54 PM [facility] OFF[facility] SUPERVISOR 05/16/2023 8:58 PM [facility] OFF[facility] SUPERVISOR Jarrett Brown III, MD LAB SEND OUT [facility] [address] [place] [address] * (ABNORMAL) URINALYSIS W/MICROSCOPIC NO CULTURE (05/16/2023 5:42 PM [facility] OFF[facility] SUPERVISOR) Color UA Straw Straw, Yellow 05/16/2023 6:11 PM [facility] Clarity UA Clear Clear 05/16/2023 6:11 PM [facility] Specific [place] UA 1.008 1.005 - 1.030 05/16/2023 6:11 PM [facility] pH UA 7.0 5.0 - 8.0 pH 05/16/2023 6:11 PM [facility] Protein UA 1+(A) Negative 05/16/2023 6:11 PM [facility] Glucose UA Negative Negative 05/16/2023 6:11 PM [facility] Ketone UA Negative Negative 05/16/2023 6:11 PM [facility] Bilirubin UA Negative Negative 05/16/2023 6:11 PM [facility] Blood UA 2+(A) Negative 05/16/2023 6:11 PM [facility] Nitrite UA Negative Negative 05/16/2023 6:11 PM [facility] Leukocyte Esterase 1+(A) Negative 05/16/2023 6:11 PM [facility] Urobilinogen UA Negative Negative mg/dL 05/16/2023 6:11 PM [facility] RBC UA 11-20(A) None Seen, 0-2, 3-5 /HPF 05/16/2023 6:11 PM [facility] WBC UA 6-10(A) None Seen, 0-5 /HPF 05/16/2023 6:11 PM [facility] Squamous Epithelial Cells UA None Seen None Seen, 0-2, 3-5 /HPF 05/16/2023 6:11 PM [facility] Mucus UA 1+ /LPF 05/16/2023 6:11 PM [facility] Urine URINE SPECIMEN OBTAINED VIA [facility]IN[facility] CATHETER / Unknown Collection / Unknown 05/16/2023 5:42 PM [facility] OFF[facility] SUPERVISOR 05/16/2023 5:53 PM [facility] OFFICE SUPERVISOR Narrative [facility] - 05/16/2023 6:11 PM [facility] OFFICE SUPERVISOR Soco Sanchez MD LAB - URINALYSIS ORD ERABLES Performing Organization Address City/[facility]/ZIP Co de Phone Number [address] [address], [employer] [phone] * (ABNORMAL) PROTEIN CREATININE RATIO URINE RANDOM PNL (05/16/2023 5:42 PM [facility] OFF[facility] SUPERVISOR) [facility] Protein Urine 36 Not Established mg/dL 05/16/2023 6:29 PM [facility] Creatinine Urine 32.08 Not Established mg/dL 05/16/2023 6:29 PM [facility] Protein/Creati nine Ratio Urine 1.12(H) <0.10 05/16/2023 6:29 PM [facility] Urine URINE SPECIMEN OBTAINED BY CLEAN CATCH PROCEDURE / Unknown Collection / Unknown 05/16/2023 5:42 PM [facility] OFF[facility] SUPERVISOR 05/16/2023 5:53 PM [facility] OFF[facility] SUPERVISOR Soco Sanchez MD LAB - URINE CHEMISTR Y ORDERABLES Performing Organization Address [facility]/ZIP Co de Phone Number [address] [address], [place] [phone] * (ABNORMAL) LACTIC ACID BLOOD (05/16/2023 7:26 AM [facility] OFF[facility] SUPERVISOR) Only the most recent of2 resultswithin the time period is included. [facility] Lactic Acid-Stat 2.5(H) <=2.0 mmol/L 05/16/2023 7:52 AM [facility] Blood BLOOD SPECIMEN / Unknown Lab Venipuncture / Unknown 05/16/2023 7:26 AM [facility] OFF[facility] SUPERVISOR 05/16/2023 7:30 AM [facility] OFF[facility] SUPERVISOR Jarrett Brown III, MD LAB - CHEMISTRY ORDERABLES Performing Organization Address [facility] Co de Phone Number [address] [address], [facility] [phone] * ALCOHOL ETHYL BLOOD (05/16/2023 7:26 AM [facility] OFF[facility] SUPERVISOR) Ethanol (mg/dL) <10 <=10 mg/dL 7:55 AM [facility] Ethanol Calculated (g/dL) <0.010 <0.010 g/dL 05/16/2023 7:55 AM [facility] Blood BLOOD SPECIMEN / Unknown Lab Venipuncture / Unknown 05/16/2023 7:26 AM [facility] OFF[facility] SUPERVISOR 05/16/2023 7:42 AM [facility] OFFICE SUPERVISOR Narrative [facility] - 05/16/2023 7:55 AM [facility] OFFICE SUPERVISOR Ethanol Interp <10: None Detected. Depression of DEV TECHNICAL MGR: >100 mg/dl Potentially Critical: >250 mg/dl Potentially [...] LAB - CHEMISTRY ORDERABLES Performing Organization Address City/[facility]/ZIP Co de Phone Number [address] [address], [facility] [phone] * (ABNORMAL) SALICYLATE LEVEL BLOOD (05/16/2023 7:26 AM [facility] OFF[facility] SUPERVISOR) Salicylate <5(L) 15 - 30 mg/dL 05/16/2023 7:55 AM [facility] Blood BLOOD SPECIMEN / Unknown Lab Venipuncture / Unknown 05/16/2023 7:26 AM [facility] OFF[facility] SUPERVISOR 05/16/2023 7:42 AM [facility] OFFICE SUPERVISOR [facility] - 05/16/2023 7:55 AM [facility] This test is not intended for use with low-dose aspirin therapy. Most patients on low-dose aspirin for cardiovascular prophylaxis will have serum concentrations near or below the lower limit of the analytical range. Jarrett Brown III, MD LAB - CHEMISTRY ORDERABLES Performing Organization Address [facility]/ZIP Co de Phone Number [address] [address], [facility] [phone] * ACETAMINOPHEN LEVEL (05/16/2023 7:26 AM [facility]) [facility] Acetaminophen <3.0 <3.0 ug/mL 05/16/2023 7:55 AM [facility] Blood BLOOD SPECIMEN / Unknown Lab Venipuncture / Unknown 05/16/2023 7:26 AM [facility] OFF[facility] SUPERVISOR 05/16/2023 7:42 AM [facility] Narrative [facility] - 05/16/2023 7:55 AM [facility] Acetaminophen Toxicity Levels (Hours Post Ingestion): ? [...] may alter the peak level. Contact the [facility] at or reserved for healthcare professionals to assist you in evaluating potentially toxic acetaminophen levels. Jarrett Brown III, MD LAB - CHEMISTRY ORDERABLES Performing Organization Address [facility]/ZIP Co de Phone Number [address] [phone] [phone] * (ABNORMAL) BLOOD GASES ART + COOX PANEL (05/16/2023 6:38 AM [facility]) pH Arterial 7.35 7.35 - 7.45 pH 05/16/2023 6:44 AM [facility] pO2 Arterial 70(L) 80 - 100 mmHg 05/16/2023 6:44 AM [facility] pCO2 Arterial 41 35 - 45 mmHg 6:44 AM [facility] HCO3 Arterial 22.6 20.0 - 30.0 mmol/L 05/16/2023 6:44 AM [facility] BE Arterial -2.8(L) -2.0 - 2.0 mmol/L 05/16/2023 6:44 AM [facility] Oxyhemoglobin Arterial 95.1 % 05/16/2023 6:44 AM [facility] Dexoyhemoglobin (HHB) % 2.2 % 05/16/2023 6:44 AM [facility] Methemoglobin <0.8 0.0 - 2.0 % 05/16/2023 6:44 AM [facility] Carboxyhemoglobin 2.3(H) 0.0 - 2.0 % 2023 6:44 AM [facility] O2 Content Arterial 11.1 Interpret within clinical context ml/dL 05/16/2023 6:44 AM [facility] Hemoglobin by COOX 8.2(L) 12.0 - 17.6 g/dL 05/16/2023 6:44 AM [facility] O2 Saturation Arterial 98 90 - 100 % 05/16/2023 6:44 AM [facility] FI O2 Arterial 21.0 % 05/16/2023 6:44 AM [facility] Blood, arterial ARTERIAL BLOOD SPECIMEN / Unknown 05/16/2023 6:38 AM [facility] OFF[facility] SUPERVISOR 05/16/2023 6:38 AM [facility] - 05/16/2023 6:44 AM [facility] Carboxyhemoglobin Normal Concentration: Non-smokers: 0-2%; Smokers: 0-9%; Toxic: >20% Jarrett Brown III, MD LAB - BLOOD GASE S ORDERABLES [facility] [address] [place] [phone], [facility] [phone] * URINE DRUG SCREEN IMMUNOASSAY (05/16/2023 4:38 AM [facility]) Pathologist [facility] Amphetamines Screen Urine Negative Negative: < 1000 ng/mL 05/16/2023 5:10 AM [facility] Barbiturates Screen Urine Negative Negative: < 200 ng/mL 05/16/2023 5:10 AM [facility] Benzodiazepine Screen Urine Negative Negative: < 200 ng/mL 05/16/2023 5:10 AM [facility] Opiates Urine Negative Negative: < 300 ng/mL 05/16/2023 5:10 AM [facility] Cocaine Metabolites Urine Negative Negative: < 300 ng/mL 05/16/2023 5:10 AM [facility] Phencyclidine Screen Urine Negative Negative: < 25 ng/ml 05/16/2023 5:10 AM [facility] Cannabinoids Screen Urine Negative Negative: <50 ng/mL 05/16/2023 5:10 AM [facility] Methadone Screen Urine Negative Negative: < 300 ng/mL 05/16/2023 5:10 AM [facility] Fentanyl Screen Urine Negative Negative: <1.5 ng/mL 05/16/2023 5:10 AM [facility] Urine URINE / Unknown Collection / Unknown 05/16/2023 4:38 AM [facility] 05/16/2023 4:45 AM [facility] - 05/16/2023 5:10 AM [facility] The Urine Toxicology Screening Panel does not screen for Propoxyphene, Meprobamate, Carisoprodol, Trazodone, [id number] medications and/or volatiles (Acetone, Isopropanol, Methanol or Ethylene Glycol). Ethanol, Salicylate, Acetaminophen, Tricyclic Antidepressants and several therapeutic drugs may be individually assayed in serum or plasma specimen. Toxicology testing by the [facility] is an aid to medical diagnosis and treatment of patients. No documented chain of custody was maintained. Results are intended to be used for clinical purposes only. ? Jarrett Brown III, MD LAB - URINE CHEM ISTRY ORDERABLES Performing Organization Address [facility] de Phone Number [facility] [address] [place] [address], [employer] [phone] * UREA NITROGEN URINE RANDOM (05/16/2023 4:29 AM [facility] OFF[facility] SUPERVISOR) Urea Nitrogen Random Urine 388 Not Established mg/dL 05/16/2023 5:18 AM [facility] Urine URINE SPECIMEN OBTAINED BY CLEAN CATCH PROCEDURE / Unknown Collection / Unknown 05/16/2023 4:29 AM [facility] OFF[facility] SUPERVISOR 05/16/2023 4:45 AM [facility] OFFICE SUPERVISOR Jarrett Brown III, MD LAB - URINE CHEM ISTRY ORDERABLES Performing Organization Address [facility] de Phone Number [facility] [address] [place] [address], [place] [phone] * LYTES (NA K CL) URINE RANDOM PANEL (05/16/2023 4:29 AM [facility] OFF[facility] SUPERVISOR) Sodium Urine 49 Not Established mmol/L 05/16/2023 5:18 AM [facility] Potassium Urine 34.6 Not Established mmol/L 05/16/2023 5:18 AM [facility] Chloride Random Urine 43 Not Established mmol/L 05/16/2023 5:18 AM [facility] Urine URINE SPECIMEN OBTAINED BY CLEAN CATCH PROCEDURE / Unknown Collection / Unknown 05/16/2023 4:29 AM [facility] OFF[facility] SUPERVISOR 05/16/2023 4:45 AM [facility] OFF[facility] SUPERVISOR Jarrett Brown III, MD LAB - URINE CHEM ISTRY ORDERABLES Performing Organization Address City/[facility] Co de Phone Number [address] [address], [place] [phone] * CREATININE URINE RANDOM (05/16/2023 4:29 AM [facility] OFF[facility] SUPERVISOR) Creatinine Urine 109.00 Not Established mg/dL 05/16/2023 11:17 AM [facility] OFFICE SUPERVISOR [facility] Urine URINE SPECIMEN OBTAINED BY CLEAN CATCH PROCEDURE / Unknown Collection / Unknown 05/16/2023 4:29 AM [facility] OFFICE SUPERVISOR 05/16/2023 4:45 AM [facility] OFF[facility] SUPERVISOR Jarrett Brown III, MD LAB - URINE CHEM ISTRY ORDERABLES Performing Organization Address [facility] Co de Phone Number [address] [address], [place] [phone] * (ABNORMAL) BLOOD GASES LIZ + COOX PANEL (05/16/2023 3:36 AM [facility] SUPERVISOR) Only the most recent of2 resultswithin the time period is included. pH Venous 7.18(LL) 7.32 - 7.42 pH 05/16/2023 3:53 AM [facility] pO2 Venous 146(H) 35 - 40 mmHg 05/16/2023 3:53 AM [facility] pCO2 Venous 47 40 - 50 mmHg 05/16/2023 3:53 AM [facility] HCO3 Venous 17.5(L) 20 - 30 mmol/L 05/16/2023 3:53 AM [facility] Base Excess Venous -10.3(L) -2.0 - 2.0 mmol/L 05/16/2023 3:53 AM [facility] Oxyhemoglobin Venous 97.7 % 09/2023 3:53 AM [facility] Deoxyhemoglobin (HHB) Venous % <1.0 % 05/16/2023 3:53 AM [facility] Methemoglobin <0.8 0.0 - 2.0 % 05/16/2023 3:53 AM [facility] Carboxyhemoglobin 1.8 0.0 - 2.0 % 2023 3:53 AM [facility] O2 Content Venous 12.8 Interpret within clinical context ml/dL 05/16/2023 3:53 AM [facility] Hemoglobin by COOX 9.1(L) 12.0 - 17.6 g/dL 05/16/2023 3:53 AM [facility] O2 Saturation Venous 100 >=70 % 09/2023 3:53 AM [facility] FI O2 Mixed Venous 21.0 % 2023 3:53 AM [facility] Blood BLOOD SPECIMEN / Unknown Venipuncture / Unknown 05/16/2023 3:36 AM [facility] OFF[facility] SUPERVISOR 05/16/2023 3:43 AM [facility] OFFICE SUPERVISOR Narrative [facility] - 05/16/2023 3:53 AM [facility] Carboxyhemoglobin Normal Concentration: Non-smokers: 0-2%; Smokers: 0-9%; Toxic: >20% Jarrett Brown III, MD LAB - BLOOD GASE S ORDERABLES [address] [address], [facility] [phone] * HYDROXYBUTYRATE BETA (05/16/2023 2:20 AM [facility] OFF[facility] SUPERVISOR) Beta-Hydroxybu tyrate <0.50 <0.50 mmol/L 05/16/2023 2:59 AM [facility] Blood BLOOD SPECIMEN / Unknown Lab Venipuncture / Unknown 05/16/2023 2:20 AM [facility] OFF[facility] SUPERVISOR 05/16/2023 2:32 AM [facility] OFF[facility] SUPERVISOR Jarrett Brown III, MD LAB - CHEMISTRY ORDERABLES Performing Organization Address City/[facility]/ZIP Co de Phone Number [address] [address], [facility] [phone] * EKG 12-LEAD (05/16/2023 1:49 AM [facility] OFF[facility] SUPERVISOR) Only the most recent of3 resultswithin the time period is included. Ventricular Rate 96 BPM [facility] Atrial Rate 96 BPM [facility] P-R Interval 184 ms [facility] QRS Duration ms 94 ms [facility] Q-T Interval ms 364 ms [facility] MUSE QTC Calculation (Bezet) 459 ms [facility] MUSE Calculated P [place] 42 degrees [facility] Calculated R [place] -33 degrees [facility] MUSE Calculated T [place] 94 degrees [facility] Interpretation EKG NORMAL SINUS RHYTHM LEFT AXIS DEVIATION S1-S2-S3 PATTERN, CONSIDER PULMONARY DISEASE, RVH, OR NORMAL VARIANT PULMONARY DISEASE PATTERN MODERATE VOLTAGE CRITERIA FOR LVH, MAY BE NORMAL VARIANT ( R in aVL , Keyes product ) T WAVE ABNORMALITY, CONSIDER LATERAL ISCHEMIA Hyperacute T wave abnormality, consistent with hyperkalemia, ischemia, etc. Likely Hyperkalemia PROLONGED QT ABNORMAL ECG WHEN COMPARED WITH ECG OF 15-MAY-2023 15:06, NO SIGNIFICANT CHANGE WAS FOUND Confirmed by ALBERTINA DONATO MD ([id number]) on 05/16/2023 8:55:37 AM [facility] MUSE 05/16/2023 1:49 AM [facility] OFF[facility] SUPERVISOR 05/16/2023 8:55 AM [facility] OFF[facility] SUPERVISOR Jarrett Brown III, MD ECG ORDERABLES [facility] MUSE * XR CHEST 1VW PORTABLE (05/15/2023 4:42 PM [facility] OFF[facility] SUPERVISOR) Only the most recent of2 resultswithin the time period is included. Anatomical Region Laterality Modality Chest Radiographic Niruka ging 05/15/2023 4:59 PM [facility] OFF[facility] SUPERVISOR Narrative 05/16/2023 11:23 AM [facility] OFF[facility] SUPERVISOR PROCEDURE: ??XR CHEST 1VW PORTABLE, DATE/TIME OF EXAM: ??05/15/2023 4:42 PM, LOCATION ??[facility] INDICATION: N17.9: Acute renal failure, unspecified acute renal failure type ([facility]) ADDITIONAL CLINICAL INFORMATION: Ordering Provider Reason For Exam: ??abnormal labs Comparison: Chest x-ray from 12/14/2022 FINDINGS/IMPRESSION: There is significant right rotation of the patient. There is no focal consolidation, pleural effusion, or pneumothorax. The cardiomediastinal silhouette is normal given technique and degree of rotation. The visible bony thorax is intact. Report dictated by Nick Galdamez MD (residential nurse). James Dugan MD have personally reviewed and interpreted this examination/study. > Interpreting Provider: James Rodriguez MD on 05/16/2023 11:23 AM Procedure Note James Rodriguez MD - 05/16/2023 PROCEDURE: XR CHEST 1VW PORTABLE, DATE/TIME OF EXAM: 05/15/2023 4:42 PM, LOCATION [facility] INDICATION: N17.9: Acute renal failure, unspecified acute renal failure type([facility]) ADDITIONAL CLINICAL INFORMATION: Ordering Provider Reason For Exam: abnormal labs Comparison: Chest x-ray from 12/14/2022 FINDINGS/IMPRESSION: There is significant right rotation of the patient. There is no focal consolidation, pleural effusion, or pneumothorax. The cardiomediastinal silhouette is normal given technique and degree of rotation. The visible bony thorax is intact. Report dictated by Nick Galdamez MD (residential nurse). James Dugan MD have personally reviewed and interpreted this examination/study. > Interpreting Provider: James Rodriguez MD on 05/16/2023 11:23 AM Pedrito Delgado MD DIAGNOSTIC IMAGING ORDERABLES * CT RENAL STONE (05/15/2023 4:21 PM [facility] SUPERVISOR) Anatomical Region Laterality Modality Abdomen Computed Tomogra phy 05/15/2023 4:43 PM [facility] OFF[facility] SUPERVISOR Impressions 05/15/2023 11:32 PM [facility] OFF[facility] SUPERVISOR Impression: 1.No renal, ureteral, or bladder calculi. 2.Moderately distended bladder with a Jason catheter in place. > Dictated by Jam Bryan DO (residential nurse). Evan Dugan MD have personally reviewed and interpreted this examination/study. > Interpreting Provider: Evan Clements MD on 05/15/2023 11:32 PM Narrative 05/15/2023 11:32 PM [facility] SUPERVISOR PROCEDURE: ??CT RENAL STONE, DATE/TIME OF EXAM: ??05/15/2023 4:21 PM, LOCATION [facility] INDICATION: N17.9: Acute renal failure, unspecified acute renal failure type ([facility] ADDITIONAL CLINICAL INFORMATION: Ordering Provider Reason For [...] DATE/TIME OF EXAM: 05/15/2023 4:21 PM, LOCATION [facility] INDICATION: N17.9: Acute renal failure, unspecified acute renal failure type([facility]) ADDITIONAL CLINICAL INFORMATION: Ordering Provider Reason For [...] place. > Dictated by Jam Bryan DO (residential nurse). I, Evan Clements MD have personally reviewed and interpreted this examination/study. > Interpreting Provider: Evan Clements MD on 411:32 PM [address] MD [address] ORDERABLES * PT-INR [facility] (05/15/2023 3:40 PM [facility] OFF[facility] SUPERVISOR) Only the most recent of8 resultswithin the time period is included. PT 12.1 12.1 - 14.8 Seconds 05/15/2023 4:07 PM [facility] OFFICE SUPERVISOR [facility] INR 0.9 See Comment 05/15/2023 4:07 PM [facility] OFFICE SUPERVISOR [facility] Comment:The suggested therap eutic range for standard coumadin (warfarin) therapy is an INR of 2.0-3.0. For high-risk patients (Mechanical Mitral Valve Prosthesis, etc.), the suggested prophylactic therapeutic range is an INR of 2.5-3.5. Blood BLOOD SPECIMEN / Unknown Venipuncture / Unknown 05/15/2023 3:40 PM [facility] OFF[facility] SUPERVISOR 05/15/2023 3:46 PM [facility] OFFICE SUPERVISOR Pedrito Delgado MD LAB - COAGULATION ORDERABLES [facility] [address] [place] [address], [facility] [phone] * B-TYPE NATRIURETIC PEPTIDE (05/15/2023 3:02 PM [facility] OFF[facility] SUPERVISOR) BNP <10 <100 pg/mL 05/15/2023 3:47 PM [facility] OFFICE SUPERVISOR [facility] Comment: A decision threshold of 100 pg/mL [...] Unknown Venipuncture / Unknown 05/15/2023 3:02 PM [facility] OFFICE SUPERVISOR 05/15/2023 3:10 PM [facility] OFF[facility] SUPERVISOR Pedrito Delgado MD LAB - CHEMISTRY OR DERABLES Performing Organization Address [facility] Co de Phone Number [address] [address], [place] [phone] * (ABNORMAL) C-REACTIVE PROTEIN (05/15/2023 10:30 AM [facility] SUPERVISOR) Only the most recent of2 resultswithin the time period is included. C-Reactive Protein 9.1(H) <=0.5 mg/dL 05/15/2023 11:37 AM [facility] OFFICE SUPERVISOR [facility] Blood BLOOD SPECIMEN / Unknown Lab Venipuncture / Unknown 05/15/2023 10:30 AM [facility] OFF[facility] SUPERVISOR 05/15/2023 11:00 AM [facility] OFF[facility] SUPERVISOR Nate Giraldo MD LAB - CHEMISTRY ERIKA CHEN Performing Organization Address [facility] Co de Phone Number [facility] [address] [place] [address], [place] [phone] * TRANSFERRIN (05/15/2023 10:30 AM [facility] SUPERVISOR) Transferrin 230 174 - 382 mg/dL 05/15/2023 11:20 AM [facility] OFFICE SUPERVISOR [facility] Blood BLOOD SPECIMEN / Unknown Lab Venipuncture / Unknown 05/15/2023 10:30 AM [facility] OFF[facility] SUPERVISOR 05/15/2023 10:57 AM [facility] OFFICE SUPERVISOR Lucia Lazo [facility] LAB - CHEMI STRY ORDERABLES [address] [address], [place] [phone] * (ABNORMAL) RETIC COUNT (05/15/2023 10:30 AM [facility] OFF[facility] SUPERVISOR) Reticulocyte Percent 1.48 0.50 - 2.40 % 05/15/2023 11:14 AM [facility] Reticulocyte Absolute 0.0598 0.0200 - 0.1100 x10E6/uL 05/15/2023 11:14 AM [facility] Ret-HE 30.3 29.0 - 37.9 pg 05/15/2023 11:14 AM [facility] Immature Reticulocyte Fraction 16.4(H) 1.8 - 15.2 % 05/15/2023 11:14 AM [facility] Blood BLOOD SPECIMEN / Unknown Lab Venipuncture / Unknown 05/15/2023 10:30 AM [facility] 05/15/2023 11:00 AM [facility] Lucia Lazo [facility] - HEMAT OLOGY ORDERABLES Performing Organization Address City/[facility]/ZIP Co de Phone Number [address] [address], [place] [phone] * (ABNORMAL) IRON BLOOD (05/15/2023 10:30 AM [facility]) Iron 44(L) 50 - 175 ug/dL 05/15/2023 11:20 AM [facility] Blood BLOOD SPECIMEN / Unknown Lab Venipuncture / Unknown 05/15/2023 10:30 AM [facility] 05/15/2023 10:57 AM [facility] Lucia L[facility] CHEMI STRY ORDERABLES [address] [address], [facility] [phone] * FOLATE (05/15/2023 10:30 AM [facility]) Folate 12.4 7.0 - 31.4 ng/mL 05/15/2023 12:05 PM ANIMAL HOSPITAL OFFICE SUPERVISOR [facility] Blood BLOOD SPECIMEN / Unknown Lab Venipuncture / Unknown 05/15/2023 10:30 AM [facility]IMAL HOSPITAL OFFICE SUPERVISOR 05/15/2023 11:00 AM ANIMAL HOSPITAL OFFICE SUPERVISOR Lucia Bruno Clifton [employer] COUNTERPERSON LAB - CHEMI STRY ORDERABLES [address] [address], [facility] [phone] * VITAMIN B12 (05/15/2023 10:30 AM [facility]PITAL OFFICE SUPERVISOR) Vitamin B12 369 213 - 816 pg/mL 05/15/2023 12:05 PM ANIMAL HOSPITAL OFFICE SUPERVISOR [facility] Blood BLOOD SPECIMEN / Unknown Lab Venipuncture / Unknown 05/15/2023 10:30 AM [facility]IM[facility] HOSPITAL OFFICE SUPERVISOR 05/15/2023 11:00 AM ANIMAL HOSPITAL OFFICE SUPERVISOR Lucia Bruno Clifton [employer] LAB - CHEMI STRY ORDERABLES [address] [address], [facility] [phone] * (ABNORMAL) TSH (05/15/2023 10:30 AM [facility]PITAL OFFICE SUPERVISOR) Only the most recent of2 resultswithin the time period is included. TSH 0.089(L) 0.350 - 4.940 uIU/mL 05/15/2023 12:05 PM [facility] HOSPITAL OFFICE SUPERVISOR [facility] Blood BLOOD SPECIMEN / Unknown Lab Venipuncture / Unknown 05/15/2023 10:30 AM [facility] HOSPITAL OFFICE SUPERVISOR 05/15/2023 11:00 AM [facility]IM[facility] HOSPITAL OFFICE SUPERVISOR Lucia Damion Clifton [employer] FABRICATORPARTS COUNTERPERSON LAB - CHEMI STRY ORDERABLES [facility] [address] [place] [address], [facility] [phone] * T4 FREE (05/15/2023 10:30 AM ANIMAL HOSPITAL OFFICE SUPERVISOR) [facility] T4 Free 1.3 0.7 - 1.5 ng/dL 05/15/2023 12:05 PM ANIMAL HOSPITAL OFFICE SUPERVISOR [facility] Blood BLOOD SPECIMEN / Unknown Lab Venipuncture / Unknown 05/15/2023 10:30 AM [facility]OSPITAL OFFICE SUPERVISOR 05/15/2023 11:00 AM [facility]IM[facility] HOSPITAL OFFICE SUPERVISOR Lucia Lazo [employer] FABRICATOR-PARTS COUNTERPERSON LAB - CHEMI STRY ORDERABLES Performing Organization Address [facility]/ZIP Co de Phone Number [facility] [address] [place] [address], [facility] [phone] * URINALYSIS - POINT OF CARE (AMB) [facility] (05/15/2023 9:21 AM ANIMAL HOSPITAL OFFICE SUPERVISOR) [facility] Specific [place] UA 1.[address] [facility] [address] pH [...] URINE / Unknown 05/15/2023 9 :21 AM [facility] HOSPITAL OFFICE SUPERVISOR Lucia Lazo [employer] FABRICATOR-PARTS COUNTERPERSON LAB - POINT OF CARE ORDERABLES Performing Organization Address City/[facility]/ZIP Co de Phone Number [facility] [address] [facility] [place] [address], [facility] [phone] * (ABNORMAL) GLUCOSE - POINT OF CARE (AMB) [facility] (05/15/2023 9:20 AM [facility] OFFICE SUPERVISOR) Pathologist [facility] [place] Glucose WB/POC 146(A) 70 - 115 mg/dL [facility] Blood BLOOD SPECIMEN / Unknown 05/15/2023 9:20 AM [facility] HOSPITAL OFFICE SUPERVISOR Lucia Lazo P[employer] FABRICATOR-PARTS COUNTERPERSON LAB - POINT OF CARE ORDERABLES [facility] [address] [facility] [place] [address] [phone] * (ABNORMAL) CBC W/O DIFFERENTIAL (05/07/2023 4:34 AM [facility]PITAL OFFICE SUPERVISOR) Only the most recent of16 resultswithin the time period is included. [facility] WBC 11.4(H) 4.0 - 10.7 x10E9/L 05/07/2023 4:58 AM [facility] RBC Count 3.32(L) 4.30 - 5.80 x10E12/L 05/07/2023 4:58 AM [facility] Hemoglobin 9.3(L) 13.3 - 17.5 g/dL 05/07/2023 4:58 AM [facility] Hematocrit 29.7(L) 38.7 - 51.1 % 05/07/2023 4:58 AM [facility] MCV 89.5 80.0 - 98.0 fL 05/07/2023 4:58 AM [facility] MCH 28.0 26.7 - 33.6 pg 05/07/2023 4:58 AM [facility] MCHC 31.3(L) 31.7 - 36.3 g/dL 05/07/2023 4:58 AM [facility] RDW-CV 13.3 11.3 - 14.8 % 05/07/2023 4:58 AM [facility] Platelet Count 316 150 - 420 x10E9/L 05/07/2023 4:58 AM [facility] MPV 8.7 7.8 - 11.4 fL 05/07/2023 4:58 AM [facility] Blood BLOOD SPECIMEN / Unknown Lab Venipuncture / Unknown 05/07/2023 4:34 AM [facility]PITAL OFFICE SUPERVISOR 05/07/2023 4:54 AM ANIMAL HOSPITAL OFFICE SUPERVISOR Blane Stinson MD LAB - HEMATOLOGY ORD ERABLES [facility] [address] [address] * LIPID PROFILE (04/30/2023 2:52 PM ANIMAL HOSPITAL OFFICE SUPERVISOR) Cholesterol Total 156 <200 mg/dL 04/30/2023 3:31 PM [facility] HDL 50 >40 mg/dL 04/30/2023 3:31 PM [facility] Comment: ATP III Classification of HDL Cholesterol: ? <40 mg/dL: ??Considered a major risk factor. ? >60 mg/dL: ??Considered a negative risk factor. ? LDL Calculated 78 <100 mg/dL 04/30/2023 3:31 PM [facility] Comment: ATP III Classification of LDL Cholesterol: ?<100 mg/dL: ??Optimal ? 100 - 129 mg/dL: ??Near Optimal/Above Optimal ? 130 - 159 mg/dL: ??Borderline High ? 160 - 189 mg/dL: ??High ?>190 mg/dL: ??Very High ? Triglycerides 140 <150 mg/dL 04/30/2023 3:31 PM [facility] Comment: ATP III Classification of Triglycerides: ?<150 mg/dL: ??Normal ? 150 - 199 mg/dL: ??Borderline High ? 200 - 400 mg/dL: ??High ?>500 mg/dL: ??Very High Blood BLOOD SPECIMEN / Unknown Lab Venipuncture / Unknown 04/30/2023 2:52 PM [facility]PITAL OFFICE SUPERVISOR 04/30/2023 3:00 PM ANIMAL HOSPITAL OFFICE SUPERVISOR Violet Younger PLAST[employer]S FABRICATOR-PARTS COUNTERPERSON LAB - CHEMISTRY ORDERABLES [facility] [address] [place] [address], [facility] [phone] * HEMOGLOBIN A1C - POINT OF CARE (AMB) U (04/30/2023 1:31 PM [facility] HOSPITAL OFFICE SUPERVISOR) Hemoglobin A1c POCT 6.1 % [address] Blood BLOOD SPECIMEN / Unknown 04/30/2023 1:31 PM ANIMAL HOSPITAL OFFICE SUPERVISOR Violet Younger P[employer]S FABRICATOR-PARTS COUNTERPERSON LAB - POINT OF CARE ORDERABLES Performing Organization Address [facility] Co de Phone Number [address] [facility] [place] [address], [place] [phone] * XR PELVIS W RIGHT HIP 2VW (03/13/2023 9:37 AM [facility]IMAL HOSPITAL OFFICE SUPERVISOR) Only the most recent of2 resultswithin the time period is included. Anatomical Region Laterality Modality Pelvis Radiographic Niurka ging 03/13/2023 9:27 AM ANIMAL HOSPITAL OFFICE SUPERVISOR Impressions 03/13/2023 9:43 AM ANIMAL HOSPITAL OFFICE SUPERVISOR IMPRESSION: Unchanged osseous alignment. Report dictated by Brit Harrington MD (residential nurse). I, Naseem Montilla MD have personally reviewed and interpreted this examination/study. > Interpreting Provider: Naseem Montilla MD on 03/13/2023 9:43 AM Narrative 03/13/2023 9:43 AM ANIMAL HOSPITAL OFFICE SUPERVISOR PROCEDURE: ??XR PELVIS W RIGHT HIP 2VW, DATE/TIME OF EXAM: ??03/13/2023 9:14 AM, LOCATION ??[facility] INDICATION: S72.141D: Closed intertrochanteric fracture of [...] DATE/TIME OF EXAM: 03/13/2023 9:14 AM, LOCATION [facility] INDICATION: S72.141D: Closed intertrochanteric fracture of [...] alignment. Report dictated by Brit Harrington MD (residential nurse). I, Naseem Montilla MD have personally reviewed and interpreted this examination/study. > Interpreting Provider: Naseem Montilla MD on 03/13/2023 9:43 AM Daryl Diop MD DIAGNOSTIC IMAGING O RDERABLES * XR HIP RIGHT 2VW OR MORE (01/28/2023 11:30 AM [facility] HOSPITAL OFFICE SUPERVISOR) Only the most recent of2 resultswithin the time period is included. Anatomical Region Laterality Modality Pelvis, Lower Extremity [facility] 01/28/2023 11:3 6 AM ANIMAL HOSPITAL OFFICE SUPERVISOR Impressions 01/28/2023 11:37 AM ANIMAL HOSPITAL OFFICE SUPERVISOR IMPRESSION: Unchanged alignment. > Interpreting Provider: Naseem Montilla MD on 01/28/2023 11:37 AM Narrative 01/28/2023 11:37 AM ANIMAL HOSPITAL OFFICE SUPERVISOR PROCEDURE: ??XR HIP RIGHT 2VW OR MORE [...] is included. Unit Description N/A [facility] Blood Bank BLOOD SPECIMEN / Unknown 12/14/2022 3:23 PM CDT Daryl Diop MD LAB - BLOOD BANK ORD ERABLES [facility] [address] [place] [address], [facility] [phone] * XR FEMUR RIGHT 2VW (12/15/2022 10:16 AM CDT) Only the most recent of2 resultswithin the time period is included. Anatomical Region Laterality Modality Lower Extremity Radiographic Niurka ging 12/15/2022 12:5 0 PM CDT Narrative 12/15/2022 1:38 PM CDT PROCEDURE: ??XR FEMUR RIGHT 2VW, DATE/TIME OF EXAM: ??12/15/2022 10:17 AM, LOCATION ??[facility] INDICATION: S72.001A: Closed fracture of right hip, initial encounter ([facility]) COMPARISON: Right femur radiographs dated 12/14/2022. FINDINGS/IMPRESSION: There has been interval open reduction and internal fixation of the right intertrochanteric femur fracture with a cephalomedullary nail and intertrochanteric screws. Hardware is intact and fracture alignment is improved. There is surrounding postoperative soft tissue swelling and gas. Skin paco overlie the right hip. Report dictated by Alison Mueller DO (residential nurse). RONALD Dugan MD have personally reviewed and interpreted this examination/study. > Interpreting Provider: RONALD BOYCE MD on 12/15/2022 1:38 PM Procedure Note Ronald Boyce MD - 12/15/2022 PROCEDURE: XR FEMUR RIGHT 2VW, DATE/TIME OF EXAM: 12/15/2022 10:17 AM, LOCATION [facility] INDICATION: S72.001A: Closed fracture of right hip, initial encounter ([facility]) COMPARISON: Right femur radiographs dated 12/14/2022. FINDINGS/IMPRESSION: There has been interval open reduction and internal fixation of the right intertrochanteric femur fracture with a cephalomedullary nail and intertrochanteric screws. Hardware is intactand fracture alignment is improved. There is surrounding postoperative soft tissue swelling and gas. Skin paco overlie the right hip. Report dictated by Alison Mueller DO (residential nurse). RONALD Dugan MD have personally reviewed and [...] Event Date/Time: ??12/15/2022 8:12 AM Procedure: intubation (88759). Procedure Section: ?? Sedation: under general anesthesia. [...] DATE/TIME OF EXAM: ??12/14/2022 4:49 PM, LOCATION ??[facility] INDICATION: W19.XXXA: Fall, initial encounter ADDITIONAL [...] CONT, DATE/TIME OF EXAM:12/14/2022 4:49 PM, LOCATION [facility] INDICATION: W19.XXXA: Fall, initial encounter ADDITIONAL [...] spine. > Dictated by Jim Simon MD (vice president education) I, Madhu Ardon MD have personally reviewed and interpreted this examination/study. > Interpreting Provider: Madhu Ardon MD on 12/14/2022 6:46 PM Narrative 12/14/2022 6:46 PM CDT PROCEDURE: ??CT HEAD WO CONTRAST, CT LUMBAR SPINE WO CONTRAST, CT THORACIC SPINE WO CONTRAST, CT CERVICAL SPINE WO CONTRAST, DATE/TIME OF EXAM: 12/14/2022 4:49 PM, LOCATION ??[facility] INDICATION: W19.XXXA: Fall, initial encounter ADDITIONAL CLINICAL INFORMATION: Ordering Provider Reason For Exam: ??fall on AC (accession [id number]), fall (accession [id number]), fall (accession [id number]), fall (accession [id number]) COMPARISON: None. TECHNIQUE: CT of the head [...] DATE/TIME OF EXAM: 12/14/2022 4:49 PM, LOCATION [facility] INDICATION: W19.XXXA: Fall, initial encounter ADDITIONAL CLINICAL INFORMATION: Ordering Provider Reason For Exam: fall on AC (accession [id number]),fall (accession [id number]), fall (accession [id number]), fall (accession [id number]) COMPARISON: None. TECHNIQUE: CT of the head [...] lumbarspine. > Dictated by Jim Simon MD (vice president education) Madhu Dugan MD have personally reviewed and [...] spine. > Dictated by Jim Simon MD (vice president education) Madhu Dugan MD have personally reviewed and interpreted this examination/study. > Interpreting Provider: Madhu Ardon MD on 12/14/2022 6:46 PM Narrative 12/14/2022 6:46 PM CDT PROCEDURE: ??CT HEAD WO CONTRAST, CT LUMBAR SPINE WO CONTRAST, CT THORACIC SPINE WO CONTRAST, CT CERVICAL SPINE WO CONTRAST, DATE/TIME OF EXAM: 12/14/2022 4:49 PM, LOCATION ??[facility] INDICATION: W19.XXXA: Fall, initial encounter ADDITIONAL CLINICAL INFORMATION: Ordering Provider Reason For Exam: ??fall on AC (accession [id number]), fall (accession [id number]), fall (accession [id number]), fall (accession [id number]) COMPARISON: None. TECHNIQUE: CT of the head [...] DATE/TIME OF EXAM: 12/14/2022 4:49 PM, LOCATION [facility] INDICATION: W19.XXXA: Fall, initial encounter ADDITIONAL CLINICAL INFORMATION: Ordering Provider Reason For Exam: fall on AC (accession [id number]),fall (accession [id number]), fall (accession [id number]), fall (accession [id number]) COMPARISON: None. TECHNIQUE: CT of the head [...] lumbarspine. > Dictated by Jim Simon MD (vice president education) IMadhu MD have personally reviewed and interpreted [...] spine. > Dictated by Jim Simon MD (vice president education) I, Madhu Ardon MD have personally reviewed and interpreted this examination/study. > Interpreting Provider: Madhu Ardon MD on 12/14/2022 6:46 PM Narrative 12/14/2022 6:46 PM CDT PROCEDURE: ??CT HEAD WO CONTRAST, CT LUMBAR SPINE WO CONTRAST, CT THORACIC SPINE WO CONTRAST, CT CERVICAL SPINE WO CONTRAST, DATE/TIME OF EXAM: 12/14/2022 4:49 PM, LOCATION ??[facility] INDICATION: W19.XXXA: Fall, initial encounter ADDITIONAL CLINICAL INFORMATION: Ordering Provider Reason For Exam: ??fall on AC (accession [id number]), fall (accession [id number]), fall (accession [id number]), fall (accession [id number]) COMPARISON: None. TECHNIQUE: CT of the head [...] DATE/TIME OF EXAM: 12/14/2022 4:49 PM, LOCATION [facility] INDICATION: W19.XXXA: Fall, initial encounter ADDITIONAL CLINICAL INFORMATION: Ordering Provider Reason For Exam: fall on AC (accession [id number]),fall (accession [id number]), fall (accession [id number]), fall (accession [id number]) COMPARISON: None. TECHNIQUE: CT of the head [...] lumbarspine. > Dictated by Jim Simon MD (vice president education) Madhu Dugan MD have personally reviewed and [...] spine. > Dictated by Jim Simon MD (vice president education) Madhu Dugan MD have personally reviewed and interpreted this examination/study. > Interpreting Provider: Madhu Ardon MD on 12/14/2022 6:46 PM Narrative 12/14/2022 6:46 PM CDT PROCEDURE: ??CT HEAD WO CONTRAST, CT LUMBAR SPINE WO CONTRAST, CT THORACIC SPINE WO CONTRAST, CT CERVICAL SPINE WO CONTRAST, DATE/TIME OF EXAM: 12/14/2022 4:49 PM, LOCATION ??[facility] INDICATION: W19.XXXA: Fall, initial encounter ADDITIONAL CLINICAL INFORMATION: Ordering Provider Reason For Exam: ??fall on AC (accession [id number]), fall (accession [id number]), fall (accession [id number]), fall (accession [id number]) COMPARISON: None. TECHNIQUE: CT of the head [...] DATE/TIME OF EXAM: 12/14/2022 4:49 PM, LOCATION [facility] INDICATION: W19.XXXA: Fall, initial encounter ADDITIONAL CLINICAL INFORMATION: Ordering Provider Reason For Exam: fall on AC (accession [id number]),fall (accession [id number]), fall (accession [id number]), fall (accession [id number]) COMPARISON: None. TECHNIQUE: CT of the head [...] lumbarspine. > Dictated by Jim Simon MD (vice president education) I, Madhu Ardon MD have personally reviewed and interpreted this examination/study. > Interpreting Provider: Madhu Ardon MD on 12/14/2022 6:46 PM Jose Juan Mancia MD CT ORDERABLES * TYPE + SCREEN PANEL (12/14/2022 3:17 PM CDT) Only the most recent of2 resultswithin the time period is included. Antibody Screen NEG 4:21 PM CDT [facility] ABO Rh B POS 12/14/2022 4:21 PM CDT [facility] Blood Bank BLOOD SPECIMEN / Unknown Venipuncture / Unknown 12/14/2022 3:17 PM CDT 12/14/2022 3:23 PM CDT Jose Juan Mancia MD LAB - BLOOD BANK ORD ERABLES Performing Organization Address City/[facility] Co de Phone Number [facility] [address] [place] [address], [facility] [phone] * CARDIAC EKG ORDER (12/10/2022 2:15 PM CDT) Narrative 12/10/2022 2:15 PM CDT Ordered by an unspecified provider. Scanned Document CARDIAC SERVICES ORD ERABLES * HELICOBACTER PYLORI ANTIGEN FECES (12/02/2022 11:26 AM CDT) Helicobacter pylori Antigen Stool Negative Negative 12/05/2022 3:36 PM CDT [employer] ([facility]) Comment: Performed By: [facility] [address] [place] [address] Buckle Inspector: Diego Pratt MD, PhD CLIA Number: [id number] Stool STOOL SPECIMEN / Unknown Collection / Unknown 12/02/2022 11:26 AM CDT 12/02/2022 11:29 AM CDT Emiliano Duong MD LAB - MICROBIOLOG Y ORDERABLES Performing Organization Address City/[facility]/ZIP Co de Phone Number [employer] ([facility]) [address] [place] [address], [facility] * (ABNORMAL) PTT [facility] (12/01/2022 4:04 AM CDT) Only the most recent of8 resultswithin the time period is included. APTT 45.3(H) 23.0 - 38.4 Seconds 12/01/2022 5:51 AM CDT [facility] Comment:Suggested therapeuti c range for full dose I.V. unfractionated heparin therapy for venous thromboembolism is 71 to 109 seconds. Blood BLOOD SPECIMEN / Unknown Lab Venipuncture / Unknown 12/01/2022 4:04 AM CDT 12/01/2022 5:08 AM CDT Fermin Chang MD LAB - COAGULATION OR DERABLES [facility] [address] [place] [address], [facility] [phone] * ECHO COMPLETE W CONTRAST (2022 12:48 PM CDT) BSA [id number] m2 [facility]SM CV FUJI PACS LV biplane [...] CV FUJ I PACS LV mass 2D 149.30567 [id number] 96 - 200 g [facility]SM CV FUJI [...] Index 30 ml/m2 [facility] CV FUJI PACS [id number] 7.395 cm SSM CV FUJ I PACS [id number] 7.855 cm SSM CV FUJ I PACS [...] Duong MD LAB - CHEMISTRY O RDERABLES [facility] [address] [place] [address], [facility] [phone] * HIV-1 HIV-2 ANTIBODY + HIV P24 AG PANEL (2022 8:30 AM CDT) HIV Antigen/Antibod y 1 & 2 Non-reacti ve Non-react sherin 2022 9:40 AM CDT [facility] Comment:No Laboratory eviden ce of HIV infection. Blood BLOOD SPECIMEN / Unknown Lab Venipuncture / Unknown 2022 8:30 AM CDT 2022 8:33 AM CDT Emiliano Duong MD LAB - CHEMISTRY O JJ Performing Organization Address [facility]/ZIP Co de Phone Number [address] [address], [facility] [phone] * VANCOMYCIN LEVEL TROUGH (2022 3:45 AM CDT) Only the most recent of2 resultswithin the time period is included. Vancomycin Trough 15.3 10.0 - 20.0 ug/mL 2022 4:48 AM CDT [facility] Blood BLOOD SPECIMEN / Unknown Lab Venipuncture / Unknown 2022 3:45 AM CDT 2022 4:29 AM CDT Narrative [facility] - 2022 4:48 AM CDT See institution protocol. Fermin Chang MD LAB - CHEMISTRY ERIKA CHEN Performing Organization Address [facility] de Phone Number [address] [address], [facility] [phone] * (ABNORMAL) VANCOMYCIN LEVEL PEAK (11/29/2022 11:55 PM CDT) Only the most recent of2 resultswithin the time period is included. Vancomycin Peak 17.4(L) 25.0 - 40.0 ug/mL 2022 12:44 AM CDT [facility] Blood BLOOD SPECIMEN / Unknown Lab Venipuncture / Unknown 11/29/2022 11:55 PM CDT 2022 12:17 AM CDT [facility] - 2022 12:44 AM CDT See institution protocol. Data does not support the use of vancomycin peak concentration for efficacy. Emiliano Duong MD LAB - CHEMISTRY O RDERABLES [facility] [address] [place] [address], [facility] [phone] * (ABNORMAL) VITAMIN D 1,25 DIHYDROXY (11/29/2022 11:08 AM CDT) Vitamin D, 1,25 Dihydroxy 12.2(L) 19.9 - 79.3 pg/mL 12/01/2022 10:04 PM CDT [employer] ([facility]) Comment: INTERPRETIVE INFORMATION: Vitamin D, 1,25-Dihydroxy This test is primarily indicated during patient evaluation for hypercalcemia and renal failure. A normal result does not rule out Vitamin D deficiency. The recommended test for diagnosing Vitamin D deficiency is Vitamin D 25-hydroxy. Performed By: [facility] [address] [place] [address] Buckle Inspector: Diego Pratt MD, PhD CLIA Number: [id number] Blood BLOOD SPECIMEN / Unknown Lab Venipuncture / Unknown 11/29/2022 11:08 AM CDT 11/29/2022 11:59 AM CDT Emiliano Duong MD LAB - CHEMISTRY O RDCARL Performing Organization Address [facility]/ZIP Co de Phone Number [employer] [facility]) [address] [place] [address] * MRI ANKLE LEFT WWO CONTRAST (11/28/2022 [...] Report dictated by Nate Dorsey MD, PhD (residential nurse). I, Evan Clements MD have personally reviewed and interpreted this examination/study. > Interpreting Provider: Evan Clements MD on 11/29/2022 8:20 PM Narrative 11/29/2022 8:20 PM CDT PROCEDURE: ??MRI ANKLE LEFT WWO CONTRAST, DATE/TIME OF EXAM: ??11/28/2022 6:02 PM, LOCATION ??[facility] INDICATION: L97.329: Non-healing ulcer of left ankle, unspecified ulcer stage ([facility]) ADDITIONAL CLINICAL INFORMATION: Ordering Provider Reason For [...] CONTRAST, DATE/TIME OF EXAM: 36:02 PM, LOCATION [facility] INDICATION: L97.329: Non-healing ulcer of left ankle, unspecified ulcer stage([facility]) ADDITIONAL CLINICAL INFORMATION: Ordering Provider Reason For [...] Report dictated by Nate Dorsey MD, PhD (residential nurse). I, Evan Clements MD have personally reviewed and interpreted this examination/study. > Interpreting Provider: Evan Clements MD on 38:20 PM Fermin Chang MD MR ORDERABLES * CULTURE TISSUE+GRAM STAIN (11/27/2022 11:51 AM CDT) Culture No growth ROB 2022 4:50 PM CDT [facility] Gram Stain Light Polymorphonuclear cells 2022 4:50 PM CDT [facility] Gram Stain Heavy Red blood cells 2022 4:50 PM CDT [facility] Gram Stain No organisms seen 023 4:50 PM CDT [facility] Microbiology TISSUE SPECIMEN / Unknown Collection / Unknown 11/27/2022 11:51 AM CDT 11/27/2022 2:30 PM CDT Daryl Diop MD LAB - MICROBIOLOGY O RDERABLES [facility] [address] [place] [address], [facility] [phone] * CULTURE ANAEROBE (11/27/2022 11:51 AM CDT) Only the most recent of3 resultswithin the time period is included. Culture No anaerobic organisms isolated ROB 12/03/2022 12:06 PM CDT [facility] Microbiology SPECIMEN FROM WOUND / Unknown Collection / Unknown 11/27/2022 11:51 AM CDT 11/27/2022 11:56 AM CDT Daryl Diop MD LAB - MICROBIOLOGY O JJ Performing Organization Address [facility] Co de Phone Number [facility] [address] [place] [address], [facility] [phone] * CULTURE WOUND+GRAM STAIN (11/27/2022 11:50 AM CDT) Culture No growth ROB 2022 4:09 PM CDT [facility] Gram Stain Heavy Red blood cells 2022 4:09 PM CDT [facility] Gram Stain Moderate Polymorphonuclear cells 2022 4:09 PM CDT [facility] Gram Stain Rare Gram-positive cocci 2022 4:09 PM CDT [facility] Microbiology SPECIMEN FROM WOUND / Unknown Collection / Unknown 11/27/2022 11:50 AM CDT 11/27/2022 11:56 AM CDT Narrative [facility] - 2022 4:09 PM CDT Organisms seen on initial Gram stain may be anaerobic or not viable for aerobic growth. Daryl Diop MD LAB - MICROBIOLOGY O JJ Performing Organization Address City/[facility] Co de Phone Number [facility] [address] [place] [address], [facility] [phone] * IV PLACEMENT PERFORMABLE (11/27/2022 11:16 AM CDT) Narrative Sriniavs Roach Anes Asst - 11/27/2022 11:16 AM CDT Srinivas Roach Anes Asst ? 11/27/2022 11:17 AM Peripheral IV Line Placement: Patient Location: ??OR Procedure: IV start ([id number]). Procedure Section: ?? Skin Prep: alcohol. Orientation: [...] Event Date/Time: ??11/27/2022 10:54 AM Procedure: intubation ([id number]). Procedure Section: ?? Sedation: under general anesthesia. [...] 11/27/2022 8:3 8 AM CDT [facility] Blood Bank BLOOD SPECIMEN / Unknown Lab Venipuncture / Unknown 11/27/2022 7:25 AM CDT 11/27/2022 7:38 AM CDT Sumaya Kelley MD LAB - BLOOD BANK ORD ERABLES Performing Organization Address City/[facility]/ZIP Co de Phone Number [facility] [address] [place] [address], [place] [phone] * CULTURE BLOOD (11/27/2022 4:26 AM CDT) Only the most recent of2 resultswithin the time period is included. Pathologist [facility] [place] Culture No growth day 5 ROB 12/02/2022 8:30 AM CDT [facility] Blood PERIPHERAL BLOOD / Unknown Lab Venipuncture / Unknown 11/27/2022 4:26 AM CDT 11/27/2022 4:33 AM CDT Fermin Chang MD LAB - MICROBIOLOGY O RDERABLES Performing Organization Address City/[facility]/ZIP Co de Phone Number [facility] [address] [place] [address], [facility] [phone] * CRYSTAL INDENTIFICATION SYNOVIAL FLUID (11/27/2022 2:27 AM CDT) Crystal Exam Fluid No crystals seen. To be reviewed by pathologist. 11/27/2022 5:05 AM CDT [facility] Fluid SYNOVIAL FLUID / Unknown Collection / Unknown 11/27/2022 2:27 AM CDT 11/27/2022 2:32 AM CDT Fermin Chang MD LAB - BODY FLUID ORD ERABLES Performing Organization Address City/[facility]/ZIP Co de Phone Number [facility] [address] [place] [address], [place] [phone] * PATHOLOGY SMEAR BODY FLUID (11/27/2022 2:27 AM CDT) Pathology Diff Review DIFFERENTIAL REVIEW - CONFIRMED DIFFERENTIAL REVIEW - CONFIRMED 11/27/2022 11:40 AM CDT [facility] Fluid SYNOVIAL FLUID / Unknown Collection / Unknown 11/27/2022 2:27 AM CDT 11/27/2022 2:32 AM CDT Narrative [facility] - 11/27/2022 11:40 AM CDT Final diagnosis: [...] Chang MD LAB - PATHOLOGY/CYTO LOGY ORDERABLES [facility] [address] [place] [id number], [facility] [phone] * DIFFERENTIAL MANUAL FLUID (11/27/2022 2:27 AM CDT) Band Relative % Fluid 6 % 11/27/2022 5:29 AM T [facility] Segs % Fluid 78 % 11/27/2022 5:29 AM CDT [facility] Lymphocytes % Fluid 1 % 11/27/2022 5:29 AM T [facility] Monocytes % Fluid 4 % 023 5:29 AM T [facility] Metamyelocytes % Fluid 8 % 11/27/2022 5:29 AM T [facility] Myelocytes % Fluid 3 % 11/27/2022 5:29 AM [facility] Reflex Status Channel Installer Review to follow. 11/27/2022 5:29 AM T [facility] Fluid SYNOVIAL FLUID / Unknown Collection / Unknown 11/27/2022 2:27 AM CDT 11/27/2022 2:32 AM CDT Narrative [facility] - 11/27/2022 5:29 AM CDT Bacteria present notified Apple Damon RN. Pending pathologist review. Fermin Chang MD LAB - BODY FLUID ORD ERABLES Performing Organization Address [facility]/ZIP Co de Phone Number [address] [address], [facility] [phone] * (ABNORMAL) CELL COUNT W DIFF W CRYSTALS SYNOVIAL (11/27/2022 2:27 AM CDT) Color Fluid Other(A) Colorles s, Straw 11/27/2022 3:54 AM CDT [facility] Comment:Light brown Clarity Fluid Turbid(A) Clear 11/27/2022 3:54 AM CDT [facility] Volume Fluid 3.0 mL 11/27/2022 3:54 AM CDT [facility] Viscosity Normal 11/27/2022 3:54 AM CDT [facility] WBC Fluid 380,040(H) 0 - 200 x10e6/L 11/27/2022 3:54 AM CDT [facility] RBC Fluid 170,000(H) 0 x10e6/L 11/27/2022 3:54 AM T [facility] Crystal Exam Fluid Crystal examination to follow. 11/27/2022 3:54 AM T [facility] Differential Manual Differential to follow. 11/27/2022 3:54 AM T [facility] Fluid SYNOVIAL FLUID / Unknown Collection / Unknown 11/27/2022 2:27 AM CDT 11/27/2022 2:32 AM CDT Narrative [facility] - 11/27/2022 3:54 AM CDT No reference ranges established for body fluid cell counts. The reference ranges provided are derived from published literature. The test results must be integrated into the clinical context for interpretation. Fermin Chang MD LAB - BODY FLUID ORD ERABLES Performing Organization Address [facility]/ZIP Co de Phone Number [address] [address], [facility] [phone] * CULTURE FUNGUS OTHER+FUNGUS SMEAR (11/27/2022 2:25 AM CDT) Culture No fungus isolated ROB 12/24/2022 8:02 AM CDT [facility] Fungus Stain No yeast or hyphae seen 12/24/2022 8:02 AM CDT [facility] Microbiology SYNOVIAL FLUID / Unknown Collection / Unknown 11/27/2022 2:25 AM CDT 11/27/2022 2:32 AM CDT Fermin Chang MD LAB - MICROBIOLOGY O JJ Performing Organization Address City/[facility]/ZIP Co de Phone Number [facility] [address] [place] [address], [facility] [phone] * (ABNORMAL) CULTURE FLUID+GRAM STAIN (11/27/2022 2:25 AM CDT) Pathologist [facility] [place] Culture No growth ROB 12/01/2022 11:31 AM CDT [facility] Gram Stain Moderate Gram-positive cocci(AA) 12/01/2022 11:31 AM CDT [facility] Gram Stain Heavy Polymorphonuclear cells(AA) 12/01/2022 11:31 AM CDT [facility] Fluid SYNOVIAL FLUID / Unknown Collection / Unknown 11/27/2022 2:25 AM CDT 11/27/2022 3:49 AM CDT Fermin Chang MD LAB - MICROBIOLOGY O JJ [facility] [address] [place] [address], [facility] [phone] * (ABNORMAL) HEMOGLOBIN A1C (11/26/2022 10:30 PM CDT) Hemoglobin A1c 7.4(H) <=5.6 % 11/27/2022 10:45 AM CDT [facility] Estimated Average Glucose 166 mg/dL 11/27/2022 10:45 AM CDT [facility] Comment: HbA1c Interpretation: Normal : < 5.7% Pre-diabetes: 5.7-6.4% Diabetes: Equal to or greater than 6.5% Test results diagnostic of diabetes should be repeated for confirmation. Treatment target values recommended by ADA and other clinical organizations should be used to evaluate metabolic control in patients. Reference: [place] [employer], Standards of Care in Diabetes [...] - CHEMISTRY ERIKA CHEN Performing Organization Address City/[facility]/ZIP Co de Phone Number [address] [address], [facility] [phone] * (ABNORMAL) ERYTHROCYTE SEDIMENTATION RATE (11/26/2022 10:29 PM CDT) Erythrocyte Sedimentation Rate Westergren 94(H) 0 - 20 MM/HR 11/26/2022 11:15 PM CDT [facility] Blood BLOOD SPECIMEN / Unknown Lab Venipuncture / Unknown 11/26/2022 10:29 PM CDT 11/26/2022 10:43 PM CDT Fermin Chang MD LAB - HEMATOLOGY ORD CARL [address] [address], [place] [phone] * SKIN TEST PPD - POINT OF CARE (05/09/2017 3:20 PM [facility] OFFICE SUPERVISOR) PPD ppd given on 05/07/17 @ 9:25am, ppd read on 05/09/17 @ 3:16pm. Other MISCELLANEOUS SAMPLE S / Unknown 05/09/2017 3:20 PM [facility] OFFICE SUPERVISOR Justice Hugo APRN-PARTS COUNTERPERSON LAB - POINT OF CA RE ORDERABLES * (ABNORMAL) URINALYSIS AUTO - POINT OF CARE (AMB) STL (05/07/2017 9:34 AM [facility] OFFICE SUPERVISOR) Clarity UA POCT clear Color UA POCT yellow Leukocyte UA negative Negative Nitrite UA POCT negative Negative Urobilinogen UA 0.2 0.1 - 1.0 Protein UA POCT 15+ Negative pH UA 6.0 5.0 - 8.0 pH units Blood UA negative Negtive Specific [place] UA POCT 1.010 1.002 - 1.030 Ketone UA negative Negative Bilirubin UA POCT negative Negative Glucose UA 2000++++ Negative Expiration Date 04/10/2018 Lot # [id number] QC Verified Yes Yes Urine URINE / Unknown 05/07/2017 9 :34 AM [facility] OFFICE SUPERVISOR Justice Hugo APRN-PARTS COUNTERPERSON LAB - POINT OF CA RE ORDERABLES Care Teams Software Support Analyst Relationship Specialty Start Date End Date Violet Younger APRN-PARTS COUNTERPERSON [address] OF [facility] [place] [address] PCP - General Nurse Practitioner Family 04/30/23
== END 2024-04-09 03:37 | disposition home or self-care (01) ==
PROVIDERS: Emergency Provider Student in an Organized Health Care Education/Training Program; PCP Family Medicine Adolescent Medicine
DX: S89.92XA Unspecified injury of left lower leg, initial encounter (principal); S59.902A Unspecified injury of left elbow, initial encounter; S13.4XXA Sprain of ligaments of cervical spine, initial encounter; I10 Essential (primary) hypertension; I89.0 Lymphedema, not elsewhere classified; I87.9 Disorder of vein, unspecified; E78.5 Hyperlipidemia, unspecified; E11.9 Type 2 diabetes mellitus without complications; G47.33 Obstructive sleep apnea (adult) (pediatric); K21.9 Gastro-esophageal reflux disease without esophagitis; M10.9 Gout, unspecified; Z87.891 Personal history of nicotine dependence; Z79.84 Long term (current) use of oral hypoglycemic drugs; Z79.85 Long-term (current) use of injectable non-insulin antidiabetic drugs; Z79.01 Long term (current) use of anticoagulants; Z79.899 Other long term (current) drug therapy; V43.52XA Car driver injured in collision with other type car in traffic accident, initial encounter
CPT/HCPCS: 70450; 71045; 72125; 72170; 73030; 73080; 73562; 96372; 99284; A9270; J1885

== ENCOUNTER 2024-07-02 11:36 | Emergency (ER) | payer OTHER, SELFPAY ==
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
[2024-07-02 11:40] VITALS: BP 123/74; PULSE 100; RESP 18; TEMP 36.2; O2SAT 98
--- OUTSIDE RECORDS SUMMARY | 2024-07-02 13:05 | XMS_ITS | Clinical Summary ---
Author Organization [facility] Care Team Providers Care Junior Technical Writer Name Role Phone Unavailable Primary Care Provider [...]
--- OUTSIDE RECORDS SUMMARY | 2024-07-02 13:05 | XMS_ITS | Clinical Summary ---
Author Organization [facility] Address [address] [facility] Attn: Epic Prelude ADT [place] [address] Care Team Providers Care Obstetrical Tech Name Role Phone Unavailable Primary Care Provider [...] mouth daily. 90 Tablet 1 11/02/2022 Active Social History Tobacco Use Types Packs/Day Years [...] patient's age to complete this topic Insurance [employer] Commercial
--- OUTSIDE RECORDS SUMMARY | 2024-07-02 13:05 | XMS_ITS | Clinical Summary ---
Author Organization [facility] Address [address] [place] [address] Care Team Providers Care Hoop Bending Machine Operator Name Role Phone Violet Younger APRN-BOX FOLDING MACHINE OPERATOR Primary Care Provider Source Comments [facility],non-owned Affiliates and Associated Physician Practices is amultiple site organization consisting of ambulatory clinics and hospital sitesin [place], [place], [place] and [place]. This disclosure is being madepursuant to the Care Everywhere program and may not contain all information available regarding this patient. Last updated 17.[facility] Allergies No known active allergies Medications * Be aware that medications may not be up to date on this document. Alwaysverify current medications with the patient. atorvastatin (Lipitor) 10 MG tablet Take 1 (one) tablet by mouth once daily 11/18/19 23 Active vitamin D, ergocalciferol, (Drisdol) 1.25 MG (33035 UT) capsule Take 1 (one) capsule by mouth every 7 days 7 capsule 12/10/19 23 Active acetaminophen (Tylenol) 500 MG tablet Take 2 (two) tablets by mouth 3 times daily Maximum allowable Acetaminophen amount = 4 Grams (4000 mg) / 24 hours. 12/19/19 23 Active Blood Glucose Monitoring Suppl (ONE TOUCH ULTRA 2) w/Device KITIndications:Ty pe 2 diabetes mellitus with other specified complication, without long-term current use of insulin (HCC) as directed 04/09/19 23 Active OneTouch Ultra test stripIndications: Type 2 diabetes mellitus with other specified complication, without long-term current use of insulin (HCC) USE TO CHECK BLOOD SUGAR EVERY DAY 05/10/19 23 Active glycopyrrolate (Robinul) 2 MG tablet 04/29/19 24 Active Lancets (ONETOUCH DELICA PLUS 33G EXTRA FINE LANCET) USE TO CHECK BLOOD SUGAR EVERY DAY 04/09/19 23 Active pantoprazole EC (Protonix) 40 MG tablet Take 1 (one) tablet by mouth once daily 04/20/19 24 Active Trulicity 4.5 MG/0.5ML injectionIndicati ons:Type 2 diabetes mellitus with other specified complication, without long-term current use of insulin ([facility]) Inject 0.5 mL subcutaneously every 7 days 0.5 mL 3 04/30/19 24 Active Additional Information Patient not taking.Reported on 09/18/2023 ondansetron (Zofran) 8 MG tablet Take 1 (one) tablet by mouth every 8 hours as needed for Nausea/Vomiting 30 tablet 05/07/19 24 Active Additional Information Patient not taking.Reported on 09/18/2023 oxyCODONE, immediate release, (Roxicodone) 5 MG tabletIndications :Status post surgery Take 1 (one) tablet by mouth every 6 hours as needed for Pain 24 tablet 06/13/19 24 Active 0.9% NaCl irrigation 0.9 % irrigation solution 500 mL by Irrigation route once for 1 dose 500 mL 08/13/19 24 Active valsartan (Diovan) 80 MG tablet Take 1 (one) tablet by mouth once daily 07/26/19 24 Active hydroCHLOROthiazi de (Hydrodiuril) 25 MG tablet Take 1 (one) tablet by mouth once daily 07/26/19 24 Active tamsulosin (Flomax) 0.4 MG capsule Take 1 (one) capsule by mouth once daily At the same time every day after a meal. 90 capsule 1 08/20/19 24 Active mirtazapine (Remeron) 15 MG tabletIndications :Insomnia, unspecified type TAKE 1 TABLET BY MOUTH AT BEDTIME 90 tablet 11/25/19 24 Active 0.9% NaCl irrigation 0.9 % irrigation solution USE 500ML FOR IRRIGATION ONCE FOR 1 DOSE 1000 mL 06/06/19 24 Active sulfamethoxazole- trimethoprim (Bactrim DS; Septra DS) 800-160 MG tabletIndications :Other specified postprocedural states TAKE ONE TABLET BY MOUTH EVERY 12 HOURS FOR 14 DAYS 28 tablet 06/19/19 24 Active 0.9% NaCl irrigation 0.9 % irrigation solutionIndicatio ns:Other specified postprocedural states USE 1,000ML BY IRRIGATION ROUTE ONCE FOR 1 DOSE 1000 mL 2 06/19/19 24 Active sodium bicarbonate 650 MG tablet TAKE ONE TABLET BY MOUTH 3 TIMES A DAY 90 tablet 11 07/09/19 24 025 Active apixaban (Eliquis) 2.5 MG tablet TAKE ONE TABLET BY MOUTH 2 TIMES A DAY FOR 21 DAYS 42 tablet 07/09/19 24 025 Active 0.9% NaCl irrigation 0.9 % irrigation solution USE 500ML BY IRRIGATION ROUTE ONCE 1000 mL 07/25/19 24 025 Active tamsulosin (Flomax) 0.4 MG capsule TAKE ONE CAPSULE BY MOUTH ONCE DAILY AT THE SAME TIME EACH DAY AFTER A MEAL 90 capsule 1 5 9:09 AM PRINTING MACHINE MECHANIC 08/20/19 24 025 Active ondansetron, disintegrating, (Zofran ODT) 4 MG tablet ALLOW TWO TABLETS TO DISSOLVE ON TONGUE EVERY 8 HOURS NEEDED FOR NAUSEA/VOMITING 30 tablet 08/21/19 24 025 Active docusate sodium (Colace) 100 MG capsule TAKE ONE CAPSULE BY MOUTH ONCE DAILY 30 capsule 08/21/19 24 025 Active Additional Information Patient not taking.Reported on 09/18/2023 apixaban (Eliquis) 2.5 MG tablet TAKE ONE TABLET BY MOUTH 2 TIMES A DAY FOR 21 DAYS 42 tablet 09/18/19 24 025 Active oxyCODONE-acetami nophen (Percocet) 5-325 MG tabletIndications :Infection at site of external fixator pin, sequela,Status post surgery,Charcot ankle, left,Ankle wound, left, sequela Take 1 (one) tablet by mouth every 6 hours as needed for Pain 20 tablet 08/13/19 24 024 Disconti nued(No Pharm No AVS) Active Problems Problem Noted Date Diagnosed Date Post-op pain 07/08/2023 Hyponatremia 05/15/2023 Metabolic acidosis 05/15/2023 Acute renal failure, unspecified acute renal alicai lure type 05/15/2023 Bladder obstruction 05/15/2023 Encounter [...] Diagnosed Date Resolved Date Osteomyelitis 12/14/2022 03/16/2023 Family History Medical History Relation Name Comments [...] Recorded Patient Health Questionnaire-2 Score 0 08/08/2023 [facility] [place] [facility] - Occupational Stress [...] No 07/08/2023 Housing Stability Vital Sign Answer Amtti e Recorded In the last 12 months, [...] place to sleep or slept in a skilled nursing (including now)? 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 Not on file Not on lc e Not on file Last Filed Vital Signs Vital Sign Reading Time Taken Comments Blood Pressure 137/86 09/18/2023 12:34 PM CDT Pulse 89 09/18/2023 12:34 PM CDT Temperature 36.1 C (97 F) 09/18/2023 12:34 PM CDT Respiratory Rate 14 08/21/2023 10:58 AM CDT Oxygen Saturation 100% 09/18/2023 12:34 PM CDT Inhaled Oxygen Concentration 21% 05/18/2023 4 :02 AM PRINTING MACHINE MECHANIC Weight 94.8 kg (209 lb) 09/18/2023 [...] DIABETES-HGB A1C 10/29/2023 04/30/2023, 11/26/2022 COVID-19 VACCINE ( - season) 2023 07/09/2020, 06/18/2020 Respiratory Syncytial Virus (RSV) Vaccine Pt: or over 60 yrs (1 - Risk 60-74 years 1-dose series) 2023 DEPRESSION SCREENING 03/11/2024 03/13/2023, 12/26/19 23 DIABETES - URINE PROTEIN SCREENING 03/11/2024 09/18/2023, 05/16/2023 DIABETES-SERUM CREATININE 09/17/20242023, 09/18/2023, 07/09/2023, Additional history exists INFLUENZA VACCINE (Season Ended) 2024 HEPATITIS C SCREENING Completed 2022 HIV SCREENING Completed 2022 HEPATITIS B VACCINE Aged Out No longe r eligible based on patient's age to complete this topic HIB VACCINE Aged Out No longer eligi ble based on patient's age to complete this topic HPV VACCINE Aged Out No longer eligi ble based on patient's age to complete this topic MENINGOCOCCAL (Group B) VACCINE SHARED DECISION-MAKING Aged Out No longer eligible based on patient's age to complete this topic MENINGOCOCCAL GROUPS A/C/Y/W VACCINE Aged Out No longer eligible based on patient's age to complete this topic Medical Devices Implanted Type Area Capability Lead Device Identifier Shelf Expiration Date Model / Serial / Lot Nail Im 11.5mm 18cm Trgn Intrtn - Sna Implanted:Qty: 1 on 12/15/2022 by Daryl Diop MD at [facility] Right: Hip [employer] 12/02/2031 [id number] / NA / [id number] Kit Screw 100mm 4.5mm Intrtn Troch Ti - Sna Implanted:Qty: 1 on 12/15/2022 by Daryl Diop MD at [facility] Right: Hip [employer] 05/09/2032 [id number] / NA / [id number] Screw 5mm 37.5mm Lopro Intnl Hex Fem - Sna Implanted:Qty: 1 on 12/15/2022 by Daryl Diop MD at [facility] Right: Hip [employer] 12/26/2030 [id number] / NA / [id number] Wire Extfix 450mm 1.8mm Olv Tip Implanted:Qty: 2 on 05/06/2023 by Blane Stinson MD at [facility] Left: Ankle [employer] 4933-8-030 / / Graft Snth Tissue 10cc Pro-Dns Inj Rgnrt Implanted:Qty: 1 on 05/06/2023 by Blane Stinson MD at [facility] Left: Ankle [employer] 09/02/2027 [id number] / / [id number] Graft Bone Canc 1-4mm 15ml Frzdr Crsh Implanted:Qty: 1 on 05/06/2023 by Blane Stinson MD at [facility] Left: Ankle [employer] 09/22/2027 [id number] / / [id number] Kit Bngf 3cc Aug Inj Implanted:Qty: 1 on 05/06/2023 by Blane Stinson MD at [facility] Left: Ankle [employer] 07/06/2025 [id number] / / [id number] Kit Bngf 3cc Aug Inj Implanted:Qty: 1 on 05/06/2023 by Blane Stinson MD at [facility] Left: Ankle [employer] 07/06/2025 [id number] / / [id number] Wire Extfix 450mm 1.8mm Dmd Pt Implanted:Qty: 6 on 05/06/2023 by Blane Stinson MD at [facility] Left: Ankle [employer] 4933-8-010 / / Elba Extfix 1.5-2mm Hfmn Med Wire Lmb Implanted:Qty: 3 on 07/08/2023 by Blane Stinson MD at [facility] Left: Tibia [employer] [id number] / / Elba Extfix 1.5-2mm Hfmn Lng Wire Lmb Implanted:Qty: 1 on 07/08/2023 by Blane Stinson MD at [facility] Left: Tibia [employer] [id number] / / Wshr Extfix Chevy 4mm Implanted:Qty: 1 on 07/08/2023 by Blane Stinson MD at [facility] Left: [employer] [id number] / / Wire Extfix 450mm 1.8mm Dmd Pt Implanted:Qty: 2 on 07/08/2023 by Blane Stinson MD at [facility] Left: Tibia [employer] 4933-8-010 / / Nut Orth Hfmn M8 Shrt Cnct Lmb Recon Frm Implanted:Qty: 4 on 07/08/2023 by Blane Stinson MD at [facility] Left: Tibia [employer] 4933-1-010 / / Explanted Type Area Capability Lead Device Identifier Shelf Expiration Date Model / Serial / Lot Ring Extfix 180mm Cfbr Full Hfmn Lmb Explanted:Qty: 2 on 05/06/[address] [facility] Left: Ankle [employer] [id number] / / Procedures Procedure Name Priority Date/Time Associated Diagnosis Comments MICROALB/CREAT RATIO URINE RANDOM PANEL Routine 09/18/2023 2:22 PM CDT NEDA (acute kidney injury) RENAL FUNCTION PANEL Routine 09/18/2023 2:00 PM CDT NEDA (acute kidney injury) HEMOGLOBIN A1C - POINT OF CARE (AMB) [facility] Routine 04/30/2023 1:31 PM PRINTING MACHINE MECHANIC Type 2 diabetes mellitus with other specified complication, without long-term current use of insulin HEPATITIS C AB SCREEN RFLX NAAT QUANT Routine 2022 8:30 AM CDT HIV-1 HIV-2 ANTIBODY + HIV P24 AG PANEL Routine 2022 8:30 AM CDT from Last 3 Months or Most Recently Relevant to Health Maintenance Results * (ABNORMAL) MICROALB/CREAT RATIO URINE RANDOM PANEL (09/18/2023 2:22 PM CDT) Albumin Random Urine 1,505.7 Not Established ug/mL 09/18/2023 3:54 PM CDT [facility] Comment:Result obtained by seamus luciano. Creatinine Urine 154.03 Not Established mg/dL 09/18/2023 3:54 PM CDT [facility] Urine Albumin/Creati nine Ratio 978(H) <30 mg/g 09/18/2023 3:54 PM CDT [facility] Urine URINE SPECIMEN OBTAINED BY CLEAN CATCH PROCEDURE / Unknown Collection / Unknown 09/18/2023 2:22 PM CDT 09/18/2023 3:02 PM CDT Soco Sanchez MD LAB - URINE CHEMISTRY ORDERABLES Final Result [facility] [address] [place] [id number], [facility] [phone] * (ABNORMAL) RENAL FUNCTION PANEL (09/18/2023 2:00 PM T) BUN 17 7 - 26 mg/dL 09/18/2023 [...] 2.8 - 5.1 mg/dL 09/18/2023 3:02 PM [facility] Anion Gap 8 6 - 16 09/18/2023 3:02 PM [facility] BUN/Creatinine Ratio 13 7 - 23 09/18/2023 3:02 PM [facility] Osmolality Calculated 299(H) 275 - 295 mOsm/kg 09/18/2023 3:02 PM [facility] eGFR by CKD-EPI 66(L) >=90 mL/min/1.7 3 m2 09/18/2023 3:02 PM [facility] Blood BLOOD SPECIMEN / Unknown Lab Venipuncture / Unknown 09/18/2023 2:00 PM CDT 09/18/2023 2:31 PM T us Soco Sanchez MD LAB - CHEMISTRY ORDERABLES Final Result [facility] [address] [place] [address], [place] [phone] * HEMOGLOBIN A1C - POINT OF CARE (AMB) [facility] (04/30/2023 1:31 PM PRINTING MACHINE MECHANIC) [facility] Hemoglobin A1c POCT 6.1 % [address] Blood BLOOD SPECIMEN / Unknown 04/30/2023 1:31 PM PRINTING MACHINE MECHANIC Violet Younger INTERNAL AUDIT SENIOR MANAGER-BOX FOLDING MACHINE OPERATOR LAB - POINT OF CARE ORD ERABLES Final Result Performing Organization Address [facility] Co de Phone Number [address], [facility] [place] [address], [place] [phone] * HEPATITIS C AB SCREEN RFLX NAAT QUANT (2022 8:30 AM CDT) [facility] Hepatitis C Antibody Non-react sherin Non-reac tive 2022 9:40 AM CDT [facility] Comment:Hepatitis C Antibody screen [...] 8:30 AM CDT 2022 8:33 AM CDT us Emiliano Duong MD LAB - CHEMISTRY ORDERABLE S Final Result [facility] [address] [place] [address], [place] [phone] * HIV-1 HIV-2 ANTIBODY + HIV P24 AG PANEL (2022 8:30 AM CDT) [facility] HIV Antigen/Antibod y 1 & 2 Non-reacti ve Non-react sherin 2022 9:40 AM CDT [facility] Comment:No Laboratory eviden ce of HIV infection. Blood BLOOD SPECIMEN / Unknown Lab Venipuncture / Unknown 2022 8:30 AM CDT 2022 8:33 AM CDT us Emiliano Duong MD LAB - CHEMISTRY ORDERABLE S Final Result [facility] [address] [place] [address], [facility] [phone] from Last 3 Months or Most Recently Relevant to Health Maintenance Insurance ADMINISTRATIVE CONCEPTS Advance Directives * Full Code (Latest Code [...] 9:02 PM 12/07/2022 4:45 PM Care Teams Hoop Bending Machine Operator Relationship Specialty Start Date End Date Violet Younger, INTERNAL AUDIT SENIOR MANAGER-BOX FOLDING MACHINE OPERATOR [address] OF [facility] [place] [address] PCP - General Nurse Practitioner Family 04/30/23
[2024-07-02] MEDS: KETOROLAC 30 MG/ML VIAL (*BKC) IM (13:34)
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
[2024-07-02] MEDS: traMADol HCL (*CRX) 50 MG TABLET PO (13:35)
[2024-07-02 15:03] VITALS: BP 132/72; PULSE 74; RESP 18; TEMP 36.6; O2SAT 98
== END 2024-07-02 15:05 | disposition home or self-care (01) ==
PROVIDERS: Emergency Provider Student in an Organized Health Care Education/Training Program; PCP Family Medicine Adolescent Medicine
DX: M25.562 Pain in left knee (principal); G89.29 Other chronic pain; G47.33 Obstructive sleep apnea (adult) (pediatric); E78.5 Hyperlipidemia, unspecified; I10 Essential (primary) hypertension; E11.9 Type 2 diabetes mellitus without complications; K21.9 Gastro-esophageal reflux disease without esophagitis
CPT/HCPCS: 73564; 96372; 99283; A9270; J1885

== ENCOUNTER 2024-07-29 09:15 | Emergency (ER) | payer OTHER, SELFPAY ==
--- NOTE | ~2024-07-29 | XR_ITS ---
EXAMINATION: XR knee LT min 4V, XR tibia fibula LT 2V DATE: 07/29/2024 11:10 INDICATION: Left lower leg pain post trauma TECHNIQUE: 1. Anteroposterior, 2 oblique and crosstable lateral views of the affected knee were obtained 2. AP and lateral views of the left tibia and fibula were obtained on overlapping proximal and distal images. COMPARISON: Radiographs dated 07/02/2024, 04/09/2014 and 11/25/2022 FINDINGS: Prominent hypertrophic ossification at a left ankle and hindfoot arthrodesis, likely also including t he distal fibula where there is been a prior osteotomy the lateral malleolus. This likely for treatme nt of chronic septic arthritis and possible abscess at the left ankle as seen on radiographs dated . There are bands of focal cortical thickening surrounding lucencies at the cortices located at the same level of the mid and distal thirds of the tibial and fibular diaphyses which suggests tracts for prior fixation. Normal alignment and joint space at the left knee. No acute fracture. Moderate e nthesophyte at the patellar insertion of the distal quadriceps tendon. No left knee joint effusion. T here is diffuse muscular atrophy and reticular pattern of subcutaneous edema throughout the left calf . IMPRESSION: 1. No left knee joint effusion or acute osseous abnormality. 2. Left ankle and hindfoot arthrodesis likely for treatment of prior septic arthritis and osteomyelit is. 3. Bands of sclerosis with cortical thickening at the mid and distal diaphyses of the left fibula and tibia likely representing residual tracts for prior fixation. Reviewed, dictated and finalized at location A. IMPRESSION: 1. No left knee joint effusion or acute osseous abnormality. 2. Left ankle and hindfoot arthrodesis likely for treatment of prior septic art hritis and osteomyelitis. 3. Bands of sclerosis with cortical thickening at the mid and distal diaphyses of the left fibula and tibia likely representing residual tracts for prior fixa tion.
[2024-07-29 09:26] VITALS: BP 150/83; PULSE 77; RESP 16; TEMP 36.8; O2SAT 95
--- OUTSIDE RECORDS SUMMARY | 2024-07-29 09:52 | XMS_ITS | Clinical Summary ---
[facility] Organization [facility] Address [address] [facility] Attn: Epic Prelude ADT SHELBY CONKLIN [address] Care Team Providers Care Flame Gouger Name Role Phone Unavailable Primary Care Provider [...]
--- OUTSIDE RECORDS SUMMARY | 2024-07-29 09:52 | XMS_ITS | Clinical Summary ---
Author Organization [facility] Care Team Providers Care Arabic Linguist Name Role Phone Unavailable Primary Care Provider [...]
--- OUTSIDE RECORDS SUMMARY | 2024-07-29 09:52 | XMS_ITS | Clinical Summary ---
Author Organization [facility] Address [address] [place] [address] Care Team Providers Care Funeral Home Manager Name Role Phone Violet Younger APRN-CONFIGURATION MANAGEMENT MANAGER Primary Care Provider Source Comments [facility],non-owned Affiliates and Associated Physician Practices is amultiple site organization consisting of ambulatory clinics and hospital sitesin [place], [place], [place] and [place]. This disclosure is being madepursuant to the Care Everywhere program and may not contain all information available regarding this patient. Last updated 17.[facility] Allergies No known active allergies Medications * Be aware that medications may not be up to date on this document. Alwaysverify current medications with the patient. atorvastatin (Lipitor) 10 MG tablet Take 1 (one) tablet by mouth once daily 11/18/19 23 Active vitamin D, ergocalciferol, (Drisdol) 1.25 MG (90636 UT) capsule Take 1 (one) capsule by [...] complication, without long-term current use of insulin ([facility]) Inject 0.5 mL subcutaneously every [...] A DAY 90 tablet 11 07/09/19 24 Active apixaban (Eliquis) 2.5 MG tablet TAKE ONE TABLET BY MOUTH 2 TIMES A DAY FOR 21 DAYS 42 tablet 07/09/19 24 Active 0.9% NaCl irrigation 0.9 % irrigation solution USE 500ML BY IRRIGATION ROUTE ONCE 1000 mL 07/25/19 24 Active tamsulosin (Flomax) 0.4 MG capsule TAKE ONE CAPSULE BY MOUTH ONCE DAILY AT THE SAME TIME EACH DAY AFTER A MEAL 90 capsule 1 5 9:09 AM HAND CULTIVATOR 08/20/19 24 025 Active ondansetron, disintegrating, (Zofran [...] Recorded Patient Health Questionnaire-2 Score 0 08/08/2023 [facility] [place] of Occupat ional Health - Occupational Stress [...] place to sleep or slept in a long term (including now)? 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 [...] Oxygen Concentration 21% 05/18/2023 4 :02 AM HAND CULTIVATOR Weight 94.8 kg (209 lb) 09/18/2023 12:34 [...] series) 2023 DEPRESSION SCREENING 03/11/2024 03/13/2023, 12/26/19 DIABETES - URINE PROTEIN SCREENING 03/11/2024 09/18/2023, [...] this topic Medical Devices Implanted Type Area Campus Recruiting Coordinator Device Identifier Shelf Expiration Date Model / Serial / Lot Nail Im 11.5mm 18cm Trgn Intrtn - Sna Implanted:Qty: 1 on 12/15/2022 by Daryl Diop MD at [facility] Right: Hip [employer] 12/02/2031 [id number] / NA / [id number] Kit Screw 100mm 4.5mm Intrtn Troch Ti - Sna Implanted:Qty: 1 on 12/15/2022 by Daryl Diop MD at [facility] Right: Hip [employer] 05/09/2032 [id number] / NA / [id number] Screw 5mm 37.5mm Lopro Intnl Hex Fem - Sna Implanted:Qty: 1 on 12/15/2022 by Daryl Diop MD at [facility] Right: Hip [employer] 12/26/2030 [id number] / NA / [id number] Wire Extfix 450mm 1.8mm Olv Tip Implanted:Qty: 2 on 05/06/2023 by Blane Stinson MD at [facility] Left: Ankle Jas [employer] 4933-8-030 / / Graft Snth Tissue 10cc Pro-Dns Inj Rgnrt Implanted:Qty: 1 on 05/06/2023 by Blane Stinson MD at [facility] Left: Ankle [employer] 09/02/2027 [id number]-0100 / / [id number] Graft Bone Canc 1-4mm 15ml Frzdr Crsh Implanted:Qty: 1 on 05/06/2023 by Blane Stinson MD at [facility] Left: Ankle Allosource 09/22/2027 [id number] / / [id number] Kit Bngf 3cc Aug Inj Implanted:Qty: 1 on 05/06/2023 by Blane Stinson MD at [facility] Left: Ankle [employer] 07/06/2025 [id number] / / [id number] Kit Bngf 3cc Aug Inj Implanted:Qty: 1 on 05/06/2023 by Blane Stinson MD at [facility] Left: Ankle [employer] Inc 07/06/2025 [id number] / / [id number] Wire Extfix 450mm 1.8mm Dmd Pt Implanted:Qty: 6 on 05/06/2023 by Blane Stinson MD at [facility] Left: Ankle Jas [employer] 4933-8-010 / / [place] Extfix 1.5-2mm Hfmn Med Wire Lmb Implanted:Qty: 3 on 07/08/2023 by Blane Stinson MD at [facility] Left: Tibia Needles [employer]on[employer] 4933-1-002 / / [place] Extfix 1.5-2mm Hfmn Lng Wire Lmb Implanted:Qty: 1 on 07/08/2023 by Blane Stinson MD at [facility] Left: Tibia [employer]les [employer] 4933-1-003 / / Wshr Extfix Chevy 4mm Implanted:Qty: 1 on 07/08/2023 by Blane Stinson MD at [facility] Left: Tibia Needles [employer] 4933-1-712 / / Wire Extfix 450mm 1.8mm Dmd Pt Implanted:Qty: 2 on 07/08/2023 by Blane Stinson MD at [facility] Left: Tibia Jas [employer] 4933-8-010 / / Nut Orth Hfmn M8 Shrt Cnct Lmb Recon Frm Implanted:Qty: 4 on 07/08/2023 by Blane Stinson MD at [facility] Left: Tibia Needles [employer]on[employer] 4933-1-010 / / Explanted Type Area Campus Recruiting Coordinator Device Identifier Shelf Expiration Date Model / Serial / Lot Ring Extfix 180mm Cfbr Full Hfmn Lmb Explanted:Qty: 2 on 05/06/2023 at [facility] Left: Ankle Needles [employer]on[employer] 4933-5-180 / / Procedures Procedure Name Priority Date/Time Associated Diagnosis Comments MICROALB/CREAT RATIO URINE RANDOM PANEL Routine 09/18/2023 2:22 PM CDT NEDA (acute kidney injury) RENAL FUNCTION PANEL Routine 09/18/2023 2:00 PM CDT NEDA (acute kidney injury) HEMOGLOBIN A1C - POINT OF CARE (AMB) [facility] Routine 04/30/2023 1:31 PM HAND CULTIVATOR Type 2 diabetes mellitus with other specified [...] Not Established ug/mL 09/18/2023 3:54 PM CDT [facility] Comment:Result obtained by seamus luciano. Creatinine Urine 154.03 Not Established mg/dL 09/18/2023 3:54 PM CDT [facility] Urine Albumin/Creati nine Ratio 978(H) <30 mg/g 09/18/2023 3:54 PM CDT [facility] Urine URINE SPECIMEN OBTAINED BY CLEAN CATCH PROCEDURE / Unknown Collection / Unknown 09/18/2023 2:22 PM CDT 09/18/2023 3:02 PM CDT Soco Sanchez MD LAB - URINE CHEMISTRY ORDERABLES Final Result [facility] [address] [place] [address], [facility] [phone] * (ABNORMAL) RENAL FUNCTION PANEL (09/18/2023 2:00 PM CDT) BUN 17 7 - 26 mg/dL 09/18/2023 3:02 PM [facility] Creatinine 1.26(H) 0.71 - 1.16 mg/dL 09/18/2023 3:02 PM [facility] Sodium 143 136 - 145 mmol/L 09/18/2023 3:02 PM [facility] Potassium 4.4 3.5 - 4.5 mmol/L 09/18/2023 3:02 PM [facility] Chloride 112(H) 98 - 107 mmol/L 09/18/2023 3:02 PM [facility] CO2 23 22 - 29 mmol/L 09/18/2023 3:02 PM [facility] Glucose 130(H) 70 - 115 mg/dL 09/18/2023 3:02 PM [facility] Albumin 3.5 3.4 - 5.0 g/dL 09/18/2023 3:02 PM [facility] Calcium 9.3 8.4 - 10.2 mg/dL 09/18/2023 3:02 PM [facility] Phosphorus 2.7(L) 2.8 - 5.1 mg/dL 09/18/2023 3:02 PM [facility] Anion Gap 8 6 - 16 09/18/2023 3:02 PM [facility] BUN/Creatinine Ratio 13 7 - 23 09/18/2023 3:02 PM [facility] Osmolality Calculated 299(H) 275 - 295 mOsm/kg 09/18/2023 3:02 PM [facility] eGFR by CKD-EPI 66(L) >=90 mL/min/1.7 3 m2 09/18/2023 3:02 PM [facility] Blood BLOOD SPECIMEN / Unknown Lab Venipuncture / Unknown 09/18/2023 2:00 PM CDT 09/18/2023 2:31 PM [facility] Soco Sanchez MD LAB - CHEMISTRY ORDERABLES Final Result [facility] [address] [place] [address], [place] [phone] * HEMOGLOBIN A1C - POINT OF CARE (AMB) [facility] (04/30/2023 1:31 PM HAND CULTIVATOR) Pathologist [facility] Hemoglobin A1c POCT 6.1 % [address] Blood BLOOD SPECIMEN / Unknown 04/30/2023 1:31 PM HAND CULTIVATOR Violet Younger APRN-CONFIGURATION MANAGEMENT MANAGER LAB - POINT OF CARE ORD ERABLES Final Result [address] [place] [address], [place] [address], [facility] [phone] * HEPATITIS C AB SCREEN RFLX NAAT QUANT (2022 8:30 AM CDT) [facility] Hepatitis C Antibody Non-react sherin Non-reac tive 2022 9:40 AM CDT [facility] Comment:Hepatitis C Antibody screen indicates no [...] CDT Emiliano Duong MD LAB - CHEMISTRY ORDERABLE S Final Result [facility] [address] [place] [address], [facility] [phone] * HIV-1 HIV-2 ANTIBODY + HIV P24 AG PANEL (2022 8:30 AM CDT) [facility] HIV Antigen/Antibod y 1 & 2 Non-reacti ve Non-react sherin 2022 9:40 AM CDT [facility] Comment:No Laboratory eviden ce of HIV infection. Blood BLOOD SPECIMEN / Unknown Lab Venipuncture / Unknown 2022 8:30 AM CDT 2022 8:33 AM CDT us Emiliano Duong MD LAB - CHEMISTRY ORDERABLE S Final Result [facility] [address] [place] [address], [facility] [phone] from Last 3 Months or Most Recently [...] 9:02 PM 12/07/2022 4:45 PM Care Teams Funeral Home Manager Relationship Specialty Start Date End Date Violet Younger, FAMILY ASSESSMENT WORKER-CONFIGURATION MANAGEMENT MANAGER [address] [facility] 2[address] DIV OF [facility] [place] [address] PCP - General Nurse Practitioner Family 04/30/23
--- OUTSIDE RECORDS SUMMARY | 2024-07-29 10:55 | XMS_ITS | Clinical Summary ---
Author Organization [facility] Care Team Providers Care Special Education Professor Name Role Phone Unavailable Primary Care Provider [...]
--- OUTSIDE RECORDS SUMMARY | 2024-07-29 10:55 | XMS_ITS | Clinical Summary ---
Author Organization [facility] Address [address] [place] [address] Care Team Providers Care Water Aerobics Instructor Name Role Phone Violet Younger APRN-LENS SHAPER GRINDER Primary Care Provider Source Comments [facility],non-owned Affiliates and Associated Physician Practices is amultiple site organization consisting of ambulatory clinics and hospital sitesin [place], [place], [place] and [place]. This disclosure is being madepursuant to the Care Everywhere program and may not contain all information available regarding this patient. Last updated 17.[facility] Allergies No known active allergies Medications * Be aware that medications may not be up to date on this document. Alwaysverify current medications with the patient. atorvastatin (Lipitor) 10 MG tablet Take 1 (one) tablet by mouth once daily 11/18/19 23 Active vitamin D, ergocalciferol, (Drisdol) 1.25 MG (05938 UT) capsule Take 1 (one) capsule by [...] complication, without long-term current use of insulin ([facility]) Inject 0.5 mL subcutaneously every 7 [...] MEAL 90 capsule 1 5 9:09 AM NURSE CONSULTANT 08/20/19 24 025 Active ondansetron, disintegrating, (Zofran [...] 05/15/2023 Acute renal failure, unspecified acute renal laicia lure type 05/15/2023 Bladder obstruction 05/15/2023 Encounter [...] Recorded Patient Health Questionnaire-2 Score 0 08/08/2023 [facility] [place] of Occupat ional Health - Occupational Stress [...] place to sleep or slept in a custodial (including now)? 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 on lc [...] Oxygen Concentration 21% 05/18/2023 4 :02 AM NURSE CONSULTANT Weight 94.8 kg (209 lb) 09/18/2023 12:34 [...] this topic Medical Devices Implanted Type Area Creative Intern Device Identifier Shelf Expiration Date Model / Serial / Lot Nail Im 11.5mm 18cm Trgn Intrtn - Sna Implanted:Qty: 1 on 12/15/2022 by Daryl Diop MD at [facility] Right: Hip [employer] 12/02/2031 [id number] / NA / [id number] Kit Screw 100mm 4.5mm Intrtn Troch Ti - Sna Implanted:Qty: 1 on 12/15/2022 by Daryl Diop MD at [facility] Right: Hip [employer] 05/09/2032 [id number] / NA / [id number] Screw 5mm 37.5mm Lopro Intnl Hex Fem - Sna Implanted:Qty: 1 on 12/15/2022 by Daryl Diop MD at [facility] Right: Hip [employer] 12/26/2030 [id number] / NA / [id number] Wire Extfix 450mm 1.8mm Olv Tip Implanted:Qty: 2 on 05/06/2023 by Blane Stinson MD at [facility] Left: Ankle [employer]as [employer] 4933-8-030 / / Graft Snth Tissue 10cc Pro-Dns Inj Rgnrt Implanted:Qty: 1 on 05/06/2023 by Blane Stinson MD at [facility] Left: Ankle [employer] 09/02/2027 87SR-0100 / / [id number] Graft Bone Canc 1-4mm 15ml Frzdr Crsh Implanted:Qty: 1 on 05/06/2023 by Blane Stinson MD at [facility] Left: Ankle [employer]osource 09/22/2027 [id number] / / [id number] Kit Bngf 3cc Aug Inj Implanted:Qty: 1 on 05/06/2023 by Blane Stinson MD at [facility] Left: Ankle [employer] 07/06/2025 [id number] / / [id number] Kit Bngf 3cc Aug Inj Implanted:Qty: 1 on 05/06/2023 by Blane Stinson MD at [facility] Left: Ankle [employer] 07/06/2025 [id number] / / [id number] Wire Extfix 450mm 1.8mm Dmd Pt Implanted:Qty: 6 on 05/06/2023 by Blane Stinson MD at [facility] Left: Ankle [employer]as [employer] 4933-8-010 / / [place] Extfix 1.5-2mm Hfmn Med Wire Lmb Implanted:Qty: 3 on 07/08/2023 by Blane Stinson MD at [facility] Left: Tibia [place] [employer] 4933-1-002 / / Viola Extfix 1.5-2mm Hfmn Lng Wire Lmb Implanted:Qty: 1 on 07/08/2023 by Blane Stinson MD at [facility] Left: Tib[place] [employer] 4933-1-003 / / Wshr Extfix Chevy 4mm Implanted:Qty: 1 on 07/08/2023 by Blane Stinson MD at [facility] Left: Tibia [employer] 4933-1-712 / / Wire Extfix 450mm 1.8mm Dmd Pt Implanted:Qty: 2 on 07/08/2023 by Blane Stinson MD at [facility] Left: Tibia [employer] 4933-8-010 / / Nut Orth Hfmn M8 Shrt Cnct Lmb Recon Frm Implanted:Qty: 4 on 07/08/2023 by Blane Stinson MD at [facility] Left: Tibia [place] [employer] 4933-1-010 / / Explanted Type Area Creative Intern Device Identifier Shelf Expiration Date Model / Serial / Lot Ring Extfix 180mm Cfbr Full Hfmn Lmb Explanted:Qty: 2 on 05/06/2023 at [facility] Left: Ankle [employer] 4933-5-180 / / Procedures Procedure Name Priority Date/Time Associated Diagnosis Comments MICROALB/CREAT RATIO URINE RANDOM PANEL Routine 09/18/2023 2:22 PM CDT NEDA (acute kidney injury) RENAL FUNCTION PANEL Routine 09/18/2023 2:00 PM CDT NEDA (acute kidney injury) HEMOGLOBIN A1C - POINT OF CARE (AMB) [facility] Routine 04/30/2023 1:31 PM NURSE CONSULTANT Type 2 diabetes mellitus with other specified [...] Not Established ug/mL 09/18/2023 3:54 PM CDT [facility] Comment:Result obtained by seamus lcuiano. Creatinine Urine 154.03 Not Established mg/dL 09/18/2023 3:54 PM CDT [facility] Urine Albumin/Creati nine Ratio 978(H) <30 mg/g 09/18/2023 3:54 PM CDT [facility] Urine URINE SPECIMEN OBTAINED BY CLEAN CATCH PROCEDURE / Unknown Collection / Unknown 09/18/2023 2:22 PM CDT 09/18/2023 3:02 PM CDT Soco Sanchez MD LAB - URINE CHEMISTRY ORDERABLES Final Result [facility] [address] [place] [address], [facility] [phone] * (ABNORMAL) RENAL FUNCTION PANEL (09/18/2023 2:00 [...] 09/18/2023 2:00 PM CDT 09/18/2023 2:31 PM [facility] us Soco Sanchez MD LAB - CHEMISTRY ORDERABLES Final Result [facility] [address] [place] [address], [place] [phone] * HEMOGLOBIN A1C - POINT OF CARE (AMB) [facility] (04/30/2023 1:31 PM NURSE CONSULTANT) Pathologist [facility] Hemoglobin A1c POCT 6.1 % [address] Blood BLOOD SPECIMEN / Unknown 04/30/2023 1:31 PM NURSE CONSULTANT Violet Younger APRN-LENS SHAPER GRINDER LAB - POINT OF CARE ORD ERABLES Final Result [address] [place] [address], [place] [address], [facility] [phone] * HEPATITIS C AB SCREEN RFLX NAAT QUANT (2022 8:30 AM CDT) [facility] Hepatitis C Antibody Non-react sherin Non-reac tive 2022 9:40 AM CDT [facility] Comment:Hepatitis C Antibody screen [...] LAB - CHEMISTRY ORDERABLE S Final Result [facility] [address] [place] [address], [facility] [phone] * HIV-1 HIV-2 ANTIBODY + HIV P24 AG PANEL (2022 8:30 AM CDT) [facility] HIV Antigen/Antibod y 1 & 2 Non-reacti ve Non-react sherin 2022 9:40 AM CDT [facility] Comment:No Laboratory eviden ce of HIV infection. Blood BLOOD SPECIMEN / Unknown Lab Venipuncture / Unknown 2022 8:30 AM CDT 2022 8:33 AM CDT us Emiliano Duong MD LAB - CHEMISTRY ORDERABLE S Final Result [facility] [address] [place] [address], [facility] [phone] from Last 3 Months or Most Recently [...] 9:02 PM 12/07/2022 4:45 PM Care Teams Water Aerobics Instructor Relationship Specialty Start Date End Date Violet Younger, GRAVURE PRINTING MACHINIST-LENS SHAPER GRINDER [address] [facility] 2[address] DIV OF [facility] [place] [address] PCP - General Nurse Practitioner Family 04/30/23
--- OUTSIDE RECORDS SUMMARY | 2024-07-29 10:55 | XMS_ITS | Clinical Summary ---
Author Organization [facility] Address [address] [facility] Attn: Epic Prelude ADT SHELBY CONKLIN [address] Care Team Providers Care Theatrical Agent Name Role Phone Unavailable Primary Care Provider [...]
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
[2024-07-29] MEDS: ACETAMINOPHEN 500 MG TABLET 1000 MG PO (11:41)
[2024-07-29] MEDS: traMADol HCL (*CRX) 25 MG TABLET PO (11:42)
[2024-07-29 12:05] VITALS: BP 168/107; PULSE 80; RESP 16; O2SAT 100
== END 2024-07-29 12:10 | disposition home or self-care (01) ==
PROVIDERS: Emergency Provider Physician Assistant; PCP Family Medicine Adolescent Medicine
DX: S80.02XA Contusion of left knee, initial encounter (principal); S80.12XA Contusion of left lower leg, initial encounter; E78.5 Hyperlipidemia, unspecified; I10 Essential (primary) hypertension; I87.2 Venous insufficiency (chronic) (peripheral); I89.0 Lymphedema, not elsewhere classified; E11.9 Type 2 diabetes mellitus without complications; G47.33 Obstructive sleep apnea (adult) (pediatric); K21.9 Gastro-esophageal reflux disease without esophagitis; M14.672 Charcot's joint, left ankle and foot; Z87.891 Personal history of nicotine dependence; Z98.1 Arthrodesis status; Z79.84 Long term (current) use of oral hypoglycemic drugs; Z79.899 Other long term (current) drug therapy; Z79.01 Long term (current) use of anticoagulants; Y04.2XXA Assault by strike against or bumped into by another person, initial encounter
CPT/HCPCS: 73564; 73590; 99284; A9270

== ENCOUNTER 2024-09-09 17:54 | Inpatient (IN) | payer BC, SELFPAY ==
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
--- NOTE | ~2024-09-09 | US_ITS ---
US renal BI Ordering provider: Denise Bradford APRN History: . Y . Comparison: None. Technique: Ultrasound bilateral kidneys. Findings: RIGHT KIDNEY: Measures 11.1 x 4x 5 cm in length which is normal in size. No renal cysts. No renal mas s or visualized echogenic stones. Otherwise, normal echotexture and contour. No hydronephrosis. Elle l renal cortical thickness. LEFT KIDNEY: Measures 12x 7.2x 5.7 cm in length which is normal in size. No renal cysts. No renal mas s or visualized echogenic stones. Otherwise, normal echotexture and lobulated contour. No hydronephro sis. Normal renal cortical thickness. BLADDER: Normal. Measures 9.9 x 20.6 x 13 cm with a volume of 1391 mL. Ureteral jets were not seen bi laterally. IMPRESSION: lobation is seen in the left kidney. Otherwise, No definite abnormality seen in both kidneys. Reviewed, dictated and finalized at location A.
--- NOTE | ~2024-09-09 | CT_ITS ---
CT abdomen pelvis wo con Ordering provider: Aston Silvestre MD History: 58 years Male with . epigastric pain diarrhea x1 wk . Comparison: November 25, 2022 Technique: CT abdomen and pelvis without IV and without oral contrast. Automated exposure control and iterative reconstruction technique were employed. The dose-length product was 1118.83 mGy-cm. Findings: VISUALIZED LOWER CHEST: Dependent atelectatic changes. Paratracheal lymph node measuring 1.7 cm. A pre pulmonary lymph node is also seen measuring 1.7 cm. UPPER ABDOMINAL ORGANS: Liver: Normal. Gallbladder: Cholelithiasis. Spleen: Normal. Stomach/duodenum: Small sliding hiatus hernia. Pancreas: Normal. Adrenals: Prominent lateral limb of the left adrenal gland. Clinical correlation advised. Kidneys: Bilateral lobation. PELVIC ORGANS: The bladder is overdistended. Slightly enlarged prostate. BOWEL AND MESENTERY: Colon: No evidence of diverticulitis or intestinal obstruction.. Normal appendix. Small Bowel: Normal. No obstruction. Peritoneum/mesentery: No free air or free fluid. No mesenteric lymphadenopathy. RETROPERITONEUM: Mild atheromatous disease of the abdominal aorta. No retroperitoneal lymphadenopat hy. MUSCULOSKELETAL: Superficial soft tissues: Bilateral inguinal fat containing hernia. Fat-containing umbilical hernia. Enlarged left inguinal lymph node measuring 2.2 cm. Otherwise, The superficial soft tissues are kiran l. Bones: Age appropriate degenerative changes of the spine. Postoperative changes in the right femoral neck. Pubic symphysitis. Bilateral hip osteoarthritic changes. Bilateral sacroiliacs. IMPRESSION: 1. No evidence of appendicitis, diverticulitis or intestinal obstruction. 2. Overdistended urinary bladder. Enlarged prostate. 3. Cholelithiasis. 4. Bilateral inguinal fat-containing hernia. Umbilical fat-containing hernia. Small sliding hiatus h ernia. 5. Lymphadenopathy in the mediastinum. 6. Prominent lateral limb of the left adrenal gland. Reviewed, dictated and finalized at location A. IMPRESSION: 1. No evidence of appendicitis, diverticulitis or intestinal obstruction. 2. Overdistended urinary bladder. Enlarged prostate. 3. Cholelithiasis. 4. Bilateral inguinal fat-containing hernia. Umbilical fat-containing hernia. Small sliding hiatus hernia. 5. Lymphadenopathy in the mediastinum. 6. Prominent lateral limb of the left adrenal gland.
--- NOTE | ~2024-09-09 | CT_ITS ---
Procedure: CT knee LT wo con Ordering provider: Aston Silvestre MD History: . abnormal xray . Comparison: None. Technique: Thin slice axial CT of the No IV contrast was given. Sagittal and coronal reformatted imag es were also obtained and reviewed. Radiation reduction technique utilized.The dose-length product wa s 710.79 mGy-cm. Findings: BONES: Osteopenia of the bones. No definite fractures seen. JOINT SPACES: Minimal joint effusion. Prominent tibial spines. Slight narrowing of the medial compartment. SOFT TISSUES: Ossification of the insertion of the quadriceps tendon and patellar tendon. IMPRESSION: Osteopenia of the bones. No fractures seen. Mild osteoarthritic changes. Reviewed, dictated and finalized at location A.
--- OUTSIDE RECORDS SUMMARY | 2024-09-09 17:57 | XMS_ITS | Clinical Summary ---
Author Organization [facility] Care Team Providers Care Dental Insurance Coordinator Name Role Phone Unavailable Primary Care Provider [...]
--- OUTSIDE RECORDS SUMMARY | 2024-09-09 17:57 | XMS_ITS | Clinical Summary ---
Author Organization [facility] Address [address] [place] [address] Care Team Providers Care Rooms Director Name Role Phone Violet Younger APRN-PARTS SPECIALIST Primary Care Provider Source Comments [facility],non-owned Affiliates and Associated Physician Practices is amultiple site organization consisting of ambulatory clinics and hospital sitesin [place], [place], [place] and [place]. This disclosure is being madepursuant to the Care Everywhere program and may not contain all information available regarding this patient. Last updated 17.[facility] Allergies No known active allergies Medications * Be aware that medications may not be up to date on this document. Alwaysverify current medications with the patient. 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 Never 08/21/2023 Average Number of Drinks Not on file Frequency of Binge Drinking Not on file 08/09 Overall Financial Resource Strain (CARDIA) Answe r Date Recorded How hard is it for you to pa y for the very basics like food, housing, medical care, and heating? Not hard at all 07/08/2023 PHQ-2 Answer Date Recorded Patient Health Questionnaire-2 Score 0 08/08/2023 [facility] [place] of Occupat ional Health - Occupational Stress [...] place to sleep or slept in a residential (including now)? 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 Weight 94.8 kg (209 lb) 09/18/2023 12:34 PM CDT Height 188 cm (6' 2) 08/21/2023 7:29 AM CDT Body Mass Index [...] 10/29/2023 04/30/2023, 11/26/2022 COVID-19 VACCINE ( - 2023- season) 2023 07/09/2020, 06/18/2020 Respiratory Syncytial Virus (RSV) Vaccine Pt: or over 60 yrs (1 - Risk 60-74 years 1-dose series) 2023 DEPRESSION SCREENING 03/11/2024 03/13/2023, 12/26/19 23 DIABETES - URINE PROTEIN SCREENING 03/11/2024 09/18/2023, 05/16/2023 DIABETES-SERUM CREATININE 09/17/20242023, 09/18/2023, 07/09/2023, Additional history exists INFLUENZA VACCINE (#1) 2024 HEPATITIS C SCREENING Completed 2022 HIV [...] this topic Medical Devices Implanted Type Area Inclusion Intern Device Identifier Shelf Expiration Date Model / Serial / Lot Nail Im 11.5mm 18cm Trgn Intrtn - Sna Implanted:Qty: 1 on 12/15/2022 by Daryl Diop MD at [facility] Right: Hip [employer] 12/02/2031 [id number] / NA / [id number] Kit Screw 100mm 4.5mm Intrtn Troch Ti - Sna Implanted:Qty: 1 on 12/15/2022 by Daryl Diop MD at [facility] Right: Hip [employer] 05/09/2032 [id number] / NA / [id number] Screw 5mm 37.5mm Lopro Intnl Hex Fem - Sna Implanted:Qty: 1 on 12/15/2022 by Daryl Diop MD at [facility] Right: Hip [employer] 12/26/2030 [id number] / NA / [id number] Wire Extfix 450mm 1.8mm Olv Tip Implanted:Qty: 2 on 05/06/2023 by Blane Stinson MD at [facility] Left: Ankle [employer] 4933-8-030 / / Graft Snth Tissue 10cc Pro-Dns Inj Rgnrt Implanted:Qty: 1 on 05/06/2023 by Blane Stinson MD at [facility] Left: Ankle [employer] 09/02/2027 [id number] / / [id number] Graft Bone Canc 1-4mm 15ml Frzdr Crsh Implanted:Qty: 1 on 05/06/2023 by Blane Stinson MD at [facility] Left: Ankle [employer] 09/22/2027 [id number] / / [id number] Kit Bngf 3cc Aug Inj Implanted:Qty: 1 on 05/06/2023 by Blane Stinson MD at [facility] Left: Ankle [employer] 07/06/2025 [id number] / / [id number] Kit Bngf 3cc Aug Inj Implanted:Qty: 1 on 05/06/2023 by Blane Stinson MD at [facility] Left: Ankle [employer] 07/06/2025 [id number] / / [id number] Wire Extfix 450mm 1.8mm Dmd Pt Implanted:Qty: 6 on 05/06/2023 by Blane Stinson MD at [facility] Left: Ankle [employer] 4933-8-010 / / Heidrick Extfix 1.5-2mm Hfmn Med Wire Lmb Implanted:Qty: 3 on 07/08/2023 by Blane Stinson MD at [facility] Left: Tibia [employer] [id number] / / Heidrick Extfix 1.5-2mm Hfmn Lng Wire Lmb Implanted:Qty: 1 on 07/08/2023 by Blane Stinson MD at [facility] Left: Tibia [employer] [id number] / / Wshr Extfix Chevy 4mm Implanted:Qty: 1 on 07/08/2023 by Blane Stinson MD at [facility] Left: Tibia [employer] [id number] / / Wire Extfix 450mm 1.8mm Dmd Pt Implanted:Qty: 2 on 07/08/2023 by Blane Stinson MD at [facility] Left: Tibia [employer] 4933-8-010 / / Nut Orth Hfmn M8 Shrt Cnct Lmb Recon Frm Implanted:Qty: 4 on 07/08/2023 by Blane Stinson MD at [facility] Left: Tibia [employer] 4933-1-010 / / Explanted Type Area Inclusion Intern Device Identifier Shelf Expiration Date Model / Serial / Lot Ring Extfix 180mm Cfbr Full Hfmn Lmb Explanted:Qty: 2 on 05/06/2023 at [facility] Left: Ankle [employer] [id number] / / Procedures Procedure Name Priority Date/Time Associated Diagnosis Comments MICROALB/CREAT RATIO URINE RANDOM PANEL Routine 09/18/2023 2:22 PM CDT NEDA (acute kidney injury) RENAL FUNCTION PANEL Routine 09/18/2023 2:00 PM CDT NEDA (acute kidney injury) HEMOGLOBIN A1C - POINT OF CARE (AMB) [facility] Routine 04/30/2023 1:31 PM 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 Creatinine Urine 154.03 Not Established mg/dL 09/18/2023 3:54 PM T [facility] Urine Albumin/Creati nine Ratio 978(H) <30 mg/g 09/18/2023 3:54 PM T [facility] Urine URINE SPECIMEN OBTAINED BY CLEAN CATCH PROCEDURE / Unknown Collection / Unknown 09/18/2023 2:22 PM CDT 09/18/2023 3:02 PM CDT us Soco Sanchez MD LAB - URINE CHEMISTRY ORDERABLES Final Result [facility] [address] [place] [id number], [facility] [phone] * (ABNORMAL) RENAL FUNCTION PANEL (09/18/2023 2:00 PM CDT) BUN 17 7 - 26 mg/dL 09/18/2023 3:02 PM CDT [facility] Creatinine 1.26(H) 0.71 - 1.16 mg/dL [...] 2:00 PM CDT 09/18/2023 2:31 PM T Soco Sanchez MD LAB - CHEMISTRY ORDERABLES Final Result [facility] [address] [place] [address], [place] [phone] * HEMOGLOBIN A1C - POINT OF CARE (AMB) [facility] (04/30/2023 1:31 PM 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 WORKER) Hemoglobin A1c POCT 6.1 % [address] Blood BLOOD SPECIMEN / Unknown 04/30/2023 1:31 PM 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 WORKER Violet Younger ACT TUTOR-PARTS SPECIALIST LAB - POINT OF CARE ORD ERABLES Final Result Performing Organization Address [facility] Co de Phone Number [address] [facility] [place] [address], [facility] [phone] * HEPATITIS C AB SCREEN RFLX NAAT QUANT (2022 8:30 AM CDT) Pathologist [facility] Hepatitis C Antibody Non-react sherin Non-reac tive 2022 9:40 AM CDT [facility] Comment:Hepatitis C Antibody screen indicates [...] LAB - CHEMISTRY ORDERABLE S Final Result Performing Organization Address City/[facility]/ZIP Co de Phone Number [facility] [address] [place] [address], [facility] [phone] * HIV-1 HIV-2 ANTIBODY + HIV P24 AG PANEL (2022 8:30 AM CDT) Pathologist [facility] HIV Antigen/Antibod y 1 & 2 Non-reacti ve Non-react sherin 2022 9:40 AM CDT [facility] Comment:No Laboratory eviden ce of HIV infection. Blood BLOOD SPECIMEN / Unknown Lab Venipuncture / Unknown 2022 8:30 AM CDT 2022 8:33 AM CDT us Emiliano Duong MD LAB - CHEMISTRY ORDERABLE S Final Result [facility] [address] [place] [address], [facility] [phone] from Last 3 Months or Most Recently [...] 9:02 PM 12/07/2022 4:45 PM Care Teams Rooms Director Relationship Specialty Start Date End Date Violet Younger, ACT TUTOR-PARTS SPECIALIST [address] [facility] [address] [facility] [place] [address] PCP - General Nurse Practitioner Family 04/30/23
--- OUTSIDE RECORDS SUMMARY | 2024-09-09 17:57 | XMS_ITS | Clinical Summary ---
Author Organization [email or web address] Address [address] Attn: Epic Prelude ADT SHELBY CONKLIN [address] Care Team Providers Care Structural Steel Detailer Name Role Phone Unavailable Primary Care Provider [...]
[2024-09-09 18:13] VITALS: BP 113/97; PULSE 90; PULSE 95; RESP 16; TEMP 36.8; O2SAT 100
[2024-09-09 18:15] VITALS: BP 121/78; PULSE 92; RESP 17; O2SAT 99
[2024-09-09 18:30] VITALS: BP 114/78; PULSE 92; RESP 15; O2SAT 100
--- OUTSIDE RECORDS SUMMARY | 2024-09-09 19:07 | XMS_ITS | Clinical Summary ---
Author Organization [facility] Address [address] [place] [address] Care Team Providers Care Meat Hostess Name Role Phone Violet Younger APRN-DOWNSTREAM BIOMANUFACTURING TECHNICIAN Primary Care Provider Source Comments [facility],non-owned Affiliates and Associated Physician Practices is amultiple site organization consisting of ambulatory clinics and hospital sitesin [place], [place], [place] and [place]. This disclosure is being madepursuant to the Care Everywhere program and may not contain all information available regarding this patient. Last updated 17.[facility] Allergies No known active allergies Medications * Be aware that medications may not be up to date on this document. Alwaysverify current medications with the patient. atorvastatin (Lipitor) 10 MG tablet Take 1 (one) tablet by mouth once daily 11/18/19 23 Active vitamin D, ergocalciferol, (Drisdol) 1.25 MG (61996 UT) capsule Take 1 (one) capsule by [...] MEAL 90 capsule 1 5 9:09 AM PURCHASING SPECIALIST 08/20/19 24 Active ondansetron, disintegrating, (Zofran ODT) [...] Recorded Patient Health Questionnaire-2 Score 0 08/08/2023 [facility] [place] of Occupat ional Health - Occupational Stress [...] place to sleep or slept in a senior care (including now)? 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 on file Not on lc [...] Oxygen Concentration 21% 05/18/2023 4 :02 AM PURCHASING SPECIALIST Weight 94.8 kg (209 lb) 09/18/2023 12:34 [...] this topic Medical Devices Implanted Type Area Produce Assistant Device Identifier Shelf Expiration Date Model / Serial / Lot Nail Im 11.5mm 18cm Trgn Intrtn - Sna Implanted:Qty: 1 on 12/15/2022 by Daryl Diop MD at [facility] Right: Hip [employer] 12/02/2031 [id number] / NA / [id number] Kit Screw 100mm 4.5mm Intrtn Troch Ti - Sna Implanted:Qty: 1 on 12/15/2022 by Daryl Diop MD at [facility] Right: Hip [employer] 05/09/2032 [id number] / NA / [id number] Screw 5mm 37.5mm Lopro Intnl Hex Fem - Sna Implanted:Qty: 1 on 12/15/2022 by Daryl Diop MD at [facility] Right: Hip [employer] 12/26/2030 [id number] / NA / [id number] Wire Extfix 450mm 1.8mm Olv Tip Implanted:Qty: 2 on 05/06/2023 by Blane Stinson MD at [facility] Left: Ankle [employer] 4933-8-030 / / Graft Snth Tissue 10cc Pro-Dns Inj Rgnrt Implanted:Qty: 1 on 05/06/2023 by Blane Stinson MD at [facility] Left: Ankle [employer] 09/02/2027 [id number] / / [id number] Graft Bone Canc 1-4mm 15ml Frzdr Crsh Implanted:Qty: 1 on 05/06/2023 by Blane Stinson MD at [facility] Left: Ankle [employer] 09/22/2027 [id number] / / [id number] Kit Bngf 3cc Aug Inj Implanted:Qty: 1 on 05/06/2023 by Blane Stnison MD at [facility] Left: Ankle [employer] 07/06/2025 [id number] / / [id number] Kit Bngf 3cc Aug Inj Implanted:Qty: 1 on 05/06/2023 by Blane Stinson MD at [facility] Left: Ankle [employer] 07/06/2025 [id number] / / [id number] Wire Extfix 450mm 1.8mm Dmd Pt Implanted:Qty: 6 on 05/06/2023 by Blane Stinson MD at [facility] Left: Ankle [employer] 4933-8-010 / / [place] Extfix 1.5-2mm Hfmn Med Wire Lmb Implanted:Qty: 3 on 07/08/2023 by Blane Stinson MD at [facility] Left: [employer] [id number] / / [place] Extfix 1.5-2mm Hfmn Lng Wire Lmb Implanted:Qty: 1 on 07/08/2023 by Blane Stinson MD at [facility] Left: [employer] [id number] / / Wshr Extfix Chevy 4mm Implanted:Qty: 1 on 07/08/2023 by Blane Stinson MD at [facility] Left: Tibia [employer] [id number] / / Wire Extfix 450mm 1.8mm Dmd Pt Implanted:Qty: 2 on 07/08/2023 by Blane Stinson MD at [facility] Left: [employer] 4933-8-010 / / Nut Orth Hfmn M8 Shrt Cnct Lmb Recon Frm Implanted:Qty: 4 on 07/08/2023 by Blane Stinson MD at [facility] Left: [employer] 4933-1-010 / / Explanted Type Area Produce Assistant Device Identifier Shelf Expiration Date Model / Serial / Lot Ring Extfix 180mm Cfbr Full Hfmn Lmb Explanted:Qty: 2 on 05/06/2023 at [facility] Left: Ankle [employer] 4933-5-180 / / Procedures Procedure Name Priority Date/Time Associated Diagnosis Comments MICROALB/CREAT RATIO URINE RANDOM PANEL Routine 09/18/2023 2:22 PM CDT NEDA (acute kidney injury) RENAL FUNCTION PANEL Routine 09/18/2023 2:00 PM CDT NEDA (acute kidney injury) HEMOGLOBIN A1C - POINT OF CARE (AMB) [facility] Routine 04/30/2023 1:31 PM PURCHASING SPECIALIST Type 2 diabetes mellitus with other specified [...] Not Established mg/dL 09/18/2023 3:54 PM T [facility] Urine Albumin/Creati nine Ratio 978(H) <30 mg/g 09/18/2023 3:54 PM T [facility] Urine URINE SPECIMEN OBTAINED BY CLEAN CATCH PROCEDURE / Unknown Collection / Unknown 09/18/2023 2:22 PM CDT 09/18/2023 3:02 PM CDT us Soco Sanchez MD LAB - URINE CHEMISTRY ORDERABLES Final Result [facility] [address] [place] [id number], [facility] [phone] * (ABNORMAL) RENAL FUNCTION PANEL (09/18/2023 2:00 PM CDT) BUN 17 7 - 26 mg/dL 09/18/2023 3:02 PM CDT [facility] Creatinine 1.26(H) 0.71 - 1.16 mg/dL 09/18/2023 3:02 PM [facility] Sodium 143 136 - 145 mmol/L 09/18/2023 3:02 PM [facility] Potassium 4.4 3.5 - 4.5 mmol/L 09/18/2023 3:02 PM [facility] Chloride 112(H) 98 - 107 mmol/L 09/18/2023 3:02 PM [facility] CO2 23 22 - 29 mmol/L 09/18/2023 3:02 PM [facility] Glucose 130(H) 70 - 115 mg/dL 09/18/2023 3:02 PM [facility] Albumin 3.5 3.4 - 5.0 g/dL 09/18/2023 3:02 PM [facility] Calcium 9.3 8.4 - 10.2 mg/dL 09/18/2023 3:02 PM [facility] Phosphorus 2.7(L) 2.8 - 5.1 mg/dL 09/18/2023 3:02 PM [facility] Anion Gap 8 6 - 16 09/18/2023 3:02 PM [facility] BUN/Creatinine Ratio 13 7 - 23 09/18/2023 3:02 PM [facility] Osmolality Calculated 299(H) 275 - 295 mOsm/kg 09/18/2023 3:02 PM [facility] eGFR by CKD-EPI 66(L) >=90 mL/min/1.7 3 m2 09/18/2023 3:02 PM [facility] Blood BLOOD SPECIMEN / Unknown Lab Venipuncture / Unknown 09/18/2023 2:00 PM CDT 09/18/2023 2:31 PM T Soco Sanchez MD LAB - CHEMISTRY ORDERABLES Final Result [facility] [address] [place] [address], [place] [phone] * HEMOGLOBIN A1C - POINT OF CARE (AMB) [facility] (04/30/2023 1:31 PM PURCHASING SPECIALIST) Hemoglobin A1c POCT 6.1 % [address] Blood BLOOD SPECIMEN / Unknown 04/30/2023 1:31 PM PURCHASING SPECIALIST Violet Younger FIRE CONTROL SYSTEM INSTALLER-DOWNSTREAM BIOMANUFACTURING TECHNICIAN LAB - POINT OF CARE ORD ERABLES Final Result Performing Organization Address [facility] Co de Phone Number [address] [facility] [place] [address], [facility] [phone] * HEPATITIS C AB SCREEN RFLX NAAT QUANT (2022 8:30 AM CDT) Pathologist [facility] Hepatitis C Antibody Non-react sherin Non-reac tive 2022 9:40 AM CDT [facility] Comment:Hepatitis C Antibody [...] ORDERABLE S Final Result Performing Organization Address City/[facility]/ZIP Co de Phone Number [facility] [address] [place] [address], [facility] [phone] * HIV-1 HIV-2 ANTIBODY + HIV P24 AG PANEL (2022 8:30 AM CDT) Pathologist [facility] HIV Antigen/Antibod y 1 & 2 Non-reacti ve Non-react sherin 2022 9:40 AM CDT [facility] Comment:No Laboratory eviden ce of HIV infection. Blood BLOOD SPECIMEN / Unknown Lab Venipuncture / Unknown 2022 8:30 AM CDT 2022 8:33 AM CDT us Emiliano Duong MD LAB - CHEMISTRY ORDERABLE S Final Result [facility] [address] [place] [address], [facility] [phone] from Last 3 Months or Most Recently [...] 9:02 PM 12/07/2022 4:45 PM Care Teams Meat Hostess Relationship Specialty Start Date End Date Violet Younger, FIRE CONTROL SYSTEM INSTALLER-DOWNSTREAM BIOMANUFACTURING TECHNICIAN [address] [facility] [address] [facility] [place] [address] PCP - General Nurse Practitioner Family 04/30/23
--- OUTSIDE RECORDS SUMMARY | 2024-09-09 19:07 | XMS_ITS | Clinical Summary ---
Author Organization [facility] Care Team Providers Care Water Fabricator Operator Name Role Phone Unavailable Primary Care Provider [...]
--- OUTSIDE RECORDS SUMMARY | 2024-09-09 19:07 | XMS_ITS | Clinical Summary ---
Author Organization [facility] Address [address] [facility] Attn: Epic Prelude ADT [place] [id number] Care Team Providers Care Manager Of Health Name Role Phone Unavailable Primary Care Provider [...] (1 of 2) 11/29/2013 INFLUENZA VACCINE (#1) 2024 RSV VACCINE (60+ or ) (1 - 1-dose 75+ series) 11/29/2038 HEPATITIS B VACCINES Aged Out No long er eligible based on patient's age to complete this topic Insurance [employer] Commercial
--- NOTE | 2024-09-09 19:13 | ECG_ITS ---
Test Date: 2024-09-09 19:36:30 Measurements Intervals [place] Rate: 90 P: 138 WI: 184 QRS: -30 QRSD: 105 T: 124 QT: 371 QTc: 454 Interpretive Statements SINUS RHYTHM PROBABLE LATERAL MYOCARDIAL INFARCTION , OF INDETERMINATE AGE [35 ms Q WAVE IN I/aVL/V5/V6] No previous ECG available for comparison Electronically Signed On 09-10-2024 16:37:41 CDT by Deshawn Pate
[2024-09-09 19:15] VITALS: BP 120/79; PULSE 91; RESP 14; O2SAT 99
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
[2024-09-09] MEDS: HYDROmorphone HCL INJ (*CRX) 2 MG/ML VIAL 0.5 MG IV PUSH (19:28)
[2024-09-09] MEDS: LACTATED RINGERS 1,000 ML 999 ML IV CONT ×2 (19:29→22:56)
[2024-09-09] MEDS: ONDANSETRON INJ 4 MG/2 ML VIAL IV PUSH (19:29)
[2024-09-09 20:25] LABS: Hematocrit 31.1 % (42.0-52.0); Hemoglobin 9.9 g/dL (14.0-18.0); Immature Granulocyte Percent A 0.5 % (0-0.5); Lymphocytes Absolute Auto 1.47 K/mm3 (0.9-3.2); Mean Corpuscular HGB Conc 31.8 g/dl (32-36); Mean Corpuscular Hemoglobin 28.3 pg (26-34); Mean Corpuscular Volume 88.9 fl (80-100); Nucleated Red Blood Cells Absolute Auto 0.000 K/mm3 (0.0-0.012); Nucleated Red Blood Cells Perc 0.0 % (0.0-0.2); Platelet Count Result 285 k/mm3 (150-375); Red Blood Count 3.50 M/mm3 (4.6-6.20); White Blood Count 6.1 K/mm3 (4.5-10.0)
[2024-09-09 20:36] LABS: Albumin Level 1.6 g/dL (3.5-5.1); Alkaline Phosphatase 41 U/L (38-126); Anion Gap 20 mmol/L (4-12); Aspartate Amino Transferase 8 U/L (17-59); Bilirubin,Total 0.5 mg/dL (0.2-1.3); Blood Urea Nitrogen 40 mg/dL (9-20); Calcium 7.1 mg/dL (8.4-10.2); Carbon Dioxide 6 mmol/L (22-30); Chloride 100 mmol/L (98-107); Estimated CRCL calculation 29 ml/min; Estimated Glomerular Filt Rate 22; Glucose 69 mg/dL (65-110); Magnesium 1.0 mg/dL (1.6-2.3); Potassium 4.4 mmol/L (3.4-5.0); Sodium 126 mmol/L (137-145); Total Protein 3.6 g/dL (6.3-8.2)
[2024-09-09 20:48] LABS: Alanine Aminotransferase < 6 U/L (6-50)
[2024-09-09] MEDS: MAGNESIUM SULF 2 GM/WATER 50ML 2 GM/50 ML BAG IVPB (20:58)
[2024-09-09] MEDS: SODIUM CHLORIDE 0.9% IV 1,000 ML 999 ML IV CONT (20:59)
[2024-09-09 23:00] VITALS: BP 121/84; PULSE 88; RESP 11; O2SAT 97
[2024-09-09 23:01] VITALS: BP 111/80; PULSE 86; RESP 10; O2SAT 96
[2024-09-09 23:27] LABS: Add Urine Microscopic? YES; Appearance Urine Cloudy (Clear); Glucose Urine UA 1+ mg/dL (Negative); Leukocyte Esterase Ur Negative LEU/UL (Negative); Need Manual Microscopic Reviewed; Nitrate Urine Negative (Negative); Non Pathogenic Casts >20; Specific Grav Ur 1.014 (1.001-1.035)
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
--- NOTE | 2024-09-10 00:49 | ADMGEN ---
This patient, Mika Cornell Sr., was admitted to Medical Room 250-01. Patient/family oriented to hospital policies and general routines including ID bracelet, bed and alarms, visiting hours, pain management, procedures, bathroom and other care routines, personal items, smoking policy, room service/diet, and visiting hours. Information on how to activate the Rapid Response Team has been discussed. Patient/Family are encouraged to report perceived risks to care and to ask questions if they do not understand what they are told or what they should do.
[2024-09-10 00:53] VITALS: BMI 28.3
[2024-09-10 01:19] LABS: Beta-Hydroxybutyrate/Acetoacetate 1.60 mmol/L (0.02-0.27)
[2024-09-10] MEDS: SODIUM CHLORIDE 0.9% IV 1,000 ML 100 ML IV CONT ×3 (01:34→22:41)
[2024-09-10] MEDS: MAGNESIUM SULF 1 GM/D5W 100 ML 1 GM/100 ML BAG IVPB (01:35)
[2024-09-10 02:16] LABS: Fractional Inspired Oxygen 21 %; HCO3 VBG 14.9 mEq/l (24.0-30.0); PCO2 VBG 35.1 mmHg (42.0-48.0); PO2 VBG 63.0 mmHg (35.0-45.0); pH VBG 7.247 (7.300-7.400)
[2024-09-10 02:18] LABS: Hemoglobin A1C > 14.0 % (<5.7)
[2024-09-10 02:42] VITALS: O2SAT 96
[2024-09-10 06:00] VITALS: BP 99/56; PULSE 84; RESP 18; TEMP 36.4; O2SAT 96
[2024-09-10] MEDS: LIDOCAINE 5% PATCH 1 PATCH TOPICAL (08:26)
[2024-09-10] MEDS: VALSARTAN 40 MG TABLET PO (08:29)
[2024-09-10] MEDS: PANTOPRAZOLE SODIUM IV 40 MG VIAL IV PUSH (08:29)
[2024-09-10] MEDS: APIXABAN 5 MG TABLET PO ×2 (08:29→20:51)
[2024-09-10] MEDS: ERGOCALCIFEROL (VITAMIN D2) 1,250 MCG (50,000 UNITS) CAPSULE 1250 MCG PO (08:29)
[2024-09-10] MEDS: FAMOTIDINE 20 MG TABLET PO ×2 (08:29→17:40)
[2024-09-10] MEDS: ATORVASTATIN 20 MG TABLET PO (08:29)
[2024-09-10 10:01] LABS: Toxigenic C. Diff POSITIVE (NEGATIVE)
[2024-09-10 11:25] LABS: Hematocrit 35.1 % (42.0-52.0); Hemoglobin 11.1 g/dL (14.0-18.0); Mean Corpuscular HGB Conc 31.6 g/dl (32-36); Mean Corpuscular Hemoglobin 28.2 pg (26-34); Mean Corpuscular Volume 89.1 fl (80-100); Platelet Count Result 374 k/mm3 (150-375); Red Blood Count 3.94 M/mm3 (4.6-6.20); White Blood Count 6.8 K/mm3 (4.5-10.0)
[2024-09-10 11:36] LABS: Alanine Aminotransferase 10 U/L (6-50); Albumin Level 3.9 g/dL (3.5-5.1); Alkaline Phosphatase 90 U/L (38-126); Anion Gap 18 mmol/L (4-12); Aspartate Amino Transferase 21 U/L (17-59); Bilirubin,Total 0.8 mg/dL (0.2-1.3); Blood Urea Nitrogen 74 mg/dL (9-20); Calcium 8.7 mg/dL (8.4-10.2); Carbon Dioxide 17 mmol/L (22-30); Chloride 97 mmol/L (98-107); Estimated CRCL calculation 14 ml/min; Estimated Glomerular Filt Rate 9; Glucose 193 mg/dL (65-110); Magnesium 2.5 mg/dL (1.6-2.3); Potassium 4.7 mmol/L (3.4-5.0); Sodium 132 mmol/L (137-145); Total Protein 7.4 g/dL (6.3-8.2)
[2024-09-10] MEDS: VANCOMYCIN HCL 125 MG ORAL CAPSULE PO ×3 (12:31→23:42)
[2024-09-10 12:51] VITALS: BMI 28.3
--- NOTE | 2024-09-10 13:52 | P.PNCROSS_ITS ---
Event Note Event Note Event Note: Patient was seen and evaluated by previous provider same day did a follow-up evaluation and repeated labs patient came in with diarrhea and abdominal pain. Emergency department patient was found to have acute kidney injury with electrolyte imbalances including hypomagnesia calcium 7.1 gap is 20 in severe metabolic acidosis secondary to his acute dehydration multiple episodes of diarrhea. patient appears to have CKD 3 however superimposed NEDA initial creatinine of 2.9 on admission however follow-up labs patient's creatinine is jump to to 6.20 pre-renal secondary to dehydration vs intrinsic NEDA. Could be other multiple causes patient with uncontrolled diabetes A1c was greater than 14 was previously taking glimepiride will discontinue and start patient on long- acting insulin. Follow-up labs improved with fluid resuscitation other than renal function nephrology has been consulted for further evaluation and recommendations. Renal ultrasound pending. A C diff culture was completed which was positive and patient initiated on oral vancomycin and placed on dr demetriuset isolation. patient continued on IV fluids will continue to trend renal function, electrolytes stable at this time.
[2024-09-10 14:00] VITALS: BP 100/68; PULSE 76; RESP 18; TEMP 36.6; O2SAT 100
--- NOTE | 2024-09-10 14:20 | P.CONNP_ITS ---
Assessment and Plan Assessment and plan (1) Acute kidney injury: Code(s): N17.9 - Acute kidney failure, unspecified Status: Acute Assessment and Plan: * as noted by admission labs (2.9mg/dl) and earlier today (6.2mg/dl) * baseline creatinine seems to run ~ 1.2 - 1.4mg/dl in the last year or so * suspect multifactorial: * prerenal factors (diarrhea and insensible losses) * infection (C diff positive) * relative hypotension * ARB use prior to admission * diuretic use prior to admission * bladder distension (?) * known history of NEDA/ARF in 2023 due to obstructive uropathy (at [facility]) * renal function recovered to baseline by time of discharge * hold valsartan * hold lasix * check urine studies, renal ultrasound, and CPK * IVF resuscitation * follow trend of repeat labs and UOP (2) C. difficile diarrhea: Code(s): A04.72 - Enterocolitis due to Clostridium difficile, not specified as recurrent Status: Acute Assessment and Plan: * C. diff toxin assay positive * presumably cause to abdominal pain and diarrhea * started on oral vancomycin * follow trend of bowel movements (3) Metabolic acidosis: Code(s): E87.20 - Acidosis, unspecified Status: Acute Assessment and Plan: * due to a combination of NEDA/ARF and diarrhea * improvement noted with IVF hydration and treatment for diarrhea (see #2) * follow trend (4) Anemia: Code(s): D64.9 - Anemia, unspecified Status: Chronic Assessment and Plan: * relatively stable * if worsening occurs, could be related to NEDA/ARF * consider further evaluation as an outpatient * could check iron studies but would avoid IV iron in the context of acute infection (#2) * follow trend of H/H (5) Hypomagnesemia: Code(s): E83.42 - Hypomagnesemia Status: Acute Assessment and Plan: * likely more related to diarrhea and GI loss * replace as needed (in the context of NEDA/ARF) * follow trend (6) DVT (deep venous thrombosis): Code(s): I82.409 - Acute embolism and thrombosis of unspecified deep veins of unspecified lower extremity Status: Chronic Assessment and Plan: * known history * on anticoagulation * playing a role with #4 (?) (7) Essential (primary) hypertension: Code(s): I10 - Essential (primary) hypertension Status: Chronic Assessment and Plan: * reasonable control at this time * holding lasix and valsartan * place parameters on amlodipine * follow trend of hemodynamics (8) Type 2 diabetes mellitus: Code(s): E11.9 - Type 2 diabetes mellitus without complications Status: Chronic Assessment and Plan: * poor control at baseline * HgbA1c > 14 * follow accu-cheks * glycemic control per hospitalist I will continue to follow the patient with you while he remains hospitalized and make further recommendations as deemed necessary. Thank you for allowing me to participate in the care of this patient. L History of Present Illness Reason for Consult Consult date: 09/10/24 Reason for consult: acute renal failure Chief Complaint Chief complaint: Diarrhea; NEDA/CKD; Dehydration; HypoMg History of Present Illness Narrative: The patient is a 58-year-old male with a past medical history as outlined below who presented to [facility] ER complaints of abdominal pain and diarrhea. Apparently, these symptoms have going on for about a week or more. His abdominal pain is localized to the epigastric area and is described as burning sensation. Along with the associated diarrhea, he also reports poor appetite as well. No melena or hematochezia or for that matter fevers, chills, nausea, vomiting, chest pain or shortness of breath. Given the persistence of these symptoms without any significant improvement despite conservative therapy, he presented to the ER for further assessment. Upon presentation to the ER, he was noted to be hemodynamically stable and in no acute distress. Routine labs was notable for a sodium level of 126, creatinine of 2.9, BUN of 40, hemoglobin of 9.9, magnesium is 1.0, and calcium is 7.1 and anion gap is 20. His EKG showed normal sinus rhythm without any ischemic changes. As he has a history of trauma to his left knee/leg, x-ray of the left knee was performed that showed a possible bony shadow in the lateral joint space and CT is recommended. CT of the knee then showed osteopenia and osteoarthritis without any acute fracture. The patient received 3 L of IV fluids in the emergency room, Dilaudid, Zofran and magnesium 2 g IV x 1. He was subsequently admitted to the hospital for further evaluation and therapy regarding his NEDA/ARR, hyponatremia; hypomagnesemia, and hypocalcemia. Since his admission, he had repeat labs done early this morning which showed a marked decline in his renal function with a creatinine up to 6.2 mg/dL from admission creatinine of 2.9 mg/dL. However, his sodium, calcium, magnesium were all doing better by these repeat labs. Renal consultation was requested due to his acute kidney injury/acute renal failure. Last labs in the [facility] system are from December of 2022 where his kidney function was well within normal limits although his last creatinine was documented as 1.4 mg/dL. However, labs in 2023 during his acute hospitalization at [facility] showed his kidney function to be well within normal limits although it should be noted that he suffered an acute insult to his kidneys in the form of obstructive uropathy. It is difficult to ascertain the explanation for his significant decline in kidney function in the last 24 hours with regard to an admission creatinine of 2.9 and a repeat creatinine of 6.2 mg/dL this morning. The presumed etiology of his acute kidney injury/ acute renal failure is thought to be secondary to his volume depletion given his poor appetite and diarrhea. Currently, despite his significant decline in kidney function, the patient appears to be in no acute distress. Review of Systems 2 Review of Systems: As per HPI. [facility] Past Medical History Medical History (Updated 09/12/24 @ 13:45 by Teresa Richard MD) Diarrhea Anemia Pain of left lower extremity Abnormal CT of the abdomen Electrolyte abnormality Dehydration High anion gap metabolic acidosis Hip fracture, right 12/15/[address] fixation [address] Ortho [address] Diop Intertrochanteric fracture of right hip (12/2022) Gastroesophageal reflux disease Obstructive sleep apnea Hyperlipidemia Hypertension Type 2 diabetes mellitus Lymphedema due to venous disease Charcot ankle Diffuse idiopathic skeletal hyperostosis Noted on x-ray in May 2020. Surgical History Surgical History History of hip surgery 12/15/[address] right hip fracture Dr Diop Family History Family History Father Acute myocardial infarction Other Paternal family history of congestive heart failure Acute myocardial infarction Paternal family hx Paternal family history of cerebrovascular event Malignant neoplasm of prostate Uncle Social History Social History Social History: Surrogate medical decision maker: Lucio Cornell, spouse. Code status: Full code. Smoking status: Never smoker Tobacco type: cigars Second hand tobacco smoke exposure: No Alcohol intake: never Substance use: never Substance use type: does not use Do You Feel Safe in your Home?: Yes Lack of Transportation: No Lack of Food: Never True Current Housing: I Have Housing Concerned About Future Housing: No Difficulty Paying Gas/Electric Bills: No Difficulty Paying for Meds: No Currently Unemployed: No Education: Master's Degree or Higher Difficulty w/ Childcare or Family Care: No Additional living arrangements comments: Lives with spouse and children in [place]. Additional occupation/education comments: [employer]. Spiritual care concerns: No Meds Home Medications and Allergies Home Medications ?Medication ?Instructions ?Recorded ?Confirmed ?Type acetaminophen 325 mg tablet 650 mg PO TID 12/18/22 09/10/24 History amlodipine 10 mg tablet 10 mg PO DAILY 12/18/22 09/10/24 History famotidine 20 mg tablet 20 mg PO BID 12/18/22 09/10/24 History apixaban 5 mg tablet (Eliquis) 5 mg PO BID #60 tabs 01/01/23 09/10/24 Rx mirtazapine 15 mg tablet 15 mg PO HS #30 tabs 01/04/23 09/10/24 Rx valsartan 40 mg tablet 40 mg PO DAILY #30 tabs 05/13/23 09/10/24 Rx furosemide 40 mg tablet 40 mg PO QAM #90 tabs 07/01/23 09/10/24 Rx pantoprazole 40 mg tablet,delayed 40 mg PO DAILY #30 tabs 09/18/23 09/10/24 Rx release glycopyrrolate 2 mg tablet See Rx Instructions .Route 10/24/23 09/10/24 Rx .COMPLEX #360 tabs metformin 500 mg tablet,extended See Rx Instructions .Route 10/24/23 09/10/24 Rx release 24 hr .COMPLEX #360 tabs lidocaine 5 % topical patch 1 patch topical DAILY #15 ea 04/09/24 09/10/24 Rx cholecalciferol (vitamin D3) 1,250 1,250 mcg PO WEEKLY #12 caps 06/08/24 09/10/24 Rx mcg (50,000 unit) capsule allopurinol 200 mg tablet 200 mg PO DAILY #90 tabs 06/09/24 09/10/24 Rx atorvastatin 20 mg tablet (Lipitor) 20 mg PO DAILY #90 tabs 06/09/24 09/10/24 Rx methocarbamol 750 mg tablet 750 mg PO TID PRN pain #20 tabs 06/11/24 09/10/24 Rx blood sugar diagnostic (OneTouch #1 pkg 09/13/24 Rx Verio test strips) blood-glucose meter (OneTouch #1 pkg 09/13/24 Rx Verio Flex Meter) insulin glargine 100 unit/mL (3 20 unit (0.2 mL) subcut QAM #15 mL 09/13/24 Rx mL) subcutaneous pen (Lantus Solostar U-100 Insulin) lancets 30 gauge (OneTouch Delica #1 pkg 09/13/24 Rx Plus Lancet) pen needle, diabetic 32 gauge x #1 pkg 09/13/24 Rx /32 vancomycin 125 mg capsule 125 mg PO Q6HR #27 caps 09/13/24 Rx Allergies Allergy/AdvReac Type Severity Reaction Status Date / Time No Known Allergies Allergy Verified 07/29/24 09:26 Vital Signs Vital Signs Temp Pulse Resp BP Pulse Ox O2 Del Method FiO2 09/10/24 14:00 97.8 F 76 18 100/68 100 09/10/24 08:36 Room Air 09/10/24 06:00 97.5 F L 84 18 99/56 L 96 09/10/24 02:42 96 Room Air 09/09/24 23:01 86 10 L 111/80 96 09/09/24 23:00 88 11 L 121/84 97 Exam 2 Narrative: GENERAL APPEARANCE: large but well developed well nourished male in no acute distress HEENT: normocephalic, atraumatic, normal conjunctiva and sclera, nares patient NECK: no lymphadenopathy, thyromegaly, or JVD MOUTH: normal lips, teeth, and gums CARDIOVASCULAR: RRR, normal S1 and S2, no rub detected RESPIRATORY: clear to auscultation bilaterally ABDOMEN: soft, +TTP diffusely, nondistended, positive bowel sounds present EXTREMITIES: no evidence of cyanosis, clubbing, or edema NEUROLOGICAL: alert and oriented x 3; CN II - XII intact bilaterally; no focal deficits noted Results Lab Results 09/13/24 05:05 09/13/24 05:05 Lab results: Most recent lab results Calcium 8.6 mg/dL (8.4-10.2) 09/10/24 18:59 Phosphorus 3.4 mg/dL (2.5-4.5) 09/10/24 18:11 Magnesium 2.5 mg/dL (1.6-2.3) H 09/10/24 11:15 Urine Creatinine 66.0 mg/dL 09/10/24 16:50
[2024-09-10 17:11] LABS: Total Protein Urine Random 30 mg/dL; Ur Ttl Prot Creatinine Ratio 0.45 mg/mg (0-0.20)
[2024-09-10 17:21] LABS: Total Protein Urine Random 34 mg/dL; Urea Random Urine 264 MG/DL
[2024-09-10 17:26] LABS: Urine Eos QC 2nd Tech Confirmed
[2024-09-10 18:39] LABS: Albumin Level 2.1 g/dL (3.5-5.1); Anion Gap 10 mmol/L (4-12); Blood Urea Nitrogen 48 mg/dL (9-20); Calcium 5.3 mg/dL (8.4-10.2); Carbon Dioxide 10 mmol/L (22-30); Chloride 115 mmol/L (98-107); Creatine Kinase 51 U/L (55-170); Estimated CRCL calculation 24 ml/min; Estimated Glomerular Filt Rate 18; Glucose 121 mg/dL (65-110); Potassium 2.9 mmol/L (3.4-5.0); Sodium 135 mmol/L (137-145)
[2024-09-10 19:05] LABS: Thyroid Stimulating Hormone Reflex 0.112 uIU/mL (0.465-4.68)
[2024-09-10 19:16] LABS: Anion Gap 15 mmol/L (4-12); Blood Urea Nitrogen 70 mg/dL (9-20); Calcium 8.6 mg/dL (8.4-10.2); Carbon Dioxide 18 mmol/L (22-30); Chloride 100 mmol/L (98-107); Estimated CRCL calculation 15 ml/min; Estimated Glomerular Filt Rate 10; Glucose 187 mg/dL (65-110); Potassium 4.3 mmol/L (3.4-5.0); Sodium 133 mmol/L (137-145)
[2024-09-10 19:41] LABS: Free T4 Free Thyroxine Reflex 1.50 ng/dL (0.78-2.19)
[2024-09-10 20:38] VITALS: PULSE 91; RESP 20; O2SAT 91
[2024-09-10 20:50] VITALS: PULSE 91; RESP 20; O2SAT 91
[2024-09-10] MEDS: MIRTAZAPINE 15 MG TABLET PO (20:51)
[2024-09-10] MEDS: INSULIN ASPART (*BKC) 100 UNITS/ML SUB-Q (20:51)
[2024-09-10 22:00] VITALS: BP 91/55; PULSE 77; RESP 18; TEMP 36.7; O2SAT 94
[2024-09-10 22:12] LABS: Total Triiodothyronine (T3) 0.67 NG/ML (0.82-1.58)
[2024-09-10 22:13] LABS: Hepatitis B Surface Antigen Negative (Negative)
[2024-09-10 22:30] LABS: Hepatitis B Surface Anti Res Negative
[2024-09-11 05:33] LABS: Hematocrit 33.3 % (42.0-52.0); Hemoglobin 10.4 g/dL (14.0-18.0); Mean Corpuscular HGB Conc 31.2 g/dl (32-36); Mean Corpuscular Hemoglobin 28.3 pg (26-34); Mean Corpuscular Volume 90.7 fl (80-100); Platelet Count Result 353 k/mm3 (150-375); Red Blood Count 3.67 M/mm3 (4.6-6.20); White Blood Count 6.9 K/mm3 (4.5-10.0)
[2024-09-11 05:48] LABS: INR 1.3; Prothrombin Time 16.6 Seconds (11.1-14.7)
[2024-09-11 05:49] LABS: Partial Thromboplastin Time 33.7 Seconds (22.3-36.8)
[2024-09-11 05:51] LABS: Alanine Aminotransferase 9 U/L (6-50); Albumin Level 3.8 g/dL (3.5-5.1); Alkaline Phosphatase 95 U/L (38-126); Anion Gap 12 mmol/L (4-12); Aspartate Amino Transferase 16 U/L (17-59); Bilirubin,Total 0.9 mg/dL (0.2-1.3); Blood Urea Nitrogen 61 mg/dL (9-20); Calcium 8.6 mg/dL (8.4-10.2); Carbon Dioxide 20 mmol/L (22-30); Chloride 103 mmol/L (98-107); Estimated CRCL calculation 17 ml/min; Estimated Glomerular Filt Rate 12; Glucose 165 mg/dL (65-110); Magnesium 2.3 mg/dL (1.6-2.3); Potassium 4.0 mmol/L (3.4-5.0); Sodium 135 mmol/L (137-145); Total Protein 7.1 g/dL (6.3-8.2)
[2024-09-11 06:00] VITALS: BP 101/52; PULSE 82; RESP 18; TEMP 36.3; O2SAT 97
[2024-09-11] MEDS: VANCOMYCIN HCL 125 MG ORAL CAPSULE PO ×3 (06:04→17:28)
[2024-09-11] MEDS: SODIUM CHLORIDE 0.9% IV 1,000 ML 100 ML IV CONT ×2 (08:38→17:29)
[2024-09-11] MEDS: FAMOTIDINE 20 MG TABLET PO ×2 (08:39→17:28)
[2024-09-11] MEDS: APIXABAN 5 MG TABLET PO ×2 (08:39→21:57)
[2024-09-11] MEDS: ATORVASTATIN 20 MG TABLET PO (08:40)
[2024-09-11] MEDS: LIDOCAINE 5% PATCH 1 PATCH TOPICAL (08:41)
[2024-09-11] MEDS: INSULIN GLARGINE (*BKC) 100 UNITS/ML 20 UNITS SUB-Q (08:41)
[2024-09-11] MEDS: PANTOPRAZOLE SODIUM IV 40 MG VIAL IV PUSH (08:43)
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
[2024-09-11] MEDS: INSULIN ASPART (*BKC) 100 UNITS/ML SUB-Q (12:13)
[2024-09-11 14:00] VITALS: BP 143/88; PULSE 91; RESP 20; TEMP 36.2; O2SAT 97
--- NOTE | 2024-09-11 15:06 | P.PNNP_ITS ---
Progress Note: A&P Assessment and Plan (1) Acute kidney injury: Code(s): N17.9 - Acute kidney failure, unspecified Status: Acute Assessment and Plan: * slow improvement noted * as noted by admission labs (2.9mg/dl) and the higher on 09/10 (6.2mg/dl) * baseline creatinine seems to run ~ 1.2 - 1.4mg/dl in the last year or so * suspect multifactorial: * prerenal factors (diarrhea and insensible losses) * infection (C diff positive) * relative hypotension * ARB use prior to admission * diuretic use prior to admission * bladder distension (?) * known history of NEDA/ARF in 2023 due to obstructive uropathy (at [facility]) * renal function recovered to baseline by time of discharge * hold valsartan * hold lasix * evaluation to date noted: * renal ultrasound with left lobulation but no obstruction * urine electrolytes prerenal by FeUrea * UA without acute infection * urine eosinophils negative * mild proteinuria (~ 450mg) * CPK low * continue IVFs for now * follow trend of repeat labs and UOP (2) C. difficile diarrhea: Code(s): A04.72 - Enterocolitis due to Clostridium difficile, not specified as recurrent Status: Acute Assessment and Plan: * C. diff toxin assay positive * presumably cause to abdominal pain and diarrhea * on oral vancomycin * follow trend of bowel movements (3) Metabolic acidosis: Code(s): E87.20 - Acidosis, unspecified Status: Acute Assessment and Plan: * resolving/improving * due to a combination of NEDA/ARF and diarrhea * improvement noted with IVF hydration and treatment for diarrhea (see #2) * follow trend (4) Anemia: Code(s): D64.9 - Anemia, unspecified Status: Chronic Assessment and Plan: * relatively stable * if worsening occurs, could be related to NEDA/ARF * consider further evaluation as an outpatient * could check iron studies but would avoid IV iron in the context of acute infection (#2) * follow trend of H/H (5) Hypomagnesemia: Code(s): E83.42 - Hypomagnesemia Status: Acute Assessment and Plan: * likely more related to diarrhea and GI loss * replace as needed (in the context of NEDA/ARF) * follow trend (6) Essential (primary) hypertension: Code(s): I10 - Essential (primary) hypertension Status: Chronic Assessment and Plan: * reasonable control at this time * holding lasix and valsartan * parameters on amlodipine * follow trend of hemodynamics (7) DVT (deep venous thrombosis): Code(s): I82.409 - Acute embolism and thrombosis of unspecified deep veins of unspecified lower extremity Status: Chronic Assessment and Plan: * known history * on anticoagulation * playing a role with #4 (?) (8) Type 2 diabetes mellitus: Code(s): E11.9 - Type 2 diabetes mellitus without complications Status: Chronic Assessment and Plan: * poor control at baseline * HgbA1c > 14 * follow accu-cheks * glycemic control per hospitalist Will continue to follow. L Subjective Date/time seen: 09/11/24 10:55 Interval history: Follow-up for acute kidney injury/acute renal failure He appears to be feeling better at the time of my visit; renal function/creatinine appears to be slowly improving by trend of labs; diarrhea seems to be subsided as well and is tolerating oral intake; no other acute issues/events overnight or earlier this morning. Exam 2 Narrative: General: WD/WN male in NAD Heart: normal S1 and S2; no rub Lungs: clear to auscultation Abdomen: soft, nontender, nondistended, positive bowel sounds Extremities: no cyanosis or clubbing; no edema; left Charcot foot Skin: warm and dry Objective Data Vital Signs Vital Signs: Vital Signs Temp Pulse Resp BP Pulse Ox O2 Del Method FiO2 09/11/24 08:40 Room Air 09/11/24 06:00 97.4 F L 82 18 101/52 L 97 09/10/24 22:00 98.1 F 77 18 91/55 L 94 09/10/24 20:50 91 20 91 Room Air 21 09/10/24 20:38 91 20 91 Room Air 21 Intake/Output Intake/Output: Intake & Output 09/08/24 09/09/24 09/10/24 09/11/24 23:59 23:59 23:59 23:59 Intake Total 2049 3930 1475 Output Total 1325 1000 Balance 2049 2605 475 Meds/Results Medications: Active Medications Generic Name Dose Route Start Last Admin Trade Name Freq PRN Reason Stop Dose Admin Acetaminophen 650 mg 09/09/24 23:42 Acetaminophen 325 Mg Tablet PO Q4H PRN Mild Pain (1-3) or Fever Acetaminophen 650 mg 09/10/24 01:14 Acetaminophen 325 Mg Tablet PO Q6H PRN Mild Pain (1-3) or Fever Hydrocodone Bitart/Acetaminophen 1 tab 09/10/24 01:14 Hydrocodone/Acetaminophen (*Crx) 10-325 Mg Tablet PO Q6H PRN Pain Rated 7-10 Amlodipine Besylate 10 mg 09/10/24 09:00 09/11/24 08:40 Amlodipine Besylate 10 Mg Tablet PO 10 mg DAILY DANICA Administration Apixaban 5 mg 09/10/24 09:00 09/11/24 08:39 Apixaban 5 Mg Tablet PO 5 mg Q12HR DANICA Administration Atorvastatin Calcium 20 mg 09/10/24 09:00 09/11/24 08:40 Atorvastatin 20 Mg Tablet PO 20 mg DAILY DANICA Administration Dextrose 12.5 gm 09/10/24 01:14 Dextrose 50% 25 Gm/50 Ml Syringe IV PUSH PRN PRN Hypoglycemia Protocol Ergocalciferol 1,250 mcg 09/10/24 09:00 09/10/24 08:29 Ergocalciferol (Vitamin D2) 1,250 Mcg (50,000 Units) Capsule PO 1,250 mcg WEEKLY DANICA Administration Famotidine 20 mg 09/10/24 09:00 09/11/24 08:39 Famotidine 20 Mg Tablet PO 20 mg BID DANICA Administration Glucagon 1 mg 09/10/24 01:14 Glucagon For Inj 1 Mg Vial IM PRN PRN Hypoglycemia Protocol Glucose 15 gm 09/10/24 01:14 Glucose Oral Gel 15 Gm Of Glucse In 37.5 Gm Tube PO PRN PRN Hypoglycemia Protocol Sodium Chloride 1,000 mls @ 100 mls/hr 09/10/24 01:10 09/11/24 08:38 Normal Saline Iv IV CONT 100 mls/hr .Q10H DANICA Administration Dextrose 1,000 mls @ 100 mls/hr 09/10/24 01:14 Dextrose 5% 1,000 Ml IVPB PRN PRN Hypoglycemia Protocol Insulin Aspart 2 - 5 units 09/10/24 08:00 09/11/24 12:13 Insulin Aspart (*Bkc) 100 Units/Ml SUB-Q 2 units TIDWM DANICA Administration Protocol Insulin Glargine 20 units 09/11/24 09:00 09/11/24 08:41 Insulin Glargine (*Bkc) 100 Units/Ml 0.2 units/kg (20 units) 20 units SUB-Q Administration DAILY [facility] Lidocaine 1 patch 09/10/24 09:00 09/11/24 08:41 Lidocaine 5% Patch TOPICAL 1 patch DAILY DANICA Administration Methocarbamol 750 mg 09/10/24 01:16 Methocarbamol 750 Mg Tablet PO TID PRN muscle pain Mirtazapine 15 mg 09/10/24 21:00 09/10/24 20:51 Mirtazapine 15 Mg Tablet PO 15 mg HS [facility] Administration Ondansetron HCl 4 mg 09/09/24 23:42 Ondansetron Inj 4 Mg/2 Ml Vial IV PUSH Q4H PRN Nausea Ondansetron HCl 4 mg 09/10/24 01:14 Ondansetron Inj 4 Mg/2 Ml Vial IV PUSH Q6H PRN Nausea And Vomiting Pantoprazole Sodium 40 mg 09/12/24 09:00 Pantoprazole 40 Mg Tablet PO QAM [facility] Tramadol HCl 50 mg 09/10/24 01:14 Tramadol Hcl (*Crx) 50 Mg Tablet PO Q6H PRN Pain Rated 4-6 Valsartan 40 mg 09/10/24 09:00 09/10/24 08:29 Valsartan 40 Mg Tablet PO 40 mg DAILY DANICA Administration Vancomycin HCl 125 mg 09/10/24 12:00 09/11/24 12:12 Vancomycin Hcl 125 Mg Oral Capsule PO 09/20/24 11:59 125 mg Q6HR DANICA Administration Radiology Results: ITS Impressions Knee X-Ray 09/09/24 20:15 IMPRESSION: No definite acute osseous abnormality left knee. Possible bony shadow in the area of the lateral joint space. CT evaluation is advised. Tibia/Fibula X-Ray 09/09/24 20:20 IMPRESSION: Lucency in the proximal metaphysis of the left tibia which may be a stone osteopenia. CT evaluation advised. Healing fracture in the midshaft of the left tibia and fibula. Healed fracture in the distal left tibia. Arthrodesis of the ankle joint. Knee CT 09/09/24 21:14 IMPRESSION: Osteopenia of the bones. No fractures seen. Mild osteoarthritic changes. Abdomen/Pelvis CT 09/09/24 22:11 IMPRESSION: 1. No evidence of appendicitis, diverticulitis or intestinal obstruction. 2. Overdistended urinary bladder. Enlarged prostate. 3. Cholelithiasis. 4. Bilateral inguinal fat-containing hernia. Umbilical fat-containing hernia. Small sliding hiatus hernia. 5. Lymphadenopathy in the mediastinum. 6. Prominent lateral limb of the left adrenal gland. Renal Ultrasound 09/10/24 15:39 IMPRESSION: lobation is seen in the left kidney. Otherwise, No definite abnormality seen in both kidneys. Labs Labs: Laboratory Tests 09/11/24 05:02 09/11/24 05:02 Calcium 8.6 Magnesium 2.3 Total Bilirubin 0.9 AST 16 L ALT 9 Alkaline Phosphatase 95 Total Protein 7.1 Albumin 3.8
[2024-09-11 19:35] LABS: Albumin Level 3.7 g/dL (3.5-5.1); Anion Gap 11 mmol/L (4-12); Blood Urea Nitrogen 57 mg/dL (9-20); Calcium 9.2 mg/dL (8.4-10.2); Carbon Dioxide 20 mmol/L (22-30); Chloride 106 mmol/L (98-107); Estimated CRCL calculation 23 ml/min; Estimated Glomerular Filt Rate 17; Glucose 163 mg/dL (65-110); Potassium 4.6 mmol/L (3.4-5.0); Sodium 137 mmol/L (137-145)
[2024-09-11 21:10] VITALS: BP 117/72; PULSE 80; RESP 16; TEMP 36.4; O2SAT 97
[2024-09-11] MEDS: MIRTAZAPINE 15 MG TABLET PO (21:56)
[2024-09-12] MEDS: VANCOMYCIN HCL 125 MG ORAL CAPSULE PO ×5 (01:07→23:37)
[2024-09-12] MEDS: SODIUM CHLORIDE 0.9% IV 1,000 ML 100 ML IV CONT ×2 (03:29→15:29)
[2024-09-12 05:20] LABS: Hematocrit 32.8 % (42.0-52.0); Hemoglobin 10.2 g/dL (14.0-18.0); Mean Corpuscular HGB Conc 31.1 g/dl (32-36); Mean Corpuscular Hemoglobin 28.2 pg (26-34); Mean Corpuscular Volume 90.6 fl (80-100); Platelet Count Result 347 k/mm3 (150-375); Red Blood Count 3.62 M/mm3 (4.6-6.20); White Blood Count 8.3 K/mm3 (4.5-10.0)
[2024-09-12 05:31] LABS: Alanine Aminotransferase 11 U/L (6-50); Albumin Level 3.7 g/dL (3.5-5.1); Alkaline Phosphatase 90 U/L (38-126); Anion Gap 10 mmol/L (4-12); Aspartate Amino Transferase 18 U/L (17-59); Bilirubin,Total 0.6 mg/dL (0.2-1.3); Blood Urea Nitrogen 48 mg/dL (9-20); Calcium 9.0 mg/dL (8.4-10.2); Carbon Dioxide 20 mmol/L (22-30); Chloride 110 mmol/L (98-107); Estimated CRCL calculation 27 ml/min; Estimated Glomerular Filt Rate 20; Glucose 198 mg/dL (65-110); Magnesium 2.0 mg/dL (1.6-2.3); Potassium 4.2 mmol/L (3.4-5.0); Sodium 140 mmol/L (137-145); Total Protein 7.0 g/dL (6.3-8.2)
[2024-09-12 06:06] VITALS: BP 105/59; PULSE 90; RESP 14; TEMP 36.4; O2SAT 96
[2024-09-12] MEDS: ATORVASTATIN 20 MG TABLET PO (10:00)
[2024-09-12] MEDS: PANTOPRAZOLE 40 MG TABLET PO (10:00)
[2024-09-12] MEDS: APIXABAN 5 MG TABLET PO ×2 (10:00→20:04)
[2024-09-12] MEDS: FAMOTIDINE 20 MG TABLET PO ×2 (10:00→16:24)
[2024-09-12] MEDS: LIDOCAINE 5% PATCH 1 PATCH TOPICAL (10:00)
[2024-09-12] MEDS: INSULIN GLARGINE (*BKC) 100 UNITS/ML 20 UNITS SUB-Q (10:03)
--- NOTE | 2024-09-12 10:10 | P.PNNP_ITS ---
Progress Note: A&P Assessment and Plan (1) Acute kidney injury: Code(s): N17.9 - Acute kidney failure, unspecified Status: Acute Assessment and Plan: * slow improvement noted * as noted by admission labs (2.9mg/dl) and then higher on 09/10 (6.2mg/dl) * baseline creatinine seems to run ~ 1.2 - 1.4mg/dl in the last year or so * suspect multifactorial: * prerenal factors (diarrhea and insensible losses) * infection (C diff positive) * relative hypotension * ARB use prior to admission * diuretic use prior to admission * bladder distension (?) * known history of NEDA/ARF in 2023 due to obstructive uropathy (at [facility]) * renal function recovered to baseline by time of discharge * hold valsartan * hold lasix * evaluation to date noted: * renal ultrasound with left lobulation but no obstruction * urine electrolytes prerenal by FeUrea * UA without acute infection * urine eosinophils negative * mild proteinuria (~ 450mg) * CPK low * continue IVFs for now * follow trend of repeat labs and UOP (2) C. difficile diarrhea: Code(s): A04.72 - Enterocolitis due to Clostridium difficile, not specified as recurrent Status: Acute Assessment and Plan: * C. diff toxin assay positive * presumably cause to abdominal pain and diarrhea * on oral vancomycin * follow trend of bowel movements (3) Metabolic acidosis: Code(s): E87.20 - Acidosis, unspecified Status: Acute Assessment and Plan: * resolving/improving * due to a combination of NEDA/ARF and diarrhea * improvement noted with IVF hydration and treatment for diarrhea (see #2) * follow trend (4) Anemia: Code(s): D64.9 - Anemia, unspecified Status: Chronic Assessment and Plan: * relatively stable * if worsening occurs, could be related to NEDA/ARF * consider further evaluation as an outpatient * could check iron studies but would avoid IV iron in the context of acute infection (#2) * follow trend of H/H (5) Hypomagnesemia: Code(s): E83.42 - Hypomagnesemia Status: Acute Assessment and Plan: * likely more related to diarrhea and GI loss * replace as needed (in the context of NEDA/ARF) * follow trend (6) Essential (primary) hypertension: Code(s): I10 - Essential (primary) hypertension Status: Chronic Assessment and Plan: * reasonable control at this time * holding lasix and valsartan * parameters on amlodipine * follow trend of hemodynamics (7) DVT (deep venous thrombosis): Code(s): I82.409 - Acute embolism and thrombosis of unspecified deep veins of unspecified lower extremity Status: Chronic Assessment and Plan: * known history * on anticoagulation * playing a role with #4 (?) (8) Type 2 diabetes mellitus: Code(s): E11.9 - Type 2 diabetes mellitus without complications Status: Chronic Assessment and Plan: * poor control at baseline * HgbA1c > 14 * follow accu-cheks * glycemic control per hospitalist Will continue to follow. L Subjective Date/time seen: 09/12/24 10:10 Interval history: Follow-up for acute kidney injury/acute renal failure. Renal function/creatinine continue to improve with current interventions/therapy; he reports feeling quite well at the time of my visit; no acute issues/problems overnight or earlier this morning; no apparent distress noted; no other acute complaints voiced when seen. Exam 2 Narrative: General: WD/WN male in NAD Heart: normal S1 and S2; no rub Lungs: clear to auscultation Abdomen: soft, nontender, nondistended, positive bowel sounds Extremities: no cyanosis or clubbing; no edema; left Charcot foot Skin: warm and intact Objective Data Vital Signs Vital Signs: Vital Signs Temp Pulse Resp BP Pulse Ox O2 Del Method 09/12/24 06:06 97.6 F 90 14 105/59 L 96 09/11/24 21:10 97.6 F 80 16 117/72 97 09/11/24 20:00 Room Air 09/11/24 14:00 97.1 F L 91 20 143/88 H 97 Intake/Output Intake/Output: Intake & Output 09/09/24 09/10/24 09/11/24 09/12/24 23:59 23:59 23:59 23:59 Intake Total 2049 3930 3150 2288 Output Total 1325 4400 1100 Balance 2049 2605 -1250 1188 Meds/Results Medications: Active Medications Generic Name Dose Route Start Last Admin Trade Name Freq PRN Reason Stop Dose Admin Acetaminophen 650 mg 09/09/24 23:42 Acetaminophen 325 Mg Tablet PO Q4H PRN Mild Pain (1-3) or Fever Acetaminophen 650 mg 09/10/24 01:14 Acetaminophen 325 Mg Tablet PO Q6H PRN Mild Pain (1-3) or Fever Hydrocodone Bitart/Acetaminophen 1 tab 09/10/24 01:14 Hydrocodone/Acetaminophen (*Crx) 10-325 Mg Tablet PO Q6H PRN Pain Rated 7-10 Amlodipine Besylate 10 mg 09/10/24 09:00 09/12/24 10:00 Amlodipine Besylate 10 Mg Tablet PO 10 mg DAILY DANICA Administration Apixaban 5 mg 09/10/24 09:00 09/12/24 10:00 Apixaban 5 Mg Tablet PO 5 mg Q12HR DANICA Administration Atorvastatin Calcium 20 mg 09/10/24 09:00 09/12/24 10:00 Atorvastatin 20 Mg Tablet PO 20 mg DAILY DANICA Administration Dextrose 12.5 gm 09/10/24 01:14 Dextrose 50% 25 Gm/50 Ml Syringe IV PUSH PRN PRN Hypoglycemia Protocol Ergocalciferol 1,250 mcg 09/10/24 09:00 09/10/24 08:29 Ergocalciferol (Vitamin D2) 1,250 Mcg (50,000 Units) Capsule PO 1,250 mcg WEEKLY DANICA Administration Famotidine 20 mg 09/10/24 09:00 09/12/24 10:00 Famotidine 20 Mg Tablet PO 20 mg BID DANICA Administration Glucagon 1 mg 09/10/24 01:14 Glucagon For Inj 1 Mg Vial IM PRN PRN Hypoglycemia Protocol Glucose 15 gm 09/10/24 01:14 Glucose Oral Gel 15 Gm Of Glucse In 37.5 Gm Tube PO PRN PRN Hypoglycemia Protocol Sodium Chloride 1,000 mls @ 100 mls/hr 09/10/24 01:10 09/12/24 03:29 Normal Saline Iv IV CONT 100 mls/hr .Q10H DANICA Administration Dextrose 1,000 mls @ 100 mls/hr 09/10/24 01:14 Dextrose 5% 1,000 Ml IVPB PRN PRN Hypoglycemia Protocol Insulin Aspart 2 - 5 units 09/10/24 08:00 09/12/24 11:35 Insulin Aspart (*Bkc) 100 Units/Ml SUB-Q 3 units TIDWM DANICA Administration Protocol Insulin Glargine 20 units 09/11/24 09:00 09/12/24 10:03 Insulin Glargine (*Bkc) 100 Units/Ml 0.2 units/kg (20 units) 20 units SUB-Q Administration DAILY [facility] Lidocaine 1 patch 09/10/24 09:00 09/12/24 10:00 Lidocaine 5% Patch TOPICAL 1 patch DAILY DANICA Administration Methocarbamol 750 mg 09/10/24 01:16 09/12/24 11:35 Methocarbamol 750 Mg Tablet PO 750 mg TID PRN Administration muscle pain Mirtazapine 15 mg 09/10/24 21:00 09/11/24 21:56 Mirtazapine 15 Mg Tablet PO 15 mg HS DANICA Administration Ondansetron HCl 4 mg 09/09/24 23:42 Ondansetron Inj 4 Mg/2 Ml Vial IV PUSH Q4H PRN Nausea Ondansetron HCl 4 mg 09/10/24 01:14 Ondansetron Inj 4 Mg/2 Ml Vial IV PUSH Q6H PRN Nausea And Vomiting Pantoprazole Sodium 40 mg 09/12/24 09:00 09/12/24 10:00 Pantoprazole 40 Mg Tablet PO 40 mg QAM DANICA Administration Tramadol HCl 50 mg 09/10/24 01:14 Tramadol Hcl (*Crx) 50 Mg Tablet PO Q6H PRN Pain Rated 4-6 Valsartan 40 mg 09/10/24 09:00 09/10/24 08:29 Valsartan 40 Mg Tablet PO 40 mg DAILY DANICA Administration Vancomycin HCl 125 mg 09/10/24 12:00 09/12/24 11:35 Vancomycin Hcl 125 Mg Oral Capsule PO 09/20/24 11:59 125 mg Q6HR DANICA Administration Radiology Results: ITS Impressions Knee X-Ray 09/09/24 20:15 IMPRESSION: No definite acute osseous abnormality left knee. Possible bony shadow in the area of the lateral joint space. CT evaluation is advised. Tibia/Fibula X-Ray 09/09/24 20:20 IMPRESSION: Lucency in the proximal metaphysis of the left tibia which may be a stone osteopenia. CT evaluation advised. Healing fracture in the midshaft of the left tibia and fibula. Healed fracture in the distal left tibia. Arthrodesis of the ankle joint. Knee CT 09/09/24 21:14 IMPRESSION: Osteopenia of the bones. No fractures seen. Mild osteoarthritic changes. Abdomen/Pelvis CT 09/09/24 22:11 IMPRESSION: 1. No evidence of appendicitis, diverticulitis or intestinal obstruction. 2. Overdistended urinary bladder. Enlarged prostate. 3. Cholelithiasis. 4. Bilateral inguinal fat-containing hernia. Umbilical fat-containing hernia. Small sliding hiatus hernia. 5. Lymphadenopathy in the mediastinum. 6. Prominent lateral limb of the left adrenal gland. Renal Ultrasound 09/10/24 15:39 IMPRESSION: lobation is seen in the left kidney. Otherwise, No definite abnormality seen in both kidneys. Labs Labs: Laboratory Tests 09/12/24 05:08 09/12/24 05:08 Calcium 9.0 Phosphorus 3.3 Magnesium 2.0 Total Bilirubin 0.6 AST 18 ALT 11 Alkaline Phosphatase 90 Total Protein 7.0 Albumin 3.7
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
[2024-09-12] MEDS: INSULIN ASPART (*BKC) 100 UNITS/ML SUB-Q (11:35)
[2024-09-12 13:53] VITALS: BP 96/51; PULSE 92; RESP 18; TEMP 36.2; O2SAT 98
[2024-09-12] MEDS: ACETAMINOPHEN 325 MG TABLET 650 MG PO ×2 (16:24→23:39)
[2024-09-12] MEDS: MIRTAZAPINE 15 MG TABLET PO (20:04)
[2024-09-12 22:00] VITALS: BP 118/65; PULSE 87; RESP 18; TEMP 36.9; O2SAT 95
[2024-09-13] MEDS: SODIUM CHLORIDE 0.9% IV 1,000 ML 100 ML IV CONT ×2 (00:34→09:23)
[2024-09-13 02:59] LABS: Creatinine, Random Urine 69 mg/dL (20-320); Total Prot/Creat ratio mg/mg 0.536 (0.025-0.148); Total Protein/Creatinine Ratio 536 mg/g creat (25-148)
[2024-09-13 05:18] LABS: Hematocrit 30.7 % (42.0-52.0); Hemoglobin 9.5 g/dL (14.0-18.0); Mean Corpuscular HGB Conc 30.9 g/dl (32-36); Mean Corpuscular Hemoglobin 28.0 pg (26-34); Mean Corpuscular Volume 90.6 fl (80-100); Platelet Count Result 352 k/mm3 (150-375); Red Blood Count 3.39 M/mm3 (4.6-6.20); White Blood Count 8.3 K/mm3 (4.5-10.0)
[2024-09-13 05:36] LABS: Alanine Aminotransferase 10 U/L (6-50); Albumin Level 3.6 g/dL (3.5-5.1); Alkaline Phosphatase 82 U/L (38-126); Anion Gap 9 mmol/L (4-12); Aspartate Amino Transferase 16 U/L (17-59); Bilirubin,Total 0.7 mg/dL (0.2-1.3); Blood Urea Nitrogen 34 mg/dL (9-20); Calcium 9.0 mg/dL (8.4-10.2); Carbon Dioxide 23 mmol/L (22-30); Chloride 108 mmol/L (98-107); Estimated CRCL calculation 36 ml/min; Estimated Glomerular Filt Rate 29; Glucose 168 mg/dL (65-110); Magnesium 1.6 mg/dL (1.6-2.3); Potassium 4.5 mmol/L (3.4-5.0); Sodium 140 mmol/L (137-145); Total Protein 7.1 g/dL (6.3-8.2)
[2024-09-13] MEDS: VANCOMYCIN HCL 125 MG ORAL CAPSULE PO ×2 (05:57→11:46)
[2024-09-13 06:00] VITALS: BP 142/83; PULSE 86; RESP 18; TEMP 36.8; O2SAT 97
[2024-09-13] MEDS: ACETAMINOPHEN 325 MG TABLET 650 MG PO ×2 (06:27→11:46)
[2024-09-13 08:00] VITALS: PULSE 86; RESP 18; O2SAT 98
[2024-09-13] MEDS: LIDOCAINE 5% PATCH 1 PATCH TOPICAL (09:14)
[2024-09-13] MEDS: APIXABAN 5 MG TABLET PO (09:15)
[2024-09-13] MEDS: ATORVASTATIN 20 MG TABLET PO (09:15)
[2024-09-13] MEDS: FAMOTIDINE 20 MG TABLET PO (09:15)
[2024-09-13] MEDS: PANTOPRAZOLE 40 MG TABLET PO (09:15)
[2024-09-13] MEDS: INSULIN GLARGINE (*BKC) 100 UNITS/ML 20 UNITS SUB-Q (09:18)
[2024-09-13] MEDS: INSULIN ASPART (*BKC) 100 UNITS/ML SUB-Q (11:47)
--- NOTE | 2024-09-13 12:05 | P.PNNP_ITS ---
Progress Note: A&P Assessment and Plan (1) Acute kidney injury: Code(s): N17.9 - Acute kidney failure, unspecified Status: Acute Assessment and Plan: * ongoing improvement noted * as noted by admission labs (2.9mg/dl) and then higher on 09/10 (6.2mg/dl) * baseline creatinine seems to run ~ 1.2 - 1.4mg/dl in the last year or so * suspect multifactorial: * prerenal factors (diarrhea and insensible losses) * infection (C diff positive) * relative hypotension * ARB use prior to admission * diuretic use prior to admission * bladder distension (?) * known history of NEDA/ARF in 2023 due to obstructive uropathy (at [facility]) * renal function recovered to baseline by time of discharge * holding valsartan and lasix * evaluation to date noted: * renal ultrasound with left lobulation but no obstruction * urine electrolytes prerenal by FeUrea * UA without acute infection * urine eosinophils negative * mild proteinuria (~ 450mg) * CPK low * on IVFs * follow trend of repeat labs and UOP (2) C. difficile diarrhea: Code(s): A04.72 - Enterocolitis due to Clostridium difficile, not specified as recurrent Status: Acute Assessment and Plan: * C. diff toxin assay positive * presumably cause to abdominal pain and diarrhea * on oral vancomycin * follow trend of bowel movements (3) Metabolic acidosis: Code(s): E87.20 - Acidosis, unspecified Status: Acute Assessment and Plan: * resolved * due to a combination of NEDA/ARF and diarrhea * improvement noted with IVF hydration and treatment for diarrhea (see #2) * follow trend (4) Anemia: Code(s): D64.9 - Anemia, unspecified Status: Chronic Assessment and Plan: * relatively stable * if worsening occurs, could be related to NEDA/ARF * consider further evaluation as an outpatient * could check iron studies but would avoid IV iron in the context of acute infection (#2) * follow trend of H/H (5) Hypomagnesemia: Code(s): E83.42 - Hypomagnesemia Status: Acute Assessment and Plan: * likely more related to diarrhea and GI loss * replace as needed (in the context of NEDA/ARF) * follow trend (6) Essential (primary) hypertension: Code(s): I10 - Essential (primary) hypertension Status: Chronic Assessment and Plan: * reasonable control at this time * holding lasix and valsartan * parameters on amlodipine * follow trend of hemodynamics (7) DVT (deep venous thrombosis): Code(s): I82.409 - Acute embolism and thrombosis of unspecified deep veins of unspecified lower extremity Status: Chronic Assessment and Plan: * known history * on anticoagulation * playing a role with #4 (?) (8) Type 2 diabetes mellitus: Code(s): E11.9 - Type 2 diabetes mellitus without complications Status: Chronic Assessment and Plan: * poor control at baseline * HgbA1c > 14 * follow accu-cheks * glycemic control per hospitalist Will continue to follow. L Subjective Date/time seen: 09/13/24 11:15 Interval history: Follow-up for acute kidney injury/acute renal failure. No apparent distress noted at the time of my visit; renal function/creatinine continue to improve; eating and drinking reasonably well; diarrhea has improved as well; no other issues/events overnight or earlier this morning. Exam 2 Narrative: General: WD/WN male in NAD Heart: normal S1 and S2; no rub Lungs: clear to auscultation Abdomen: soft, nontender, nondistended, positive bowel sounds Extremities: no cyanosis or clubbing; no edema; left Charcot foot Skin: no rash or nodules Objective Data Vital Signs Vital Signs: Vital Signs Temp Pulse Resp BP Pulse Ox 09/13/24 06:00 98.3 F 86 18 142/83 H 97 09/12/24 22:00 98.5 F 87 18 118/65 95 09/12/24 13:53 97.2 F L 92 18 96/51 L 98 Intake/Output Intake/Output: Intake & Output 09/10/24 09/11/24 09/12/24 09/13/24 23:59 23:59 23:59 23:59 Intake Total 3930 3150 4268 2070.0 Output Total 1325 4400 3000 1150 Balance 2605 -1250 1268 920.0 Meds/Results Medications: Active Medications Generic Name Dose Route Start Last Admin Trade Name Freq PRN Reason Stop Dose Admin Acetaminophen 650 mg 09/09/24 23:42 09/13/24 06:27 Acetaminophen 325 Mg Tablet PO 650 mg Q4H PRN Administration Mild Pain (1-3) or Fever Acetaminophen 650 mg 09/10/24 01:14 Acetaminophen 325 Mg Tablet PO Q6H PRN Mild Pain (1-3) or Fever Hydrocodone Bitart/Acetaminophen 1 tab 09/10/24 01:14 Hydrocodone/Acetaminophen (*Crx) 10-325 Mg Tablet PO Q6H PRN Pain Rated 7-10 Apixaban 5 mg 09/10/24 09:00 09/13/24 09:15 Apixaban 5 Mg Tablet PO 5 mg Q12HR DANICA Administration Atorvastatin Calcium 20 mg 09/10/24 09:00 09/13/24 09:15 Atorvastatin 20 Mg Tablet PO 20 mg DAILY DANICA Administration Dextrose 12.5 gm 09/10/24 01:14 Dextrose 50% 25 Gm/50 Ml Syringe IV PUSH PRN PRN Hypoglycemia Protocol Ergocalciferol 1,250 mcg 09/10/24 09:00 09/10/24 08:29 Ergocalciferol (Vitamin D2) 1,250 Mcg (50,000 Units) Capsule PO 1,250 mcg WEEKLY DANICA Administration Famotidine 20 mg 09/10/24 09:00 09/13/24 09:15 Famotidine 20 Mg Tablet PO 20 mg BID DANICA Administration Glucagon 1 mg 09/10/24 01:14 Glucagon For Inj 1 Mg Vial IM PRN PRN Hypoglycemia Protocol Glucose 15 gm 09/10/24 01:14 Glucose Oral Gel 15 Gm Of Glucse In 37.5 Gm Tube PO PRN PRN Hypoglycemia Protocol Sodium Chloride 1,000 mls @ 100 mls/hr 09/10/24 01:10 09/13/24 09:23 Normal Saline Iv IV CONT 100 mls/hr .Q10H DANICA Administration Dextrose 1,000 mls @ 100 mls/hr 09/10/24 01:14 Dextrose 5% 1,000 Ml IVPB PRN PRN Hypoglycemia Protocol Insulin Aspart 2 - 5 units 09/10/24 08:00 09/13/24 09:17 Insulin Aspart (*Bkc) 100 Units/Ml SUB-Q Not Given TIDWM DANICA Protocol Insulin Glargine 20 units 09/11/24 09:00 09/13/24 09:18 Insulin Glargine (*Bkc) 100 Units/Ml 0.2 units/kg (20 units) 20 units SUB-Q Administration DAILY DANICA Lidocaine 1 patch 09/10/24 09:00 09/13/24 09:14 Lidocaine 5% Patch TOPICAL 1 patch DAILY DANICA Administration Methocarbamol 750 mg 09/10/24 01:16 09/13/24 09:15 Methocarbamol 750 Mg Tablet PO 750 mg TID PRN Administration muscle pain Mirtazapine 15 mg 09/10/24 21:00 09/12/24 20:04 Mirtazapine 15 Mg Tablet PO 15 mg HS DANICA Administration Ondansetron HCl 4 mg 09/09/24 23:42 Ondansetron Inj 4 Mg/2 Ml Vial IV PUSH Q4H PRN Nausea Ondansetron HCl 4 mg 09/10/24 01:14 Ondansetron Inj 4 Mg/2 Ml Vial IV PUSH Q6H PRN Nausea And Vomiting Pantoprazole Sodium 40 mg 09/12/24 09:00 09/13/24 09:15 Pantoprazole 40 Mg Tablet PO 40 mg QAM DANICA Administration Tramadol HCl 50 mg 09/10/24 01:14 Tramadol Hcl (*Crx) 50 Mg Tablet PO Q6H PRN Pain Rated 4-6 Valsartan 40 mg 09/10/24 09:00 09/10/24 08:29 Valsartan 40 Mg Tablet PO 40 mg DAILY DANICA Administration Vancomycin HCl 125 mg 09/10/24 12:00 09/13/24 05:57 Vancomycin Hcl 125 Mg Oral Capsule PO 09/20/24 11:59 125 mg Q6HR DANICA Administration Radiology Results: ITS Impressions Knee X-Ray 09/09/24 20:15 IMPRESSION: No definite acute osseous abnormality left knee. Possible bony shadow in the area of the lateral joint space. CT evaluation is advised. Tibia/Fibula X-Ray 09/09/24 20:20 IMPRESSION: Lucency in the proximal metaphysis of the left tibia which may be a stone osteopenia. CT evaluation advised. Healing fracture in the midshaft of the left tibia and fibula. Healed fracture in the distal left tibia. Arthrodesis of the ankle joint. Knee CT 09/09/24 21:14 IMPRESSION: Osteopenia of the bones. No fractures seen. Mild osteoarthritic changes. Abdomen/Pelvis CT 09/09/24 22:11 IMPRESSION: 1. No evidence of appendicitis, diverticulitis or intestinal obstruction. 2. Overdistended urinary bladder. Enlarged prostate. 3. Cholelithiasis. 4. Bilateral inguinal fat-containing hernia. Umbilical fat-containing hernia. Small sliding hiatus hernia. 5. Lymphadenopathy in the mediastinum. 6. Prominent lateral limb of the left adrenal gland. Renal Ultrasound 09/10/24 15:39 IMPRESSION: lobation is seen in the left kidney. Otherwise, No definite abnormality seen in both kidneys. Labs Labs: Laboratory Tests 09/13/24 05:05 09/13/24 05:05 Calcium 9.0 Phosphorus 3.0 Magnesium 1.6 Total Bilirubin 0.7 AST 16 L ALT 10 Alkaline Phosphatase 82 Total Protein 7.1 Albumin 3.6 Microbiology 09/10/24 08:03 Stool Salmonella/Shigella Culture - Final
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
[2024-09-13 14:00] VITALS: BP 124/78; PULSE 86; RESP 18; TEMP 37; O2SAT 98
[2024-09-14 12:09] LABS: Osmolality, Urine. 309 mOsm/kg (50-1200)
[2024-09-14 14:39] LABS: Kappa\\Lambda Light Chains 2.04 (0.26-1.65)
[2024-09-14 16:33] LABS: Albumin 2.6 g/dL (3.8-4.8); Gamma Globulin 0.8 g/dL (0.8-1.7)
== END 2024-09-13 16:58 | disposition home or self-care (01) | DRG 372 ==
LOC: ANHED 22:08 → ANH2MED 09-10 00:17
PROVIDERS: Internal Medicine Nephrology; Nurse Practitioner Adult Health; Student in an Organized Health Care Education/Training Program; Admitting Provider Internal Medicine; Emergency Provider Student in an Organized Health Care Education/Training Program; PCP Family Medicine Adolescent Medicine; Visit Provider Nurse Practitioner Family
DX: A04.72 Enterocolitis due to Clostridium difficile, not specified as recurrent (principal); E87.1 Hypo-osmolality and hyponatremia; N17.9 Acute kidney failure, unspecified; E87.29 Other acidosis; D64.9 Anemia, unspecified; E78.5 Hyperlipidemia, unspecified; E11.65 Type 2 diabetes mellitus with hyperglycemia; E11.22 Type 2 diabetes mellitus with diabetic chronic kidney disease; E87.8 Other disorders of electrolyte and fluid balance, not elsewhere classified; E86.0 Dehydration; K21.9 Gastro-esophageal reflux disease without esophagitis; G47.33 Obstructive sleep apnea (adult) (pediatric); I12.9 Hypertensive chronic kidney disease with stage 1 through stage 4 chronic kidney disease, or unspecified chronic kidney disease; M14.672 Charcot's joint, left ankle and foot; N18.30 Chronic kidney disease, stage 3 unspecified; R93.5 Abnormal findings on diagnostic imaging of other abdominal regions, including retroperitoneum; Z79.84 Long term (current) use of oral hypoglycemic drugs; Z79.01 Long term (current) use of anticoagulants; Z86.718 Personal history of other venous thrombosis and embolism
CPT/HCPCS: 36415; 73562; 73590; 73700; 74176; 76775; 80048; 80053; 80069; 81001; 81050; 82010; 82550; 82570; 82803; 82948; 83036; 83521; 83735; 83930; 83935; 84100; 84155; 84156; 84165; 84166; 84300; 84439; 84443; 84480; 84540; 85025; 85027; 85610; 85730; 85999; 86704; 86706; 87045; 87340; 87427; 87449; 87493; 93005; 96361; 96365; 96366; 96375; 96376; 99285; A9270; G0378; J1171; J1815; J2405; J2470; J3475; J7030; J7120

== ENCOUNTER 2024-12-07 16:21 | Emergency (ER) | payer BC, SELFPAY ==
--- NOTE | ~2024-12-07 | XR_ITS ---
Examination: XR hip LT 2V w AP pelvis, XR knee LT 3V Clinical History: Pain Comparison: CT abdomen pelvis 09/09/2024 CT left knee 09/09/2024 Technique: 2 views left hip with AP pelvis, 3 views left knee Findings/impression: Left hip with pelvis: 1. No fracture or dislocation left hip. 2. No acute pelvic fracture. Left knee: 1. Suprapatellar joint effusion. 2. No acute fracture or dislocation. Reviewed, dictated and finalized at location R.
--- NOTE | ~2024-12-07 | US_ITS ---
EXAMINATION: US venous doppler LE , 12/07/2024 17:30 CDT HISTORY: pain/swelling throughout LLE Comparison: None Technique: Salomon-scale and color Doppler images were attempted of the lower saphenofemoral junction, common femoral vein,superficial femoral vein, proximal deep femoral vein, proximal deep femoral vein, popliteal vein and posterior tibial veins. Findings: Deep Venous System:Normal flow, augmentation and compressibility. No echogenic thrombus identified. The contralateral saphenofemoral junction appears unremarkable. Superficial Venous SystemNo superficial thrombophlebitis. Soft tissues: Soft tissues are unremarkable. Impression: Negative for DVT. Reviewed, dictated and finalized at location P. Impression: Negative for DVT.
--- NOTE | ~2024-12-07 | CT_ITS ---
CT lumbar spine without contrast CLINICAL HISTORY: lbp, into LLE Technique: Images through lumbar spine Sagittal and coronal reformats. No contrast CT images acquired with automatic exposure control for dose reduction DLP: 1337 mGy-cm Comparison: CT abdomen pelvis 09/09/2024 Findings: No acute fracture. Chronic minimal height loss superior endplate T12. Chronic minimal anterolisthesis L4 on 5 and retrolisthesis L5 on S1. Mild degenerative changes. Minimal central canal narrowing from ligament flavum hypertrophy at several levels. No significant neural foraminal stenosis at any level. Disc spaces maintained. Prevertebral soft tissues within normal limits. Small sclerotic focus left iliac with surrounding lucency. IMPRESSION: 1. No acute findings. Reviewed, dictated and finalized at location R. IMPRESSION: 1. No acute findings.
[2024-12-07 16:40] VITALS: BP 119/71; PULSE 96; RESP 18; TEMP 37.1; O2SAT 97
[2024-12-07 16:49] VITALS: BP 120/70; PULSE 97; RESP 18; O2SAT 98
--- OUTSIDE RECORDS SUMMARY | 2024-12-07 17:00 | XMS_ITS | Clinical Summary ---
Author Organization [facility] Physician Office Building [address] [place] [phone] Care Team Providers Care Cross Cut Sawyer Name Role Phone Pantera Seth MD Primary Care Prov ider Allergies Active Allergy Reactions Criticality Noted Date Comments Prochlorperazine Unknown 10/01/2024 Medications acetaminophen (TYLENOL) 500 mg tablet Take 2 tablets (1,000 mg total) by mouth 3 (three) times a day 3 Active amLODIPine (NORVASC) 10 mg tablet Take 1 tablet (10 mg total) by mouth daily 3 Active apixaban (ELIQUIS) 2.5 mg tablet TAKE ONE TABLET BY MOUTH 2 TIMES A DAY FOR 21 DAYS 4 Active apixaban (Eliquis) 5 mg tablet Take 2 tablets by mouth twice daily for 7 days, then decrease to 1 tablet twice daily thereafter. 3 Active atorvastatin (LIPITOR) 10 mg tablet Take 1 tablet (10 mg total) by mouth daily 3 Active docusate sodium (COLACE) 100 mg capsule Take 1 capsule (100 mg total) by mouth daily 4 Active dulaglutide (TRULICITY SUBQ) Inject 4.5 mg under the skin once a week 4 Active ergocalciferol (VITAMIN D) 50,000 unit capsule Take 1 capsule (50,000 Units total) by mouth once a week 3 Active glycopyrrolate (ROBINUL) 2 mg tablet 4 Active hydroCHLOROthiazid e (HYDRODIURIL) 25 mg tablet Take 1 tablet (25 mg total) by mouth daily 4 Active methylPREDNISolone (MEDROL DOSEPACK) 4 mg Dosepack FOLLOW PACKAGE DIRECTIONS 5 Active mirtazapine (REMERON) 15 mg tablet Take 1 tablet (15 mg total) by mouth nightly 4 Active ondansetron ODT (ZOFRAN-ODT) 4 mg disintegrating tablet ALLOW TWO TABLETS TO DISSOLVE ON TONGUE EVERY 8 HOURS NEEDED FOR NAUSEA/VOMITIN G 4 Active ondansetron (ZOFRAN) 8 mg tablet Take 1 tablet (8 mg total) by mouth every 8 (eight) hours as needed 4 Active oxyCODONE (ROXICODONE) 5 mg immediate release tablet Take 1 tablet (5 mg total) by mouth every 6 (six) hours as needed [address] (PROTONIX) 40 mg EC tablet Take 1 tablet (40 mg total) by mouth daily 4 Active Yun Pen Needle 32 gauge x 5/32 needle 5 Active sodium bicarbonate 650 mg tablet Take 1 tablet (650 mg total) by mouth 3 (three) times a day 4 Active sodium chloride 0.9% 0.9 % irrigation Irrigate with 500 mL as directed once 4 Active sulfamethoxazole-t rimethoprim (BACTRIM DS) 800-160 mg per tablet Take 1 tablet by mouth every 12 (twelve) hours 4 Active tamsulosin (FLOMAX) 0.4 mg extended release capsule TAKE ONE CAPSULE BY MOUTH ONCE DAILY AT THE SAME TIME EACH DAY AFTER A MEAL 4 Active traMADoL (ULTRAM) 50 mg tablet Take by mouth every 6 (six) hours as needed 5 Active valsartan (DIOVAN) 160 mg tablet Take 1 tablet (160 mg total) by mouth daily 3 Active vancomycin (VANCOCIN) 125 mg capsule 5 Active Active Problems Problem Noted Date Diagnosed Date Post-op pain 07/08/2023 Acute renal failure 05/15/2023 Bladder obstruction 05/15/2023 Hyponatremia 05/15/2023 Metabolic acidosis 05/15/2023 Ankle wound, left, sequela 04/30/2023 Hyperkalemia 04/30/2023 Insomnia 04/30/2023 Closed left ankle fracture 12/18/2022 Closed fracture of right hip 12/14/2022 DVT femoral (deep venous thrombosis) with thromb ophlebitis 12/14/2022 Fall 12/14/2022 Thyroid nodule 12/14/2022 GERD (gastroesophageal reflux disease) Acute hematogenous osteomyelitis of left ankle 0 12/01/2022 Diabetes mellitus 11/28/2022 Septic arthritis 11/28/2022 Charcot ankle, left 11/27/2022 Primary hypertension 11/27/2022 Sepsis 11/25/2022 Encounters Date Type Department Care Team Description 11/26/2024 11:13 AM CDT - 11/26/2024 11:59 PM CDT Hospital Encounter [facility] [address] [place] [address] Encounter for disability determination Discharge Disposition: Discharge to home or self care 10/01/2024 2:35 PM CDT - 10/01/2024 11:59 PM CDT Hospital Encounter [facility] [address] [place] [phone] Discharge Disposition: Discharge to home or self care 10/01/2024 2:35 PM CDT - 10/01/2024 11:59 PM CDT Hospital Encounter [facility] [address] [place] [phone] Discharge Disposition: Discharge to home or self care 10/01/2024 2:15 PM CDT Office Visit [facility] Medicine at [address] [phone] Blane Stinson MD Left foot pain (Primary Dx) from Last 3 Months Social History Tobacco Use Types Packs/Day Years Used Date Smoking Tobacco: Never Assessed Sex and Gender Information Value Date Recorded Sex Assigned at Not on file Legal Sex Male 2:13 AM CREW LEADER GLUING Gender Identity Not on file Sexual Orientation Not on file Obstetrics History Last Filed Vital Signs Vital Sign Reading Time Taken Comments Blood Pressure 121/77 04/19/2016 1:04 PM CREW LEADER GLUING Pulse 91 04/19/2016 1:04 PM CREW LEADER GLUING Temperature 37.3 C (99.1 F) 09/11/2012 6:18 PM CDT Respiratory Rate - - Oxygen Saturation 99% 04/19/2016 1:04 PM CREW LEADER GLUING Inhaled Oxygen Concentration - - Weight 124.7 kg (275 lb) 10/01/2024 2:10 PM CDT Height 188 cm (6' 2) 10/01/2024 2:10 PM CDT Body Mass Index 35.31 10/01/2024 2:10 PM CDT Plan of Treatment Health Maintenance Due Date Last Done Comments Albumin Creatinine Ratio, Urine 1965 Colon Cancer Screening-Colonoscopy 1963 Depression Screening 1965 Hepatitis C Screening 1963 Prostate Cancer Screening-PSA 1963 eGFR 1963 Dilated Eye Exam 1963 Foot Exam 1963 DTaP/Tdap/Td Vaccine (1 - Tdap) 11/29/1974 Hepatitis B Screening 11/29/1981 Regular Well Visit/Exam 18-64 11/29/1981 Pneumococcal vaccine <65 (1 of 2 - PCV) 11/29/1982 Zoster Vaccine (1 of 2) 11/29/2013 Lipid Panel 04/17/2017 04/17/2016 Hemoglobin A1C 05/27/2023 11/26/2022 Covid-19 Vaccine (3 - season) 11/09/202403/2020, 06/18/2020 Influenza Vaccine (#1) 2024 Procedures Procedure Name Priority Date/Time Associated Diagnosis Comments XR HIPS BILATERAL W PELVIS 5 OR MORE VIEWS Schedule Routine, Read Routine (OP Routine) 11/26/2024 11:50 AM CDT Encounter for disability determination XR FOOT LEFT 3 OR MORE VIEWS Schedule Routine, Read Routine (OP Routine) 10/01/2024 3:47 PM CDT Left foot pain XR ANKLE LEFT 3 OR MORE VIEWS Schedule Routine, Read Routine (OP Routine) 10/01/2024 3:47 PM CDT Left foot pain SERUM LIPID PANEL Routine 04/17/2016 6:4 2 AM CREW LEADER GLUING from Last 3 Months or Most Recently Relevant to Health Maintenance Results * XR Hips Bilateral 5 or More Views W Pelvis (11/26/2024 11:50 AM CDT) Anatomical Region Laterality Modality Lower Extremities, Hip, Pelvis Bilateral C omputed Radiography 2024 4:38 PM CDT Narrative 2024 4:38 PM CDT EXAM DESCRIPTION: 1. XR HIPS BILATERAL 5 OR MORE VIEWS W PELVIS REASON FOR STUDY: Bilateral hip pain History of right hip fracture and orif x 2 years ago FINDINGS: Five views submitted without comparison. No acute fracture. Alignment is normal. Mild bilateral hip osteoarthritis. Old healed nailed proximal right femur fracture. Lumbar degenerative disc disease is present. IMPRESSION: 1. Mild bilateral hip osteoarthritis. 2. Lumbar degenerative disc disease. THIS IS AN ELECTRONICALLY VERIFIED FINAL REPORT 2024 4:38 PM - Electronically signed by Indra Rodriguez M.D. MF: [id number] Report ID: [id number] Reading Location: [id number] Procedure Note Indra Rodriguez MD - 2024 EXAM DESCRIPTION: 1. XR HIPS BILATERAL 5 OR MORE VIEWS W PELVIS REASON FOR STUDY: Bilateral hip pain History of right hip fracture andorif x 2 years ago FINDINGS: Five views submitted without comparison. No acute fracture. Alignment is normal. Mild bilateral hiposteoarthritis. Old healed nailed proximal right femur fracture. Lumbar degenerative disc disease is present. IMPRESSION: 1. Mild bilateral hip osteoarthritis. 2. Lumbar degenerative disc disease. THIS IS AN ELECTRONICALLY VERIFIED FINAL REPORT 2024 4:38 PM - Electronically signed by Indra Rodriguez M.D. MF: [id number] Report ID: [id number] Reading Location: [id number] Jeffery Anderson MD IMG XR PROCEDURES Final Result * XR Foot Left 3+ Vw (10/01/2024 3:47 PM CDT) Anatomical Region Laterality Modality Lower Extremities, Foot Left Computed Radiography Narrative 10/01/2024 3:47 PM CDT Mature tibiocalcaneal fusion us Blane Stinson MD IMG XR PROCEDURES Valentina l Result * XR Ankle Left 3+ Vw (10/01/2024 3:47 PM CDT) Anatomical Region Laterality Modality Lower Extremities, Ankle Left Compute d Radiography Narrative 10/01/2024 3:47 PM CDT Well aligned tibiocalcaneal fusion us Blane Stinson MD IMG XR PROCEDURES Valentina l Result * (ABNORMAL) Serum lipid panel (04/17/2016 6:42 AM CREW LEADER GLUING) Cholesterol 113 30 - 200 mg/dl CDR HISTORICAL RESULTS Comment: Interpretive Data Desirable: <200 mg/dL Borderline high: 200-239 mg/dL High: > or = 240 mg/dL Literature Reference: National Cholesterol Education Program (NCEP) Expert Panel on Detection, Evaluation, and Treatment of High Blood Cholesterol in Adults (Adult Treatment Panel III). Circulation 2004; 110:227. Current interpretive data was last revised on 2015. Triglycerides 136 0 - 150 mg/dl CDR HISTORICAL RESULTS Comment: Interpretive Data Desirable: < 150 mg/dL Borderline High: 150 - 199 mg/dL High: 200 - 499 mg/dL Very High: > or = 499 mg/dL Literature Reference: See Cholesterol Current interpretive data was last revised on 2015. HDL 24(L) >=40 mg/dl CDR HISTO RICAL RESULTS Comment: Interpretive Data Less than 40 mg/dL - low; A major risk factor for heart disease. Greater than or equal to 60 mg/dL - High; considered protective of heart disease. Literature Reference: See Cholesterol Current interpretive data was last revised on 2015. LDL 62 10 - 129 mg/dl CDR HISTORICAL RESULTS Comment: Interpretive Data Optimal: < 100 mg/dL Near Optimal: 100 - 129 mg/dL Borderline High: 130 - 159 mg/dL High: 160 - 189 mg/dL Very high: > or = 190 mg/dL Literature Reference: See Cholesterol Current interpretive data was last revised on 2015. Non-HDL cholesterol, calculated 89 mg/dl CDR HISTORICAL RESULTS Comment: Interpretive Data When triglycerides are >200 mg/dL, non-HDL C is a secondary target of therapy, with a goal 30 mg/dL higher than the identified LDL-C goal. Reference: See Cholesterol Reference. Current interpretive data was last revised 2015. Serum 04/17/2016 6:42 AM CREW LEADER GLUING us Pedrito Montes MD LAB BLOOD ORDERABLES Fi nal Result CDR HISTORICAL RESULTS from Last 3 Months or Most Recently Relevant to Health Maintenance Insurance [facility] Care Teams Cross Cut Sawyer Relationship Specialty Start Date End Date Pantera Seth MD PCP - General 10/03/11
--- OUTSIDE RECORDS SUMMARY | 2024-12-07 17:00 | XMS_ITS | Clinical Summary ---
Author Organization [facility] Care Team Providers Care Supervisor Malt [employer] Name Role Phone Unavailable Primary Care Provider [...] Virus (HCV) Screening 1965 TdaP Immunization 1965 Cologuard 11/29/2008 Colonoscopy 11/29/2008 Colorectal Cancer Screening 11/29/2008 Immunochemical Fecal Occult Blood 11/29/2008 Pneumococcal Immunization (5 0+ years) (1 of 1 - PCV) 11/29/2013 Zoster Immunization (1 of 2) 11/29/2013 Influenza Immunization (#1) 2024 SARS-COV-2 Immunization ( - season) 2024 Respiratory Syncytial Virus (RSV) Immunization (Adult) (1 - 1-dose 75+ series) 11/29/2038 Hepatitis B Immunization Aged Out No longer eligible based on patient's age to complete this topic Human Papillomavirus (HPV) Immunization Aged Out No longer eligible b ased on patient's age to complete this topic Meningococcal Immunization (ACWY) Aged Out No longer eligible based on patient's age to complete this topic Rotavirus Immunization Aged Out No lo nger eligible based on patient's age to complete this topic
--- OUTSIDE RECORDS SUMMARY | 2024-12-07 17:00 | XMS_ITS | Clinical Summary ---
Author Organization [facility] Address [address] [place] [address] Care Team Providers Care Bioprocessing Manufacturing Technician Name Role Phone Violet Younger APRN-TIE INSPECTOR Primary Care Provider Source Comments [facility],non-owned Affiliates and Associated Physician Practices is amultiple site organization consisting of ambulatory clinics and hospital sitesin [place], [place], [place] and [place]. This disclosure is being madepursuant to the Care Everywhere program and may not contain all information available regarding this patient. Last updated 17.[facility] Allergies No known active allergies Medications * Be aware that medications may not be up to date on this document. Alwaysverify current medications with the patient. atorvastatin (Lipitor) 10 MG tablet Take 1 (one) tablet by mouth once daily 11/18/19 23 Active vitamin D, ergocalciferol, (Drisdol) 1.25 MG (99798 UT) capsule Take 1 (one) capsule by [...] complication, without long-term current use of insulin ([facility]) Inject 0.5 mL subcutaneously every 7 days [...] MEAL 90 capsule 1 5 9:09 AM DISPENSING LEAD 08/20/19 24 Active ondansetron, disintegrating, (Zofran ODT) [...] FOR 21 DAYS 42 tablet 09/18/19 24 Active oxyCODONE-acetami nophen (Percocet) 5-325 MG tabletIndications [...] Questionnaire-2 Score 0 08/08/2023 [facility] of Occupat ional Health - Occupational Stress [...] place to sleep or slept in a intermediate (including now)? 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 Not on lc [...] Oxygen Concentration 21% 05/18/2023 4 :02 AM DISPENSING LEAD Weight 94.8 kg (209 lb) 09/18/2023 12:34 [...] MONOFILAMENT 11/28/2022 DIABETES-HGB A1C 10/29/2023 04/30/2023, 11/26/2022 Respiratory Syncytial Virus (RSV) Vaccine Pt: or over 60 yrs (1 - Risk 60-74 years 1-dose series) 2023 DEPRESSION SCREENING 03/11/2024 03/13/2023, 12/26/19 DIABETES - URINE PROTEIN SCREENING 03/11/2024 09/18/2023, 05/16/2023 DIABETES-SERUM CREATININE 09/17/20242023, 09/18/2023, 07/09/2023, Additional history exists COVID-19 VACCINE ( season) 2024 07/09/2020, 06/18/2020 INFLUENZA VACCINE (#1) 2024 HEPATITIS C SCREENING [...] this topic Medical Devices Implanted Type Area Quarry Plant Crusher Operator Device Identifier Shelf Expiration Date Model / Serial / Lot Nail Im 11.5mm 18cm Trgn Intrtn - Sna Implanted:Qty: 1 on 12/15/2022 by Daryl Diop MD at [facility] Right: Hip [employer] 12/02/2031 [id number] / NA / [id number] Kit Screw 100mm 4.5mm Intrtn Troch Ti - Sna Implanted:Qty: 1 on 12/15/2022 by Daryl Diop MD at [facility] Right: Hip [employer] 05/09/2032 [id number] / NA / [id number] Screw 5mm 37.5mm Lopro Intnl Hex Fem - Sna Implanted:Qty: 1 on 12/15/2022 by Daryl Diop MD at [facility] Right: Hip [employer] 12/26/2030 [id number] / NA / [id number] Wire Extfix 450mm 1.8mm Olv Tip Implanted:Qty: 2 on 05/06/2023 by Blane Stinson MD at [facility] Left: Ankle [place] [employer] 4933-8-030 / / Graft Snth Tissue 10cc Pro-Dns Inj Rgnrt Implanted:Qty: 1 on 05/06/2023 by Blane Stinson MD at [facility] Left: Ankle Siving [employer]il [employer] 09/02/2027 [id number] / / [id number] Graft Bone Canc 1-4mm 15ml Frzdr Crsh Implanted:Qty: 1 on 05/06/2023 by Blaen Stinson MD at [facility] Left: Ankle [employer] 09/22/2027 [id number] / / [id number] Kit Bngf 3cc Aug Inj Implanted:Qty: 1 on 05/06/2023 by Blane Stinson MD at [facility] Left: Ankle [employer] 07/06/2025 [id number] / / [id number] Kit Bngf 3cc Aug Inj Implanted:Qty: 1 on 05/06/2023 by Blane Stinson MD at [facility] Left: Ankle [employer] 07/06/2025 [id number] / / [id number] Wire Extfix 450mm 1.8mm Dmd Pt Implanted:Qty: 6 on 05/06/2023 by Blane Stinson MD at [facility] Left: Ankle [employer] 4933-8-010 / / [place] Extfix 1.5-2mm Hfmn Med Wire Lmb Implanted:Qty: 3 on 07/08/2023 by Blane Stinson MD at [facility] Left: [place] [employer] [id number] / / [place] Extfix 1.5-2mm Hfmn Lng Wire Lmb Implanted:Qty: 1 on 07/08/2023 by Blane Stinson MD at [facility] Left: [place] [employer] [id number] / / Wshr Extfix Chevy 4mm Implanted:Qty: 1 on 07/08/2023 by Blane Stinson MD at [facility] Left: [place] [employer] [id number] / / Wire Extfix 450mm 1.8mm Dmd Pt Implanted:Qty: 2 on 07/08/2023 by Blane Stinson MD at [facility] Left: [place] [employer] 4933-8-010 / / Nut Orth Hfmn M8 Shrt Cnct Lmb Recon Frm Implanted:Qty: 4 on 07/08/2023 by Blane Sitnson MD at [facility] Left: [place] [employer] 4933-1-010 / / Explanted Type Area Quarry Plant Crusher Operator Device Identifier Shelf Expiration Date Model / Serial / Lot Ring Extfix 180mm Cfbr Full Hfmn Lmb Explanted:Qty: 2 on 05/06/2023 at [facility] Left: Ankle [place] [employer] 4933-5-180 / / Procedures Procedure Name Priority Date/Time Associated Diagnosis Comments MICROALB/CREAT RATIO URINE RANDOM PANEL Routine 09/18/2023 2:22 PM CDT NEDA (acute kidney injury) RENAL FUNCTION PANEL Routine 09/18/2023 2:00 PM CDT NEDA (acute kidney injury) HEMOGLOBIN A1C - POINT OF CARE (AMB) [facility] Routine 04/30/2023 1:31 PM DISPENSING LEAD Type 2 diabetes mellitus with other specified [...] [facility] Comment:Result obtained by seamus luciano. [...] CHEMISTRY ORDERABLES Final Result [facility] [address] [place] [phone], [facility] [phone] * (ABNORMAL) RENAL FUNCTION PANEL (09/18/2023 2:00 PM CDT) BUN 17 7 - 26 mg/dL 09/18/2023 3:02 PM CDT [facility] Creatinine 1.26(H) 0.71 - 1.16 mg/dL 09/18/2023 3:02 PM [facility] Sodium 143 136 - 145 mmol/L 09/18/2023 3:02 PM [facility] Potassium 4.4 3.5 - 4.5 mmol/L 09/18/2023 3:02 PM [facility] Chloride 112(H) 98 - 107 mmol/L 09/18/2023 3:02 PM [facility] CO2 23 22 - 29 mmol/L 09/18/2023 3:02 PM [facility] Glucose 130(H) 70 - 115 mg/dL 09/18/2023 3:02 PM [facility] Albumin 3.5 3.4 - 5.0 g/dL 09/18/2023 3:02 PM [facility] Calcium 9.3 8.4 - 10.2 mg/dL 09/18/2023 3:02 PM [facility] Phosphorus 2.7(L) 2.8 - 5.1 mg/dL 09/18/2023 3:02 PM [facility] Anion Gap 8 6 - 16 09/18/2023 3:02 PM [facility] BUN/Creatinine Ratio 13 7 - 23 09/18/2023 3:02 PM [facility] Osmolality Calculated 299(H) 275 - 295 mOsm/kg 09/18/2023 3:02 PM [facility] eGFR by CKD-EPI 66(L) >=90 mL/min/1.7 3 m2 09/18/2023 3:02 PM [facility] Blood BLOOD SPECIMEN / Unknown Lab Venipuncture / Unknown 09/18/2023 2:00 PM CDT 09/18/2023 2:31 PM CDT us Soco Sanchez MD LAB - CHEMISTRY ORDERABLES Final Result [facility] [address] [place] [address], [facility] [phone] * HEMOGLOBIN A1C - POINT OF CARE (AMB) [facility] (04/30/2023 1:31 PM DISPENSING LEAD) Hemoglobin A1c POCT 6.1 % [facility] [address] [place] [address] Blood BLOOD SPECIMEN / Unknown 04/30/2023 1:31 PM DISPENSING LEAD Violet Younger APRN-TIE INSPECTOR LAB - POINT OF CARE ORD ERABLES Final Result Performing Organization Address [facility] Co de Phone Number [address] [facility] [place] [address], [facility] [phone] * HEPATITIS C AB SCREEN RFLX NAAT QUANT (2022 8:30 AM CDT) Hepatitis C Antibody Non-react sherin Non-reac tive 2022 9:40 AM CDT [facility] Comment:Hepatitis C Antibody screen indicates [...] ORDERABLE S Final Result Performing Organization Address City/[facility] Co de Phone Number [facility] [address] [place] [address], [facility] [phone] * HIV-1 HIV-2 ANTIBODY + HIV P24 AG PANEL (2022 8:30 AM CDT) HIV Antigen/Antibod y 1 & 2 Non-reacti ve Non-react sherin 2022 9:40 AM CDT [facility] Comment:No Laboratory eviden ce of HIV infection. Blood BLOOD SPECIMEN / Unknown Lab Venipuncture / Unknown 2022 8:30 AM CDT 2022 8:33 AM CDT Emiliano Duong MD LAB - CHEMISTRY ORDERABLE S Final Result [facility] [address] [place] [address], [facility] [phone] from Last 3 Months or Most Recently [...] 9:02 PM 12/07/2022 4:45 PM Care Teams Bioprocessing Manufacturing Technician Relationship Specialty Start Date End Date Violet Younger, ICE RESURFACING MACHINE OPERATORS-TIE INSPECTOR [address] [facility] [address] [facility] [place] [address] PCP - General Nurse Practitioner Family 04/30/23
--- OUTSIDE RECORDS SUMMARY | 2024-12-07 17:00 | XMS_ITS | Clinical Summary ---
Author Organization [facility] Address [address] Attn: Epic Prelude ADT SHE[place]BY CONKLIN [address] Care Team Providers Care Senior Research Consultant Name Role Phone Unavailable Primary Care Provider [...] ) (1 - 1-dose 75+ series) 11/29/2038 Insurance [employer] Commercial
--- NOTE | 2024-12-07 17:11 | ED.BACK ---
HPI - Back Pain/Injury General Chief Complaint: Back Pain/Injury Stated Complaint: back and leg pain Time Seen by Provider: 12/07/24 16:53 Source: patient and old records reviewed Mode of arrival: ambulatory Limitations: no limitations History of Present Illness HPI Narrative: Patient is a 59-year-old female, with past medical history of Charcot foot of left lower extremity, who presents to the ED with report of left lower extremity pain, left lower back pain. Patient reports having pain and swelling throughout his left lower extremity, left knee, left hip, left lower back for the past couple of days. Has been taking Tylenol without improvement. Is prescribed oxycodone, but does not like the way this makes him feel. Denies fall or injury. Denies numbness. Has history of blood clots. Denies bowel or bladder incontinence, saddle anesthesia. Patient is on Eliquis. He is unsure why. History of lymphedema per records. Related Data Allergies Allergy/AdvReac Type Severity Reaction Status Date / Time No Known Allergies Allergy Verified 12/07/24 16:42 Review of Systems Review of Systems: All systems reviewed & are unremarkable except as noted in HPI. All systems reviewed & are unremarkable except as noted in HPI and below PMFSH Past Medical History Medical History Diarrhea Anemia Pain of left lower extremity Abnormal CT of the abdomen Electrolyte abnormality Dehydration High anion gap metabolic acidosis Intertrochanteric fracture of right hip (12/2022) Hip fracture, right 12/15/[address] internal fixation with Ortho Dr Diop Gastroesophageal reflux disease Obstructive sleep apnea Hyperlipidemia Hypertension Lymphedema due to venous disease Charcot ankle Diffuse idiopathic skeletal hyperostosis Noted on x-ray in May 2020. Surgical History Surgical History History of hip surgery 12/15/[address] right hip fracture Dr Diop Family History Family History Father Acute myocardial infarction Other Paternal family history of congestive heart failure Acute myocardial infarction Paternal family hx Paternal family history of cerebrovascular event Malignant neoplasm of prostate Uncle Social History Social History Social History: Surrogate medical decision maker: Lucio Cornell, spouse. Code status: Full code. Smoking status: Never smoker Tobacco type: cigars Second hand tobacco smoke exposure: No Alcohol intake: never Substance use: never Substance use type: does not use Do You Feel Safe in your Home?: Yes Lack of Transportation: No Lack of Food: Never True Current Housing: I Have Housing Concerned About Future Housing: No Difficulty Paying Gas/Electric Bills: No Difficulty Paying for Meds: No Currently Unemployed: No Education: Master's Degree or Higher Difficulty w/ Childcare or Family Care: No Additional living arrangements comments: Lives with spouse and children in [place]. Additional occupation/education comments: [employer]. Spiritual care concerns: No Exam Narrative: GENERAL: Well appearing, well-nourished, non-toxic, in no acute distress. HEAD: Normocephalic, atraumatic. RESPIRATORY: Airway patent, respirations nonlabored. Clear to auscultation bilaterally, no rales, rhonchi, wheezing. CARDIOVASCULAR: Regular rate and rhythm without murmurs, rubs, or gallops. Pedal pulses intact and easily palpable. MUSCULOSKELETAL: Moves all extremities. No gross deformities. Chronic Charcot deformity left foot. Mild swelling noted to left anterior knee with some tenderness throughout medial left knee joint spaces. No significant swelling throughout left lower leg or left thigh region. Mild tenderness throughout left lateral hip joint. Mild tenderness in left SI region. No significant midline spinal tenderness. Sensation intact. No palpable bony deformities or step-offs. SKIN: Warm, dry, normal color. NEURO: A&O X3. Speech clear. Cranial nerves II-XII grossly intact. No ataxic movements. PSYCHIATRIC: Appropriate mood and affect. Normal interaction. Course Vital Signs Vital signs: Vital Signs Temperature 98.8 F 12/07/24 16:40 Pulse Rate 96 12/07/24 16:40 Respiratory Rate 18 12/07/24 16:40 Blood Pressure 119/71 12/07/24 16:40 Pulse Oximetry 97 12/07/24 16:40 Oxygen Delivery Room Air 12/07/24 16:40 Temperature 98.8 F 12/07/24 16:40 Pulse Rate 97 12/07/24 16:49 Respiratory Rate 18 12/07/24 16:49 Blood Pressure 120/70 12/07/24 16:49 Pulse Oximetry 98 12/07/24 16:49 Oxygen Delivery Room Air 12/07/24 16:40 MDM - Back Pain/Injury MDM Narrative Medical decision making narrative: Patient presented to ED with left lower back, left lower extremity pain past couple of days. History of Charcot deformity of left foot. Vital signs are stable upon arrival. Patient is in no acute distress. Neurovascularly intact. Diffuse tenderness throughout left lower extremity. Swelling noted of L anterior knee. Venous doppler negative for DVT. Patient is on eliquis, but is not sure why. Denies previous hx of DVT XR L knee: Suprapatellar joint effusion. Consistent with clinical picture. No fracture. X-ray left hip negative CT of lumbar spine without acute findings. Does show some chronic degenerative changes. Discussed imaging findings with patient, joint effusion, likelihood of knee sprain, lumbar strain. Discussed rice therapy, management of such. Placed in Shawn bandage. Will prescribe short course of muscle relaxers and pain medication for home as well as lidocaine patches. Patient advised to limit strenuous activity. Recommended follow-up with PCP/Orthopedics for further evaluation. Discussed return precautions. Patient in agreement with plan, feels comfortable going home. Discharged in stable condition. Medical Records Attestation: I reviewed the patient's medical records. Imaging Data Attestation: I personally reviewed and interpreted this imaging study as follows: Radiologist's impression: ITS Impressions Venous Doppler Study 12/07/24 17:52 Impression: Negative for DVT. Lumbar Spine CT 12/07/24 18:17 IMPRESSION: 1. No acute findings. Discharge Plan Discharge Clinical Impression: Strain of lumbar region, Strain of left knee, Suprapatellar effusion of knee Patient Disposition: Home Condition: Stable Instructions: Antibiotic Form, Knee Sprain (ED), Acute Low Back Pain (ED), Lower Back Exercises (ED) Additional Instructions: Keep left leg elevated whenever possible. Utilize Shawn bandage for compression and support of knee. Recommend following up with Orthopedics for further evaluation of the knee. Avoid heavy lifting or strenuous activity. Continue Tylenol as needed for pain. Victor as needed for more severe pain. Recommend ice, lidocaine patches to area of pain. Take muscle relaxers as needed and prescribed. Recommend taking these at night as they may cause sedation. Do not drive, operate heavy machinery, drink alcohol while on muscle relaxers as this may cause further sedation. Follow-up with your primary care doctor and/or Orthopedics for further evaluation. Return to the ED if you experience worsening or severe pain, severe swelling of knee, recurrent injury, numbness in groin or legs, going to the bathroom without meaning to, unable to keep down food or drink, or any other symptoms of concern. Patient Language: Nepali Prescriptions: New hydrocodone-acetaminophen 5-325 mg tablet 1 tablet PO Q6H PRN (Reason: pain) Qty: 12 0RF methocarbamol 750 mg tablet 1,500 mg PO TID PRN (Reason: muscle spasm) Qty: 10 0RF lidocaine 5 % adhesive patch,medicated 1 patch topical DAILY Qty: 15 0RF Rx Instructions: leave on most painful area for up to 12 hrs No Action Jardiance 10 mg tablet 10 mg PO DAILY Qty: 90 0RF Eliquis 5 mg tablet 5 mg PO BID Qty: 60 0RF atorvastatin [Lipitor] 20 mg tablet 20 mg PO DAILY Qty: 90 3RF (DME) blood-glucose meter [CenturyLinkTouch Verio Flex meter] [facility] Qty: 1 0RF Rx Instructions: May substitute to in-stock meter and/or covered by insurance. Use As Directed Monitor glucose twice a day (DME) OneTouch Verio test strips Strip Qty: 1 0RF Rx Instructions: May substitute to in-stock and/or covered by insurance strips. Use As Directed Monitor glucose ACHS insulin glargine 100 unit/mL (3 mL) insulin pen 20 unit subcut QAM Qty: 15 0RF (DME) pen needle, diabetic 32 gauge x 5/32 needle Qty: 1 0RF Rx Instructions: As Directed (DME) lancets [OneTouch Delica Plus Lancet] [address] [facility] Qty: 1 0RF Rx Instructions: May substitute to in-stock and/or covered by insurance lancets. Use As Directed lidocaine 5 % adhesive patch,medicated 1 patch topical DAILY Qty: 15 0RF Rx Instructions: leave on most painful area for up to 12 hrs mirtazapine 15 mg tablet 15 mg PO HS Qty: 30 2RF valsartan 40 mg tablet 40 mg PO DAILY Qty: 30 5RF pantoprazole 40 mg tablet,delayed release (DR/EC) 40 mg PO DAILY Qty: 30 5RF glycopyrrolate 2 mg tablet See Rx Instructions .ROUTE .COMPLEX Qty: 360 0RF Dose Instruction: TAKE 2 TABLETS BY MOUTH TWICE DAILY Rx Instructions: TAKE 2 TABLETS BY MOUTH TWICE DAILY furosemide 40 mg tablet 40 mg PO QAM Qty: 30 2RF metformin 500 mg tablet extended release 24 hr See Rx Instructions .ROUTE .COMPLEX Qty: 360 0RF Dose Instruction: TAKE 2 TABLETS BY MOUTH TWICE DAILY Rx Instructions: TAKE 2 TABLETS BY MOUTH TWICE DAILY Follow-up/Referrals: Avery Burger DO [Primary Care Provider, Family Practice] Manish Menendez MD [Physician, Orthopedics] Referral Note: ORTHOPEDICS Time of Disposition: 19:47
--- OUTSIDE RECORDS SUMMARY | 2024-12-07 17:38 | XMS_ITS | Clinical Summary ---
Author Organization [facility] Address [address] [place] [address] Care Team Providers Care Motion Picture Set Grip Name Role Phone Violet Younger APRN-CORRIDOR REDEVELOPMENT MANAGER Primary Care Provider Source Comments [facility],non-owned Affiliates and Associated Physician Practices is amultiple site organization consisting of ambulatory clinics and hospital sitesin [place], [place], [place] and [place]. This disclosure is being madepursuant to the Care Everywhere program and may not contain all information available regarding this patient. Last updated 17.[facility] Allergies No known active allergies Medications * Be aware that medications may not be up to date on this document. Alwaysverify current medications with the patient. atorvastatin (Lipitor) 10 MG tablet Take 1 (one) tablet by mouth once daily 11/18/19 23 Active vitamin D, ergocalciferol, (Drisdol) 1.25 MG (80298 UT) capsule Take 1 (one) capsule by [...] without long-term current use of insulin ([facility]) Inject 0.5 mL subcutaneously every 7 days [...] MEAL 90 capsule 1 5 9:09 AM PAPER AND PRINTS RESTORER 08/20/19 24 Active ondansetron, disintegrating, (Zofran ODT) [...] Recorded Patient Health Questionnaire-2 Score 0 08/08/2023 [facility] [place] of Occupat ional Health - Occupational Stress [...] on file Legal Sex Male 10:55 AM PAPER AND PRINTS RESTORER Gender Identity Not on file Sexual Orientation Not on file 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 Not on file Not on lc [...] Oxygen Concentration 21% 05/18/2023 4 :02 AM PAPER AND PRINTS RESTORER Weight 94.8 kg (209 lb) 09/18/2023 12:34 [...] this topic Medical Devices Implanted Type Area Battery Technician Device Identifier Shelf Expiration Date Model / Serial / Lot Nail Im 11.5mm 18cm Trgn Intrtn - Sna Implanted:Qty: 1 on 12/15/2022 by Daryl Diop MD at [facility] Right: Hip [employer] 12/02/2031 [id number] / NA / [id number] Kit Screw 100mm 4.5mm Intrtn Troch Ti - Sna Implanted:Qty: 1 on 12/15/2022 by Daryl Diop MD at [facility] Right: Hip [employer] 05/09/2032 [id number] / NA / [id number] Screw 5mm 37.5mm Lopro Intnl Hex Fem - Sna Implanted:Qty: 1 on 12/15/2022 by Daryl Diop MD at [facility] Right: Hip [employer] 12/26/2030 [id number] / NA / [id number] Wire Extfix 450mm 1.8mm Olv Tip Implanted:Qty: 2 on 05/06/2023 by Blane Stinson MD at [facility] Left: Ankle [employer] 4933-8-030 / / Graft Snth Tissue 10cc Pro-Dns Inj Rgnrt Implanted:Qty: 1 on 05/06/2023 by Blane Stinson MD at [facility] Left: Ankle [employer] ([employer]) 09/02/2027 [id number] / / [id number] Graft Bone Canc 1-4mm 15ml Frzdr Crsh Implanted:Qty: 1 on 05/06/2023 by Blane Stinson MD at [facility] Left: Ankle [employer] 09/22/2027 [id number] / / [id number] Kit Bngf 3cc Aug Inj Implanted:Qty: 1 on 05/06/2023 by Blane Stinson MD at [facility] Left: Ankle [employer] 07/06/2025 [id number] / / [id number] Kit Bngf 3cc Aug Inj Implanted:Qty: 1 on 05/06/2023 by Blane Stinson MD at [facility] Left: Ankle [employer] 07/06/2025 [id number] / / [id number] Wire Extfix 450mm 1.8mm Dmd Pt Implanted:Qty: 6 on 05/06/2023 by Blane Stinson MD at [facility] Left: Ankle [employer] 4933-8-010 / / [place] Extfix 1.5-2mm Hfmn Med Wire Lmb Implanted:Qty: 3 on 07/08/2023 by Blane Stinson MD at [facility] Left: Tibia [employer] [id number] / / [place] Extfix 1.5-2mm Hfmn Lng Wire Lmb Implanted:Qty: 1 on 07/08/2023 by Blane Stinson MD at [facility] Left: Tibia [employer] [id number] / / Wshr Extfix Chevy 4mm Implanted:Qty: 1 on 07/08/2023 by Blane Stinson MD at [facility] Left: Tibia [employer] [id number] / / Wire Extfix 450mm 1.8mm Dmd Pt Implanted:Qty: 2 on 07/08/2023 by Blane Stinson MD at [facility] Left: Tibia [employer] 4933-8-010 / / Nut Orth Hfmn M8 Shrt Cnct Lmb Recon Frm Implanted:Qty: 4 on 07/08/2023 by Blane Stinson MD at [facility] Left: Tibia [employer] 4933-1-010 / / Explanted Type Area Battery Technician Device Identifier Shelf Expiration Date Model / Serial / Lot Ring Extfix 180mm Cfbr Full Hfmn Lmb Explanted:Qty: 2 on 05/06/2023 at [facility] Left: Ankle [employer] 4933-5-180 / / Procedures Procedure Name Priority Date/Time Associated Diagnosis Comments MICROALB/CREAT RATIO URINE RANDOM PANEL Routine 09/18/2023 2:22 PM CDT NEDA (acute kidney injury) RENAL FUNCTION PANEL Routine 09/18/2023 2:00 PM CDT NEDA (acute kidney injury) HEMOGLOBIN A1C - POINT OF CARE (AMB) [facility] Routine 04/30/2023 1:31 PM PAPER AND PRINTS RESTORER Type 2 diabetes mellitus with other specified [...] Not Established mg/dL 09/18/2023 3:54 PM CDT [facility] Urine Albumin/Creati nine Ratio 978(H) <30 mg/g 09/18/2023 3:54 PM CDT [facility] Urine URINE SPECIMEN OBTAINED BY CLEAN CATCH PROCEDURE / Unknown Collection / Unknown 09/18/2023 2:22 PM CDT 09/18/2023 3:02 PM CDT us Soco Sanchez MD LAB - URINE CHEMISTRY ORDERABLES Final Result [facility] [address] [place] [phone], [facility] [phone] * (ABNORMAL) RENAL FUNCTION PANEL (09/18/2023 2:00 PM CDT) BUN 17 7 - 26 mg/dL 09/18/2023 3:02 PM CDT [facility] Creatinine 1.26(H) 0.71 - 1.16 mg/dL 09/18/2023 3:[address] [facility] Sodium 143 136 - 145 mmol/L 09/18/2023 3:[address] [facility] Potassium 4.4 3.5 - 4.5 mmol/L 09/18/2023 3:[address] [facility] Chloride 112(H) 98 - 107 mmol/L 09/18/2023 3:[address] [facility] CO2 23 22 - 29 mmol/L 09/18/2023 3:[address] [facility] Glucose 130(H) 70 - 115 mg/dL 09/18/2023 3:[address] [facility] Albumin 3.5 3.4 - 5.0 g/dL 09/18/2023 3:[address] [facility] Calcium 9.3 8.4 - 10.2 mg/dL 09/18/2023 3:[address] [facility] Phosphorus 2.7(L) 2.8 - 5.1 mg/dL 09/18/2023 3:[address] [facility] Anion Gap 8 6 - 16 09/18/2023 3:[address] [facility] BUN/Creatinine Ratio 13 7 - 23 09/18/2023 3:[address] [facility] Osmolality Calculated 299(H) 275 - 295 mOsm/kg 09/18/2023 3:[address] [facility] eGFR by CKD-EPI 66(L) >=90 mL/min/1.7 3 m2 09/18/2023 3:[address] [facility] Blood BLOOD SPECIMEN / Unknown Lab Venipuncture / Unknown 09/18/2023 2:00 PM CDT 09/18/2023 2:31 PM CDT us Soco Sanchez MD LAB - CHEMISTRY ORDERABLES Final Result [facility] [address] [place] [address], [facility] [phone] * HEMOGLOBIN A1C - POINT OF CARE (AMB) [facility] (04/30/2023 1:31 PM PAPER AND PRINTS RESTORER) Hemoglobin A1c POCT 6.1 % [facility] [address] [place] [address] Blood BLOOD SPECIMEN / Unknown 04/30/2023 1:31 PM PAPER AND PRINTS RESTORER Violet Younger APRN-CORRIDOR REDEVELOPMENT MANAGER LAB - POINT OF CARE ORD ERABLES Final Result Performing Organization Address [facility] Co de Phone Number [address] [facility] [place] [address], [facility] [phone] * HEPATITIS C AB SCREEN RFLX NAAT QUANT (2022 8:30 AM CDT) Hepatitis C Antibody Non-react sherin Non-reac tive 2022 9:40 AM CDT [facility] Comment:Hepatitis C Antibody screen indicates [...] ORDERABLE S Final Result Performing Organization Address City/[facility] Co de Phone Number [facility] [address] [place] [address], [facility] [phone] * HIV-1 HIV-2 ANTIBODY + HIV P24 AG PANEL (2022 8:30 AM CDT) HIV Antigen/Antibod y 1 & 2 Non-reacti ve Non-react sherin 2022 9:40 AM CDT [facility] Comment:No Laboratory eviden ce of HIV infection. Blood BLOOD SPECIMEN / Unknown Lab Venipuncture / Unknown 2022 8:30 AM CDT 2022 8:33 AM CDT Emiliano Duong MD LAB - CHEMISTRY ORDERABLE S Final Result [facility] [address] [place] [address], [facility] [phone] from Last 3 Months or Most Recently [...] 9:02 PM 12/07/2022 4:45 PM Care Teams Motion Picture Set Grip Relationship Specialty Start Date End Date Violet Younger, WINDOW SHADE RING COVERER-CORRIDOR REDEVELOPMENT MANAGER [address] [facility] [address] [facility] [place] [address] PCP - General Nurse Practitioner Family 04/30/23
--- OUTSIDE RECORDS SUMMARY | 2024-12-07 17:38 | XMS_ITS | Clinical Summary ---
Author Organization [facility] Care Team Providers Care Diesel Crane Operator Name Role Phone Unavailable Primary Care [...]
--- OUTSIDE RECORDS SUMMARY | 2024-12-07 17:38 | XMS_ITS | Clinical Summary ---
Author Organization [facility] [address] [place] [phone] Care Team Providers Care Analyst Sales Name Role Phone Pantera Seth MD Primary [...] - 11/26/2024 11:59 PM CDT Hospital Encounter [facility] [address] [place] [address] Encounter for disability determination Discharge Disposition: Discharge to home or self care 10/01/2024 2:35 PM CDT - 10/01/2024 11:59 PM CDT Hospital Encounter [facility] [address] [place] [phone] Discharge Disposition: Discharge to home or self care 10/01/2024 2:35 PM CDT - 10/01/2024 11:59 PM CDT Hospital Encounter [facility] [address] [place] [phone] Discharge Disposition: Discharge to home or self care 10/01/2024 2:15 PM CDT Office Visit [facility] at [address] [phone] Blane Stinson MD Left foot pain (Primary Dx) from Last 3 Months Social History Tobacco Use Types Packs/Day Years Used Date Smoking Tobacco: Never Assessed Sex and Gender Information Value Date Recorded Sex Assigned at Not on file Legal Sex Male 2:13 AM ADOPTION WORKER Gender Identity Not on file Sexual Orientation Not on file Obstetrics History Last Filed Vital Signs Vital Sign Reading Time Taken Comments Blood Pressure 121/77 04/19/2016 1:04 PM ADOPTION WORKER Pulse 91 04/19/2016 1:04 PM ADOPTION WORKER Temperature 37.3 C (99.1 F) 09/11/2012 6:18 PM CDT Respiratory Rate - - Oxygen Saturation 99% 04/19/2016 1:04 PM ADOPTION WORKER Inhaled Oxygen Concentration - - Weight 124.7 [...] LIPID PANEL Routine 04/17/2016 6:4 2 AM ADOPTION WORKER from Last 3 Months or Most Recently [...] Indra Rodriguez M.D. MF: [id number] Report ID: [id number] Reading Location: [id number] Procedure Note Indra Rodriguez MD - 2024 [...] Indra Rodriguez M.D. MF: [id number] Report ID: [id number] Reading Location: [id number] Jeffery Anderson MD IMG XR PROCEDURES Final [...] (ABNORMAL) Serum lipid panel (04/17/2016 6:42 AM ADOPTION WORKER) Cholesterol 113 30 - 200 mg/dl CDR [...] last revised 2015. Serum 04/17/2016 6:42 AM ADOPTION WORKER us Pedrito Montes MD LAB BLOOD ORDERABLES Fi nal Result CDR HISTORICAL RESULTS from Last 3 Months or Most Recently Relevant to Health Maintenance Insurance [facility] [employer] DIS[employer] Care Teams Analyst Sales Relationship Specialty Start Date End Date Pantera Seth MD PCP - General 10/03/11
--- OUTSIDE RECORDS SUMMARY | 2024-12-07 17:38 | XMS_ITS | Clinical Summary ---
Author Organization [facility] Address [address] [facility] Attn: Epic Prelude ADT SHELBY CONKLIN [phone] Care Team Providers Care Emt I/85 Name Role Phone Unavailable Primary Care Provider [...]
[2024-12-07] MEDS: HYDROcodone/acetaminophen (*CRX) 5-325 MG TABLET 1 TAB PO (17:46)
[2024-12-07] MEDS: LIDOCAINE 5% PATCH 1 PATCH TRANSDERM (17:46)
== END 2024-12-07 20:05 | disposition home or self-care (01) ==
PROVIDERS: Emergency Provider Physician Assistant; PCP Family Medicine
DX: S39.012A Strain of muscle, fascia and tendon of lower back, initial encounter (principal); S86.912A Strain of unspecified muscle(s) and tendon(s) at lower leg level, left leg, initial encounter; M25.462 Effusion, left knee; X58.XXXA Exposure to other specified factors, initial encounter
CPT/HCPCS: 72131; 73502; 73562; 93971; 99284; A9270

== ENCOUNTER 2024-12-21 08:54 | Observation (INO) | payer BC, SELFPAY ==
--- NOTE | ~2024-12-21 | CT_ITS ---
EXAMINATION: CT knee LT wo con DATE: 12/21/2024 10:27 INDICATION: Left knee pain. TECHNIQUE: Computed tomography (CT) of the left knee was performed without intravenous contrast. Automated exposure control and iterative reconstruction technique were employed. The dose-length product was 634.24 mGy-cm. COMPARISON: Left knee CT 09/09/2024, radiographs 12/07/2024 FINDINGS: Alignment is normal. No acute fracture. There is an old fracture deformity of lateral tibial plateau with up to 2 mm depression of the articular surface. There is mild tricompartmental osteoarthritis. There is a small knee joint effusion. IMPRESSION: 1. Stable old fracture deformity of lateral tibial plateau. 2. Mild tricompartmental osteoarthritis of the knee. 3. Small knee joint effusion. Reviewed, dictated and finalized at location E.
--- NOTE | ~2024-12-21 | XR_ITS ---
EXAMINATION: XR toe 1st LT min 2V, 12/21/2024 15:15 CDT HISTORY: hemorrhagic blister plantar;blackened lunula COMPARISON: No comparisons available. Findings: No acute fracture or malalignment. Severe degenerative changes of the first metatarsophalangeal joint with small erosions Soft tissues unremarkable. Impression: No acute fracture or malalignment. Reviewed, dictated and finalized at location P. Impression: No acute fracture or malalignment.
--- NOTE | ~2024-12-21 | XR_ITS ---
X-ray toe second left minimum 2 views INDICATION: Black now COMPARISON: [None.] FINDINGS: Frontal, lateral and oblique views of the left foot second toe were obtained. [There is no fracture or dislocation.] [The joint spaces are narrowed.] [The soft tissue is unremarkable.] IMPRESSION: 1. [No fracture or dislocation is evident in the left foot.] Reviewed, dictated and finalized at location S.
[2024-12-21 08:57] VITALS: BP 99/75; PULSE 92; RESP 16; TEMP 37.1; O2SAT 99
--- OUTSIDE RECORDS SUMMARY | 2024-12-21 09:14 | XMS_ITS | Clinical Summary ---
Author Organization [facility] Address [address] Attn: Epic Prelude ADT SHELBY CONKLIN [phone] Care Team Providers Care Ferry Operator Name Role Phone Unavailable Primary Care [...]
--- OUTSIDE RECORDS SUMMARY | 2024-12-21 09:15 | XMS_ITS | Clinical Summary ---
Author Organization [facility] Care Team Providers Care Database Design Analyst Name Role Phone Unavailable Primary Care [...]
--- OUTSIDE RECORDS SUMMARY | 2024-12-21 09:15 | XMS_ITS | Clinical Summary ---
Author Organization [facility] Physician Office Building [address] [place] [phone] Care Team Providers Care Building Maintenance Superintendent Name Role Phone Pantera Seth MD Primary [...] - 11/26/2024 11:59 PM CDT Hospital Encounter [facility] [address] [place] [address] Encounter for disability determination Discharge Disposition: Discharge to home or self care 10/01/2024 2:35 PM CDT - 10/01/2024 11:59 PM CDT Hospital Encounter [facility] [address] [place] [phone] Discharge Disposition: Discharge to home or self care 10/01/2024 2:35 PM CDT - 10/01/2024 11:59 PM CDT Hospital Encounter [facility] [address] [place] [phone] Discharge Disposition: Discharge to home or self care 10/01/2024 2:15 PM CDT Office Visit [facility] at [address] [phone] Blane Stinson MD Left foot pain (Primary Dx) from Last 3 Months Social History Tobacco Use Types Packs/Day Years Used Date Smoking Tobacco: Never Assessed Sex and Gender Information Value Date Recorded Sex Assigned at Not on file Legal Sex Male 2:13 AM CHANNELER INSOLE Gender Identity Not on file Sexual Orientation Not on file Obstetrics History Last Filed Vital Signs Vital Sign Reading Time Taken Comments Blood Pressure 121/77 04/19/2016 1:04 PM CHANNELER INSOLE Pulse 91 04/19/2016 1:04 PM CHANNELER INSOLE Temperature 37.3 C (99.1 F) 09/11/2012 6:18 PM CDT Respiratory Rate - - Oxygen Saturation 99% 04/19/2016 1:04 PM CHANNELER INSOLE Inhaled Oxygen Concentration - - Weight 124.7 [...] LIPID PANEL Routine 04/17/2016 6:4 2 AM CHANNELER INSOLE from Last 3 Months or Most Recently [...] Indra Rodriguez M.D. MF: JONNY Report ID: [id number] Reading Location: [id number] Procedure Note Indra Rodriguez MD - 2024 [...] Indra Rodriguez M.D. MF: JONNY Report ID: [id number] Reading Location: [id number] Jeffery Anderson MD IMG XR PROCEDURES Final [...] (ABNORMAL) Serum lipid panel (04/17/2016 6:42 AM CHANNELER INSOLE) Cholesterol 113 30 - 200 mg/dl CDR [...] last revised 2015. Serum 04/17/2016 6:42 AM CHANNELER INSOLE us Pedrito Montes MD LAB BLOOD ORDERABLES Fi nal Result CDR HISTORICAL RESULTS from Last 3 Months or Most Recently Relevant to Health Maintenance Insurance [facility] [place] [employer] DIS[employer] Care Teams Building Maintenance Superintendent Relationship Specialty Start Date End Date Pantera Seth MD PCP - General 10/03/11
--- OUTSIDE RECORDS SUMMARY | 2024-12-21 09:15 | XMS_ITS | Clinical Summary ---
Author Organization [facility] Address [address] [place] [address] Care Team Providers Care Brimmer Blocker Name Role Phone Violet Younger APRN-AUTO CRANE DRIVER Primary Care Provider Source Comments [facility],non-owned Affiliates and Associated Physician Practices is amultiple site organization consisting of ambulatory clinics and hospital sitesin [place], [place], [place] and [place]. This disclosure is being madepursuant to the Care Everywhere program and may not contain all information available regarding this patient. Last updated 17.[facility] Allergies No known active allergies Medications * Be aware that medications may not be up to date on this document. Alwaysverify current medications with the patient. atorvastatin (Lipitor) 10 MG tablet Take 1 (one) tablet by mouth once daily 11/18/19 23 Active vitamin D, ergocalciferol, (Drisdol) 1.25 MG (14821 UT) capsule Take 1 (one) capsule by [...] complication, without long-term current use of insulin ([facility]) Inject 0.5 mL subcutaneously every 7 days [...] MEAL 90 capsule 1 5 9:09 AM [employer]OOK [employer] 08/20/19 24 Active ondansetron, disintegrating, (Zofran ODT) [...] Recorded Patient Health Questionnaire-2 Score 0 08/08/2023 [facility] [place] [facility] Occupat ional Health - Occupational Stress [...] on file Legal Sex Male 10:55 AM COOK SEAFOOD Gender Identity Not on file Sexual Orientation Not on file 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 on file Not on lc [...] Oxygen Concentration 21% 05/18/2023 4 :02 AM [employer] Weight 94.8 kg (209 lb) 09/18/2023 12:34 [...] this topic Medical Devices Implanted Type Area Beck Operator Device Identifier Shelf Expiration Date Model / Serial / Lot Nail Im 11.5mm 18cm Trgn Intrtn - Sna Implanted:Qty: 1 on 12/15/2022 by Daryl Diop MD at [facility] Right: Hip [employer] 12/02/2031 [id number] / NA / [id number] Kit Screw 100mm 4.5mm Intrtn Troch Ti - Sna Implanted:Qty: 1 on 12/15/2022 by Daryl Diop MD at [facility] Right: Hip [employer] 05/09/2032 [id number] / NA / [id number] Screw 5mm 37.5mm Lopro Intnl Hex Fem - Sna Implanted:Qty: 1 on 12/15/2022 by Daryl Diop MD at [facility] Right: Hip [employer] 12/26/2030 [id number] / NA / [id number] Wire Extfix 450mm 1.8mm Olv Tip Implanted:Qty: 2 on 05/06/2023 by Blane Stinson MD at [facility] Left: Ankle [employer] 4933-8-030 / / Graft Snth Tissue 10cc Pro-Dns Inj Rgnrt Implanted:Qty: 1 on 05/06/2023 by Blane Stinson MD at [facility] Left: Ankle [employer] 09/02/2027 [id number] / / [id number] Graft Bone Canc 1-4mm 15ml Frzdr Crsh Implanted:Qty: 1 on 05/06/2023 by Blane Stinson MD at [facility] Left: Ankle [employer] 09/22/2027 [id number] / / [id number] Kit Bngf 3cc Aug Inj Implanted:Qty: 1 on 05/06/2023 by Blane Stinson MD at [facility] Left: Ankle [employer] 07/06/2025 [id number] / / [id number] Kit Bngf 3cc Aug Inj Implanted:Qty: 1 on 05/06/2023 by Blane Stinson MD at [facility] Left: Ankle [employer] 07/06/2025 [id number] / / [id number] Wire Extfix 450mm 1.8mm Dmd Pt Implanted:Qty: 6 on 05/06/2023 by Blane Stinson MD at [facility] Left: Ankle [employer] 4933-8-010 / / [place] Extfix 1.5-2mm Hfmn Med Wire Lmb Implanted:Qty: 3 on 07/08/2023 by Blane Stinson MD at [facility] Left: Tibia [employer] [id number] / / [place] Extfix 1.5-2mm Hfmn Lng Wire Lmb Implanted:Qty: 1 on 07/08/2023 by Blane Stinson MD at [facility] Left: Tibia [employer] [id number] / / Wshr Extfix Chevy 4mm Implanted:Qty: 1 on 07/08/2023 by Blane Stinson MD at [facility] Left: Tibia [employer] [id number] / / Wire Extfix 450mm 1.8mm Dmd Pt Implanted:Qty: 2 on 07/08/2023 by Blane Stinson MD at [facility] Left: Tibia [employer] 4933-8-010 / / Nut Orth Hfmn M8 Shrt Cnct Lmb Recon Frm Implanted:Qty: 4 on 07/08/2023 by Blane Stinson MD at [facility] Left: Tibia [employer] 4933-1-010 / / Explanted Type Area Beck Operator Device Identifier Shelf Expiration Date Model / Serial / Lot Ring Extfix 180mm Cfbr Full Hfmn Lmb Explanted:Qty: 2 on 05/06/2023 at [facility] Left: Ankle [employer] 4933-5-180 / / Procedures Procedure Name Priority Date/Time Associated Diagnosis Comments MICROALB/CREAT RATIO URINE RANDOM PANEL Routine 09/18/2023 2:22 PM CDT NEDA (acute kidney injury) RENAL FUNCTION PANEL Routine 09/18/2023 2:00 PM CDT NEDA (acute kidney injury) HEMOGLOBIN A1C - POINT OF CARE (AMB) [facility] Routine 04/30/2023 1:31 PM [employer] Type 2 diabetes mellitus with other specified [...] Not Established ug/mL 09/18/2023 3:54 PM CDT [facility] Comment:Result obtained by seamus luciano. Creatinine Urine 154.03 Not Established mg/dL 09/18/2023 3:54 PM CDT [facility] Urine Albumin/Creati nine Ratio 978(H) <30 mg/g 09/18/2023 3:54 PM CDT [facility] Urine URINE SPECIMEN OBTAINED BY CLEAN CATCH PROCEDURE / Unknown Collection / Unknown 09/18/2023 2:22 PM CDT 09/18/2023 3:02 PM CDT us Soco Sanchez MD LAB - URINE CHEMISTRY ORDERABLES Final Result [facility] [address] [place] [phone], [facility] [phone] * (ABNORMAL) RENAL FUNCTION PANEL (09/18/2023 2:00 PM CDT) BUN 17 7 - 26 mg/dL 09/18/2023 3:02 PM CDT [facility] Creatinine 1.26(H) 0.71 - 1.16 mg/dL 09/18/2023 3:02 PM [facility] Sodium 143 136 - 145 mmol/L 09/18/2023 3:02 PM [facility] Potassium 4.4 3.5 - 4.5 mmol/L 09/18/2023 3:02 PM [facility] Chloride 112(H) 98 - 107 mmol/L 09/18/2023 3:02 PM [facility] CO2 23 22 - 29 mmol/L 09/18/2023 3:02 PM [facility] Glucose 130(H) 70 - 115 mg/dL 09/18/2023 3:02 PM [facility] Albumin 3.5 3.4 - 5.0 g/dL 09/18/2023 3:02 PM [facility] Calcium 9.3 8.4 - 10.2 mg/dL 09/18/2023 3:02 PM [facility] Phosphorus 2.7(L) 2.8 - 5.1 mg/dL 09/18/2023 3:02 PM [facility] Anion Gap 8 6 - 16 09/18/2023 3:02 PM [facility] BUN/Creatinine Ratio 13 7 - 23 09/18/2023 3:02 PM [facility] Osmolality Calculated 299(H) 275 - 295 mOsm/kg 09/18/2023 3:02 PM [facility] eGFR by CKD-EPI 66(L) >=90 mL/min/1.7 3 m2 09/18/2023 3:02 PM [facility] Blood BLOOD SPECIMEN / Unknown Lab Venipuncture / Unknown 09/18/2023 2:00 PM CDT 09/18/2023 2:31 PM CDT us Soco Sanchez MD LAB - CHEMISTRY ORDERABLES Final Result [facility] [address] [place] [address], [facility] [phone] * HEMOGLOBIN A1C - POINT OF CARE (AMB) [facility] (04/30/2023 1:31 PM [employer]) Hemoglobin A1c POCT 6.1 % [facility] [address] [place] [address] Blood BLOOD SPECIMEN / Unknown 04/30/2023 1:31 PM [employer] Violet Younger APRN-AUTO CRANE DRIVER LAB - POINT OF CARE ORD ERABLES Final Result Performing Organization Address [facility] [employer] de Phone Number [address] [facility] [place] [address], [facility] [phone] * HEPATITIS C AB SCREEN RFLX NAAT QUANT (2022 8:30 AM CDT) Hepatitis C Antibody Non-react sherin Non-reac tive 2022 9:40 AM CDT [facility] Comment:Hepatitis C Antibody [...] ORDERABLE S Final Result Performing Organization Address City/[facility] [employer] de Phone Number [facility] [address] [place] [address], [facility] [phone] * HIV-1 HIV-2 ANTIBODY + HIV P24 AG PANEL (2022 8:30 AM CDT) HIV Antigen/Antibod y 1 & 2 Non-reacti ve Non-react sherin 2022 9:40 AM CDT [facility] Comment:No Laboratory eviden ce of HIV infection. Blood BLOOD SPECIMEN / Unknown Lab Venipuncture / Unknown 2022 8:30 AM CDT 2022 8:33 AM CDT Emiliano Duong MD LAB - CHEMISTRY ORDERABLE S Final Result [facility] [address] [place] [address], [facility] [phone] from Last 3 Months or Most Recently [...] 9:02 PM 12/07/2022 4:45 PM Care Teams Brimmer Blocker Relationship Specialty Start Date End Date Violet Younger, CLINICAL SUPPORT NURSE-AUTO CRANE DRIVER [address] [facility] [facility] [place] [address] PCP - General Nurse Practitioner Family 04/30/23
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
[2024-12-21] MEDS: HYDROcodone/acetaminophen (*CRX) 5-325 MG TABLET 1 TAB PO ×2 (10:33→21:10)
--- OUTSIDE RECORDS SUMMARY | 2024-12-21 10:53 | XMS_ITS | Clinical Summary ---
Author Organization [facility] Physician Office Building [address] [place] [phone] Care Team Providers Care Rework Operator Name Role Phone Pantera Seth MD Primary [...] - 11/26/2024 11:59 PM CDT Hospital Encounter [facility] [address] [place] [address] Encounter for disability determination Discharge Disposition: Discharge to home or self care 10/01/2024 2:35 PM CDT - 10/01/2024 11:59 PM CDT Hospital Encounter [facility] [address] [place] [phone] Discharge Disposition: Discharge to home or self care 10/01/2024 2:35 PM CDT - 10/01/2024 11:59 PM CDT Hospital Encounter [facility] [address] [place] [phone] Discharge Disposition: Discharge to home or self care 10/01/2024 2:15 PM CDT Office Visit [facility] at [address] [phone] Blane Stinson MD Left foot pain (Primary Dx) from Last 3 Months Social History Tobacco Use Types Packs/Day Years Used Date Smoking Tobacco: Never Assessed Sex and Gender Information Value Date Recorded Sex Assigned at Not on file Legal 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 MF: JONNY Report ID: [id number] Reading Location: [id number] Procedure Note Indra Rodriguez MD - 2024 [...] Indra Rodriguez M.D. MF: JONNY Report ID: [id number] Reading Location: [id number] Jeffery Anderson MD IMG XR PROCEDURES Final [...] (ABNORMAL) Serum lipid panel (04/17/2016 6:42 AM MANAGER HAR[facility]) Cholesterol 113 30 - 200 mg/dl CDR [...] last revised 2015. Serum 04/17/2016 6:42 AM MANAGER HAR[facility]OR us Pedrito Montes MD LAB BLOOD ORDERABLES Fi nal Result CDR HISTORICAL RESULTS from Last 3 Months or Most Recently Relevant to Health Maintenance Insurance [facility] Care Teams Rework Operator Relationship Specialty Start Date End Date Pantera Seth MD PCP - General 10/03/11
--- OUTSIDE RECORDS SUMMARY | 2024-12-21 10:53 | XMS_ITS | Clinical Summary ---
Author Organization [facility] Care Team Providers Care Carpet Loom Fixer Name Role Phone Unavailable Primary Care Provider [...]
--- OUTSIDE RECORDS SUMMARY | 2024-12-21 10:53 | XMS_ITS | Clinical Summary ---
Author Organization [facility] [employer] Address [address] [place] [address] Care Team Providers Care Construction Producer Name Role Phone Violet Younger APRN-FILM REPRODUCER Primary Care Provider Source Comments [facility] [employer],non-owned Affiliates and Associated Physician Practices is amultiple site organization consisting of ambulatory clinics and hospital sitesin [place], [place], [place] and [place]. This disclosure is being madepursuant to the Care Everywhere program and may not contain all information available regarding this patient. Last updated 17.[facility] [employer] Allergies No known active allergies Medications * Be aware that medications may not be up to date on this document. Alwaysverify current medications with the patient. atorvastatin (Lipitor) 10 MG tablet Take 1 (one) tablet by mouth once daily 11/18/19 23 Active vitamin D, ergocalciferol, (Drisdol) 1.25 MG (98646 UT) capsule Take 1 (one) capsule by [...] without long-term current use of insulin ([facility]) Inject 0.5 mL subcutaneously every 7 [...] MEAL 90 capsule 1 5 9:09 AM WAREHOUSE SHIPPING ASSOCIATE 08/20/19 24 Active ondansetron, disintegrating, (Zofran ODT) [...] Recorded Patient Health Questionnaire-2 Score 0 08/08/2023 [facility] [place] of Occupat ional Health - Occupational Stress [...] on file Legal Sex Male 10:55 AM WAREHOUSE SHIPPING ASSOCIATE Gender Identity Not on file Sexual Orientation Not on file 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 Not on file Not on [...] Oxygen Concentration 21% 05/18/2023 4 :02 AM WAREHOUSE SHIPPING ASSOCIATE Weight 94.8 kg (209 lb) 09/18/2023 12:34 [...] this topic Medical Devices Implanted Type Area Test Desk Operator Device Identifier Shelf Expiration Date Model / Serial / Lot Nail Im 11.5mm 18cm Trgn Intrtn - Sna Implanted:Qty: 1 on 12/15/2022 by Daryl Diop MD at [facility] Right: Hip [employer] 12/02/2031 [id number] / NA / [id number] Kit Screw 100mm 4.5mm Intrtn Troch Ti - Sna Implanted:Qty: 1 on 12/15/2022 by Daryl Diop MD at [facility] Right: Hip [employer] 05/09/2032 [id number] / NA / [id number] Screw 5mm 37.5mm Lopro Intnl Hex Fem - Sna Implanted:Qty: 1 on 12/15/2022 by Daryl Diop MD at [facility] Right: Hip [employer] 12/26/2030 [id number] / NA / [id number] Wire Extfix 450mm 1.8mm Olv Tip Implanted:Qty: 2 on 05/06/2023 by Blane Stinson MD at [facility] Left: Ankle [employer] 4933-8-030 / / Graft Snth Tissue 10cc Pro-Dns Inj Rgnrt Implanted:Qty: 1 on 05/06/2023 by Blane Stinson MD at [facility] Left: Ankle [employer] 09/02/2027 [id number] / / [id number] Graft Bone Canc 1-4mm 15ml Frzdr Crsh Implanted:Qty: 1 on 05/06/2023 by Blane Stinson MD at [facility] Left: Ankle [employer] 09/22/2027 [id number] / / [id number] Kit Bngf 3cc Aug Inj Implanted:Qty: 1 on 05/06/2023 by Blane Stinson MD at [facility] Left: Ankle [employer] 07/06/2025 [id number] / / [id number] Kit Bngf 3cc Aug Inj Implanted:Qty: 1 on 05/06/2023 by Blane Stinson MD at [facility] Left: Ankle [employer] 07/06/2025 [id number] / / [id number] Wire Extfix 450mm 1.8mm Dmd Pt Implanted:Qty: 6 on 05/06/2023 by Blane Stinson MD at [facility] Left: Ankle [employer] 4933-8-010 / / [place] Extfix 1.5-2mm Hfmn Med Wire Lmb Implanted:Qty: 3 on 07/08/2023 by Blane Stisnon MD at [facility] Left: Tibia [employer] [id number] / / [place] Extfix 1.5-2mm Hfmn Lng Wire Lmb Implanted:Qty: 1 on 07/08/2023 by Blane Stinson MD at [facility] Left: Tibia [employer] [id number] / / Wshr Extfix [place]vy 4mm Implanted:Qty: 1 on 07/08/2023 by Blane Stinson MD at [facility] Left: Tibia [employer] [place] [employer] [id number] / / Wire Extfix 450mm 1.8mm Dmd Pt Implanted:Qty: 2 on 07/08/2023 by Blane Stinson MD at [facility] Left: Tibia [employer] 4933-8-010 / / Nut Orth Hfmn M8 Shrt Cnct Lmb Recon Frm Implanted:Qty: 4 on 07/08/2023 by Blane Stinson MD at [facility] Left: Tibia [place] [employer] 4933-1-010 / / Explanted Type Area Test Desk Operator Device Identifier Shelf Expiration Date Model / Serial / Lot Ring Extfix 180mm Cfbr Full Hfmn Lmb Explanted:Qty: 2 on 05/06/2023 at [facility] Left: Ankle [employer] 4933-5-180 / / Procedures Procedure Name Priority Date/Time Associated Diagnosis Comments MICROALB/CREAT RATIO URINE RANDOM PANEL Routine 09/18/2023 2:22 PM CDT NEDA (acute kidney injury) RENAL FUNCTION PANEL Routine 09/18/2023 2:00 PM CDT NEDA (acute kidney injury) HEMOGLOBIN A1C - POINT OF CARE (AMB) [facility] Routine 04/30/2023 1:31 PM WAREHOUSE SHIPPING ASSOCIATE Type 2 diabetes mellitus with other specified [...] Not Established ug/mL 09/18/2023 3:54 PM CDT [facility] Comment:Result obtained by seamus luciano. Creatinine Urine 154.03 Not Established mg/dL 09/18/2023 3:54 PM CDT [facility] Urine Albumin/Creati nine Ratio 978(H) <30 mg/g 09/18/2023 3:54 PM CDT [facility] Urine URINE SPECIMEN OBTAINED BY CLEAN CATCH PROCEDURE / Unknown Collection / Unknown 09/18/2023 2:22 PM CDT 09/18/2023 3:02 PM CDT us Sooc Sanchez MD LAB - URINE CHEMISTRY ORDERABLES Final Result [facility] [address] [place] [phone], [facility] [phone] * (ABNORMAL) RENAL FUNCTION PANEL (09/18/2023 2:00 PM CDT) BUN 17 7 - 26 mg/dL 09/18/2023 3:02 PM CDT [facility] Creatinine 1.26(H) 0.71 - 1.16 mg/dL 09/18/2023 3:02 PM [facility] Sodium 143 136 - 145 mmol/L 09/18/2023 3:02 PM [facility] Potassium 4.4 3.5 - 4.5 mmol/L 09/18/2023 3:02 PM [facility] Chloride 112(H) 98 - 107 mmol/L 09/18/2023 3:02 PM [facility] CO2 23 22 - 29 mmol/L 09/18/2023 3:02 PM [facility] Glucose 130(H) 70 - 115 mg/dL 09/18/2023 3:02 PM [facility] Albumin 3.5 3.4 - 5.0 g/dL 09/18/2023 3:02 PM [facility] Calcium 9.3 8.4 - 10.2 mg/dL 09/18/2023 3:02 PM [facility] Phosphorus 2.7(L) 2.8 - 5.1 mg/dL 09/18/2023 3:02 PM [facility] Anion Gap 8 6 - 16 09/18/2023 3:02 PM [facility] BUN/Creatinine Ratio 13 7 - 23 09/18/2023 3:02 PM [facility] Osmolality Calculated 299(H) 275 - 295 mOsm/kg 09/18/2023 3:02 PM [facility] eGFR by CKD-EPI 66(L) >=90 mL/min/1.7 3 m2 09/18/2023 3:02 PM [facility] Blood BLOOD SPECIMEN / Unknown Lab Venipuncture / Unknown 09/18/2023 2:00 PM CDT 09/18/2023 2:31 PM CDT us Soco Sanchez MD LAB - CHEMISTRY ORDERABLES Final Result [facility] [address] [place] [address], [facility] [phone] * HEMOGLOBIN A1C - POINT OF CARE (AMB) [facility] (04/30/2023 1:31 PM WAREHOUSE SHIPPING ASSOCIATE) Hemoglobin A1c POCT 6.1 % [facility] [address] [place] [address] Blood BLOOD SPECIMEN / Unknown 04/30/2023 1:31 PM WAREHOUSE SHIPPING ASSOCIATE Violet Younger APRN-FILM REPRODUCER LAB - POINT OF CARE ORD ERABLES Final Result Performing Organization Address [facility] Co de Phone Number [address] [facility] [place] [address], [facility] [phone] * HEPATITIS C AB SCREEN RFLX NAAT QUANT (2022 8:30 AM CDT) Hepatitis C Antibody Non-react sherin Non-reac tive 2022 9:40 AM CDT [facility] Comment:Hepatitis C Antibody screen indicates [...] Performing Organization Address City/[facility] Co de Phone Number [facility] [address] [place] [address], [facility] [phone] * HIV-1 HIV-2 ANTIBODY + HIV P24 AG PANEL (2022 8:30 AM CDT) HIV Antigen/Antibod y 1 & 2 Non-reacti ve Non-react sherin 2022 9:40 AM CDT [facility] Comment:No Laboratory eviden ce of HIV infection. Blood BLOOD SPECIMEN / Unknown Lab Venipuncture / Unknown 2022 8:30 AM CDT 2022 8:33 AM CDT Emiliano Duong MD LAB - CHEMISTRY ORDERABLE S Final Result [facility] [address] [place] [address], [facility] [phone] from Last 3 Months or Most Recently [...] 9:02 PM 12/07/2022 4:45 PM Care Teams Construction Producer Relationship Specialty Start Date End Date Violet Younger, PEDIATRICIAN ACTIVE PRACTICE-FILM REPRODUCER [address] [facility] [address] [facility] [place] [address] PCP - General Nurse Practitioner Family 04/30/23
--- OUTSIDE RECORDS SUMMARY | 2024-12-21 10:53 | XMS_ITS | Clinical Summary ---
Author Organization [facility] Address [address] [facility] Attn: Epic Prelude ADT [place] CONKLIN [address] Care Team Providers Care Weight Reducing Technician Name Role Phone Unavailable Primary Care Provider [...]
[2024-12-21 11:31] VITALS: BP 107/74; PULSE 86; RESP 12; O2SAT 100
[2024-12-21 13:58] VITALS: BP 97/60; PULSE 93; RESP 15; TEMP 36.4; O2SAT 96
[2024-12-21 14:08] LABS: Hematocrit 36.0 % (42.0-52.0); Hemoglobin 11.3 g/dL (14.0-18.0); Immature Granulocyte Percent A 0.9 % (0-0.5); Lymphocytes Absolute Auto 2.27 K/mm3 (0.9-3.2); Mean Corpuscular HGB Conc 31.4 g/dl (32-36); Mean Corpuscular Hemoglobin 28.0 pg (26-34); Mean Corpuscular Volume 89.3 fl (80-100); Nucleated Red Blood Cells Absolute Auto 0.000 K/mm3 (0.0-0.012); Nucleated Red Blood Cells Perc 0.0 % (0.0-0.2); Platelet Count Result 670 k/mm3 (150-375); Red Blood Count 4.03 M/mm3 (4.6-6.20); White Blood Count 13.2 K/mm3 (4.5-10.0)
--- NOTE | 2024-12-21 14:11 | PC.NURSE ---
Pt unable to void at this time
[2024-12-21 14:34] LABS: Alanine Aminotransferase 19 U/L (6-50); Albumin Level 4.1 g/dL (3.5-5.1); Alkaline Phosphatase 161 U/L (38-126); Anion Gap 14 mmol/L (4-12); Aspartate Amino Transferase 30 U/L (17-59); Bilirubin,Total 0.6 mg/dL (0.2-1.3); Blood Urea Nitrogen 82 mg/dL (9-20); Calcium 9.8 mg/dL (8.4-10.2); Carbon Dioxide 21 mmol/L (22-30); Chloride 101 mmol/L (98-107); Estimated CRCL calculation 33 ml/min; Estimated Glomerular Filt Rate 26; Glucose 142 mg/dL (65-110); Potassium 4.4 mmol/L (3.4-5.0); Sodium 136 mmol/L (137-145); Total Protein 9.5 g/dL (6.3-8.2)
[2024-12-21 14:49] LABS: CRP 26.2 mg/dL (<1.0)
[2024-12-21 15:11] VITALS: BMI 28.8
[2024-12-21 15:12] VITALS: BP 94/60; PULSE 91; RESP 16; TEMP 36.4; O2SAT 100
[2024-12-21 15:32] LABS: Add Urine Microscopic? YES; Appearance Urine Clear (Clear); Glucose Urine UA Trace mg/dL (Negative); Leukocyte Esterase Ur Negative LEU/UL (Negative); Nitrate Urine Negative (Negative); Specific Grav Ur 1.023 (1.001-1.035)
--- NOTE | 2024-12-21 15:34 | PCCCNOTE ---
Called to the ED to help find PT/OT placement. Pt. refuses to go to any nursing homes, halfway care facilities(even for therapy), and [facility]. He would go to [facility], but they do not take his insurance. I spoke with Katia at [facility] in [place], they have no beds. Pt. would be willing to go to [facility], but per Katia, it would take 3 days for a authorization and he would need PT/OT to evaluate him within 24 hours of being accepted. Explained this to the pt and his family, and also, to the ED MD.
[2024-12-21 15:38] VITALS: BP 96/62; PULSE 89; RESP 18; TEMP 35.6; O2SAT 100
--- NOTE | 2024-12-21 15:43 | ADMGEN ---
This patient, Mika Cornell Sr., was admitted to [facility] Surg Room 327-01. Patient/family oriented to hospital policies and general routines including ID bracelet, bed and alarms, visiting hours, pain management, procedures, bathroom and other care routines, personal items, smoking policy, room service/diet, and visiting hours. Information on how to activate the Rapid Response Team has been discussed. Patient/Family are encouraged to report perceived risks to care and to ask questions if they do not understand what they are told or what they should do.
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
[2024-12-21] MEDS: APIXABAN 5 MG TABLET PO (21:11)
[2024-12-21] MEDS: MIRTAZAPINE 15 MG TABLET PO (21:11)
[2024-12-21] MEDS: GLYCOPYRROLATE 1 MG TABLET 4 MG PO (21:12)
[2024-12-21 22:00] VITALS: BP 115/65; PULSE 97; RESP 16; TEMP 36.4; O2SAT 98
[2024-12-22 05:12] VITALS: BP 100/61; PULSE 80; RESP 18; TEMP 36.2; O2SAT 97
[2024-12-22] MEDS: HYDROcodone/acetaminophen (*CRX) 5-325 MG TABLET 1 TAB PO ×3 (07:06→19:43)
[2024-12-22 07:18] LABS: Hematocrit 31.2 % (42.0-52.0); Hemoglobin 9.8 g/dL (14.0-18.0); Mean Corpuscular HGB Conc 31.4 g/dl (32-36); Mean Corpuscular Hemoglobin 28.1 pg (26-34); Mean Corpuscular Volume 89.4 fl (80-100); Platelet Count Result 632 k/mm3 (150-375); Red Blood Count 3.49 M/mm3 (4.6-6.20); White Blood Count 10.6 K/mm3 (4.5-10.0)
[2024-12-22 07:43] LABS: Albumin Level 3.7 g/dL (3.5-5.1); Anion Gap 13 mmol/L (4-12); Blood Urea Nitrogen 88 mg/dL (9-20); Calcium 9.3 mg/dL (8.4-10.2); Carbon Dioxide 20 mmol/L (22-30); Chloride 101 mmol/L (98-107); Estimated CRCL calculation 38 ml/min; Estimated Glomerular Filt Rate 31; Glucose 187 mg/dL (65-110); Potassium 3.9 mmol/L (3.4-5.0); Sodium 134 mmol/L (137-145)
[2024-12-22] MEDS: FUROSEMIDE 40 MG TABLET PO (09:33)
[2024-12-22] MEDS: ATORVASTATIN 20 MG TABLET PO (09:33)
[2024-12-22] MEDS: GLYCOPYRROLATE 1 MG TABLET 4 MG PO ×2 (09:33→17:09)
[2024-12-22] MEDS: APIXABAN 5 MG TABLET PO ×2 (09:33→20:37)
[2024-12-22] MEDS: EMPAGLIFLOZIN 10 MG TABLET PO (09:33)
[2024-12-22] MEDS: LIDOCAINE 5% PATCH 1 PATCH TOPICAL (09:33)
[2024-12-22] MEDS: VALSARTAN 40 MG TABLET PO (09:33)
[2024-12-22] MEDS: PANTOPRAZOLE 40 MG TABLET PO (09:34)
--- NOTE | 2024-12-22 13:45 | PC.NURSE ---
Attempted to return a phone call to Jimmy Valdes, regarding update, but received no answer.
--- NOTE | 2024-12-22 13:47 | P.PNIM_ITS ---
Progress Note: A&P Assessment and Plan (1) Closed fracture of lateral portion of tibial plateau: Code(s): S82.123A - Displaced fracture of lateral condyle of unspecified tibia, initial encounter for closed fracture Status: Acute Assessment and Plan: CT of the knee with stable old fracture deformity of the lateral tibial plateau, small knee joint effusion, and mild tricompartmental osteoarthritis of the knee. * Tylenol and Aurora p.r.n. for pain * ortho consulted * recommended knee immobilizer/crutches * follow-up outpatient with orthopedics * PT/OT consulted for rehab placement (2) Effusion of knee joint, left: Code(s): M25.462 - Effusion, left knee Status: Acute Assessment and Plan: See Above (3) Tricompartment osteoarthritis of left knee: Code(s): M17.12 - Unilateral primary osteoarthritis, left knee Status: Acute Assessment and Plan: * See Above * Pain management * PT/OT (4) Low back pain: Qualifiers: Back pain laterality: left Chronicity: acute Sciatica presence: without sciatica Qualified Code(s): M54.50 - Low back pain, unspecified Code(s): M54.50 - Low back pain, unspecified Status: Acute Assessment and Plan: Patient with back pain/spasms previous lumbar CT 12/07/2024: with no acute findings patient denies any incontinence or difficulty defecating * Tylenol and Aurora p.r.n. * resume patient's Robaxin * added IV diazepam for moderate to severe muscle spasms * PT/OT consult (5) Type 2 diabetes mellitus with hyperglycemia: Qualifiers: Diabetes mellitus long lines operator insulin use: unspecified long lines operator insulin use status Qualified Code(s): E11.65 - Type 2 diabetes mellitus with hyperglycemia Code(s): E11.65 - Type 2 diabetes mellitus with hyperglycemia Status: Acute Assessment and Plan: * hypoglycemia protocol * POC blood glucose ACHS * continued Jardiance, 20 units Lantus, * hold metformin 500 mg b.i.d. * correct regimen ordered: Medium dose corrective scale with meals * A1C on 10/07/2024 14.1 (6) CKD (chronic kidney disease): Qualifiers: Chronic kidney disease stage: unspecified stage Qualified Code(s): N18.9 - Chronic kidney disease, unspecified Code(s): N18.9 - Chronic kidney disease, unspecified Status: Acute Assessment and Plan: HX CKD 3 at baseline * trend renal function * trend electrolytes, correct as needed * avoid nephrotoxins (7) Blood blister: Code(s): T14.8XXA - Other injury of unspecified body region, initial encounter Status: Acute Assessment and Plan: Hemorrhagic blister on the plantar surface of his left great toe was noted. Are a is dry and intact. No drainage -monitor (8) Essential (primary) hypertension: Code(s): I10 - Essential (primary) hypertension Status: Chronic Assessment and Plan: BP soft * decreased home valsartan to 20 mg daily can increase back to 40 as BP tolerates * monitor BP per unit protocol Plan Code status: Full code per patient DVT prophylaxis: Eliquis Stress ulcer prophylaxis: Protonix 40 daily home medications PT/OT notes: PT/OT for SNF/Rehab Disposition: patient continues admission to the unit PT /OT due to acute chronic left tibial fracture. patient is a consult to Orthopedics plan for knee immobilizer and pain will need rehab services unable to perform his ADLs at baseline due to severe pain and decreased his mobility from previous baseline. CC consulted assisting with rehab at discharge. Time Spent With Patient Time with patient: 15 - 25 minutes Subjective Date/time seen: 12/22/24 13:47 Interval history: Patient is a 59 year old male admitted for further evaluation of acute on chronic left knee pain and back pain that has caused immobility from baseline. Imaging showing stable fracture deformity of the tibial plateau and try compartment. 12/22/2024: Patient resting comfortably in chair worked with PT with knee immobilizer in place reporting pain is better controlled with is reporting back pain/spasms no difficulty with this urination defecation. patient denied any chest pain, shortness of breath, vomiting, dizziness. Review of Systems Review of Systems: All systems reviewed & are unremarkable except as noted in HPI and below Exam Narrative: GENERAL: NAD, Pleasant male RESPIRATORY: Airway patent, respirations nonlabored. CARDIOVASCULAR: RRR GASTROINTESTINAL: Abdomen is soft and nontender. MUSCULOSKELETAL: Moves all extremities. Knee immobilizer to left. Bilateral +1 pedal edema. SKIN: Warm, dry, normal color. hemorrhagic blister along the plantar aspect of his left great toe. No drainage NEURO: A&O X4. Speech clear PSYCHIATRIC: Cooperative Objective Data Vital Signs Vital Signs: Vital Signs - 24 hr 12/21/24 13:58 12/21/24 15:12 12/21/24 15:38 Temperature 97.5 F L 97.5 F L 96.0 F L Pulse Rate 93 91 89 Respiratory Rate 15 16 18 Blood Pressure 97/60 L 94/60 L 96/62 L Pulse Oximetry 96 100 100 Oxygen Delivery 12/21/24 16:56 12/21/24 20:00 12/21/24 22:00 Temperature 97.5 F L Pulse Rate 97 Respiratory Rate 16 Blood Pressure 115/65 Pulse Oximetry 98 Oxygen Delivery Room Air Room Air 12/22/24 05:12 12/22/24 08:00 12/22/24 10:40 Temperature 97.1 F L Pulse Rate 80 Respiratory Rate 18 Blood Pressure 100/61 Pulse Oximetry 97 Oxygen Delivery Room Air Room Air 12/22/24 10:53 Temperature Pulse Rate Respiratory Rate Blood Pressure Pulse Oximetry Oxygen Delivery Room Air Intake/Output Intake/Output: Intake & Output 12/19/24 12/20/24 12/21/24 12/22/24 23:59 23:59 23:59 23:59 Intake Total 240 240 Output Total 300 Balance 240 -60 Meds/Results Medications: Active Medications Generic Name Dose Route Start Last Admin Trade Name Freq PRN Reason Stop Dose Admin Acetaminophen 650 mg 12/21/24 13:47 Acetaminophen 325 Mg Tablet PO Q4H PRN Mild Pain (1-3) or Fever Hydrocodone Bitart/Acetaminophen 1 tab 12/21/24 13:47 12/22/24 12:50 Hydrocodone/Acetaminophen (*Crx) 5-325 Mg Tablet PO 1 tab Q4H PRN Administration Pain Rated 4-6 Apixaban 5 mg 12/21/24 21:00 12/22/24 09:33 Apixaban 5 Mg Tablet PO 5 mg Q12HR DANICA Administration Atorvastatin Calcium 20 mg 12/22/24 09:00 12/22/24 09:33 Atorvastatin 20 Mg Tablet PO 20 mg DAILY DANICA Administration Dextrose 12.5 gm 12/21/24 13:47 Dextrose 50% 25 Gm/50 Ml Syringe IV PUSH PRN PRN Hypoglycemia Protocol Empagliflozin 10 mg 12/22/24 09:00 12/22/24 09:33 Empagliflozin 10 Mg Tablet PO 10 mg DAILY DANICA Administration Furosemide 40 mg 12/22/24 09:00 12/22/24 09:33 Furosemide 40 Mg Tablet PO 40 mg QAM DANICA Administration Glucagon 1 mg 12/21/24 13:47 Glucagon For Inj 1 Mg Vial IM PRN PRN Hypoglycemia Protocol Glucose 15 gm 12/21/24 13:47 Glucose Oral Gel 15 Gm Of Glucse In 37.5 Gm Tube PO PRN PRN Hypoglycemia Protocol Glycopyrrolate 4 mg 12/21/24 20:25 12/22/24 09:33 Glycopyrrolate 1 Mg Tablet PO 4 mg BID DANICA Administration Dextrose 1,000 mls @ 100 mls/hr 12/21/24 13:47 Dextrose 5% 1,000 Ml IVPB PRN PRN Hypoglycemia Protocol Insulin Aspart 3 - 6 units 12/22/24 08:00 12/22/24 12:18 Insulin Aspart (*Bkc) 100 Units/Ml SUB-Q Not Given TIDWM [facility] Protocol Lidocaine 1 patch 12/22/24 09:00 12/22/24 09:33 Lidocaine 5% Patch TOPICAL 1 patch DAILY DANICA Administration Methocarbamol 1,500 mg 12/21/24 19:57 12/22/24 13:24 Methocarbamol 750 Mg Tablet PO 1,500 mg TID PRN Administration Muscle Spasm Mirtazapine 15 mg 12/21/24 21:00 12/21/24 21:11 Mirtazapine 15 Mg Tablet PO 15 mg HS DANICA Administration Ondansetron HCl 4 mg 12/21/24 13:47 Ondansetron Inj 4 Mg/2 Ml Vial IV PUSH Q4H PRN Nausea Pantoprazole Sodium 40 mg 12/22/24 09:00 12/22/24 09:34 Pantoprazole 40 Mg Tablet PO 40 mg DAILY DANICA Administration Valsartan 40 mg 12/22/24 09:00 12/22/24 09:33 Valsartan 40 Mg Tablet PO 40 mg DAILY DANICA Administration Radiology Results: ITS Impressions Knee CT 12/21/24 10:32 IMPRESSION: 1. Stable old fracture deformity of lateral tibial plateau. 2. Mild tricompartmental osteoarthritis of the knee. 3. Small knee joint effusion. Toe X-Ray 12/21/24 15:52 IMPRESSION: 1. [No fracture or dislocation is evident in the left foot.] Labs Labs: Laboratory Results - last 24 hr 12/21/24 12/21/24 12/21/24 13:55 15:07 16:12 WBC 13.2 H RBC 4.03 L Hgb 11.3 L Hct 36.0 L MCV 89.3 MCH 28.0 MCHC 31.4 L RDW 13.0 Plt Count 670 H D MPV 8.2 Immature Gran % (Auto) 0.9 H Neut % (Auto) 70.6 Lymph % (Auto) 17.1 L Bradley % (Auto) 9.7 H Eos % (Auto) 1.4 Baso % (Auto) 0.3 Lymph # (Auto) 2.27 Bradley # (Auto) 1.3 H Eos # (Auto) 0.2 Baso # (Auto) 0.0 Abs Immat Gran (auto) 0.12 H Absolute Neuts (auto) 9.3 H Absolute Nucleated RBC 0.000 Nucleated RBC % 0.0 ESR 129 H Sodium 136 L Potassium 4.4 Chloride 101 Carbon Dioxide 21 L Anion Gap 14 H BUN 82 H D Creatinine 2.51 H Estim Creat Clear Calc 33 Estimated GFR 26 L Glucose 142 H POC Capillary Glucose 120 H Calcium 9.8 Phosphorus Total Bilirubin 0.6 AST 30 ALT 19 Alkaline Phosphatase 161 H C-Reactive Protein 26.2 H Total Protein 9.5 H Albumin 4.1 Urine Color Yellow Urine Appearance Clear Urine pH 5.0 Ur Specific [place] 1.023 Urine Protein 1+ H Urine Glucose (UA) Trace H Urine Ketones Trace H Ur Blood (Man) Negative Urine Nitrate Negative Urine Bilirubin Negative Urine Urobilinogen 0.2 Leukocyte Esterase Rfl Negative Urine RBC 0-2 Urine WBC 0-5 Ur Squamous Epith Cells None seen Urine Bacteria None seen Urine Casts 11-20 Hyaline Casts Present 12/22/24 12/22/24 12/22/24 06:25 07:20 11:29 WBC 10.6 H RBC 3.49 L Hgb 9.8 L Hct 31.2 L MCV 89.4 MCH 28.1 MCHC 31.4 L RDW 13.1 Plt Count 632 H MPV 8.3 Immature Gran % (Auto) Neut % (Auto) Lymph % (Auto) Bradley % (Auto) Eos % (Auto) Baso % (Auto) Lymph # (Auto) Bradley # (Auto) Eos # (Auto) Baso # (Auto) Abs Immat Gran (auto) Absolute Neuts (auto) Absolute Nucleated RBC Nucleated RBC % ESR Sodium 134 L Potassium 3.9 Chloride 101 Carbon Dioxide 20 L Anion Gap 13 H BUN 88 H Creatinine 2.19 H Estim Creat Clear Calc 38 Estimated GFR 31 L Glucose 187 H POC Capillary Glucose 153 H 149 H Calcium 9.3 Phosphorus 4.9 H Total Bilirubin AST ALT Alkaline Phosphatase C-Reactive Protein Total Protein Albumin 3.7 Urine Color Urine Appearance Urine pH Ur Specific [place] Urine Protein Urine Glucose (UA) Urine Ketones Ur Blood (Man) Urine Nitrate Urine Bilirubin Urine Urobilinogen Leukocyte Esterase Rfl Urine RBC Urine WBC Ur Squamous Epith Cells Urine Bacteria Urine Casts Hyaline Casts Quality VTE Prophylaxis VTE prophylaxis: pharmacologic ordered -Patient's previous records reviewed on admission -ER notes reviewed in detail on admission -discussed all findings and current treatment plan with patient/Family/POA -Consultations reviewed for recommendations -Patient's disposition for safe discharge discussed with caser up -radiology imaging, EKG and test results I have personally reviewed and interpreted unless otherwise specified Dictation performed by [employer] direct speech recognition software, therefore gas plant dispatcher variants and typographical errors may occur. Hospitalist MIPS Advance Care Plan I have confirmed that the patient's Advanced Care Plan is present, code status is documented, or surrogate decision maker is listed in patient medical record.: Yes Medication Reconciliation I have utilized all available resources to obtain, update and review the patients current medications (includes all prescriptions, OTC, herbals, cannabis, and nutritional supplements).: Yes The patient is not eligible for med reconciliation; the patient is in a emergent medical situation where delaying treatment would jeopardize the patients health.: No
[2024-12-22 13:56] VITALS: BP 105/66; PULSE 90; RESP 16; TEMP 35.7; O2SAT 98
--- NOTE | 2024-12-22 14:15 | PC.NURSE ---
Spoke with Lucio, spouse, on telephone. Update given. Breonna, in Care Coordination, notified per telephone of spouses request to be notified regarding rehab placement.
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
[2024-12-22 20:27] VITALS: BP 114/83; PULSE 84; RESP 18; TEMP 36.4; O2SAT 99
[2024-12-22 20:37] VITALS: PULSE 84; RESP 18; O2SAT 99
[2024-12-22] MEDS: MIRTAZAPINE 15 MG TABLET PO (20:37)
[2024-12-23] MEDS: HYDROcodone/acetaminophen (*CRX) 5-325 MG TABLET 1 TAB PO ×2 (05:04→20:46)
[2024-12-23 05:54] VITALS: BP 109/69; PULSE 80; RESP 18; TEMP 36.6; O2SAT 98
[2024-12-23 06:03] LABS: Hematocrit 30.9 % (42.0-52.0); Hemoglobin 9.8 g/dL (14.0-18.0); Mean Corpuscular HGB Conc 31.7 g/dl (32-36); Mean Corpuscular Hemoglobin 28.3 pg (26-34); Mean Corpuscular Volume 89.3 fl (80-100); Platelet Count Result 598 k/mm3 (150-375); Red Blood Count 3.46 M/mm3 (4.6-6.20); White Blood Count 9.6 K/mm3 (4.5-10.0)
[2024-12-23 06:32] LABS: Alanine Aminotransferase 18 U/L (6-50); Albumin Level 3.9 g/dL (3.5-5.1); Alkaline Phosphatase 117 U/L (38-126); Anion Gap 12 mmol/L (4-12); Aspartate Amino Transferase 44 U/L (17-59); Bilirubin,Total 0.7 mg/dL (0.2-1.3); Blood Urea Nitrogen 80 mg/dL (9-20); Calcium 9.4 mg/dL (8.4-10.2); Carbon Dioxide 21 mmol/L (22-30); Chloride 100 mmol/L (98-107); Estimated CRCL calculation 51 ml/min; Estimated Glomerular Filt Rate 44; Glucose 149 mg/dL (65-110); Magnesium 2.5 mg/dL (1.6-2.3); Potassium 4.5 mmol/L (3.4-5.0); Sodium 133 mmol/L (137-145); Total Protein 8.4 g/dL (6.3-8.2)
[2024-12-23 08:43] VITALS: BP 103/65; PULSE 84
[2024-12-23] MEDS: ATORVASTATIN 20 MG TABLET PO (08:44)
[2024-12-23] MEDS: APIXABAN 5 MG TABLET PO ×2 (08:44→20:44)
[2024-12-23] MEDS: FUROSEMIDE 40 MG TABLET PO (08:44)
[2024-12-23] MEDS: VALSARTAN 20 MG TABLET PO (08:44)
[2024-12-23] MEDS: EMPAGLIFLOZIN 10 MG TABLET PO (08:44)
[2024-12-23] MEDS: GLYCOPYRROLATE 1 MG TABLET 4 MG PO ×2 (08:44→17:18)
[2024-12-23] MEDS: LIDOCAINE 5% PATCH 1 PATCH TOPICAL (08:45)
[2024-12-23] MEDS: PANTOPRAZOLE 40 MG TABLET PO (08:45)
[2024-12-23] MEDS: INSULIN GLARGINE (*BKC) 100 UNITS/ML 20 UNITS SUB-Q (08:47)
--- NOTE | 2024-12-23 08:59 | P.PNIM_ITS ---
Progress Note: A&P Assessment and Plan (1) Closed fracture of lateral portion of tibial plateau: Code(s): S82.123A - Displaced fracture of lateral condyle of unspecified tibia, initial encounter for closed fracture Status: Acute Assessment and Plan: CT of the knee with stable old fracture deformity of the lateral tibial plateau, small knee joint effusion, and mild tricompartmental osteoarthritis of the knee. * Tylenol and [place] p.r.n. for pain * PT/OT consulted for rehab placement, patient agreeable to placement. Care coordination following. * ortho consulted recommended knee immobilizer and WBAT follow-up outpatient with orthopedics (2) Effusion of knee joint, left: Code(s): M25.462 - Effusion, left knee Status: Acute Assessment and Plan: Knee CT showed a small knee joint effusion Ortho consulted, no intervention required (3) Blood blister: Code(s): T14.8XXA - Other injury of unspecified body region, initial encounter Status: Acute Assessment and Plan: Hemorrhagic blister on the plantar surface of his left great toe was noted. Area is dry and intact. No drainage He has an ulcerated area due to Charcot's Foot. XR unremarkable -monitor (4) Low back pain: Qualifiers: Back pain laterality: left Chronicity: acute Sciatica presence: without sciatica Qualified Code(s): M54.50 - Low back pain, unspecified Code(s): M54.50 - Low back pain, unspecified Status: Acute Assessment and Plan: Patient with back pain/spasms previous lumbar CT 12/07/2024: no acute findings patient denies any incontinence or difficulty defecating * Tylenol and [place] p.r.n. * Continue Robaxin * PT/OT consult (5) Essential (primary) hypertension: Code(s): I10 - Essential (primary) hypertension Status: Chronic Assessment and Plan: Patient hypotensive on arrival with systolics in the 90s - Valsartan dose decreased to 20 mg daily (home dose 40 mg) - Blood pressures remain stable, continue to monitor (6) Type 2 diabetes mellitus with hyperglycemia: Qualifiers: Diabetes mellitus rn long term care insulin use: unspecified rn long term care insulin use status Qualified Code(s): E11.65 - Type 2 diabetes mellitus with hyperglycemia Code(s): E11.65 - Type 2 diabetes mellitus with hyperglycemia Status: Acute Assessment and Plan: * hypoglycemia protocol * POC blood glucose ACHS * continued Jardiance, 20 units Lantus, hold metformin 500 mg b.i.d. * correct regimen ordered: home lantus and mod corrective scale with meals * A1C on 10/07/2024 14.1 Glucose well controlled. Continue to monitor. (7) CKD (chronic kidney disease): Qualifiers: Chronic kidney disease stage: unspecified stage Qualified Code(s): N18.9 - Chronic kidney disease, unspecified Code(s): N18.9 - Chronic kidney disease, unspecified Status: Acute Assessment and Plan: HX CKD 3 at baseline * trend renal function * trend electrolytes, correct as needed * avoid nephrotoxins Time Spent With Patient Time with patient: 25 - 35 minutes Subjective Date/time seen: 12/23/24 08:59 Interval history: 59-year-old male with past medical history of HTN, hyperlipidemia, DMII, DIANA, left Charcot ankle, diffuse skeletal hyperostosis, DVT, GERD, lymphedema, right intratrochanteric fracture who presents to the hospital with complaints of back pain and left knee pain. Patient pleasant sitting up comfortably in his chair. He states the pain is well controlled on the current regimen. He denies any tingling/numbness/shooting pain in extremity. He continues to work well with therapy. Discussed with patient therapy is recommending placement for continued rehab. He states understanding agreeable with placement discharge. Patient has no other complaints chest pain, shortness breath, palpitations, nausea/vomiting, abdominal pain. Review of Systems Review of Systems: All systems reviewed & are unremarkable except as noted in HPI and below Exam Narrative: AF HR 84 RR 18 Spo2 98 BP 103/65 General: male in no acute respiratory distress who is nontoxic appearing, sitting up in chair with legs elevated HEENT: Normocephalic. Atraumatic. Extraocular movement intact. Sclera clear and anicteric. No facial asymmetry. Chest: Lungs are clear to auscultation bilaterally. No wheezes or crackles. CV: Heart was regular rate and rhythm. Abd: Abdomen was soft. Nontender. Nondistended. Positive bowel sounds. Ext: No clubbing, cyanosis, or edema. DP pulses bilaterally. Left knee with slight lateral tenderness on palpation. Neuro: Patient is alert. Speech is clear. Objective Data Vital Signs Vital Signs: Vital Signs - 24 hr 12/22/24 10:40 12/22/24 10:53 12/22/24 13:56 Temperature 96.2 F L Pulse Rate 90 Respiratory Rate 16 Blood Pressure 105/66 Pulse Oximetry 98 Oxygen Delivery Room Air Room Air 12/22/24 20:27 12/22/24 20:37 12/23/24 05:54 Temperature 97.5 F L 97.9 F Pulse Rate 84 84 80 Respiratory Rate 18 18 18 Blood Pressure 114/83 109/69 Pulse Oximetry 99 99 98 Oxygen Delivery Room Air 12/23/24 08:43 Temperature Pulse Rate 84 Respiratory Rate Blood Pressure 103/65 Pulse Oximetry Oxygen Delivery Intake/Output Intake/Output: Intake & Output 12/20/24 12/21/24 12/22/24 12/23/24 23:59 23:59 23:59 23:59 Intake Total 240 480 Output Total 300 925 Balance 240 180 -925 Meds/Results Medications: Active Medications Generic Name Dose Route Start Last Admin Trade Name Freq PRN Reason Stop Dose Admin Acetaminophen 650 mg 12/21/24 13:47 Acetaminophen 325 Mg Tablet PO Q4H PRN Mild Pain (1-3) or Fever Hydrocodone Bitart/Acetaminophen 1 tab 12/21/24 13:47 12/23/24 05:04 Hydrocodone/Acetaminophen (*Crx) 5-325 Mg Tablet PO 1 tab Q4H PRN Administration Pain Rated 4-6 Apixaban 5 mg 12/21/24 21:00 12/23/24 08:44 Apixaban 5 Mg Tablet PO 5 mg Q12HR DANICA Administration Atorvastatin Calcium 20 mg 12/22/24 09:00 12/23/24 08:44 Atorvastatin 20 Mg Tablet PO 20 mg DAILY DANICA Administration Dextrose 12.5 gm 12/21/24 13:47 Dextrose 50% 25 Gm/50 Ml Syringe IV PUSH PRN PRN Hypoglycemia Protocol Diazepam 5 mg 12/22/24 14:11 Diazepam Inj (*Crx) 10 Mg/2 Ml Syringe IV PUSH Q8HR PRN Muscle Spasm Empagliflozin 10 mg 12/22/24 09:00 12/23/24 08:44 Empagliflozin 10 Mg Tablet PO 10 mg DAILY DANICA Administration Furosemide 40 mg 12/22/24 09:00 12/23/24 08:44 Furosemide 40 Mg Tablet PO 40 mg QAM DANICA Administration Glucagon 1 mg 12/21/24 13:47 Glucagon For Inj 1 Mg Vial IM PRN PRN Hypoglycemia Protocol Glucose 15 gm 12/21/24 13:47 Glucose Oral Gel 15 Gm Of Glucse In 37.5 Gm Tube PO PRN PRN Hypoglycemia Protocol Glycopyrrolate 4 mg 12/21/24 20:25 12/23/24 08:44 Glycopyrrolate 1 Mg Tablet PO 4 mg BID DANICA Administration Dextrose 1,000 mls @ 100 mls/hr 12/21/24 13:47 Dextrose 5% 1,000 Ml IVPB PRN PRN Hypoglycemia Protocol Insulin Aspart 3 - 6 units 12/22/24 08:00 12/23/24 08:35 Insulin Aspart (*Bkc) 100 Units/Ml SUB-Q Not Given TIDWM DANICA Protocol Insulin Glargine 20 units 12/23/24 09:00 12/23/24 08:47 Insulin Glargine (*Bkc) 100 Units/Ml SUB-Q 20 units QAM DANICA Administration Lidocaine 1 patch 12/22/24 09:00 12/23/24 08:45 Lidocaine 5% Patch TOPICAL 1 patch DAILY DANICA Administration Methocarbamol 1,500 mg 12/21/24 19:57 12/23/24 08:45 Methocarbamol 750 Mg Tablet PO 1,500 mg TID PRN Administration Muscle Spasm Mirtazapine 15 mg 12/21/24 21:00 12/22/24 20:37 Mirtazapine 15 Mg Tablet PO 15 mg HS DANICA Administration Ondansetron HCl 4 mg 12/21/24 13:47 Ondansetron Inj 4 Mg/2 Ml Vial IV PUSH Q4H PRN Nausea Pantoprazole Sodium 40 mg 12/22/24 09:00 12/23/24 08:45 Pantoprazole 40 Mg Tablet PO 40 mg DAILY DANICA Administration Valsartan 20 mg 12/23/24 09:00 12/23/24 08:44 Valsartan 20 Mg Tablet PO 20 mg DAILY DANICA Administration Radiology Results: ITS Impressions Knee CT 12/21/24 10:32 IMPRESSION: 1. Stable old fracture deformity of lateral tibial plateau. 2. Mild tricompartmental osteoarthritis of the knee. 3. Small knee joint effusion. Toe X-Ray 12/21/24 15:52 IMPRESSION: 1. [No fracture or dislocation is evident in the left foot.] Labs Labs: Laboratory Results - last 24 hr 12/22/24 12/22/24 12/23/24 11:29 16:21 05:47 WBC 9.6 RBC 3.46 L Hgb 9.8 L Hct 30.9 L MCV 89.3 MCH 28.3 MCHC 31.7 L RDW 13.0 Plt Count 598 H MPV 8.2 Sodium 133 L Potassium 4.5 Chloride 100 Carbon Dioxide 21 L Anion Gap 12 BUN 80 H Creatinine 1.61 H Estim Creat Clear Calc 51 Estimated GFR 44 L Glucose 149 H POC Capillary Glucose 149 H 148 H Calcium 9.4 Magnesium 2.5 H Total Bilirubin 0.7 AST 44 ALT 18 Alkaline Phosphatase 117 Total Protein 8.4 H Albumin 3.9 Quality VTE Prophylaxis VTE prophylaxis: pharmacologic ordered
[2024-12-23 14:00] VITALS: BP 101/63; PULSE 89; RESP 14; TEMP 36.1; O2SAT 100
[2024-12-23] MEDS: MIRTAZAPINE 15 MG TABLET PO (20:44)
[2024-12-23 21:35] VITALS: BP 107/57; PULSE 80; RESP 16; TEMP 36.2; O2SAT 99
[2024-12-24] MEDS: HYDROcodone/acetaminophen (*CRX) 5-325 MG TABLET 1 TAB PO (03:24)
[2024-12-24 05:51] LABS: Hematocrit 31.5 % (42.0-52.0); Hemoglobin 10.0 g/dL (14.0-18.0); Mean Corpuscular HGB Conc 31.7 g/dl (32-36); Mean Corpuscular Hemoglobin 28.4 pg (26-34); Mean Corpuscular Volume 89.5 fl (80-100); Platelet Count Result 604 k/mm3 (150-375); Red Blood Count 3.52 M/mm3 (4.6-6.20); White Blood Count 9.6 K/mm3 (4.5-10.0)
[2024-12-24 06:00] VITALS: BP 99/63; PULSE 92; RESP 18; TEMP 36.4; O2SAT 96
[2024-12-24 06:17] LABS: Alanine Aminotransferase 20 U/L (6-50); Albumin Level 3.8 g/dL (3.5-5.1); Alkaline Phosphatase 136 U/L (38-126); Anion Gap 12 mmol/L (4-12); Aspartate Amino Transferase 31 U/L (17-59); Bilirubin,Total 0.4 mg/dL (0.2-1.3); Blood Urea Nitrogen 68 mg/dL (9-20); Calcium 9.5 mg/dL (8.4-10.2); Carbon Dioxide 22 mmol/L (22-30); Chloride 102 mmol/L (98-107); Estimated CRCL calculation 53 ml/min; Estimated Glomerular Filt Rate 46; Glucose 195 mg/dL (65-110); Magnesium 2.4 mg/dL (1.6-2.3); Potassium 4.1 mmol/L (3.4-5.0); Sodium 136 mmol/L (137-145); Total Protein 8.1 g/dL (6.3-8.2)
--- NOTE | 2024-12-24 08:47 | P.PNIM_ITS ---
Progress Note: A&P Assessment and Plan (1) Closed fracture of lateral portion of tibial plateau: Code(s): S82.123A - Displaced fracture of lateral condyle of unspecified tibia, initial encounter for closed fracture Status: Acute Assessment and Plan: CT of the knee with stable old fracture deformity of the lateral tibial plateau, small knee joint effusion, and mild tricompartmental osteoarthritis of the knee. * Tylenol and [place] p.r.n. for pain * PT/OT consulted for rehab placement, patient agreeable to placement. Care coordination following. * ortho consulted recommended knee immobilizer and WBAT follow-up outpatient with orthopedics (2) Effusion of knee joint, left: Code(s): M25.462 - Effusion, left knee Status: Acute Assessment and Plan: Knee CT showed a small knee joint effusion Ortho consulted, no intervention required (3) Blood blister: Code(s): T14.8XXA - Other injury of unspecified body region, initial encounter Status: Acute Assessment and Plan: Hemorrhagic blister on the plantar surface of his left great toe was noted. Area is dry and intact. No drainage He has an ulcerated area due to Charcot's Foot. XR unremarkable -monitor (4) Low back pain: Qualifiers: Back pain laterality: left Chronicity: acute Sciatica presence: without sciatica Qualified Code(s): M54.50 - Low back pain, unspecified Code(s): M54.50 - Low back pain, unspecified Status: Acute Assessment and Plan: Patient with back pain/spasms previous lumbar CT 12/07/2024: no acute findings patient denies any incontinence or difficulty defecating * Tylenol and [place] p.r.n. 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 * correct regimen ordered: home lantus and mod corrective scale with meals * A1C on 10/07/2024 14.1 Glucose well controlled. Continue to monitor. (7) CKD (chronic kidney disease): Qualifiers: Chronic kidney disease stage: unspecified stage Qualified Code(s): N18.9 - Chronic kidney disease, unspecified Code(s): N18.9 - Chronic kidney disease, unspecified Status: Acute Assessment and Plan: HX CKD 3 at baseline * trend renal function * trend electrolytes, correct as needed * avoid nephrotoxins Time Spent With Patient Time with patient: 25 - 35 minutes Subjective Date/time seen: 12/24/24 08:47 Interval history: 59-year-old male with past medical history of HTN, hyperlipidemia, DMII, DIANA, left Charcot ankle, diffuse skeletal hyperostosis, DVT, GERD, lymphedema, right intratrochanteric fracture who presents to the hospital with complaints of back pain and left knee pain. Review of Systems Review of Systems: All systems reviewed & are unremarkable except as noted in HPI and below Exam Narrative: AF HR General: male in no acute respiratory distress who is nontoxic appearing, sitting up in chair with legs elevated HEENT: Normocephalic. Atraumatic. Extraocular movement intact. Sclera clear and anicteric. No facial asymmetry. Chest: Lungs are clear to auscultation bilaterally. No wheezes or crackles. CV: Heart was regular rate and rhythm. Abd: Abdomen was soft. Nontender. Nondistended. Positive bowel sounds. Ext: No clubbing, cyanosis, or edema. DP pulses bilaterally. Left knee with slight lateral tenderness on palpation. Neuro: Patient is alert. Speech is clear. Objective Data Vital Signs Vital Signs: Vital Signs - 24 hr 12/23/24 14:00 12/23/24 20:44 12/23/24 21:35 Temperature 97.0 F L 97.2 F L Pulse Rate 89 80 Respiratory Rate 14 16 Blood Pressure 101/63 107/57 L Pulse Oximetry 100 99 Oxygen Delivery Room Air 12/24/24 06:00 Temperature 97.6 F Pulse Rate 92 Respiratory Rate 18 Blood Pressure 99/63 L Pulse Oximetry 96 Oxygen Delivery Intake/Output Intake/Output: Intake & Output 10/13/12/22/24 12/23/24 12/24/24 23:59 23:59 23:59 23:59 Intake Total 240 480 240 150 Output Total 300 1550 425 Balance 240 180 -1310 -275 Meds/Results Medications: Active Medications Generic Name Dose Route Start Last Admin Trade Name Freq PRN Reason Stop Dose Admin Acetaminophen 650 mg 12/21/24 13:47 Acetaminophen 325 Mg Tablet PO Q4H PRN Mild Pain (1-3) or Fever Hydrocodone Bitart/Acetaminophen 1 tab 12/21/24 13:47 12/24/24 03:24 Hydrocodone/Acetaminophen (*Crx) 5-325 Mg Tablet PO 1 tab Q4H PRN Administration Pain Rated 4-6 Apixaban 5 mg 12/21/24 21:00 12/23/24 20:44 Apixaban 5 Mg Tablet PO 5 mg Q12HR DANICA Administration Atorvastatin Calcium 20 mg 12/22/24 09:00 12/23/24 08:44 Atorvastatin 20 Mg Tablet PO 20 mg DAILY DANICA Administration Dextrose 12.5 gm 12/21/24 13:47 Dextrose 50% 25 Gm/50 Ml Syringe IV PUSH PRN PRN Hypoglycemia Protocol Empagliflozin 10 mg 12/22/24 09:00 12/23/24 08:44 Empagliflozin 10 Mg Tablet PO 10 mg DAILY DANICA Administration Furosemide 40 mg 12/22/24 09:00 12/23/24 08:44 Furosemide 40 Mg Tablet PO 40 mg QAM DANICA Administration Glucagon 1 mg 12/21/24 13:47 Glucagon For Inj 1 Mg Vial IM PRN PRN Hypoglycemia Protocol Glucose 15 gm 12/21/24 13:47 Glucose Oral Gel 15 Gm Of Glucse In 37.5 Gm Tube PO PRN PRN Hypoglycemia Protocol Glycopyrrolate 4 mg 12/21/24 20:25 12/23/24 17:18 Glycopyrrolate 1 Mg Tablet PO 4 mg BID DANICA Administration Dextrose 1,000 mls @ 100 mls/hr 12/21/24 13:47 Dextrose 5% 1,000 Ml IVPB PRN PRN Hypoglycemia Protocol Insulin Aspart 3 - 6 units 12/22/24 08:00 12/24/24 08:46 Insulin Aspart (*Bkc) 100 Units/Ml SUB-Q Not Given TIDWM DANICA Protocol Insulin Glargine 20 units 12/23/24 09:00 12/23/24 08:47 Insulin Glargine (*Bkc) 100 Units/Ml SUB-Q 20 units QAM DANICA Administration Lidocaine 1 patch 12/22/24 09:00 12/23/24 08:45 Lidocaine 5% Patch TOPICAL 1 patch DAILY DANICA Administration Methocarbamol 1,500 mg 12/21/24 19:57 12/24/24 03:25 Methocarbamol 750 Mg Tablet PO 1,500 mg TID PRN Administration Muscle Spasm Mirtazapine 15 mg 12/21/24 21:00 12/23/24 20:44 Mirtazapine 15 Mg Tablet PO 15 mg HS DANICA Administration Ondansetron HCl 4 mg 12/21/24 13:47 Ondansetron Inj 4 Mg/2 Ml Vial IV PUSH Q4H PRN Nausea Pantoprazole Sodium 40 mg 12/22/24 09:00 12/23/24 08:45 Pantoprazole 40 Mg Tablet PO 40 mg DAILY DANICA Administration Valsartan 20 mg 12/23/24 09:00 12/23/24 08:44 Valsartan 20 Mg Tablet PO 20 mg DAILY DANICA Administration Radiology Results: ITS Impressions Knee CT 12/21/24 10:32 IMPRESSION: 1. Stable old fracture deformity of lateral tibial plateau. 2. Mild tricompartmental osteoarthritis of the knee. 3. Small knee joint effusion. Toe X-Ray 12/21/24 15:52 IMPRESSION: 1. [No fracture or dislocation is evident in the left foot.] Labs Labs: Laboratory Results - last 24 hr 12/23/24 12/23/24 12/23/24 12:12 16:52 21:31 WBC RBC Hgb Hct MCV MCH MCHC RDW Plt Count MPV Sodium Potassium Chloride Carbon Dioxide Anion Gap BUN Creatinine Estim Creat Clear Calc Estimated GFR Glucose POC Capillary Glucose 158 H 197 H 195 H Calcium Magnesium Total Bilirubin AST ALT Alkaline Phosphatase Total Protein Albumin 12/24/24 12/24/24 05:27 07:40 WBC 9.6 RBC 3.52 L Hgb 10.0 L Hct 31.5 L MCV 89.5 MCH 28.4 MCHC 31.7 L RDW 12.9 Plt Count 604 H MPV 8.2 Sodium 136 L Potassium 4.1 Chloride 102 Carbon Dioxide 22 Anion Gap 12 BUN 68 H D Creatinine 1.54 H Estim Creat Clear Calc 53 Estimated GFR 46 L Glucose 195 H POC Capillary Glucose 179 H Calcium 9.5 Magnesium 2.4 H Total Bilirubin 0.4 AST 31 ALT 20 Alkaline Phosphatase 136 H Total Protein 8.1 Albumin 3.8 Quality VTE Prophylaxis VTE prophylaxis: pharmacologic ordered
[2024-12-24 08:49] VITALS: BP 108/74; PULSE 86
[2024-12-24] MEDS: EMPAGLIFLOZIN 10 MG TABLET PO (08:50)
[2024-12-24] MEDS: FUROSEMIDE 40 MG TABLET PO (08:50)
[2024-12-24] MEDS: LIDOCAINE 5% PATCH 1 PATCH TOPICAL (08:50)
[2024-12-24] MEDS: GLYCOPYRROLATE 1 MG TABLET 4 MG PO (08:50)
[2024-12-24] MEDS: APIXABAN 5 MG TABLET PO (08:50)
[2024-12-24] MEDS: ATORVASTATIN 20 MG TABLET PO (08:50)
[2024-12-24] MEDS: PANTOPRAZOLE 40 MG TABLET PO (08:51)
[2024-12-24] MEDS: INSULIN GLARGINE (*BKC) 100 UNITS/ML 20 UNITS SUB-Q (08:53)
[2024-12-24] MEDS: INSULIN ASPART (*BKC) 100 UNITS/ML SUB-Q (12:17)
[2024-12-24 14:00] VITALS: BP 108/67; PULSE 97; RESP 16; TEMP 36.6; O2SAT 100
--- NOTE | 2024-12-24 15:50 | P.DS_ITS ---
DS: Admitting Diagnosis Discharge Date 12/24/2024 Admitting Diagnosis closed fracture of lateral portion of tibial plateau effusion of knee joint, left Blood blister Low back pain Essential hypertension Type 2 diabetes CKD DS: Discharge Diagnosis Discharge Diagnosis (1) Closed fracture of lateral portion of tibial plateau: Code(s): S82.123A - Displaced fracture of lateral condyle of unspecified tibia, initial encounter for closed fracture Status: Acute (2) Effusion of knee joint, left: Code(s): M25.462 - Effusion, left knee Status: Acute (3) Blood blister: Code(s): T14.8XXA - Other injury of unspecified body region, initial encounter Status: Acute (4) Low back pain: Qualifiers: Back pain laterality: left Chronicity: acute Sciatica presence: without sciatica Qualified Code(s): M54.50 - Low back pain, unspecified Code(s): M54.50 - Low back pain, unspecified Status: Acute (5) Essential (primary) hypertension: Code(s): I10 - Essential (primary) hypertension Status: Chronic (6) Type 2 diabetes mellitus with hyperglycemia: Qualifiers: Diabetes mellitus detention insulin use: unspecified detention insulin use status Qualified Code(s): E11.65 - Type 2 diabetes mellitus with hyperglycemia Code(s): E11.65 - Type 2 diabetes mellitus with hyperglycemia Status: Acute (7) CKD (chronic kidney disease): Qualifiers: Chronic kidney disease stage: unspecified stage Qualified Code(s): N18.9 - Chronic kidney disease, unspecified Code(s): N18.9 - Chronic kidney disease, unspecified Status: Acute DS: Summary Hospital Course Reason for hospitalization: closed fracture of lateral portion of tibial plateau effusion of knee joint, left Blood blister Low back pain Essential hypertension Type 2 diabetes CKD Hospital Course: 59-year-old male with past medical history of HTN, hyperlipidemia, DMII, DIANA, left Charcot ankle, diffuse skeletal hyperostosis, DVT, GERD, lymphedema, right intratrochanteric fracture who presents to the hospital with complaints of back pain and left knee pain. CT showed stable old fracture deformity of the lateral tibial plateau, small knee joint effusion, and mild tricompartmental osteoarthritis of the knee. Ortho consulted and recommended a dc of the left knee immobilizer, weight bearing as tolerated and follow up with the foot/ankle surgeon as previously set up in [facility]. Patient also noted to have a hemorrhagic blister on the plantar surface of his left great toe was noted. Area is dry, intact and has drainage. Per ortho this is an ulcerated area due to Charcot's Foot. XR unremarkable. No intervention required at this time. Physical therapy was originally recommending acute rehab however per care coordination insurance has denied. Patient is on agreeable to SNF placement. Patient did have improvement with physical therapy today. He states that his pain is well controlled and states that he feels he is able to care for himself at home. He denies any dizziness/lightheadedness with ambulation. Discussed with patient he is agreeable with outpatient physical therapy. Scripts were sent as discharge. Throughout discharge patient was noted to be hypotensive into the 90s systolic. Attempted to lower patient's valsartan dose however he continued to be hypotensive. Discussed with patient that he is to hold the valsartan until follow-up with his primary care provider and record his blood pressures daily. He states understanding. Patient states he is back to his baseline and is ready for discharge at this time. He has no complaints denying chest pain, shortness of breath, palpitations, nausea/vomiting, abdominal pain, and dizziness/lightheadedness. Patient discharged home with outpatient PT in a stable condition. he is to follow up with pcp in 1 week. Status at Discharge Functional status at discharge: uses cane/walker Time Spent with Patient Time attestation: Total time spent providing and/or coordinating discharge services: Time spent: Less than 30 minutes Exam Narrative: AF HR 97 RR 16 SPo2 100 BP 108/67 General: male in no acute respiratory distress who is nontoxic appearing, sitting up in chair HEENT: Normocephalic. Atraumatic. Extraocular movement intact. Sclera clear and anicteric. No facial asymmetry. Chest: Lungs are clear to auscultation bilaterally. No wheezes or crackles. CV: Heart was regular rate and rhythm. Abd: Abdomen was soft. Nontender. Nondistended. Positive bowel sounds. Ext: No clubbing, cyanosis, or edema. DP pulses bilaterally. No pain with ROM. Neuro: Patient is alert. Speech is clear. DS: Data Data Completed and Pending Completed studies during hospitalization: toe xr toe xr knee ct Labs on day of discharge: Labs from last 24 hours 12/24/24 12/24/24 12/24/24 11:42 07:40 05:27 WBC 9.6 RBC 3.52 L Hgb 10.0 L Hct 31.5 L MCV 89.5 MCH 28.4 MCHC 31.7 L RDW 12.9 Plt Count 604 H MPV 8.2 Sodium 136 L Potassium 4.1 Chloride 102 Carbon Dioxide 22 Anion Gap 12 BUN 68 H D Creatinine 1.54 H Estim Creat Clear Calc 53 Estimated GFR 46 L Glucose 195 H POC Capillary Glucose 205 H 179 H Calcium 9.5 Magnesium 2.4 H Total Bilirubin 0.4 AST 31 ALT 20 Alkaline Phosphatase 136 H Total Protein 8.1 Albumin 3.8 12/23/24 12/23/24 21:31 16:52 WBC RBC Hgb Hct MCV MCH MCHC RDW Plt Count MPV Sodium Potassium Chloride Carbon Dioxide Anion Gap BUN Creatinine Estim Creat Clear Calc Estimated GFR Glucose POC Capillary Glucose 195 H 197 H Calcium Magnesium Total Bilirubin AST ALT Alkaline Phosphatase Total Protein Albumin Discharge Plan Discharge Attending physician on discharge: Lory Perry Consulting providers: Manish Menendez; Kaleigh Hdz Discharging Clinician: Kaleigh Hdz Anticipated Discharge Date/Time: 12/24/24 13:19 Patient Disposition: Home Activity: as tolerated Diet: as tolerated and diabetic Discharge Instructions: Discharge disposition: Patient admitted to the hospital for left knee pain Imaging shows a stable old fracture to the lateral tibial plateau Evaluated by Orthopedics and no acute surgical intervention required Continue working with physical therapy, attached is an outpatient script for continued therapy Take medications as prescribed Tylenol and oxycodone as needed for break throughpain Attached is information on oxycodone Do not drive or operate heavy machinery on this medication Attached is information to the orthopedic office if pain continues During admission patient was noted to have lower blood pressures Continue holding the valsartan until follow up with primary care provider Monitor blood pressures, record daily blood pressures Take caution while standing, rising, or moving Change positions slowly taking a break between each position change If you standing feel dizzy sit back down and take a break Encouraged to continue with yearly vaccinations Return to the emergency department if he developed sudden shortness of breath, chest pain, nausea, vomiting, upset stomach or intractable diarrhea Return to the emergency department if you develop fever greater than 100.5 Follow-up with the primary care physician within 1-2 weeks Thank you for choosing [facility] for your healthcare needs Patient Instructions: Oxycodone, Rapid Release (By mouth) Patient Language: Syrian Stand Alone Forms: General Discharge Information Follow-up/Referrals: Mansih Menendez MD [Physician, Orthopedics] Pantera Seth MD [Primary Care Provider, Family Practice] - 1 Week Discharge Medications: New acetaminophen 500 mg capsule 1,000 mg PO Q6H PRN (Reason: pain) Qty: 30 0RF oxycodone 5 mg tablet 5 mg PO Q8H PRN (Reason: pain) Qty: 14 0RF acetaminophen 500 mg capsule 1,000 mg PO Q6H PRN (Reason: pain) Qty: 30 0RF oxycodone 5 mg tablet 5 mg PO Q8H PRN (Reason: pain) Qty: 14 0RF Continued Jardiance 10 mg tablet 10 mg PO DAILY Qty: 90 0RF Eliquis 5 mg tablet 5 mg PO BID Qty: 60 0RF atorvastatin [Lipitor] 20 mg tablet 20 mg PO DAILY Qty: 90 3RF (DME) blood-glucose meter [OneTouch Verio Flex meter] Misc Qty: 1 0RF Rx Instructions: May substitute to in-stock meter and/or covered by insurance. Use As Directed Monitor glucose twice a day (DME) OneTouch Verio test strips Strip Qty: 1 0RF Rx Instructions: May substitute to in-stock and/or covered by insurance strips. Use As Directed Monitor glucose ACHS insulin glargine 100 unit/mL (3 mL) insulin pen 20 unit subcut QAM Qty: 15 0RF (DME) pen needle, diabetic 32 gauge x 5/32 needle Qty: 1 0RF Rx Instructions: As Directed (DME) lancets [OneTouch Delica Plus Lancet] 30 gauge misc Qty: 1 0RF Rx Instructions: May substitute to in-stock and/or covered by insurance lancets. Use As Directed hydrocodone-acetaminophen 5-325 mg tablet 1 tablet PO Q6H PRN (Reason: pain) Qty: 12 0RF methocarbamol 750 mg tablet 1,500 mg PO TID PRN (Reason: muscle spasm) Qty: 10 0RF lidocaine 5 % adhesive patch,medicated 1 patch topical DAILY Qty: 15 0RF Rx Instructions: leave on most painful area for up to 12 hrs mirtazapine 15 mg tablet 15 mg PO HS Qty: 30 2RF pantoprazole 40 mg tablet,delayed release (DR/EC) 40 mg PO DAILY Qty: 30 5RF glycopyrrolate 2 mg tablet See Rx Instructions .ROUTE .COMPLEX Qty: 360 0RF Dose Instruction: TAKE 2 TABLETS BY MOUTH TWICE DAILY Rx Instructions: TAKE 2 TABLETS BY MOUTH TWICE DAILY furosemide 40 mg tablet 40 mg PO QAM Qty: 30 2RF metformin 500 mg tablet extended release 24 hr See Rx Instructions .ROUTE .COMPLEX Qty: 360 0RF Dose Instruction: TAKE 2 TABLETS BY MOUTH TWICE DAILY Rx Instructions: TAKE 2 TABLETS BY MOUTH TWICE DAILY Held valsartan 40 mg tablet 40 mg PO DAILY Qty: 30 5RF Hold Instructions: Resume on 01/09/25. Hold until follow up with PCP. Other Ambulatory Orders: PT Outpatient Eval and Treat (ONCE) Timeframe: [id number] Location: Determined by Patient Ordered By: Kaleigh Hdz Date of admission: 12/21/24 13:47 Primary Care Provider: Pantera Seth Admitting Provider: Carroll Sam Attending physician on admission: Carroll Sam Condition: Stable Hospitalist MIPS Heart Failure (Exclusion) Patient has history of Heart Transplant or Left Ventricular Assistive Device?: No IF YES, STOP HERE Heart Failure (Qualifier) Patient has current or prior documentation of LVEF less than or equal to 40%, or mod/servere depressed LVSF?: No IF NO, STOP HERE
== END 2024-12-24 16:11 | disposition home or self-care (01) ==
LOC: ANHED 11:01 → ANH3MEDSUR 12-22 05:40
PROVIDERS: Nurse Practitioner Adult Health; Nurse Practitioner Family; Admitting Provider General Practice; Emergency Provider Student in an Organized Health Care Education/Training Program; PCP Family Medicine Adolescent Medicine; Visit Provider Internal Medicine
DX: S82.122A Displaced fracture of lateral condyle of left tibia, initial encounter for closed fracture (principal); M25.462 Effusion, left knee; M17.12 Unilateral primary osteoarthritis, left knee; E11.65 Type 2 diabetes mellitus with hyperglycemia; M54.50 Low back pain, unspecified; S90.422A Blister (nonthermal), left great toe, initial encounter; N18.30 Chronic kidney disease, stage 3 unspecified; R42 Dizziness and giddiness; A52.16 Charcot's arthropathy (tabetic); I12.9 Hypertensive chronic kidney disease with stage 1 through stage 4 chronic kidney disease, or unspecified chronic kidney disease; K21.9 Gastro-esophageal reflux disease without esophagitis; E11.22 Type 2 diabetes mellitus with diabetic chronic kidney disease; E78.5 Hyperlipidemia, unspecified; G47.33 Obstructive sleep apnea (adult) (pediatric); Z87.891 Personal history of nicotine dependence; Z79.4 Long term (current) use of insulin; Z86.718 Personal history of other venous thrombosis and embolism; Z79.01 Long term (current) use of anticoagulants
CPT/HCPCS: 36415; 73660; 73700; 80053; 80069; 81001; 82948; 83735; 85025; 85027; 85652; 86140; 97110; 97116; 97161; 97166; 97530; 97535; 99285; A9270; G0378; J1815